=== PATIENT | female | born 1950 ===

== ENCOUNTER 2020-04-28 11:25 | Outpatient (REF) | payer MEDICARE, SELFPAY ==
--- NOTE | 2020-04-28 11:33 | XR_ITS ---
EXAMINATION: XR KNEE, RIGHT XR KNEE, LEFT CLINICAL INFORMATION: Bilateral knee pain COMPARISON: Bilateral knee radiographs 11/20/2017. TECHNIQUE: Each knee is imaged in 4 views for a total of 8 views. Series includes AP projections with weightbearing. FINDINGS: Right knee: There is no fracture or dislocation or destructive process. No definite suprapatellar effusion. There is spurring at the quadriceps insertion patella. Hoffa's fat pad appears normal. There is no knee joint compartment narrowing or erosive change or chondrocalcinosis. No patella lateralization or tilting appreciated. Left knee: There is a intramedullary kit left femur with 3 distal interlocking screws. Oblique fracture line femoral shaft distal faintly visible. There is no definite suprapatellar effusion. Hoffa's fat pad appears normal. There is no knee joint compartment narrowing or erosive change or chondrocalcinosis. Axial view patella shows no definite lateralization or tilting. XR/XR knee RT 4V IMPRESSION: 1. Right: No definite joint narrowing. Spurring quadriceps insertion patella. 2. Left knee: Status post reduction internal fixation femoral shaft fracture. Visualized hardware intact. No definite joint narrowing.
--- NOTE | 2020-04-28 11:33 | XR_ITS ---
EXAMINATION: XR KNEE, RIGHT XR KNEE, LEFT CLINICAL INFORMATION: Bilateral knee pain COMPARISON: Bilateral knee radiographs 11/20/2017. TECHNIQUE: Each knee is imaged in 4 views for a total of 8 views. Series includes AP projections with weightbearing. FINDINGS: Right knee: There is no fracture or dislocation or destructive process. No definite suprapatellar effusion. There is spurring at the quadriceps insertion patella. Hoffa's fat pad appears normal. There is no knee joint compartment narrowing or erosive change or chondrocalcinosis. No patella lateralization or tilting appreciated. Left knee: There is a intramedullary kit left femur with 3 distal interlocking screws. Oblique fracture line femoral shaft distal faintly visible. There is no definite suprapatellar effusion. Hoffa's fat pad appears normal. There is no knee joint compartment narrowing or erosive change or chondrocalcinosis. Axial view patella shows no definite lateralization or tilting. XR/XR knee LT 4V IMPRESSION: 1. Right: No definite joint narrowing. Spurring quadriceps insertion patella. 2. Left knee: Status post reduction internal fixation femoral shaft fracture. Visualized hardware intact. No definite joint narrowing.
== END 2020-04-28 11:26 | disposition home or self-care (01) ==
LOC: HO.XRAY 11:25
PROVIDERS: PCP Internal Medicine; Visit Provider Internal Medicine
DX: M25.561 Pain in right knee (principal); M25.562 Pain in left knee
CPT/HCPCS: 73564

== ENCOUNTER 2020-05-03 12:06 | Outpatient (REF) | payer MEDICARE, SELFPAY ==
[2020-05-03 13:54] LABS: Alanine Aminotransferase 17 U/L (0-31); Albumin Level 4.3 g/dL (3.5-5.0); Alkaline Phosphatase 86 U/L (39-117); Anion Gap 12 (12-20); Aspartate Amino Transferase 19 U/L (5-31); Bilirubin Total 0.4 mg/dL (0.0-1.0); Blood Urea Nitrogen 19 mg/dL (9-16); Calcium 9.4 mg/dL (8.4-10.2); Carbon Dioxide 29 mmol/L (22-29); Chloride 104 mmol/L (96-108); Cholesterol 179 mg/dL; Estimated Glomerular Filt Rate > 60; Glucose Fasting 93 mg/dL (60-99); HDL Cholesterol 36 mg/dL; LDL Cholesterol Calculated 104 mg/dl; Potassium 4.6 mmol/l (3.3-5.1); Sodium 140 mmol/L (135-145); Total Protein 7.3 g/dL (6.5-8.0); Triglycerides 196 mg/dL
== END 2020-05-03 12:07 | disposition home or self-care (01) ==
LOC: HO.LAB 12:06
PROVIDERS: Visit Provider Internal Medicine
DX: I10 Essential (primary) hypertension (principal)
CPT/HCPCS: 80053; 80061

== ENCOUNTER 2020-06-14 11:46 | Outpatient (REF) | payer MEDICARE, SELFPAY ==
--- NOTE | 2020-06-14 11:53 | XR_ITS ---
EXAMINATION: XR SHOULDER, LEFT CLINICAL INFORMATION: Pain left shoulder. COMPARISON: None TECHNIQUE: AP external rotation, Grashey, scapular Y, and axillary views of the left shoulder. FINDINGS: The glenohumeral joint space is maintained normal. There is minimal loss of left AC joint space with periarticular spurring. No acute fracture, dislocation or subluxation seen. The soft tissues are normal. XR/XR shoulder LT min 2V IMPRESSION: Mild degenerative changes left AC joint with periarticular inferior spurring. No visible acute fracture, dislocation or subluxation seen.
== END 2020-06-14 11:47 | disposition home or self-care (01) ==
LOC: HO.XRAY 11:46
PROVIDERS: PCP Internal Medicine; Visit Provider Internal Medicine
DX: M25.512 Pain in left shoulder (principal)
CPT/HCPCS: 73030

== ENCOUNTER 2020-07-17 10:00 | Outpatient (RCR) | payer MEDICARE, SELFPAY | END 2020-07-17 13:45 | disposition other institution (70) | LOC: HO.PT 10:00 | PROVIDERS: PCP Internal Medicine; Visit Provider Physical Therapist | DX: Z47.89 Encounter for other orthopedic aftercare (principal) | CPT/HCPCS: 97110; 97116; 97140; 97162; 97164; 97530 ==

== ENCOUNTER 2020-08-21 11:26 | Outpatient (REF) | payer MEDICARE, SELFPAY | END 2020-08-21 11:27 | disposition home or self-care (01) | LOC: HO.LAB 11:26 | PROVIDERS: Visit Provider Internal Medicine | DX: Z20.822 Contact with and (suspected) exposure to COVID-19 (principal) | CPT/HCPCS: 36415; C9803; U0003; U0005 ==

== ENCOUNTER → 2020-08-30 09:28 | Outpatient (BNVA) | payer MEDICARE, SELFPAY | PROVIDERS: Visit Provider Orthopaedic Surgery | DX: S46.002A Unspecified injury of muscle(s) and tendon(s) of the rotator cuff of left shoulder, initial encounter (principal) | CPT/HCPCS: 20610; 99202; J1040 ==

== ENCOUNTER 2020-10-06 11:00 | Outpatient (RCR) | payer MEDICARE, SELFPAY ==
[2020-09-08 10:08] VITALS: BP 118/60; PULSE 63
--- NOTE | 2020-09-08 10:58 | MHC.PT.EP ---
[facility] [place] Office [place] Office [place] Office [address] Alicia Vela [address] [phone] F: [phone] F: [phone] F: [phone] F: [phone] Physical Therapy Plan of Care Date of Evaluation: 09/08/20 Date of Surgery: NA Diagnosis: Unspecified injury of muscles ad tendons of rotator cuff of L shoulder, initial encounter Assessment: 70 year old female referred for Unspecified injury of muscles ad tendons of rotator cuff of L shoulder, initial encounter . Pt reports of having sudden onset of pain following a fall on outstretched arm about 6 months back. She has past history shoulder rotator cuff surgery. Examination reveals 7/10 pain with shoulder movements, decreased shoulder ROM, decreased shoulder and scap strengthening, and altered posture. She would benefit from therapy to address to above mentioned impairments to increase her tolerance to self care activities like dressing upper body and IADLS like cleaning, cooking and grocery shopping and returning to PLOF. Frequency and Duration: The patient will be seen 2/week for 6 weeks Short Term Goals: 1. Pt will have 50% decrease in pain which will enable her to sleep through the night in 2 weeks 2. Pt will demonstrate improvements in shoulder ROM which will help her perform self care activities with a pain no more than 2/10 in 3 weeks. Intermediate Goals: 1. Pt will demonstrate an increase in muscle strength by 1 grade which will enable her to perform IADLS like cleaning, grocery shopping and cooking in 5 weeks. 2. Pt will be independent with all HEP for symptom management and maintenance following d/c in 6 weeks. Treatment Plan: Modalities to reduce pain, spasms and effusion. Manual therapy to restore motion and function. Therapeutic exercise to improve strength and flexibility. Neuromuscular re-education for posture and balance. Therapeutic activities to return to functional activities of daily living. Electronically signed by: Ivone Walter, PT, DPT Please sign and return to therapist. Thank you for your referral.
--- NOTE | 2020-10-06 11:58 | MHC.PT.DC ---
[facility] [place] Office [place] Office [place] Office [address] Alicia Vela [address] [facility] [phone] F: [phone] F: [phone] F: [phone] F: [phone] Physical Therapy Discharge Report Diagnosis: Unspecified injury of muscles ad tendons of rotator cuff of L shoulder, initial encounter Date of Surgery: NA Date of Evaluation: 09/08/20 Date of Discharge: 10/06/20 Treatments to Date: 8 Cancellations to Date: 0 No Shows to Date: 0 Discharge Status: Recommend MD Follow-up Discharge Summary: 10/06/2020- Mary Jane has completed 8 PT visits. She continues state that her pain has been unchanged and has difficulty raising her arm past 90. She states she hasn't felt improvement from PT. She has been doing her HEP. Plan to d/c Mary Jane due to lack of improvement with therapy. She was advised to follow up with physician for further management of symptoms. Electronically signed by: Ivone Walter, PT, DPT Please sign and return to therapist. Thank you for your referral.
== END 2020-10-06 12:00 | disposition other institution (70) ==
LOC: HO.PT 11:00
PROVIDERS: PCP Internal Medicine; Visit Provider Orthopaedic Surgery
DX: S46.002A Unspecified injury of muscle(s) and tendon(s) of the rotator cuff of left shoulder, initial encounter (principal)
CPT/HCPCS: 97110; 97112; 97140; 97161; 97530

== ENCOUNTER 2021-01-18 11:11 | Outpatient (REF) | payer MEDICARE, SELFPAY ==
[2021-01-18 11:52] LABS: COVID-19 Test Negative (Negative); IDNOW Serial# 9DD0AD1C
== END 2021-01-18 11:12 | disposition home or self-care (01) ==
LOC: HO.LAB 11:11
PROVIDERS: PCP Internal Medicine; Visit Provider Internal Medicine
DX: Z20.822 Contact with and (suspected) exposure to COVID-19 (principal)
CPT/HCPCS: 36415; 87635; C9803

== ENCOUNTER 2021-02-19 09:14 | Outpatient (REF) | payer MEDICARE, SELFPAY ==
[2021-02-19 11:11] LABS: Alanine Aminotransferase 23 U/L (0-31); Albumin Level 4.2 g/dL (3.5-5.0); Alkaline Phosphatase 82 U/L (39-117); Anion Gap 11 (12-20); Aspartate Amino Transferase 21 U/L (5-31); Bilirubin Total 0.5 mg/dL (0.0-1.0); Blood Urea Nitrogen 17 mg/dL (9-16); Calcium 9.5 mg/dL (8.4-10.2); Carbon Dioxide 28 mmol/L (22-29); Chloride 108 mmol/L (96-108); Cholesterol 182 mg/dL; Estimated Glomerular Filt Rate > 60; Glucose Fasting 101 mg/dL (60-99); HDL Cholesterol 40 mg/dL; LDL Cholesterol Calculated 122 mg/dl; Potassium 4.4 mmol/L (3.3-5.1); Sodium 143 mmol/L (135-145); Total Protein 6.8 g/dL (6.5-8.0); Triglycerides 102 mg/dL
[2021-02-19 11:33] LABS: Thyroid Stimulating Hormone 1.18 uIU/mL (0.32-4.0)
== END 2021-02-19 09:15 | disposition home or self-care (01) ==
LOC: HO.LAB 09:14
PROVIDERS: Absent Provider Internal Medicine; PCP Internal Medicine; Visit Provider Nurse Practitioner Family
DX: Z13.1 Encounter for screening for diabetes mellitus (principal); E78.5 Hyperlipidemia, unspecified; E66.3 Overweight
CPT/HCPCS: 36415; 80053; 80061; 84443

== ENCOUNTER 2021-08-29 10:09 | Outpatient (REF) | payer OTHER, SELFPAY | END 2021-08-29 10:10 | disposition home or self-care (01) | LOC: HO.LAB 10:09 | PROVIDERS: PCP Internal Medicine; Visit Provider Internal Medicine | DX: R30.0 Dysuria (principal) | CPT/HCPCS: 87086; 87088; 87186 ==

== ENCOUNTER 2021-08-29 10:44 | Emergency (ER) | payer OTHER, SELFPAY ==
[2021-08-29 10:54] VITALS: BP 147/61; PULSE 69; RESP 16; TEMP 36.8; O2SAT 99; BMI 29.5
[2021-08-29 15:50] LABS: MANUAL DIFF FLAG NO
[2021-08-29 15:52] LABS: Basophils Percent Auto 0.5 % (0-2); Eosinophils Absolute Auto 0.2 X10*3/uL (0.0-0.4); Eosinophils Percent Auto 2.1 % (0-4); Hematocrit 39.8 % (37.0-47.0); Hemoglobin 12.7 g/dl (12.0-16.0); Imm Gran Abs Auto 0.02 X10*3/uL (0.00-0.03); Imm Gran Pct Auto 0.2 % (0.0-0.4); Lymphocytes Absolute Auto 3.2 X10*3/uL (1.2-4.9); Lymphocytes Percent Auto 39.6 % (20-40); Mean Corpuscular HGB Conc 31.9 g/dl (31.0-35.0); Mean Corpuscular Hemoglobin 28.6 pg (27.0-33.0); Mean Corpuscular Volume 89.6 fL (80.0-98.0); Mean Platelet Volume 9.8 fL (9.4-12.3); Monocytes Absolute Auto 0.5 X10*3/uL (0.1-1.2); Monocytes Percent Auto 5.9 % (2-11); Neutrophils Absolute Auto 4.2 x10*3/uL (2.0-8.3); Neutrophils Percent Auto 51.7 % (45-73); Platelet Count 293 X10*3/uL (160-400); Red Blood Count 4.44 X10*6/uL (4.20-5.50)
[2021-08-29 16:05] LABS: Appearance Urine CLEAR; Color Urine YELLOW; Glucose Urine UA NEG (NEG); Leukocyte Esterase Urine 1+ (NEG); Nitrite Urine POS (NEG); PH 5.5 (5.0-8.0); UACC Culture Trigger YES; Urine Blood TRACE (NEG); Urine Ketones NEG (NEG); Urine Protein NEG (NEG-TRACE)
[2021-08-29 16:14] LABS: Bacteria Urine 3+ /LPF; RBC Urine 0-2 /HPF (0); Squamous Epithelial Cell Urine TRACE /LPF
--- NOTE | 2021-08-29 16:46 | ED.GENADULT ---
HPI - General Adult General Chief complaint: Abdominal Pain Stated complaint: stomach pain/headaches/side pain Time Seen by Provider: 08/29/21 12:21 Source: patient Mode of arrival: ambulatory Limitations: no limitations History of Present Illness HPI narrative: Patient comes to the emergency room complaining of foul-smelling urine and right-sided flank pain for 3 weeks. Patient states that she was seen in [place] couple of weeks ago, she was told that she has a UTI, she was prescribed medication but she was unable to bulk picker her prescription. Patient denies fear chills Related Data Home Medications Medication Instructions Recorded Confirmed albuterol sulfate 90 mcg/actuation 2 puff INHALATION Q6H PRN 06/12/20 07/04/21 aerosol inhaler fluticasone propionate 110 1,000,000 mcg PO BID 06/12/20 07/04/21 mcg/actuation HFA aerosol inhaler montelukast 10 mg tablet 10 mg PO BEDTIME 06/12/20 07/04/21 naproxen 500 mg tablet 500 mg PO BID 06/12/20 07/04/21 Previous Rx's Medication Instructions Recorded cromolyn 4 % eye drops 1 drp OPHTHALMIC (EYE) QID 14 Days 10/11/20 #10 ml ketotifen fumarate 0.025 % (0.035 1 drp OPHTHALMIC (EYE) BID PRN 30 03/28/21 %) eye drops (Alaway) Days #5 ml lisinopril 5 mg tablet 5 mg PO DAILY 90 Days #90 tab 03/30/21 omeprazole 20 mg capsule,delayed 20 mg PO DAILY 90 Days #90 cap 03/30/21 release fluoxetine 20 mg capsule 20 mg PO QAM 90 Days #90 cap 07/17/21 tramadol 50 mg tablet 50 mg PO DAILY PRN 30 Days #30 tab 08/17/21 levofloxacin 500 mg tablet 500 mg PO DAILY #9 tab 08/29/21 phenazopyridine 100 mg tablet 100 mg PO TID PRN #6 tab 08/29/21 Allergies Allergy/AdvReac Type Severity Reaction Status Date / Time doxepin Allergy Intermediate loss of Verified 07/04/21 09:51 memory Latex, Natural Rubber Allergy Intermediate ITCHING Verified 07/04/21 09:51 [LATEX, NATURAL RUBBER] metronidazole [Rosadan] Allergy Intermediate mood change Verified 07/04/21 09:51 trazodone [TRAZODONE] Allergy Intermediate chest pain Verified 07/04/21 09:51 SEAFOOD Allergy Intermediate vomiting Uncoded 07/04/21 09:51 Review of Systems Review of Systems: Constitutional : No Weight loss, No Fever, No Chills, No Night Sweats, No Fatigue, No Malaise ENT/Mouth : No Hearing loss, No Ear Pain, No Nasal Congestion, No Sinus Pain, No Hoarseness, No sore throat, No Rhinorrhea, No Swallowing Difficulty Eyes: No Eye Pain, No Swelling, No Redness, No Foreign Body, No Discharge, No Vision Changes Cardiovascular : No Chest Pain, No SOB, No Dyspnea on Exertion, No Orthopnea, No Edema, No Palpitations Respiratory : No Cough, No Sputum, No Wheezing, No Smoke Exposure, No Dyspnea Gastrointestinal : No Nausea, No Vomiting, No Diarrhea, No Constipation, No abdominal Pain, No Hematochezia, No Melena Genitourinary : no irregular bleeding, complaining of foul-smelling urine, complaining of dysuria, frequency and right-sided flank pain, no hematuria Musculoskeletal : No joint pain, No Myalgias, No Joint Swelling Skin : No Skin Lesions, No rash Neuro : No Weakness, No Numbness, No Paresthesias, No Loss of Consciousness, No Dizziness, No Headache Psych : No Anxiety/Panic, No Depression, No SI/HI/AH/VH, No Social Issues, Heme/Lymph: No Bruising, No Bleeding,No Lymphadenopathy Endocrine : No Polyuria, No Polydipsia, No Temperature Intolerance PMFSH Past Medical History Medical History Blurry vision Depression Dysuria Essential hypertension Fibromyalgia GERD (gastroesophageal reflux disease) Injury of left rotator cuff Knee pain Left hand pain Left shoulder pain Mild asthma Mild recurrent major depression Overweight Surgical History History of cataract surgery History of cholecystectomy History of colonoscopy History of foot surgery History of hysterectomy History of removal of skin mole History of repair of rotator cuff Family History Family History Father Cardiac failure Mother Pulmonary embolism Family/Other FH: mental illness Sister Chronic mental illness Brother Glaucoma Social History Social History Housing: Apartment Alcohol intake: current Alcohol intake frequency: a few times a month Patient Tobacco Use Status: Never used Tobacco e-Cigarette/Vaping Use: Never Used Second Hand Smoke Exposure: No Advance Directives: No Advance Directives Information Provided: No service: No Current occupational status: retired and disabled Current occupation: right handed/ disabled Physical Exam ED Vital Signs: Vital Signs - 24 hr 08/29/21 10:54 08/29/21 16:49 Temperature 98.3 F 99 F Pulse Rate 69 56 Respiratory Rate 16 16 Blood Pressure 147/61 H 156/66 H Pulse Oximetry 99 98 BMI result Body Mass Index 29.5 Const Other: Appearance: Alert. Oriented X3. No acute distress. Well-appearing Eyes: Pupils equal, round and reactive to light. ENT: Pharynx normal. Neck: Normal inspection. Neck supple. No lymph nodes noted. No crepitus CVS: Normal heart rate and rhythm. Pulses normal. Normal S1 and S2 Respiratory: No respiratory distress. Breath sounds normal. No Wheezing. No rales Abdomen: Soft and nontender. No rigidity. No distention. Back: Mild right flank pain Skin: Skin warm and dry. Normal skin color. Normal skin turgor. Extremities: No lower extremity edema. No Lacerations. No Rash Neuro: Oriented X 3. No motor deficit. No sensory deficit. Moving all extremities. No slurred speech. CN 2 through 12 grossly intact Psych: calm, cooperative, normal affect Course Course Course Narrative: I discussed the labs with the patient, at this time sepsis is not suspected. Patient was given p.o. levofloxacin and phenazopyridine. Patient has no fever, creatinine function within normal limits, vitals within normal limits Medical Decision Making Lab Data Result diagrams: 08/29/21 15:38 08/29/21 15:38 Labs: Lab Results 08/29/21 08/29/21 08/29/21 Range/Units 15:38 15:38 15:53 WBC 8.0 (4.8-10.8) X10*3/uL RBC 4.44 (4.20-5.50) X10*6/uL Hgb 12.7 (12.0-16.0) g/dl Hct 39.8 (37.0-47.0) % MCV 89.6 (80.0-98.0) fL MCH 28.6 (27.0-33.0) pg MCHC 31.9 (31.0-35.0) g/dl RDW 13.0 (11.0-16.0) % Plt Count 293 (160-400) X10*3/uL MPV 9.8 (9.4-12.3) fL Immature Gran % (Auto) 0.2 (0.0-0.4) % Neut % (Auto) 51.7 (45-73) % Lymph % (Auto) 39.6 (20-40) % [place] % (Auto) 5.9 (2-11) % Eos % (Auto) 2.1 (0-4) % Baso % (Auto) 0.5 (0-2) % Lymph # (Auto) 3.2 (1.2-4.9) X10*3/uL [place] # (Auto) 0.5 (0.1-1.2) X10*3/uL Eos # (Auto) 0.2 (0.0-0.4) X10*3/uL Baso # (Auto) 0.0 (0.0-0.2) X10*3/uL Abs Immat Gran (auto) 0.02 (0.00-0.03) X10*3/uL Absolute Neuts (auto) 4.2 (2.0-8.3) x10*3/uL Absolute Nucleated RBC 0.000 (0.0-0.012) X10*3/uL Nucleated RBC % (auto) 0.0 (0.0-0.2) /100WBC Sodium 140 (135-145) mmol/L Potassium 4.4 (3.3-5.1) mmol/L Chloride 105 (96-108) mmol/L Carbon Dioxide 28 (22-29) mmol/L Anion Gap 11 L (12-20) BUN 14 (9-16) mg/dL Creatinine 0.76 (0.5-1.4) mg/dL Estim Creat Clear Calc 62.8 Estimated GFR > 60 Random Glucose 92 (60-115) mg/dL Calcium 9.7 (8.4-10.2) mg/dL Total Bilirubin 0.5 (0.0-1.0) mg/dL AST 21 (5-31) U/L ALT 21 (0-31) U/L Alkaline Phosphatase 73 (39-117) U/L Total Protein 7.1 (6.5-8.0) g/dL Albumin 4.3 (3.5-5.0) g/dL Urine Color YELLOW Urine Appearance CLEAR Urine pH 5.5 (5.0-8.0) Ur Specific Logan 1.020 (1.005-1.025) Urine Protein NEG (NEG-TRACE) MG/DL Urine Glucose (UA) NEG (NEG) MG/DL Urine Ketones NEG (NEG) MG/DL Urine Blood TRACE (NEG) Urine Nitrite POS H (NEG) Ur Leukocyte Esterase 1+ H (NEG) Urine RBC 0-2 (0) /HPF Urine WBC 5-9 H (0-4) /HPF Ur Squamous Epith Cells TRACE /LPF Urine Bacteria 3+ /LPF Discharge Plan Discharge Clinical Impression: Pyelonephritis Patient Disposition: Home, Self-Care Instructions: Kidney Infection (ED) Additional Instructions: Please follow-up with your primary care physician tomorrow. If you have any worsening or new symptoms, please return to the emergency room or call 911 Prescriptions: New levofloxacin 500 mg tablet 500 mg PO DAILY Qty: 9 0RF phenazopyridine 100 mg tablet 100 mg PO TID PRN (Reason: pain) Qty: 6 0RF No Action ketotifen fumarate [Alaway] 0.025 % (0.035 %) drops 1 drp ophthalmic (eye) BID PRN (Reason: allergy symptoms) 30 Days Qty: 5 2RF Rx Instructions: administer at least 8 hours apart lisinopril 5 mg tablet 5 mg PO DAILY 90 Days Qty: 90 3RF omeprazole 20 mg capsule,delayed release(DR/EC) 20 mg PO DAILY 90 Days Qty: 90 1RF fluoxetine 20 mg capsule 20 mg PO QAM 90 Days Qty: 90 3RF tramadol 50 mg tablet 50 mg PO DAILY PRN (Reason: pain) 30 Days Qty: 30 0RF cromolyn 4 % drops 1 drp ophthalmic (eye) QID 14 Days Qty: 10 1RF naproxen 500 mg tablet 500 mg PO BID 0RF Flovent HFA 110 mcg/actuation HFA aerosol inhaler 1,000,000 mcg PO BID 0RF albuterol sulfate 90 mcg/actuation HFA aerosol inhaler 2 puff inhalation Q6H PRN0RF montelukast 10 mg tablet 10 mg PO BEDTIME 0RF
[2021-08-29 16:49] VITALS: BP 156/66; PULSE 56; RESP 16; TEMP 37.2; O2SAT 98
[2021-08-29 18:04] LABS: Alanine Aminotransferase 21 U/L (0-31); Albumin Level 4.3 g/dL (3.5-5.0); Alkaline Phosphatase 73 U/L (39-117); Anion Gap 11 (12-20); Aspartate Amino Transferase 21 U/L (5-31); Bilirubin Total 0.5 mg/dL (0.0-1.0); Blood Urea Nitrogen 14 mg/dL (9-16); Calcium 9.7 mg/dL (8.4-10.2); Carbon Dioxide 28 mmol/L (22-29); Chloride 105 mmol/L (96-108); Creatinine Clr Calc Pharmacy 62.8; Estimated Glomerular Filt Rate > 60; Glucose Random 92 mg/dL (60-115); Potassium 4.4 mmol/L (3.3-5.1); Sodium 140 mmol/L (135-145); Total Protein 7.1 g/dL (6.5-8.0)
[2021-08-29] MEDS: levoFLOXacin 500 MG TABLET PO (18:57)
[2021-08-29] MEDS: Phenazopyridine HCL 100 MG TABLET PO (18:57)
== END 2021-08-29 19:01 | disposition home or self-care (01) ==
PROVIDERS: Emergency Provider Emergency Medicine; PCP Internal Medicine
DX: N12 Tubulo-interstitial nephritis, not specified as acute or chronic (principal); R10.9 Unspecified abdominal pain; R51.9 Headache, unspecified; Z79.899 Other long term (current) drug therapy
CPT/HCPCS: 36415; 80053; 81001; 81003; 85025; 99283; 99284

== ENCOUNTER 2021-09-04 08:16 | Outpatient (REF) | payer OTHER, SELFPAY ==
[2021-09-04 08:42] LABS: MANUAL DIFF FLAG NO
[2021-09-04 08:59] LABS: Basophils Percent Auto 0.4 % (0-2); Eosinophils Absolute Auto 0.1 X10*3/uL (0.0-0.4); Eosinophils Percent Auto 1.9 % (0-4); Hematocrit 37.2 % (37.0-47.0); Hemoglobin 11.9 g/dl (12.0-16.0); Imm Gran Abs Auto 0.02 X10*3/uL (0.00-0.03); Imm Gran Pct Auto 0.3 % (0.0-0.4); Lymphocytes Absolute Auto 2.5 X10*3/uL (1.2-4.9); Lymphocytes Percent Auto 35.9 % (20-40); Mean Corpuscular Hemoglobin 28.6 pg (27.0-33.0); Mean Corpuscular Volume 89.4 fL (80.0-98.0); Monocytes Absolute Auto 0.5 X10*3/uL (0.1-1.2); Monocytes Percent Auto 7.6 % (2-11); Neutrophils Absolute Auto 3.7 x10*3/uL (2.0-8.3); Neutrophils Percent Auto 53.9 % (45-73); Platelet Count 292 X10*3/uL (160-400); Red Blood Count 4.16 X10*6/uL (4.20-5.50); Red Cell Distribution Width 12.8 % (11.0-16.0); White Blood Count 6.8 X10*3/uL (4.8-10.8)
[2021-09-04 09:28] LABS: Alanine Aminotransferase 17 U/L (0-31); Alkaline Phosphatase 70 U/L (39-117); Anion Gap 13 (12-20); Aspartate Amino Transferase 21 U/L (5-31); Bilirubin Total 0.5 mg/dL (0.0-1.0); Blood Urea Nitrogen 18 mg/dL (9-16); Calcium 9.7 mg/dL (8.4-10.2); Carbon Dioxide 27 mmol/L (22-29); Chloride 105 mmol/L (96-108); Cholesterol 168 mg/dL; Estimated Glomerular Filt Rate > 60; Glucose Random 100 mg/dL (60-115); HDL Cholesterol 35 mg/dL; LDL Cholesterol Calculated 115 mg/dl; Potassium 4.3 mmol/L (3.3-5.1); Sodium 141 mmol/L (135-145); Total Protein 6.6 g/dL (6.5-8.0); Triglycerides 91 mg/dL
== END 2021-09-04 08:17 | disposition home or self-care (01) ==
LOC: HO.LAB 08:16
PROVIDERS: Absent Provider Internal Medicine; PCP Internal Medicine; Visit Provider Nurse Practitioner Acute Care
DX: R10.9 Unspecified abdominal pain (principal); E78.5 Hyperlipidemia, unspecified; I10 Essential (primary) hypertension
CPT/HCPCS: 36415; 80053; 80061; 85025

== ENCOUNTER 2021-09-05 08:22 | Outpatient (REF) | payer OTHER, SELFPAY ==
--- NOTE | ~2021-09-05 | XR_ITS ---
EXAMINATION: XR hand LT 2V CLINICAL INFORMATION: Pain COMPARISON: None TECHNIQUE: 3 views of the hand XR/XR hand LT 2V FINDINGS/IMPRESSION: No fracture or dislocation. Moderate degenerative changes of the first interphalangeal joint with degenerative spurring and loss of joint space and mild degenerative changes of the third distal interphalangeal and second distal interphalangeal joint with degenerative spurring. No cortical erosion. Soft tissues are unremarkable.
--- NOTE | ~2021-09-05 | US_ITS ---
EXAMINATION: US RETROPERITONEAL LIMITED (RENAL ONLY) CLINICAL INFORMATION: Unspecified abdominal pain. Right flank pain. COMPARISON: Ultrasound abdomen 07/29/2018. TECHNIQUE: Real-time imaging of the kidneys. FINDINGS: RIGHT KIDNEY: 10 x 5 x 5.8 cm (SAG x AP x TRV). The kidney is normal in size, contour, and echogenicity. Renal cortical thickness is normal. No calculi or focal parenchymal lesions. No hydronephrosis. LEFT KIDNEY: 10.9 x 6.2 x 4.0 cm (SAG x AP x TRV). The kidney is normal in size, contour, and echogenicity. Renal cortical thickness is normal. No calculi or focal parenchymal lesions. No hydronephrosis. US/US renal BI IMPRESSION: -No hydronephrosis or caliectasis. -No visible renal calculi.
--- NOTE | ~2021-09-05 | XR_ITS ---
EXAMINATION: XR shoulder LT min 2V CLINICAL INFORMATION: Reason for Exam pain in left shoulder COMPARISON: Shoulder radiographs 06/14/2020 TECHNIQUE: Four views of the shoulder. XR/XR shoulder LT min 2V FINDINGS/IMPRESSION: No acute fracture or dislocation. Mild degenerative changes of the glenohumeral and acromioclavicular joints with degenerative spurring similar to prior. Soft tissues are unremarkable. Visualized portion of lung appears clear.
== END 2021-09-05 08:23 | disposition home or self-care (01) ==
LOC: HO.US 08:22
PROVIDERS: Visit Provider Nurse Practitioner Acute Care
DX: R10.9 Unspecified abdominal pain (principal); G89.29 Other chronic pain; M25.512 Pain in left shoulder; M79.642 Pain in left hand
CPT/HCPCS: 73030; 73120; 76775

== ENCOUNTER → 2021-11-05 13:20 | Outpatient (BNVA) | payer OTHER, SELFPAY | PROVIDERS: PCP Internal Medicine; Referring Provider Internal Medicine; Visit Provider Physician Assistant | DX: K58.9 Irritable bowel syndrome, unspecified (principal) | CPT/HCPCS: 99212 ==

== ENCOUNTER 2021-11-20 08:58 | Outpatient (REF) | payer OTHER, SELFPAY ==
[2021-11-21 16:04] LABS: H Pylori Breath Test Negative (Negative)
== END 2021-11-20 08:59 | disposition home or self-care (01) ==
LOC: HO.LAB 08:58
PROVIDERS: Visit Provider Physician Assistant
DX: Z11.2 Encounter for screening for other bacterial diseases (principal)
CPT/HCPCS: 36415; 83013; 99211

== ENCOUNTER 2021-12-14 09:02 | Outpatient (REF) | payer OTHER, SELFPAY ==
--- NOTE | ~2021-12-14 | MR_ITS ---
EXAMINATION: MR ANGIOGRAPHY BRAIN WITHOUT CONTRAST CLINICAL INFORMATION: 71-year-old with self-reported throbbing sensation on right and top of head. History of nonruptured cerebral aneurysm. COMPARISON: No previous studies or reports are available for comparison. TECHNIQUE: 3-D [id number] MR angiography of the intracranial circulation was done with multiplanar reformatted reconstructions. FINDINGS: ANTERIOR CIRCULATION: The visualized portion of the cervical left ICA is smoothly contoured and normal in caliber. The visualized portion of the high cervical right ICA is markedly tortuous but otherwise normal in caliber, with a tortuous loop partially cut off from the [id number]. The intracranial ICAs are normal in caliber and smoothly contoured. The A1 and A2 segments and anterior communicating artery appear within normal limits. The M1 segments are bilaterally symmetric and are smoothly contoured with normal caliber with a normal appearance to the right MCA bifurcation. On the left, there is suspicion for a 3.5 mm saccular aneurysm arising from the MCA bifurcation which appears to have a wide neck. Otherwise, the M2 branches are patent and not focally stenotic. POSTERIOR CIRCULATION: The intradural vertebral arteries are patent, with the left being dominant. The posterior inferior cerebellar arteries are visualized bilaterally and appear within normal limits. The basilar artery is tortuous but is otherwise patent, smoothly contoured and normal in caliber. Superior cerebellar and posterior cerebral arteries are patent and normal in caliber. The posterior communicating arteries appear within normal limits. There are small infundibula at the origins of both PCOMs. No high-flow vascular malformations are identified. MR/MR angio head wo con IMPRESSION: 1. 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 2. No other intracranial aneurysms are identified. There are no high-flow vascular malformations. 3. Marked tortuosity of the high cervical right ICA.
== END 2021-12-14 09:03 | disposition home or self-care (01) ==
LOC: HO.MRI 09:02
PROVIDERS: Visit Provider Student in an Organized Health Care Education/Training Program
DX: I67.9 Cerebrovascular disease, unspecified (principal)
CPT/HCPCS: 70544

== ENCOUNTER → 2021-12-31 12:33 | Outpatient (BNVA) | payer OTHER, SELFPAY | PROVIDERS: PCP Internal Medicine; Visit Provider Physician Assistant | DX: K21.9 Gastro-esophageal reflux disease without esophagitis (principal); R11.0 Nausea | CPT/HCPCS: 99212 ==

== ENCOUNTER 2022-06-05 10:27 | Outpatient (REF) | payer OTHER, SELFPAY ==
[2022-06-05 12:06] LABS: Appearance Urine Clear; Color Urine Yellow; Glucose Urine UA Negative (Negative); Leukocyte Esterase Urine Negative (Negative); Nitrite Urine Negative (Negative); Specific Gravity - Urine 1.025 (1.005-1.025); Urine Blood Negative (Negative); Urine Ketones Negative (Negative); Urine Protein Negative (Neg-Trace)
[2022-06-05 13:12] LABS: Alanine Aminotransferase 14 U/L (0-31); Albumin Level 4.1 g/dL (3.5-5.0); Alkaline Phosphatase 81 U/L (39-117); Anion Gap 15 (12-20); Aspartate Amino Transferase 20 U/L (5-31); Bilirubin Total 0.4 mg/dL (0.0-1.0); Blood Urea Nitrogen 22 mg/dL (9-16); Calcium 9.6 mg/dL (8.4-10.2); Carbon Dioxide 26 mmol/L (22-29); Chloride 107 mmol/L (96-108); Estimated Glomerular Filt Rate > 60; Glucose Fasting 98 mg/dL (60-99); Potassium 4.6 mmol/L (3.3-5.1); Sodium 143 mmol/L (135-145); Total Protein 7.1 g/dL (6.5-8.0)
[2022-06-05 13:16] LABS: Vitamin D 25-OH Total 24.5 ng/mL (>30)
[2022-06-11 15:28] LABS: Thyroid Stimulating Immunoglob <89 % baseline (<140)
== END 2022-06-05 10:28 | disposition home or self-care (01) ==
LOC: HO.LAB 10:27
PROVIDERS: PCP Internal Medicine; Visit Provider Nurse Practitioner Family
DX: R31.9 Hematuria, unspecified (principal); R53.82 Chronic fatigue, unspecified; E55.9 Vitamin D deficiency, unspecified; I10 Essential (primary) hypertension
CPT/HCPCS: 36415; 80053; 81003; 82306; 84445

== ENCOUNTER → 2022-07-18 08:08 | Outpatient (REF) | payer OTHER, SELFPAY ==
--- NOTE | ~2022-07-18 | NM_ITS ---
EXAMINATION: MN RADIONUCLIDE FOOD GASTRIC EMPTYING 4-HOUR STUDY CLINICAL INFORMATION: Gastroesophageal reflux without esophagitis. COMPARISON: None TECHNIQUE: A standard meal consisting of 4 oz of Egg Beaters brand tagged with 970 microcuries Tc-99m Sulfur Colloid, 8 oz water and 2 slices of toast with jelly was administered orally to the patient. Images were obtained using a dual head gamma camera in the anterior and posterior projections over of the stomach immediately post ingestion and at hourly intervals up to 4 hours post ingestion. The anterior and posterior counts at each time interval were averaged using the geometric mean and expressed as percentage of the immediate post ingestion counts. FINDINGS: There is good visualization of activity in the stomach immediately post ingestion. As the study progresses, there is good clearance of activity from the stomach and visualization of progressively increasing small bowel activity. By the end of the study, there is almost no retention noted in the stomach. Retention in the stomach at each time interval was: 1 hour 62% (normal 37%-90%) 2 hours 29% (normal 30%-60%) 3 hours 24% 4 hours 2% (normal 0%-10%) MN/MN gastric emptying study IMPRESSION: Normal 4-hour solid food gastric emptying study.
== END ==
LOC: HO.NUCMED 08:08
PROVIDERS: PCP Internal Medicine; Visit Provider Physician Assistant
DX: K21.9 Gastro-esophageal reflux disease without esophagitis (principal); R11.0 Nausea
CPT/HCPCS: 78264; A9541

== ENCOUNTER → 2022-08-05 11:43 | Outpatient (BNVA) | payer OTHER, SELFPAY | PROVIDERS: PCP Internal Medicine; Referring Provider Internal Medicine; Visit Provider Physician Assistant | DX: R11.0 Nausea (principal); K21.9 Gastro-esophageal reflux disease without esophagitis; R31.9 Hematuria, unspecified; Z79.899 Other long term (current) drug therapy | CPT/HCPCS: 99212 ==

== ENCOUNTER 2022-09-23 09:41 | Outpatient (REF) | payer OTHER, SELFPAY ==
[2022-09-23 16:20] LABS: Urine Cytology See Pathology rpt
== END 2022-09-23 09:42 | disposition home or self-care (01) ==
LOC: HO.LAB 09:41
PROVIDERS: PCP Internal Medicine; Visit Provider Nurse Practitioner Family
DX: R31.9 Hematuria, unspecified (principal); R39.89 Other symptoms and signs involving the genitourinary system; R35.0 Frequency of micturition
CPT/HCPCS: 88112; 99202

== ENCOUNTER 2022-10-04 11:05 | Outpatient (REF) | payer OTHER, SELFPAY ==
--- NOTE | ~2022-10-04 | US_ITS ---
EXAMINATION: US RETROPERITONEAL COMPLETE (RENAL) CLINICAL INFORMATION: Hematuria, unspecified. COMPARISON: Renal ultrasound 09/05/2021. Ultrasound abdomen 07/29/2018. TECHNIQUE: Real-time imaging of the kidneys and bladder. FINDINGS: RIGHT KIDNEY: 9.4 x 5.2 x 5 cm (SAG x AP x TRV). The kidney is normal in size, contour, and echogenicity. Renal cortical thickness is normal. No calculi or focal parenchymal lesions. No hydronephrosis. LEFT KIDNEY: 10.1 x 5.8 x 4.5 cm (SAG x AP x TRV). The kidney is normal in size, contour, and echogenicity. Renal cortical thickness is normal. No calculi or focal parenchymal lesions. No hydronephrosis. BLADDER: The bladder is well-distended. Mild diffuse bladder wall thickening noted. Bilateral ureteral jets are demonstrated. Prevoid bladder volume is 441 mL. Postvoid bladder volume is 53 mL. US/US retroperitoneal comp IMPRESSION: 1. No renal calculi or hydronephrosis of either kidney. 2. Prominent post void bladder residual of 53 mL.
== END 2022-10-04 11:06 | disposition home or self-care (01) ==
LOC: HO.US 11:05
PROVIDERS: PCP Internal Medicine; Visit Provider Nurse Practitioner Family
DX: R31.9 Hematuria, unspecified (principal); R39.89 Other symptoms and signs involving the genitourinary system; R35.0 Frequency of micturition
CPT/HCPCS: 76770

== ENCOUNTER → 2022-10-07 11:27 | Outpatient (BNVA) | payer OTHER, SELFPAY | PROVIDERS: PCP Internal Medicine; Visit Provider Physician Assistant | DX: R11.0 Nausea (principal) | CPT/HCPCS: 99212 ==

== ENCOUNTER → 2022-11-04 14:05 | Outpatient (BNVA) | payer OTHER, SELFPAY | PROVIDERS: PCP Internal Medicine; Visit Provider Urology | DX: R31.9 Hematuria, unspecified (principal); R39.89 Other symptoms and signs involving the genitourinary system; R35.0 Frequency of micturition; N32.89 Other specified disorders of bladder | CPT/HCPCS: 99212 ==

== ENCOUNTER → 2022-11-11 11:44 | Outpatient (BNVA) | payer OTHER, SELFPAY | PROVIDERS: Visit Provider Physician Assistant | DX: K21.9 Gastro-esophageal reflux disease without esophagitis (principal) | CPT/HCPCS: 99212 ==

== ENCOUNTER 2022-11-29 14:22 | Outpatient (AMB) | payer OTHER, SELFPAY ==
--- NOTE | 2022-11-29 13:06 | A.OFFVIS_ITS ---
Intake Intake Visit Reasons: Cysto Intake Note: Patient presents today for a CYSTO Procedure * Meds: Estradiol * Allergies to Antibiotic: None * Blood Thinner: Aspirin * Urinalysis test clear for Cysto Disposible Uro-G Cystoscope Cannula * Lot: [id number] * Exp: 11/08/2024 Environmental Issues Instructor Required: Yes Environmental Issues Instructor Language: Senior Net Software Engineer Name: ASHLY Dotson/ANDREY Ward Accompanied by: Self / Same As Patient Allergies doxepin Allergy (Intermediate, Verified 01/20/23 11:48) loss of memory Latex, Natural Rubber [LATEX, NATURAL RUBBER] Allergy (Intermediate, Verified 01/20/23 11:48) ITCHING metronidazole [Rosadan] Allergy (Intermediate, Verified 01/20/23 11:48) mood change morphine Allergy (Intermediate, Verified 01/20/23 11:48) Chest Pain trazodone [TRAZODONE] Allergy (Intermediate, Verified 01/20/23 11:48) chest pain SEAFOOD Allergy (Intermediate, Uncoded 01/20/23 11:48) vomiting HPI HPI Comments History of Present Illness Details Kenna is a 72-year-old female who presents to the office for cystoscopy procedure. 11/29/22-- The patient is Afghan speaking female. certified seismic interpreter was present during the visit. The patient was last seen in the office on 11/04/22 for urinary frequency and urge incontinence. She was initially seen as new patient evaluation on 09/23/22 by JAVIER Alva. Work up included renal US. Renal US results reviewed--10/04/22-- WNL, kidneys are normal, Diffused bladder wall thickening was noted. Urine cytology results reviewed--09/23/22-- negative for malignancy. The patient is using estrogen cream vaginally with minimal benefits. States having urinary leakage and is using pads. Evaluation today UA: Blood: 10 Mane/uL, leukocytes: 2+. Cystoscopy findings-- erythematous changes consistent with cystitis follicularis I discussed to hold on anti-cholinergic medication pending antibiotic therapy for cystitis. Plan: Ceftum 500 mg BID for ten days. Pending the urine culture will start the patient on daily antibiotic suppressive therapy. Follow-up after 2 months. [facility] Medical History Blurry vision Depression Dysuria Essential hypertension Fibromyalgia GERD (gastroesophageal reflux disease) Hematuria IBS (irritable bowel syndrome) Injury of left rotator cuff Knee pain Left hand pain Left shoulder pain Mild asthma Mild recurrent major depression Overweight Surgical History History of brain surgery History of cataract surgery History of cholecystectomy History of colonoscopy History of foot surgery History of hysterectomy History of removal of skin mole History of repair of rotator cuff History of surgery on lower extremity Family History Father Cardiac failure Mother Pulmonary embolism Family/Other FH: mental illness Sister Chronic mental illness Brother Glaucoma Social History Housing: Apartment Alcohol intake: current Alcohol intake frequency: a few times a month Patient Tobacco Use Status: Never used Tobacco e-Cigarette/Vaping Use: Never Used Second Hand Smoke Exposure: No service: No Current occupational status: retired and disabled Current occupation: right handed/ disabled Cognitive needs: Yes (walker) Hearing needs: No Vision needs: Yes (glasses) Review of Systems Const All systems reviewed & are unremarkable except as noted in HPI and below Reports no additional complaints Eyes Reports no additional complaints ENT Reports no additional complaints Card Denies dyspnea Resp Denies cough and Denies dyspnea GI Reports no additional complaints Reports no additional complaints Musc Reports no additional complaints Skin/Breast Denies rash and Denies unusual bruising Neuro Reports no additional complaints Psych Reports no additional complaints Endo Reports no additional complaints Puneet/Lymph Reports no additional complaints Aller/Immun Reports no additional complaints Physical Exam Const General: cooperative, healthy appearing and no acute distress Orientation/consciousness: patient oriented x3 HEENT Head: Yes normal to inspection, Yes normocephalic and Yes atraumatic Eyes Conjunctivae: conjunctivae normal Neck Neck: Yes normal visual inspection and Yes trachea midline Chest Chest palpation & inspection: normal inspection of the chest Resp Effort & Inspection: normal respiratory effort Cardio Rate: regular rate GI Inspection: Yes normal to inspection Skin General skin exam: no rashes or lesions noted Neuro General: patient oriented x3 Extrem General: No edema Psych Appearance: grossly normal Office Procedures Cystoscopy Consent Discussed risk and benefit or proposed procedure with the patient. Information consent for procedure given to the patient. Discussed technical aspects, risks, benefits and alternatives in full. Addressed all of the patient's questions and concerns regarding the procedure. The patient demonstrated knowledge and understanding. They wish to proceed with this procedure. Preparation The patient was prepped in the usual manner. A rn field case manager was present and in the room. Genitalia was prepped with betadine solution in a sterile manner. Lidocaine Jelly 2% was placed into the urethra and 16Fr flexible Olympus cystoscope was inserted into the meatus after adequate lubrication. Procedure Time out per protocol performed. Bladder Inspection Bladder Inspection: The bladder was inspected in its entirety with utilization retroflexion displaying: Tumor(s): none visualized Trabeculation: N/A Mucosal Erthema: mild to moderate Orifices: normal shape and position Urethra: normal Cystoscopy findings-- erythematous changes consistent with cystitis follicularis [id number] Procedure code (CPT) selection complete Office Meds lidocaine HCl Performing Provider: Vinayak Vinson MD Administered by: Halima Dorantes RN on 11/29/22 14:44 Dose Route Admin Location Lot Number Expiration Date [place] [employer] 10 mL intra-urethral naproxen Performing Provider: Vinayak Vinson MD Administered by: Halima Dorantes RN on 11/29/22 14:44 Dose Route Admin Location Lot Number Expiration Date [facility] [employer] 500 mg PO ciprofloxacin HCl Performing Provider: Vinayak Vinson MD Administered by: Halima Dorantes RN on 11/29/22 14:44 Dose Route Admin Location Lot Number Expiration Date [employer] 500 mg PO Assessment & Plan Assessment & Plan (1) Bladder wall thickening: Code(s): N32.89 - Other specified disorders of bladder (2) Cystitis: Code(s): N30.90 - Cystitis, unspecified without hematuria (3) Urinary incontinence: Code(s): R32 - Unspecified urinary incontinence Plan Ceftum 500 mg BID for ten days. Pending the urine culture will start the patient on daily antibiotic suppressive therapy. Follow-up after 2 months. Orders: Orders Urine Culture 11/29/22 N39.0 - Urinary tract infection, site not specified AMB Cystoscopy 11/29/22 N32.89 - Other specified disorders of bladder Medications: New cefuroxime axetil 500 mg PO BID 20 tabs 0RF 10 days Patient Instructions: The patient had an opportunity to ask questions regarding treatment plan. All questions were answered. Imaging, Laboratory studies and physical exam results were discussed and reviewed in detail. No major barriers to understanding were identified. The patient expressed understanding and agreement with the above treatment plan. The patient is aware they should contact our office by phone for worsening of their current condition or the appearance of new symptoms. Compliance is encouraged with any medications and followup testing that is ordered. It is a privilege to be allowed the opportunity to participate in the urologic care of your patient. If you have any questions or concerns regarding treatment for the above conditions please do not hesitate to contact me. The office telephone contact is [phone]. This note is constructed in part using voice recognition software. While every effort has been made to ensure accuracy coal briquette machine operator errors may have been included. Yours sincerely, Vinayak Vinson MD Coding Level of Care Code Est Pt Level 3 (34672) Diagnoses Bladder wall thickening N32.89 Cystitis N30.90 Urinary incontinence R32 CPT Codes Cystoscopy - CPT: 80551-[id number] ([id number])
== END 2022-11-29 15:15 | disposition home or self-care (01) ==
PROVIDERS: PCP Internal Medicine; Visit Provider Urology
DX: N32.89 Other specified disorders of bladder (principal); N30.90 Cystitis, unspecified without hematuria; R32 Unspecified urinary incontinence
CPT/HCPCS: 52000; 99213

== ENCOUNTER 2022-11-29 14:22 | Outpatient (REF) | payer OTHER, SELFPAY | END 2022-11-29 14:23 | disposition home or self-care (01) | LOC: HO.LAB 14:22 | PROVIDERS: PCP Internal Medicine; Visit Provider Urology | DX: N30.90 Cystitis, unspecified without hematuria (principal); N32.89 Other specified disorders of bladder; R32 Unspecified urinary incontinence | CPT/HCPCS: 52000; 87086; 99212 ==

== ENCOUNTER 2023-01-20 11:36 | Outpatient (AMB) | payer OTHER, SELFPAY ==
--- NOTE | 2023-01-20 11:44 | MHC.OFFVIS ---
Intake Vital Signs 01/20/23 11:46 Height 5 ft 1 in Weight 112 lb 6.972 oz BMI 21.2 BP 114/59 L Blood Pressure Location Lt brachial Position Sitting Pulse 67 Intake Visit Reasons: follow up per elizabeth Intake Note: Kenna presents in the office as a follow up per Elizabeth. CC: She states that she is having discomfort in her stomach - she feels like when she eats she has food gets stuck in the epigastric region of her abdomen. She states that sometimes she has constipation and sometimes she has diarrhea. [employer] Required: Yes [employer] Name: Iram [id number] Allergies doxepin Allergy (Intermediate, Verified 01/20/23 11:48) loss of memory Latex, Natural Rubber [LATEX, NATURAL RUBBER] Allergy (Intermediate, Verified 01/20/23 11:48) ITCHING metronidazole [Rosadan] Allergy (Intermediate, Verified 01/20/23 11:48) mood change morphine Allergy (Intermediate, Verified 01/20/23 11:48) Chest Pain trazodone [TRAZODONE] Allergy (Intermediate, Verified 01/20/23 11:48) chest pain SEAFOOD Allergy (Intermediate, Uncoded 01/20/23 11:48) vomiting HPI follow up per elizabeth HPI Details 72 yr old f here for f/u She feels food getting stuck in the epigastric area can be any food, ok with liquids she denies dysphagia, [place] sget nausea at time, satiety, weight going up she takes PPI for omeprazole and it works well she has variable bowel habits, between constipation and dirrhea she is havign treatment for UTI LABS: TEST: US: -- retroperitoneum--nml GES: 07/18-- nml EXAM: GENERAL: The patient is well developed and nontoxic. VITAL SIGNS:see workflow HEENT: Nonicteric sclerae, PERRLA, EOMI. Oropharynx clear. Moist mucous membranes. Conjunctivae appear well perfused. No thyroid mass. CHEST: Chest wall is nontender. HEART: Regular rate and rhythm without murmurs. LUNGS: Clear to auscultation bilaterally. ABDOMEN: Soft, positive bowel sounds, tender eoigastrium, no organomegaly.no flank tenderness SKIN: No rash, no excessive bruising, petechiae, or purpura. NEUROLOGIC: Cranial nerves II-XII intact without motor/sensory deficit. A/P: 1/ Satiety and epigastric hold up of food, ? extrinsic or intrinsic compression of GI tract PLAN: 1/ CT with contrast (she thinks she has allergy and always gets pre medicated, so sent) 2/ labs incl UA< TSH, Ig, CRP, RAST PFSH Medical History Blurry vision Depression Dysuria Essential hypertension Fibromyalgia GERD (gastroesophageal reflux disease) Hematuria IBS (irritable bowel syndrome) Injury of left rotator cuff Knee pain Left hand pain Left shoulder pain Mild asthma Mild recurrent major depression Overweight Surgical History History of brain surgery History of cataract surgery History of cholecystectomy History of colonoscopy History of foot surgery History of hysterectomy History of removal of skin mole History of repair of rotator cuff History of surgery on lower extremity Family History Father Cardiac failure Mother Pulmonary embolism Family/Other FH: mental illness Sister Chronic mental illness Brother Glaucoma Social History Housing: Apartment Alcohol intake: current Alcohol intake frequency: a few times a month Patient Tobacco Use Status: Never used Tobacco e-Cigarette/Vaping Use: Never Used Second Hand Smoke Exposure: No service: No Current occupational status: retired and disabled Current occupation: right handed/ disabled Cognitive needs: Yes (walker) Hearing needs: No Vision needs: Yes (glasses) Physical Exam Vital Signs: Last Vital Signs Pulse 67 01/20/23 11:46 BP 114/59 L 01/20/23 11:46 BMI result Body Mass Index 21.2 Assessment & Plan Assessment & Plan (1) Urinary frequency: Code(s): R35.0 - Frequency of micturition (2) Hematuria: Code(s): R31.9 - Hematuria, unspecified (3) Early satiety: Code(s): R68.81 - Early satiety (4) Epigastric fullness: Code(s): R19.06 - Epigastric swelling, mass or lump Orders: Orders C Reactive Protein Today R19.06 - Epigastric swelling, mass or lump, R31.9 - Hematuria, unspecified, R35.0 - Frequency of micturition, R68.81 - Early satiety UA CC w/rflx Micro + Cult Today R19.06 - Epigastric swelling, mass or lump, R30.0 - Dysuria, R31.9 - Hematuria, unspecified, R35.0 - Frequency of micturition, R68.81 - Early satiety TSH reflex Free T4 Today R19.06 - Epigastric swelling, mass or lump, R31.9 - Hematuria, unspecified, R35.0 - Frequency of micturition, R68.81 - Early satiety Complete Blood Count Auto Diff Today R19.06 - Epigastric swelling, mass or lump, R31.9 - Hematuria, unspecified, R35.0 - Frequency of micturition, R68.81 - Early satiety Comprehensive Met. Panel Today K75.81 - Nonalcoholic steatohepatitis (MCCRARY), R19.06 - Epigastric swelling, mass or lump, R31.9 - Hematuria, unspecified, R35.0 - Frequency of micturition, R68.81 - Early satiety Rast Allergen Today R19.06 - Epigastric swelling, mass or lump, R31.9 - Hematuria, unspecified, R35.0 - Frequency of micturition, R68.81 - Early satiety Immunoglobulin E Today R19.06 - Epigastric swelling, mass or lump, R31.9 - Hematuria, unspecified, R35.0 - Frequency of micturition, R68.81 - Early satiety Immunoglobulins,IgG IgA IgM Today R19.06 - Epigastric swelling, mass or lump, R31.9 - Hematuria, unspecified, R35.0 - Frequency of micturition, R68.81 - Early satiety Erythrocyte Sedimentation Rate Today R19.06 - Epigastric swelling, mass or lump, R31.9 - Hematuria, unspecified, R35.0 - Frequency of micturition, R68.81 - Early satiety Ferritin Today R19.06 - Epigastric swelling, mass or lump, R31.9 - Hematuria, unspecified, R35.0 - Frequency of micturition, R68.81 - Early satiety Vitamin B12 and Folate Today R19.06 - Epigastric swelling, mass or lump, R31.9 - Hematuria, unspecified, R35.0 - Frequency of micturition, R68.81 - Early satiety Immunoglobulin G Today K52.839 - Microscopic colitis, unspecified, R19.06 - Epigastric swelling, mass or lump, R31.9 - Hematuria, unspecified, R35.0 - Frequency of micturition, R68.81 - Early satiety Transglutaminase Ab IgG Today G89.29 - Other chronic pain, R10.33 - Periumbilical pain, R19.06 - Epigastric swelling, mass or lump, R31.9 - Hematuria, unspecified, R35.0 - Frequency of micturition, R68.81 - Early satiety Hepatitis A,B,C Profile Today R19.06 - Epigastric swelling, mass or lump, R31.9 - Hematuria, unspecified, R35.0 - Frequency of micturition, R68.81 - Early satiety Zinc Today R19.06 - Epigastric swelling, mass or lump, R31.9 - Hematuria, unspecified, R35.0 - Frequency of micturition, R68.81 - Early satiety CT abdomen pelvis w IV con Today R19.06 - Epigastric swelling, mass or lump, R31.9 - Hematuria, unspecified, R35.0 - Frequency of micturition, R68.81 - Early satiety Medications: New prednisone Prednisone 50 mg PO at 13 hours, 7 hours, and 1 hour before contrast media injection for CAT scan 50 mg PO DIRECTED 1 day 3 tabs 0RF diphenhydramine HCl (Allergy (diphenhydramine)) Diphenhydramine 50 mg PO, 1 hour before contrast media injection for CAT. 50 mg (2 x 25 mg) PO DIRECTED 1 tab 0RF Coding Level of Care Code Est Pt Level 4 (04903) Diagnoses Urinary frequency R35.0 Hematuria R31.9 Early satiety R68.81 Epigastric fullness R19.06
[2023-01-20 11:46] VITALS: BP 114/59; PULSE 67; BMI 21.2
== END 2023-01-20 13:11 | disposition home or self-care (01) ==
PROVIDERS: PCP Internal Medicine; Visit Provider Internal Medicine Gastroenterology
DX: R35.0 Frequency of micturition (principal); R31.9 Hematuria, unspecified; R68.81 Early satiety; R19.06 Epigastric swelling, mass or lump
CPT/HCPCS: 99214

== ENCOUNTER 2023-01-20 11:36 | Outpatient (REF) | payer OTHER, SELFPAY ==
[2023-01-20 12:48] LABS: MANUAL DIFF FLAG NO
[2023-01-20 13:29] LABS: Basophils Percent Auto 0.5 % (0-2); Eosinophils Absolute Auto 0.2 X10*3/uL (0.0-0.4); Eosinophils Percent Auto 2.5 % (0-4); Hemoglobin 11.6 g/dl (12.0-16.0); Imm Gran Abs Auto 0.02 X10*3/uL (0.00-0.03); Imm Gran Pct Auto 0.3 % (0.0-0.4); Lymphocytes Absolute Auto 2.5 X10*3/uL (1.2-4.9); Lymphocytes Percent Auto 34.5 % (20-40); Mean Corpuscular HGB Conc 32.2 g/dl (31.0-35.0); Mean Corpuscular Hemoglobin 28.7 pg (27.0-33.0); Mean Corpuscular Volume 89.1 fL (80.0-98.0); Mean Platelet Volume 10.1 fL (9.4-12.3); Monocytes Absolute Auto 0.5 X10*3/uL (0.1-1.2); Monocytes Percent Auto 6.5 % (2-11); Neutrophils Absolute Auto 4.1 x10*3/uL (2.0-8.3); Neutrophils Percent Auto 55.7 % (45-73); Platelet Count 318 X10*3/uL (160-400); Red Blood Count 4.04 X10*6/uL (4.20-5.50); Red Cell Distribution Width 13.3 % (11.0-16.0); White Blood Count 7.3 X10*3/uL (4.8-10.8)
[2023-01-20 14:01] LABS: Alanine Aminotransferase 19 U/L (0-31); Alkaline Phosphatase 91 U/L (39-117); Anion Gap 11 (12-20); Aspartate Amino Transferase 19 U/L (5-31); Bilirubin Total 0.1 mg/dL (0.0-1.0); Blood Urea Nitrogen 26 mg/dL (9-16); C Reactive Protein 0.33 mg/dL (< or = 0.50); Calcium 9.8 mg/dL (8.4-10.2); Carbon Dioxide 27 mmol/L (22-29); Chloride 107 mmol/L (96-108); Estimated Glomerular Filt Rate > 60; Glucose Random 91 mg/dL (60-115); Potassium 4.5 mmol/L (3.3-5.1); Sodium 140 mmol/L (135-145); Total Protein 7.1 g/dL (6.5-8.0)
[2023-01-20 14:05] LABS: Appearance Urine Clear; Color Urine Yellow; Glucose Urine UA Negative (Negative); Leukocyte Esterase Urine Small (1+) (Negative); Nitrite Urine Negative (Negative); PH 5.5 (5.0-9.0); UMIC TRIGGER UACC YES; Urine Blood Negative (Negative); Urine Ketones Negative (Negative); Urine Protein Negative (Neg-Trace)
[2023-01-20 14:07] LABS: Bacteria Urine None Seen (None Seen); Hyaline Casts Urine 0-2 /LPF (0-2); Squamous Epithelial Cell Urine 0-2 /HPF (0-2); UACC Culture Trigger YES
[2023-01-20 14:09] LABS: Erythrocyte Sedimentation Rate 13 MM/HR (0-20); Ferritin 106 ng/mL (10-250)
[2023-01-20 14:50] LABS: Folate 10.4 ng/mL (> or = 4.0); Vitamin B12 749 pg/mL (200-900)
[2023-01-21 04:39] LABS: HBc Num1 0.14 S/CO (0.00-0.79); Hepatitis A Antibody IgM 0.35 Index (0-0.79); Hepatitis B Core Antibody Nonreactive (Nonreactive); Hepatitis B Surface Antigen Negative (Negative); ~HepC Num1 0.14 S/CO (0.00-0.79); ~Hepatitis A Antibody IgM Nonreactive (Nonreactive); ~Hepatitis B Surface Antibody REACTIVE (Nonreactive); ~Hepatitis C Antibody Nonreactive (Nonreactive)
[2023-01-22 13:44] LABS: IgA 206 mg/dL (70-320); IgG 1184 mg/dL (600-1540); IgM 112 mg/dL (50-300)
[2023-01-22 21:18] LABS: Transglutaminase Ab IgG <1.0 U/mL
[2023-01-23 00:53] LABS: Zinc 60 mcg/dL (60-130)
[2023-01-30 05:45] LABS: Immunoglobulin E 605 kU/L (<OR=114)
== END 2023-01-20 11:37 | disposition home or self-care (01) ==
LOC: HO.LAB 11:36
PROVIDERS: PCP Internal Medicine; Visit Provider Internal Medicine Gastroenterology
DX: R19.06 Epigastric swelling, mass or lump (principal); R31.9 Hematuria, unspecified; R35.0 Frequency of micturition; R68.81 Early satiety; K75.81 Nonalcoholic steatohepatitis (NASH); K52.839 Microscopic colitis, unspecified; G89.29 Other chronic pain; R10.33 Periumbilical pain; Z91.09 Other allergy status, other than to drugs and biological substances
CPT/HCPCS: 36415; 80053; 81001; 81003; 82607; 82728; 82746; 82784; 82785; 84443; 84630; 85025; 85652; 86003; 86140; 86364; 86704; 86706; 86709; 86803; 87086; 87340; 99212

== ENCOUNTER 2023-01-28 13:58 | Emergency (ER) | payer OTHER, SELFPAY ==
[2023-01-28 14:19] VITALS: BP 126/63; PULSE 68; RESP 18; TEMP 36.3; O2SAT 96; BMI 30.2
--- NOTE | 2023-01-28 14:19 | ED.GENADULT ---
HPI - General Adult General Chief complaint: Extremity Injury, Upper Stated complaint: L shoulder pain/neck pain 2 days Time Seen by Provider: 01/28/23 16:10 Related Data Home Medications Medication Instructions Recorded Confirmed montelukast 10 mg tablet 10 mg PO BEDTIME 06/12/20 04/25/23 aspirin 81 mg tablet,delayed 81 mg PO DAILY 08/05/22 04/25/23 release melatonin 10 mg disintegrating 20 mg PO BEDTIME PRN 01/20/23 04/25/23 tablet Previous Rx's Medication Instructions Recorded cromolyn 4 % eye drops 1 drp ophthalmic (eye) QID 14 days 10/11/20 #10 mL albuterol sulfate 90 mcg/actuation 2 puff inhalation Q6H PRN 08/29/22 aerosol inhaler bronchospasm 30 days #6.7 grams fluticasone propionate 110 1,000,000 mcg PO BID #12 grams 08/29/22 mcg/actuation HFA aerosol inhaler ondansetron 4 mg disintegrating 4 mg PO DAILY #20 tabs 10/07/22 tablet ketotifen fumarate 0.025 % (0.035 1 drp ophthalmic (eye) BID PRN 12/12/22 %) eye drops (Alaway) allergy symptoms 30 days #5 mL diphenhydramine HCl 25 mg tablet 50 mg (2 x 25 mg) PO DIRECTED 01/20/23 (Allergy (diphenhydramine)) #1 tab prednisone 50 mg tablet 50 mg PO DIRECTED 1 day #3 tabs 01/20/23 estradiol 10 mcg vaginal tablet 10 mcg vaginal 2XW #24 tabs 01/31/23 (Vagifem) omeprazole 20 mg capsule,delayed 20 mg PO DAILY 90 days #90 caps 02/15/23 release lisinopril 5 mg tablet 5 mg PO DAILY 90 days #90 tabs 03/02/23 naproxen 500 mg tablet 500 mg PO BID 30 days #60 tabs 05/02/23 tramadol 50 mg tablet 50 mg PO DAILY PRN pain 30 days 05/16/23 #30 tabs fluoxetine 20 mg capsule 20 mg PO QAM 90 days #90 caps 06/13/23 Allergies Allergy/AdvReac Type Severity Reaction Status Date / Time doxepin Allergy Intermediate loss of Verified 04/25/23 11:22 memory Latex, Natural Rubber Allergy Intermediate ITCHING Verified 04/25/23 11:22 [LATEX, NATURAL RUBBER] metronidazole [Rosadan] Allergy Intermediate mood change Verified 04/25/23 11:22 morphine Allergy Intermediate Chest Pain Verified 04/25/23 11:22 trazodone [TRAZODONE] Allergy Intermediate chest pain Verified 04/25/23 11:22 SEAFOOD Allergy Intermediate vomiting Uncoded 03/07/23 12:55 PMFSH Past Medical History Medical History Hematuria IBS (irritable bowel syndrome) Mild recurrent major depression Dysuria Blurry vision Overweight Injury of left rotator cuff Left hand pain Left shoulder pain Fibromyalgia Knee pain Depression Essential hypertension GERD (gastroesophageal reflux disease) Mild asthma Surgical History History of brain surgery History of surgery on lower extremity History of colonoscopy History of foot surgery History of cataract surgery History of repair of rotator cuff History of removal of skin mole History of cholecystectomy History of hysterectomy Family History Family History Father Cardiac failure Mother Pulmonary embolism Family/Other FH: mental illness Sister Chronic mental illness Brother Glaucoma Social History Social History Housing: Apartment Alcohol intake: current Alcohol intake frequency: a few times a month Patient Tobacco Use Status: Never used Tobacco e-Cigarette/Vaping Use: Never Used Second Hand Smoke Exposure: No service: No Current occupational status: retired and disabled Current occupation: right handed/ disabled Cognitive needs: Yes (walker) Hearing needs: No Vision needs: Yes (glasses) Physical Exam ED Vital Signs: BMI result Body Mass Index 30.2 Course Course Course Narrative: This is an RME: Additional HPI, ROS, PE not included below will be deferred to primary provider. 72 year old female presenting with left upper extremity pain status post fall in 2019. Patient reports she physical therapy and cannot get an appointment until February. Patient reports that she has had 6 XRays in the past few weeks and would like something more than that. Patient reports severe pain with activities of daily living. Plan: [facility] Discharge Plan Discharge Clinical Impression: Eloped from emergency department Patient Disposition: Elopement Prescriptions: No Action albuterol sulfate 90 mcg/actuation HFA aerosol inhaler 2 puff inhalation Q6H PRN (Reason: bronchospasm) 30 Days Qty: 6.7 1RF fluticasone propionate 110 mcg/actuation HFA aerosol inhaler 1,000,000 mcg PO BID Qty: 12 0RF ketotifen fumarate [Alaway] 0.025 % (0.035 %) drops 1 drp ophthalmic (eye) BID PRN (Reason: allergy symptoms) 30 Days Qty: 5 2RF Rx Instructions: administer at least 8 hours apart omeprazole 20 mg capsule,delayed release(DR/EC) 20 mg PO DAILY 90 Days Qty: 90 1RF lisinopril 5 mg tablet 5 mg PO DAILY 90 Days Qty: 90 3RF naproxen 500 mg tablet 500 mg PO BID 30 Days Qty: 60 1RF tramadol 50 mg tablet 50 mg PO DAILY PRN (Reason: pain) 30 Days Qty: 30 0RF fluoxetine 20 mg capsule 20 mg PO QAM 90 Days Qty: 90 3RF cromolyn 4 % drops 1 drp ophthalmic (eye) QID 14 Days Qty: 10 1RF montelukast 10 mg tablet 10 mg PO BEDTIME melatonin 10 mg tablet,disintegrating 20 mg PO BEDTIME PRN aspirin 81 mg tablet,delayed release (DR/EC) 81 mg PO DAILY ondansetron 4 mg tablet,disintegrating 4 mg PO DAILY Qty: 20 0RF prednisone 50 mg tablet 50 mg PO DIRECTED 1 Days Qty: 3 0RF Rx Instructions: Prednisone 50 mg PO at 13 hours, 7 hours, and 1 hour before contrast media injection for CAT scan diphenhydramine HCl [Allergy (diphenhydramine)] 25 mg tablet 50 mg PO DIRECTED Qty: 1 0RF Rx Instructions: Diphenhydramine 50 mg PO, 1 hour before contrast media injection for CAT. estradiol [Vagifem] 10 mcg tablet 10 mcg vaginal 2XW Qty: 24 3RF Rx Instructions: use 2x a week. Friday and at bedtime Discharge Date/Time: 01/28/23 18:50
== END 2023-01-28 18:50 | disposition left against medical advice (07) ==
PROVIDERS: Emergency Provider Emergency Medicine; PCP Internal Medicine
DX: M25.512 Pain in left shoulder (principal); M54.2 Cervicalgia; Z79.899 Other long term (current) drug therapy
CPT/HCPCS: 99281

== ENCOUNTER 2023-01-31 15:34 | Outpatient (AMB) | payer OTHER, SELFPAY ==
--- NOTE | 2023-01-31 15:34 | A.OFFVIS_ITS ---
Intake Intake Visit Reasons: 2m follow up Intake Note: Patient presents today for a follow-up on recurrent UTI: Meds: Estradiol Allergies to Antibiotic: None Blood Thinner: Aspirin Coin Box Inspector Required: Yes Coin Box Inspector Language: Paraguayan Accompanied by: Self / Same As Patient Allergies doxepin Allergy (Intermediate, Verified 01/31/23 15:35) loss of memory Latex, Natural Rubber [LATEX, NATURAL RUBBER] Allergy (Intermediate, Verified 01/31/23 15:35) ITCHING metronidazole [Rosadan] Allergy (Intermediate, Verified 01/31/23 15:35) mood change morphine Allergy (Intermediate, Verified 01/31/23 15:35) Chest Pain trazodone [TRAZODONE] Allergy (Intermediate, Verified 01/31/23 15:35) chest pain SEAFOOD Allergy (Intermediate, Uncoded 01/31/23 15:35) vomiting HPI HPI Comments History of Present Illness Details Angelika is a 72-year-old female who presents today via Tele-health for a follow-up. 01/31/2023? She is followed today via Tele-health for UTI symptoms. The patient is a [place]ayan speaking female. Certified deaf and hard of hearing teacher was present during the Tele-health visit. She was last seen by me on 11/29/2022 for bladder wall thickening. Ceftum 500 mg BID for ten days was ordered, she was advised to follow-up after 2 months. I reviewed the urine culture results from 11/29/2022- which came back no growth; and 01/20/2023 which came back < 10,000 cfu/ml. She states that she is doing well without any urinary tract infections. She has stopped using Estrace cream as it is leaving stains on her undergarments. Review of charts: Last visit: 11/29/2022? The patient is [place]ayan speaking female. certified commercial director was present during the visit.? The patient was last seen in the office on 11/04/22 for? urinary frequency and urge incontinence. She was initially seen as new patient evaluation on 09/23/22 by [facility] PAINTER Alejandra Alva.? Work up included renal US. Renal US results reviewed--10/04/22-- WNL, kidneys are normal, Diffused bladder wall thickening was noted. Urine cytology results reviewed--09/23/22-- negative for malignancy. The patient is using estrogen cream vaginally with minimal benefits.? States having urinary leakage and is using pads.?? Evaluation today UA: Blood: 10 Mane/uL, leukocytes: 2+.? Cystoscopy findings-- erythematous changes consistent with cystitis follicularis I discussed to hold on anti-cholinergic medication pending antibiotic therapy for cystitis.? Plan:?Ceftum 500 mg BID for ten days. Pending the urine culture will start the patient on daily antibiotic suppressive therapy. Follow-up after 2 months. 01/31/2023: Plan: I will change the Estrace cream to Vagifem 10 mcg. Use it twice a week, Friday and .. Follow-up in 6 months. [facility] Medical History Blurry vision Depression Dysuria Essential hypertension Fibromyalgia GERD (gastroesophageal reflux disease) Hematuria IBS (irritable bowel syndrome) Injury of left rotator cuff Knee pain Left hand pain Left shoulder pain Mild asthma Mild recurrent major depression Overweight Surgical History History of brain surgery History of cataract surgery History of cholecystectomy History of colonoscopy History of foot surgery History of hysterectomy History of removal of skin mole History of repair of rotator cuff History of surgery on lower extremity Family History Father Cardiac failure Mother Pulmonary embolism Family/Other FH: mental illness Sister Chronic mental illness Brother Glaucoma Social History Housing: Apartment Alcohol intake: current Alcohol intake frequency: a few times a month Patient Tobacco Use Status: Never used Tobacco e-Cigarette/Vaping Use: Never Used Second Hand Smoke Exposure: No service: No Current occupational status: retired and disabled Current occupation: right handed/ disabled Cognitive needs: Yes (walker) Hearing needs: No Vision needs: Yes (glasses) Review of Systems Const All systems reviewed & are unremarkable except as noted in HPI and below Reports no additional complaints Eyes Reports no additional complaints ENT Reports no additional complaints Card Denies dyspnea Resp Denies cough and Denies dyspnea GI Reports no additional complaints Reports no additional complaints Musc Reports no additional complaints Skin/Breast Denies rash and Denies unusual bruising Neuro Reports no additional complaints Psych Reports no additional complaints Endo Reports no additional complaints Puneet/Lymph Reports no additional complaints Aller/Immun Reports no additional complaints Results Reviewed Results Reviewed: Procedure?Result?Verified?Site ? Urine Culture? Final?01/21/23-1258 ? Report Result?< 10,000 cfu/ml Assessment & Plan Assessment & Plan (1) Bladder wall thickening: Code(s): N32.89 - Other specified disorders of bladder (2) Cystitis: Code(s): N30.90 - Cystitis, unspecified without hematuria Plan I will change the Estrace cream to Vagifem 10 mcg. Use it twice a week, Friday and . I will call her for office follow-up in 6 months. Medications: New estradiol (Vagifem) use 2x a week. Friday and at bedtime 10 mcg vaginal 2XW 24 tabs 3RF Discontinued estradiol 0.01%(0.1mg/gram) Discontinued Reason: Doctor's Order pea-sized to urethra 3 times a week 30 days 42.5 grams 2RF N36.2 - Urethral caruncle, N39.0 - Urinary tract infection, site not specified, N95.2 - Postmenopausal atrophic vaginitis Patient Instructions: The patient had an opportunity to ask questions regarding treatment plan. All questions were answered. Imaging, Laboratory studies and physical exam results were discussed and reviewed in detail. No major barriers to understanding were identified. The patient expressed understanding and agreement with the above treatment plan.? ? ? The patient is aware they should contact our office by phone for worsening of their current condition or the appearance of new symptoms. Compliance is encouraged with any medications and followup testing that is ordered.? ? ? It is a privilege to be allowed the opportunity to participate in the urologic care of your patient. If you have any questions or concerns regarding treatment for the above conditions please do not hesitate to contact me. The office telephone contact is [phone].? ? ? This note is constructed in part using voice recognition software. While every effort has been made to ensure accuracy monorail charger operator errors may have been included.? ? ? Yours sincerely,? ? ? Vinayak Vinson MD? ? Telehealth Telehealth Location of provider rendering services: practice address Location of patient: address on file Patient Identification confirmed using: Name, : Yes Telehealth method: voice only Patient verbally consented to treatment: Yes Patient verbally consented to billing insurance company: Yes Patient informed of any privacy concerns related to visit: Yes Minutes spent on Phone/Video with Pt.: 15 Coding Level of Care Code Tele Est Pt Level 3 (64021) Diagnoses Bladder wall thickening N32.89 Cystitis N30.90
== END 2023-01-31 15:59 | disposition home or self-care (01) ==
LOC: HO.HUSH 15:34
PROVIDERS: PCP Internal Medicine; Visit Provider Urology
DX: N32.89 Other specified disorders of bladder (principal); N30.90 Cystitis, unspecified without hematuria
CPT/HCPCS: 99442

== ENCOUNTER → 2023-01-31 15:34 | Outpatient (BNVA) | payer OTHER, SELFPAY | PROVIDERS: PCP Internal Medicine; Visit Provider Urology ==

== ENCOUNTER 2023-02-24 09:25 | Outpatient (AMB) | payer OTHER, SELFPAY ==
--- NOTE | 2023-02-24 09:34 | MHC.PC.OV ---
Vital Signs 02/24/23 09:35 Height 5 ft 1 in Weight 158 lb 2 oz BMI 29.9 BP 130/82 Blood Pressure Location Lt brachial Position Sitting Pulse 60 Pulse Source Pulse Oximeter Pulse Oximetry (%) 96 Oxygen Delivery Method Room Air Intake Visit Reasons: rt shoulder pain radiated to elbow Ink Technician Required: No Accompanied by: Self / Same As Patient Allergies doxepin Allergy (Intermediate, Verified 02/24/23 10:41) loss of memory Latex, Natural Rubber [LATEX, NATURAL RUBBER] Allergy (Intermediate, Verified 02/24/23 10:41) ITCHING metronidazole [Rosadan] Allergy (Intermediate, Verified 02/24/23 10:41) mood change morphine Allergy (Intermediate, Verified 02/24/23 10:41) Chest Pain trazodone [TRAZODONE] Allergy (Intermediate, Verified 02/24/23 10:41) chest pain SEAFOOD Allergy (Intermediate, Uncoded 02/24/23 10:41) vomiting Medication List - Last Reconciled 02/24/23 by Ronald Mustafa MD albuterol sulfate 90 mcg/actuation 2 puffs inhalation Q6H PRN 30 days aspirin 81 mg PO DAILY clopidogrel 75 mg PO DAILY cromolyn 4% 1 drp ophthalmic (eye) QID 14 days diphenhydramine HCl (Allergy (diphenhydramine)) 50 mg (2 x 25 mg) PO DIRECTED estradiol (Vagifem) 10 mcg vaginal 2XW fluoxetine 20 mg PO QAM 90 days fluticasone propionate 110 mcg/actuation 1,000,000 mcg PO BID ketotifen fumarate 0.025%(0.035%) (Alaway) 1 drp ophthalmic (eye) BID PRN 30 days lisinopril 5 mg PO DAILY 90 days melatonin 20 mg PO BEDTIME PRN montelukast 10 mg PO BEDTIME naproxen 500 mg PO BID 30 days omeprazole 20 mg PO DAILY 90 days ondansetron 4 mg PO DAILY prednisone 50 mg PO DIRECTED 1 day tramadol 50 mg PO DAILY PRN 30 days Tobacco use date assessed: 02/24/23 Fall risk assessment: No Falls in past year Last assessed Fall Risk: 02/24/23 Dental Screening Dental Screen Date: 02/24/23 Did you have a dental visit in the last 12 months?: Yes Did you have a dental problem in the last 6 months where you did not have access to dental care?: No Was dental information given to patient?: Patient has dentist HPI rt shoulder pain radiated to elbow HPI Details Patient comes in today complaining of increased pain over her left shoulder lately Notes that her right shoulder feels fine and is currently not bothering her Relates (+) Hx rotator cuff surgery on both shoulders back in [place] - right shoulder surgery was done in 2010 and left shoulder surgery in 2011 States that her current left shoulder problem started back in 2019 when she fell and tried to break her fall with her left hand States that she has been experiencing increased pain in her left shoulder often since Recalls that she was sent to physical therapy back then, which helped with her shoulder pain States that her left shoulder has been acting up again lately with increasing pain; relates that she started physical therapy again recently but the pain seems to be getting worse and that her current meds are not helping much Takes OTC Tylenol PRN, Naproxen 500 mg BID and was also recently started on Tramadol 50 mg Q HS by her PCP but states that they do not seem to be helping enough currently She had some X-rays of the left shoulder done last year in 08/2021 that showed (+) mild arthritis She has also been referred to orthopedics for further management of her shoulder pain but her appointment is scheduled out to the end of the month on 03/24/23 No other acute complaints or symptoms are noted at present [facility] Medical History Hematuria IBS (irritable bowel syndrome) Mild recurrent major depression Dysuria Blurry vision Overweight Injury of left rotator cuff Left hand pain Left shoulder pain Fibromyalgia Knee pain Depression Essential hypertension GERD (gastroesophageal reflux disease) Mild asthma Surgical History (Updated 02/24/23 @ 11:57 by Ronald Mustafa MD) History of brain surgery History of surgery on lower extremity History of colonoscopy History of foot surgery History of cataract surgery History of repair of rotator cuff History of removal of skin mole History of cholecystectomy History of hysterectomy Family History Father Cardiac failure Mother Pulmonary embolism Family/Other FH: mental illness Sister Chronic mental illness Brother Glaucoma Social History Housing: Apartment Alcohol intake: current Alcohol intake frequency: a few times a month Patient Tobacco Use Status: Never used Tobacco e-Cigarette/Vaping Use: Never Used Second Hand Smoke Exposure: No service: No Current occupational status: retired and disabled Current occupation: right handed/ disabled Cognitive needs: Yes (walker) Hearing needs: No Vision needs: Yes (glasses) Questionnaire PHQ-9 Over the last 2 weeks, how often have you been bothered by any of the following problems? 1. Little interest or pleasure in doing things: several days 2. Feeling down, depressed, or hopeless: several days 3. Trouble falling or staying asleep, or sleeping too much: more than half the days 4. Feeling tired or having little energy: nearly every day 5. Poor appetite or overeating: not at all 6. Feeling bad about yourself - or that you are a failure or have let yourself or your family down: several days 7. Trouble concentrating on things, such as reading the newspaper or watching television: nearly every day 8. Moving or speaking so slowly that other people could have noticed. Or the opposite - being so fidgety or restless that you have been moving around a lot more than usual: several days 9. Thoughts that you would be better off or of hurting yourself in some way: not at all Total score: 12 Depression Screening Interpretation: Positive Depression Screening Follow-up: Existing condition and In treatment 30524 - PHQ-9 Billing: Yes Source: Developed by Drs. Radhames Hodges, Tonia Walsh, Jhoan Torrez and colleagues, with an educational ketan from [employer]. Thrive Questionnaire Date Thrive assessed: 02/24/23 I am a: Patient What is your living situation today?: I have a steady place to live Within the past 12 months, did the food you bought not last and you didn't have the money to get more?: Never true Within the past 12 months, did you worry whether your food would run out before you got money to buy more?: Never true Do you have trouble paying for medicines?: No Do you have trouble getting transportation to medical appointments?: No Do you have trouble paying your heating and electricity bill?: No Do you have trouble taking care of your child, family member or friend?: No Do you have trouble with day-to-day activities such as bathing, preparing meals, shopping, managing finances, etc.?: No Are you currently unemployed and looking for a job?: No Are you interested in more education?: No Please select the resources that you would like help with: None Currently or been in a relationship where the following occur: no concerns reported AUDIT C Alcohol Use Questionnaire (AUDIT-C) 1. How often do you have a drink containing alcohol?: Never Total Score: 0 Score Reviewed/Action Taken: Yes GÓMEZ-7 AMB Questionnaire GÓMEZ-7 Date GÓMEZ - 7 assessed: 02/24/23 Feeling nervous, anxious, or on edge: 0 = Not at all Not being able to stop or control worryin = Not at all Worrying too much about different things: 0 = Not at all Trouble relaxin = Not at all Being so restless that it is hard to sit still: 0 = Not at all Becoming easily annoyed or irritable: 0 = Not at all Feeling afraid as if something awful might happen: 0 = Not at all Total GÓMEZ-7 score (0-4 normal; 5-9 mild; 10-14 moderate; 15-21 severe): 0 Source: Developed by Drs. Radhames Hodges, Tonia Walsh, Jhoan Torrez and colleagues, with an educational ketan from [employer]. GÓMEZ-7 Assessment Billing GÓMEZ-7 Assessment Tool: GÓMEZ-7 Assessment 55871 Review of Systems Const Denies fatigue, Denies fever(s) and Denies headache(s) ENT Denies dysphagia, Denies dizziness, Denies headache(s), Denies neck pain, Denies odynophagia and Denies sore throat Card Denies chest pain, Denies palpitations and Denies dyspnea Resp Denies cough and Denies dyspnea GI Denies abdominal pain, Denies constipation, Denies dysphagia, Denies heartburn, Denies diarrhea, Denies nausea, Denies odynophagia and Denies vomiting Denies difficulty voiding, Denies nocturia and Denies dysuria Musc Reports arthralgias (increasing pain over the left shoulder - see HPI) and Denies neck pain Skin/Breast Denies rash Neuro Denies dizziness and Denies headache(s) Endo Denies fatigue and Denies palpitations Physical exam (Primary Care) Vital Signs: Last Vital Signs Pulse 60 02/24/23 09:35 BP 130/82 02/24/23 09:35 Pulse Ox 96 02/24/23 09:35 Oxygen Delivery Method Room Air 02/24/23 09:35 BMI result Body Mass Index 29.9 Tobacco/Smoking Status: Tobacco use Status Tobacco use date assessed 02/24/23 02/24/23 09:36 Patient Tobacco Use Status Never used Tobacco 02/24/23 09:36 e-Cigarette/Vaping Use Never Used 02/24/23 09:36 PHQ-9: PHQ-9 Score PHQ-9: Total score 12 02/24/23 09:41 Depression Screening Interpretation: Positive Depression Screening Follow-up: Existing condition and In treatment Thrive Assessment: Date of Thrive Assessment Date Thrive assessed 02/24/23 02/24/23 09:36 Currently or been in a relationship where the following occur: no concerns reported Const General: no acute distress and alert Neck Neck: Yes no lymphadenopathy and Yes supple Resp Auscultation: clear to auscultation bilaterally, no rales and no wheezes Cardio Rate: regular rate Rhythm: regular rhythm Heart sounds: no murmurs GI Palpation (GI): Soft to palpation and nontender Auscultation: normal bowel sounds Extrem General: Yes no clubbing, cyanosis or edema Left upper extremity: shoulder/upper arm Details: tenderness Location: of the A-C joint and abnormal ROM (limited due to pain) Assessment and Plan Assessment & Plan (1) Chronic left shoulder pain: Code(s): M25.512 - Pain in left shoulder; G89.29 - Other chronic pain Plan: She is currently going to physical therapy again for her shoulder but states that it is not helping and that her shoulder feels worse now with physical therapy X-rays of the shoulder done last year in 08/2021 revealed (+) mild AC arthritis; patient did have a Hx of left rotator cuff repair back in 2011 in [place] Will send her for MRI of the left shoulder for further evaluation - suspect that she may have some RC arthritis or tear/injury Have advised her to keep her orthopedic appt scheduled on 03/24/23 Will allow her for not to try increasing her Tramadol 50 mg up to TID PRN and to combine that with Tylenol or Acetaminophen 500 mg for better efficacy over the next week or so and she can go back to her previous dose once her shoulder symptoms subside Plan To return as scheduled in April 2023 for her AWV and have also encouraged her to schedule a follow up appt with her PCP for her shoulder issues in a couple of months Orders: Orders MR shoulder LT wo con Today G89.29 - Other chronic pain, M25.512 - Pain in left shoulder Coding Level of Care Code Est Pt Level 3 (18793) Diagnoses Chronic left shoulder pain M25.512; G89.29 Additional Codes GÓMEZ-7 Assessment Billing - GÓMEZ-7 Assessment Tool: GÓMEZ-7 Assessment 29691 ([id number])
[2023-02-24 09:35] VITALS: BP 130/82; PULSE 60; O2SAT 96; BMI 29.9
== END 2023-02-24 10:56 | disposition home or self-care (01) ==
PROVIDERS: PCP Internal Medicine; Visit Provider Internal Medicine
DX: M25.512 Pain in left shoulder (principal); G89.29 Other chronic pain
CPT/HCPCS: 99213

== ENCOUNTER 2023-03-04 07:41 | Outpatient (REF) | payer OTHER, SELFPAY ==
--- NOTE | ~2023-03-04 | CT_ITS ---
EXAMINATION: CT ABDOMEN AND PELVIS WITH CONTRAST CLINICAL INFORMATION: Frequency of micturition. Epigastric fullness, satiety, nausea, rule out mass, obstruction etc. COMPARISON: Renal ultrasound 10/04/2022. Abdominal ultrasound 07/29/2018. TECHNIQUE: Multidetector volumetric images were obtained from the superior aspect of the liver through the pubic symphysis following administration 85 mL of Omnipaque 350 intravenous contrast. Sagittal and coronal reformatted images were obtained on the technologist's workstation. Oral contrast: Yes This CT examination was performed using dose optimization techniques as appropriate, variously including the following: *Automated exposure control *Adjustment of mA and/or kV according to patient size (this includes techniques or standardized protocols for targeted exams where dose is matched to indication/reason for exam; i.e. extremities or head) *Use of iterative reconstruction technique DLP: 383 mGy-cm FINDINGS: LUNG BASES: Calcified granuloma left lung base. No follow-up imaging is recommended as per Fleischner Society guidelines. LIVER, GALLBLADDER, AND BILIARY TREE: Fatty liver without overt cirrhotic morphology. No discrete liver mass. No biliary ductal dilatation. Cholecystectomy. PANCREAS: No discrete pancreatic mass. No pancreatic ductal dilatation. SPLEEN: Normal. ADRENAL GLANDS: No adrenal mass. KIDNEYS AND URETERS: The kidneys are normal in size, shape, and attenuation. No hydronephrosis, hydroureter, or calculi seen. No perinephric stranding. BLADDER: Unremarkable. GASTROINTESTINAL TRACT: The small bowel is normal in caliber. Mild colonic diverticulosis. ABDOMINAL WALL: Small and large bowel are normal in caliber. Mild sigmoid diverticulosis. Appendicoliths versus dense material in the appendix which is otherwise normal. No no appendiceal dilatation or surrounding inflammatory changes. LYMPH NODES: No lymphadenopathy. VASCULAR: Normal caliber abdominal aorta with mild aortoiliac atherosclerosis. PELVIC VISCERA: Suspect hysterectomy. No pelvic mass. OSSEOUS STRUCTURES: ORIF left femoral neck. Degenerative changes in the spine. CT/CT abdomen pelvis w IV con IMPRESSION: No findings to correlate with the clinical indication. Fatty liver. Mild colonic diverticulosis. Fleischner guidelines were followed.
== END 2023-03-04 07:42 | disposition home or self-care (01) ==
LOC: HO.CT 07:41
PROVIDERS: Visit Provider Internal Medicine Gastroenterology
DX: R35.0 Frequency of micturition (principal); R31.9 Hematuria, unspecified; R19.06 Epigastric swelling, mass or lump; R68.81 Early satiety
CPT/HCPCS: 74177; 82565; Q9967

== ENCOUNTER 2023-03-07 12:22 | Outpatient (AMB) | payer OTHER, SELFPAY ==
--- NOTE | 2023-03-07 12:44 | A.OFFVIS_ITS ---
Intake Vital Signs 03/07/23 12:46 Height 5 ft 1 in Weight 158 lb BMI 29.9 Intake Visit Reasons: Ov- Left shoulder pain Intake Note: Kenna a 72 year old right hand dominant female presents today for a follow up of left shoulder, last injection 08/30/20. Patient reports that she does not remember her last visit with Dr. Diallo. States pain has been present for the past 2 months. She recently attended PT which made her pain worse. Limited ROM. Finds little to no relief with Tylenol. Allergies doxepin Allergy (Intermediate, Verified 03/07/23 12:55) loss of memory Latex, Natural Rubber [LATEX, NATURAL RUBBER] Allergy (Intermediate, Verified 03/07/23 12:55) ITCHING metronidazole [Rosadan] Allergy (Intermediate, Verified 03/07/23 12:55) mood change morphine Allergy (Intermediate, Verified 03/07/23 12:55) Chest Pain trazodone [TRAZODONE] Allergy (Intermediate, Verified 03/07/23 12:55) chest pain SEAFOOD Allergy (Intermediate, Uncoded 03/07/23 12:55) vomiting HPI Ov- Left shoulder pain HPI Details 72-year-old female who returns to the [facility] today with an pastry mixer for a follow-up of left shoulder pain for about 2 months. She states she has pain and limited ROM in her in her shoulder and had undergone physical therapy in the past which aggravated her pain. She finds minimal relief with Tylenol. She had her last injection on 08/30/20 which she cannot recall. She is interested in having an injection today. [facility] Medical History (Updated 03/07/23 @ 15:09 by Naayna Baldwin PA-C) Hematuria IBS (irritable bowel syndrome) Mild recurrent major depression Dysuria Blurry vision Overweight Injury of left rotator cuff Left hand pain Left shoulder pain Fibromyalgia Knee pain Depression Essential hypertension GERD (gastroesophageal reflux disease) Mild asthma Surgical History History of brain surgery History of surgery on lower extremity History of colonoscopy History of foot surgery History of cataract surgery History of repair of rotator cuff History of removal of skin mole History of cholecystectomy History of hysterectomy Family History Father Cardiac failure Mother Pulmonary embolism Family/Other FH: mental illness Sister Chronic mental illness Brother Glaucoma Social History Housing: Apartment Alcohol intake: current Alcohol intake frequency: a few times a month Patient Tobacco Use Status: Never used Tobacco e-Cigarette/Vaping Use: Never Used Second Hand Smoke Exposure: No service: No Current occupational status: retired and disabled Current occupation: right handed/ disabled Cognitive needs: Yes (walker) Hearing needs: No Vision needs: Yes (glasses) Review of Systems Const All systems reviewed & are unremarkable except as noted in HPI and below Physical Exam Vital Signs: BMI result Body Mass Index 29.9 Extrem Other: Left shoulder normal to inspection. Tenderness over the bicipital groove and along the deltoid region of the shoulder. Forward flexion to 175, external rotation to 90, internal rotation to S1. 5/5 RTC strength. Positive Mejia and [place]'s. NVI. Office Procedures Joint Injection/Drain Joint Injection/Drain Primary Site: left shoulder Prep: site was prepped using aseptic technique, ethochloride spray was applied and injection warnings given Injected: 80 mg of, DepoMedrol, with 8 mL of, 1% plain lidocaine and in the subcromial space Approach Used: posterolateral Procedure: The patient tolerated the procedure well and there was some relief with the local anesthesia Coding 53009 - Glenohumeral/Tronchanteric Bursa/Intraarticular Procedure code (CPT) selection complete Results Reviewed Results Reviewed: 03/07/23 13:38 Lidocaine HCl 2 % MPF [Xylocaine 2 % MPF] 5 ml .ROUTE .STK-MED ONE methylPREDNISolone acetate [DEPO-MedroL] 80 mg .ROUTE .STK-MED ONE Assessment & Plan Assessment & Plan (1) Injury of left rotator cuff: Code(s): S46.002A - Unspecified injury of muscle(s) and tendon(s) of the rotator cuff of left shoulder, initial encounter Qualifiers: Encounter type: initial encounter Qualified Code(s): S46.002A - Unspecified injury of muscle(s) and tendon(s) of the rotator cuff of left shoulder, initial encounter Plan We discussed options today which include steroid injection. They did consent to move forward with the left shoulder injection, which was tolerated well. I recommended rest, ice and elevation and OTC anti-inflammatories PRN for discomfort. If symptoms persist or worsens over the next 6-8 weeks, patient will contact the office, otherwise follow-up as needed. Patient Instructions: Scribed for Nayana Baldwin PA-C, by Adria Wade biomedical field service engineer, on 03/07/2023 at 12:45 PM EST. Nayana Olvera PA-C, have personally reviewed and agree with the information entered by the scribe. Coding Level of Care Code Est Pt Level 3 (30124) Diagnoses Injury of left rotator cuff, initial encounter S46.002A Encounter type: initial encounter CPT Codes Coding - Joint 7: 83323 - Glenohumeral/Tronchanteric Bursa/Intraarticular ([id number])
[2023-03-07 12:46] VITALS: BMI 29.9
== END 2023-03-07 15:11 | disposition home or self-care (01) ==
PROVIDERS: PCP Internal Medicine; Visit Provider Physician Assistant
DX: S46.002A Unspecified injury of muscle(s) and tendon(s) of the rotator cuff of left shoulder, initial encounter (principal)
CPT/HCPCS: 20610; 99213

== ENCOUNTER → 2023-03-07 12:22 | Outpatient (BNVA) | payer OTHER, SELFPAY | PROVIDERS: PCP Internal Medicine; Visit Provider Physician Assistant | DX: S46.002D Unspecified injury of muscle(s) and tendon(s) of the rotator cuff of left shoulder, subsequent encounter (principal) | CPT/HCPCS: 20610; 99212; J1040 ==

== ENCOUNTER 2023-03-14 14:00 | Outpatient (RCR) | payer OTHER, SELFPAY ==
--- NOTE | 2023-09-01 10:44 | MHC.PT.DC ---
[facility] [place] Office [place] Office [place] Office [address] Alicia Vela [address] [phone] F: [phone] F: [phone] F: [phone] F: [phone] Physical Therapy Discharge Report Diagnosis: Pain in left shoulder Other chronic pain Date of Surgery: Date of Evaluation: 02/03/23 Date of Discharge: 09/01/23 Treatments to Date: 8 Cancellations to Date: No Shows to Date: Discharge Status: Discharge Summary: Pt was seen for PT from -03/14/23. Her last scheduled and attended PT treatment was 03/14/23. From last PT treatment note on 03/14/23 by RACHEL: Reviewed home program with pt and encouraged change in sleeping habits. Pt seems to have increase in radiating sxs when sleeping with her arm under her head, encouraged use of a pillow instead to avoid compressing shoulder and causing increased muscle tension to UT which could be contributing. Pt has an MRI of the shoulder scheduled, agreeable to d/c at this time as has not been able to progress d/t persistent sxs Electronically signed by: Jessica Macdonald, PT, DPT Please sign and return to therapist. Thank you for your referral.
== END 2023-09-01 10:43 | disposition home or self-care (01) ==
LOC: HO.PT 14:00
PROVIDERS: Absent Provider Registered Nurse Emergency; PCP Internal Medicine; Visit Provider Internal Medicine
DX: M25.512 Pain in left shoulder (principal); G89.29 Other chronic pain
CPT/HCPCS: 97110; 97140; 97162

== ENCOUNTER 2023-04-25 10:54 | Outpatient (AMB) | payer OTHER, SELFPAY ==
[2023-04-25 10:55] VITALS: BP 120/66; PULSE 69; O2SAT 95; BMI 29.3
--- NOTE | 2023-04-25 10:55 | MHC.PC.OV ---
Vital Signs 04/25/23 10:55 Height 5 ft 1 in Weight 155 lb 4 oz BMI 29.3 Blood Pressure Location Lt brachial Position Sitting Pulse Source Pulse Oximeter Oxygen Delivery Method Room Air Intake Visit Reasons: AWV, last 04/23/22 Eating Disorder Specialist Required: No Accompanied by: Self / Same As Patient Allergies doxepin Allergy (Intermediate, Verified 04/25/23 10:56) loss of memory Latex, Natural Rubber [LATEX, NATURAL RUBBER] Allergy (Intermediate, Verified 04/25/23 10:56) ITCHING metronidazole [Rosadan] Allergy (Intermediate, Verified 04/25/23 10:56) mood change morphine Allergy (Intermediate, Verified 04/25/23 10:56) Chest Pain trazodone [TRAZODONE] Allergy (Intermediate, Verified 04/25/23 10:56) chest pain SEAFOOD Allergy (Intermediate, Uncoded 03/07/23 12:55) vomiting Tobacco use date assessed: 02/24/23 Last assessed Fall Risk: 04/25/23 Dental Screening Dental Screen Date: 04/25/23 [facility] Medical History Hematuria IBS (irritable bowel syndrome) Mild recurrent major depression Dysuria Blurry vision Overweight Injury of left rotator cuff Left hand pain Left shoulder pain Fibromyalgia Knee pain Depression Essential hypertension GERD (gastroesophageal reflux disease) Mild asthma Surgical History History of brain surgery History of surgery on lower extremity History of colonoscopy History of foot surgery History of cataract surgery History of repair of rotator cuff History of removal of skin mole History of cholecystectomy History of hysterectomy Family History Father Cardiac failure Mother Pulmonary embolism Family/Other FH: mental illness Sister Chronic mental illness Brother Glaucoma Social History Housing: Apartment Alcohol intake: current Alcohol intake frequency: a few times a month Patient Tobacco Use Status: Never used Tobacco e-Cigarette/Vaping Use: Never Used Second Hand Smoke Exposure: No service: No Current occupational status: retired and disabled Current occupation: right handed/ disabled Cognitive needs: Yes (walker) Hearing needs: No Vision needs: Yes (glasses) Questionnaire Thrive Questionnaire Date Thrive assessed: 02/24/23 GÓMEZ-7 AMB Questionnaire GÓMEZ-7 Date GÓMEZ - 7 assessed: 02/24/23 Source: Developed by Drs. Radhames Hodges, Tonia Walsh, Jhoan Torrez and colleagues, with an educational ketan from [employer]. Physical exam (Primary Care) Tobacco/Smoking Status: Tobacco use Status Tobacco use date assessed 02/24/23 02/24/23 09:36 Patient Tobacco Use Status Never used Tobacco 02/24/23 09:36 e-Cigarette/Vaping Use Never Used 02/24/23 09:36 Thrive Assessment: Date of Thrive Assessment Date Thrive assessed 02/24/23 02/24/23 09:36 Coding
--- NOTE | 2023-04-25 10:58 | A.OFFVIS_ITS ---
Intake Vital Signs 04/25/23 10:55 Height 5 ft 1 in Weight 155 lb 4 oz BMI 29.3 BP 120/66 Blood Pressure Location Lt brachial Position Sitting Pulse 69 Pulse Source Pulse Oximeter Pulse Oximetry (%) 95 Oxygen Delivery Method Room Air Intake Visit Reasons: AWV, last 04/23/22 Workforce Staffing Advisor Required: Yes Workforce Staffing Advisor Language: Head Of Digital Advertising & Integration Name: [id number] Information Interpreted: non-clinical & clinical Accompanied by: Self / Same As Patient Allergies doxepin Allergy (Intermediate, Verified 04/25/23 11:22) loss of memory Latex, Natural Rubber [LATEX, NATURAL RUBBER] Allergy (Intermediate, Verified 04/25/23 11:22) ITCHING metronidazole [Rosadan] Allergy (Intermediate, Verified 04/25/23 11:22) mood change morphine Allergy (Intermediate, Verified 04/25/23 11:22) Chest Pain trazodone [TRAZODONE] Allergy (Intermediate, Verified 04/25/23 11:22) chest pain SEAFOOD Allergy (Intermediate, Uncoded 03/07/23 12:55) vomiting Medication List - Last Reconciled 04/25/23 by MICHI Bradshaw albuterol sulfate 90 mcg/actuation 2 puffs inhalation Q6H PRN 30 days aspirin 81 mg PO DAILY cromolyn 4% 1 drp ophthalmic (eye) QID 14 days diphenhydramine HCl (Allergy (diphenhydramine)) 50 mg (2 x 25 mg) PO DIRECTED estradiol (Vagifem) 10 mcg vaginal 2XW fluoxetine 20 mg PO QAM 90 days fluticasone propionate 110 mcg/actuation 1,000,000 mcg PO BID ketotifen fumarate 0.025%(0.035%) (Alaway) 1 drp ophthalmic (eye) BID PRN 30 days lisinopril 5 mg PO DAILY 90 days melatonin 20 mg PO BEDTIME PRN montelukast 10 mg PO BEDTIME naproxen 500 mg PO BID 30 days omeprazole 20 mg PO DAILY 90 days ondansetron 4 mg PO DAILY prednisone 50 mg PO DIRECTED 1 day tramadol 50 mg PO DAILY PRN 30 days HPI HPI Comments History of Present Illness Details 72-year-old female history of GERD, hype rtension, fibromyalgia, depression, IBS and cerebral aneurysm. Patient Dr. [place] christianson seen Patient presents today for subsequent annual wellness visit. Patient reports right hip pain for many years states she continues to have persistent pain that radiates down her right leg denies any numbness or tingling. Patient reports takes Tylenol with minimal relief. Discussed with patient possible sciatic nerve pain recommended physical therapy however patient declines at this time requesting to have left hip x-ray for further evaluation. Order entered. Follows with counselor Colonoscopy completed [address] Aly and recommended 5 year follow-up. Scheduled later this month. Patient is currently up-to-date on Tdap, flu shot. Bone density completed in 2020, mammogram refused, patient states its violation of a women. [place] of care was reviewed with patient patient was provided with a written screening schedule. [facility] Medical History Hematuria IBS (irritable bowel syndrome) Mild recurrent major depression Dysuria Blurry vision Overweight Injury of left rotator cuff Left hand pain Left shoulder pain Fibromyalgia Knee pain Depression Essential hypertension GERD (gastroesophageal reflux disease) Mild asthma Surgical History History of brain surgery History of surgery on lower extremity History of colonoscopy History of foot surgery History of cataract surgery History of repair of rotator cuff History of removal of skin mole History of cholecystectomy History of hysterectomy Family History Father Cardiac failure Mother Pulmonary embolism Family/Other FH: mental illness Sister Chronic mental illness Brother Glaucoma Social History Housing: Apartment Alcohol intake: current Alcohol intake frequency: a few times a month Patient Tobacco Use Status: Never used Tobacco e-Cigarette/Vaping Use: Never Used Second Hand Smoke Exposure: No service: No Current occupational status: retired and disabled Current occupation: right handed/ disabled Cognitive needs: Yes (walker) Hearing needs: No Vision needs: Yes (glasses) Questionnaire Medicare Wellness Checkup [age] What gender do you identify with?: female During the past 4 weeks, how much have you been bothered by emotional problems such as feeling anxious, depressed, irritable, sad or downhearted, and blue?: quite a bit During the past 4 weeks, has your physical & emotional health limited your social activities with family, friends, neighbors, or groups?: slightly During the past 4 weeks, how much bodily pain have you generally had?: severe pain During the past 4 weeks, was someone available to help you if you needed & wanted help?: yes, some During the past 4 weeks, what was the hardest physical activity you could do for at least 2 minutes?: heavy Can you get to places out of walking distance without help? (For eg., can you travel alone on buses, taxis or drive your car?): No Can you go shopping for groceries or clothes without someone's help?: No Can you prepare your own meals?: No Can you do your housework without help?: No Because of any health problems, do you need the help of another person with your personal care needs such as eating, bathing, dressing or getting around the house?: Yes Can you handle your own money without help?: No During the past 4 weeks, how would you rate your health in general?: fair During the past 4 weeks how have things been going for you?: pretty bad Are you having difficulties driving your car?: sometimes Do you always fasten your seat belt when you are in a car?: yes, usually During past 4 weeks, have you been bothered by the following: never: Sexual problems?, sometimes: Falling or dizzy when standing up, often: Trouble eating well? and Tiredness or fatigue? and always: Teeth or denture problems? and Problems using the telephone? Have you fallen 2 or more times in the past year?: Yes Are you afraid of falling?: Yes Are you a smoker?: no During the past 4 weeks, how many drinks of wine, beer, or other alcoholic beverages did you have?: no alcohol at all Do you exercise for about 20 minutes 3 or more times a week?: no, I usually do not exercise this much Have you been given information to help with the following?: yes: Hazards in your house that might hurt you? and yes: Keeping track of your medications? How often do you have trouble taking medicines the way you have been told to take them?: sometimes I take medicine as prescribed How confident are you that you can control & manage most of your health pro blems?: not very confident What is your race?: or origin or descent Mini Mental State Exam (MMSE) Orientation What is the (year) (season) (date) (day) (month)?: year, season, date, day and month Score Score: 5 Activity of Daily Living Bathing - sponge bath, tub bath or shower: receives no assistance (gets in/out by self, if usual bathing means Dressing - getting clothes from closets & drawers, including inner/outer garments & fasteners.: gets clothes & gets completely dressed without help Toileting - going to the 'toilet room' for urine/bowel elimination & cleaning self/arranging clothes: goes to toilet room, cleans self, arranges clothes without help Transfer: moves in & out of bed and chair without help (may use support object) Continence: controls urination/bowel movements completely by self Feeding: feeds self without help Total Score: 0 Information obtained from: patient Using telephone: independent Traveling: independent Shopping: needs assistance ([employer] and daughter assist. ) Preparing meals: needs assistance Housework: needs assistance Taking medicine: independent Managing money: needs assistance (daughter helps her) PHQ-9 Over the last 2 weeks, how often have you been bothered by any of the following problems? 1. Little interest or pleasure in doing things: several days 2. Feeling down, depressed, or hopeless: several days 3. Trouble falling or staying asleep, or sleeping too much: several days 4. Feeling tired or having little energy: more than half the days 5. Poor appetite or overeating: more than half the days 6. Feeling bad about yourself - or that you are a failure or have let yourself or your family down: several days 7. Trouble concentrating on things, such as reading the newspaper or watching television: more than half the days 8. Moving or speaking so slowly that other people could have noticed. Or the opposite - being so fidgety or restless that you have been moving around a lot more than usual: more than half the days 9. Thoughts that you would be better off or of hurting yourself in some way: not at all Total score: 12 Depression Screening Interpretation: Positive Depression Screening Follow-up: In treatment Depression Screening Done: Yes 34403 - PHQ-9 Billing: Yes Source: Developed by Drs. Radhames Hodges, Tonia Walsh, Jhoan Torrez and colleagues, with an educational ketan from [employer]. Physical Exam Vital Signs: Last Vital Signs Pulse 69 04/25/23 10:55 BP 120/66 04/25/23 10:55 Pulse Ox 95 04/25/23 10:55 Oxygen Delivery Method Room Air 04/25/23 10:55 BMI result Body Mass Index 29.3 Const General: cooperative and no acute distress Orientation/consciousness: patient oriented x3 HEENT Ears: other (whisper test: pass) Neuro General: patient oriented x3 Gait exam (Neuro): Normal gait present Coordination: tandem gait normal and Romberg test negative Assessment & Plan Assessment & Plan (1) Right hip pain: Code(s): M25.551 - Pain in right hip Plan: right hip xray ordered. recommend PT patient declined. (2) Medicare annual wellness visit, subsequent: Code(s): Z00.00 - Encounter for general adult medical examination without abnormal findings (3) Chronic left shoulder pain: Code(s): M25.512 - Pain in left shoulder; G89.29 - Other chronic pain Plan: Continue to follow with orthopedic. Patient has upcoming MRI scheduled a couple weeks. (4) Essential hypertension: Code(s): I10 - Essential (primary) hypertension Plan: Continue on current medications. Plan Follow-up in 6 months or sooner if needed. Orders: Orders XR hip RT min 2V Today M25.551 - Pain in right hip Quality Reporting (2019) Depression/Bipolar (159/160/161/177) PHQ-9: Total score: 12 Coding Level of Care Code Medicare Subsequent (G0439) Diagnoses Right hip pain M25.551 Medicare annual wellness visit, subsequent Z00.00 Chronic left shoulder pain M25.512; G89.29 Essential hypertension I10
== END 2023-04-25 11:42 | disposition home or self-care (01) ==
PROVIDERS: Visit Provider Nurse Practitioner Family
DX: M25.551 Pain in right hip (principal); Z00.00 Encounter for general adult medical examination without abnormal findings; M25.512 Pain in left shoulder; G89.29 Other chronic pain; I10 Essential (primary) hypertension
CPT/HCPCS: G0439

== ENCOUNTER 2023-04-28 09:29 | Outpatient (REF) | payer OTHER, SELFPAY ==
--- NOTE | ~2023-04-28 | XR_ITS ---
EXAMINATION: XR HIP, RIGHT CLINICAL INFORMATION: Pain in right hip COMPARISON: None available. TECHNIQUE: Two views of the right hip and. AP pelvis FINDINGS: No fracture. Alignment is anatomic. Hip joint space is maintained. Soft tissues are unremarkable. There is status post placement of hardware for compression fracture of the left hip. There is avulsion of lesser trochanter on the left. XR/XR hip RT min 2V IMPRESSION: Unremarkable right hip
== END 2023-04-28 09:30 | disposition home or self-care (01) ==
LOC: HO.XRAY 09:29
PROVIDERS: PCP Internal Medicine; Visit Provider Nurse Practitioner Family
DX: M25.551 Pain in right hip (principal)
CPT/HCPCS: 73502

== ENCOUNTER 2023-05-06 10:18 | Outpatient (REF) | payer OTHER, SELFPAY ==
--- NOTE | ~2023-05-06 | MR_ITS ---
EXAMINATION: MR SHOULDER WITHOUT CONTRAST, LEFT CLINICAL INFORMATION: Left shoulder pain. Decreasing range of motion. Surgery in 2010. COMPARISON: Most recent left shoulder radiographs dated 09/05/2021. TECHNIQUE: Multisequence MR imaging of the left shoulder was obtained without contrast on a high-field strength scanner. FINDINGS: ROTATOR CUFF: Orthopedic anchors within the humeral head consistent with rotator cuff tendon repair. Mild supraspinatus and infraspinatus tendinosis. There is intrasubstance tearing of the distal supraspinatus tendon extending posteriorly through the bursal surface of the infraspinatus tendon. Overall, this appears to measure up to 2.1 x 1.3 cm (AP x ML). Mild subscapularis tendinosis with articular surface fraying/partial tearing. No muscle atrophy or fatty infiltration. BICEPS: Intact. Fluid within the proximal long head biceps tendon sheath which may be related to the joint effusion or represent synovitis. Multiple loose bodies within the tendon sheath measuring up to 0.6 cm. CORACOACROMIAL ARCH: The undersurface of the acromion is attenuated, consistent with prior acromioplasty. Distal clavicular resection. Fluid within the subacromial subdeltoid bursa, consistent with mild bursitis. LABRUM/CAPSULE: Shallow linear fluid signal within the undersurface of the peripheral posterosuperior labrum with adjacent intrasubstance degenerative signal. The labrum is otherwise intact. Intact inferior joint capsule. GLENOHUMERAL JOINT/MARROW: Full-thickness articular cartilage loss at the medial aspect of the humeral head with subchondral cystic change and bony remodeling/flattening. Diffuse articular cartilage thinning and signal heterogeneity. Moderate marginal osteophytes. Moderate joint effusion with synovitis. Loose bodies versus synovitis within the subacromial subdeltoid bursa measuring up to 2.9 cm in ML dimension. MR/MR shoulder LT wo con IMPRESSION: 1. Postsurgical change consistent with rotator cuff tendon repair. Mild supraspinatus and infraspinatus tendinosis with intrasubstance tearing of the distal supraspinatus tendon extending posteriorly through the bursal surface of the infraspinatus tendon. Mild subscapularis tendinosis with articular surface fraying/partial tearing. 2. Fluid within the proximal long head biceps tendon sheath which may be related to the joint effusion or represent synovitis. Multiple loose bodies within the tendon sheath measuring up to 0.6 cm. 3. Postsurgical change consistent with acromioplasty and distal clavicular resection. Mild subacromial subdeltoid bursitis. 4. Cykxrqra-kw-fadetk glenohumeral osteoarthritis. Moderate joint effusion with synovitis. Loose bodies versus synovitis within the subacromial subdeltoid bursa measuring up to 2.9 cm in ML dimension. 5. Degenerative intrasubstance signal within the posterosuperior labrum with a shallow undersurface tear.
== END 2023-05-06 10:19 | disposition home or self-care (01) ==
LOC: HO.MRI 10:18
PROVIDERS: PCP Internal Medicine; Visit Provider Internal Medicine
DX: M25.512 Pain in left shoulder (principal); G89.29 Other chronic pain
CPT/HCPCS: 73221

== ENCOUNTER 2023-07-09 08:44 | Outpatient (AMB) | payer OTHER, SELFPAY ==
[2023-07-09 08:48] VITALS: BMI 21.2
--- NOTE | 2023-07-09 08:48 | A.OFFVIS_ITS ---
Intake Vital Signs 07/09/23 08:48 Height 5 ft 1 in Weight 112 lb BMI 21.2 Intake Visit Reasons: OV-MRI review Lt shoulder-follow up Intake Note: Kenna a 72 year old right hand dominant female presents today for a MRI review of left shoulder. Patient reports last injection on 03/07/23 provided little relief for about a 1.5 months. Her pain is getting worse making it difficult to sleep at night. Hospice Rn Name: Chris [id number] Allergies doxepin Allergy (Intermediate, Verified 07/09/23 08:51) loss of memory Latex, Natural Rubber [LATEX, NATURAL RUBBER] Allergy (Intermediate, Verified 07/09/23 08:51) ITCHING metronidazole [Rosadan] Allergy (Intermediate, Verified 07/09/23 08:51) mood change morphine Allergy (Intermediate, Verified 07/09/23 08:51) Chest Pain trazodone [TRAZODONE] Allergy (Intermediate, Verified 07/09/23 08:51) chest pain SEAFOOD Allergy (Intermediate, Uncoded 07/09/23 08:51) vomiting HPI OV-MRI review Lt shoulder-follow up HPI Details 73-year-old right hand dominant female brant martino returns to the office today with an manager mortgage for an MRI review of left shoulder. She had her last injection on 03/07/23 which provided her mild relief for about a month and a half. She currently states she has worsened pain in her shoulder which makes her difficult to sleep in any position at night. REPLACED BY [facility] Medical History Hematuria IBS (irritable bowel syndrome) Mild recurrent major depression Dysuria Blurry vision Overweight Injury of left rotator cuff Left hand pain Left shoulder pain Fibromyalgia Knee pain Depression Essential hypertension GERD (gastroesophageal reflux disease) Mild asthma Surgical History History of brain surgery History of surgery on lower extremity History of colonoscopy History of foot surgery History of cataract surgery History of repair of rotator cuff History of removal of skin mole History of cholecystectomy History of hysterectomy Family History Father Cardiac failure Mother Pulmonary embolism Family/Other FH: mental illness Sister Chronic mental illness Brother Glaucoma Social History Housing: Apartment Alcohol intake: current Alcohol intake frequency: a few times a month Patient Tobacco Use Status: Never used Tobacco e-Cigarette/Vaping Use: Never Used Second Hand Smoke Exposure: No service: No Current occupational status: retired and disabled Current occupation: right handed/ disabled Cognitive needs: Yes (walker) Hearing needs: No Vision needs: Yes (glasses) Review of Systems Const All systems reviewed & are unremarkable except as noted in HPI and below Physical Exam Vital Signs: BMI result Body Mass Index 21.2 Extrem Other: Left shoulder normal to inspection. Tenderness over the bicipital groove and along the deltoid region of the shoulder. Forward flexion to 95, external rotation to 90, internal rotation to S1. Pain with RTC strength testing. Positive [place] and [place]'s. NVI. Results Reviewed Results Reviewed: MRI left shoulder 05/06/23 IMPRESSION: 1. Postsurgical change consistent with rotator cuff tendon repair. Mild supraspinatus and infraspinatus tendinosis with intrasubstance tearing of the distal supraspinatus tendon extending posteriorly through the bursal surface of the infraspinatus tendon. Mild subscapularis tendinosis with articular surface fraying/partial tearing. 2. Fluid within the proximal long head biceps tendon sheath which may be related to the joint effusion or represent synovitis. Multiple loose bodies within the tendon sheath measuring up to 0.6 cm. 3. Postsurgical change consistent with acromioplasty and distal clavicular resection. Mild subacromial subdeltoid bursitis. 4. Djfznsas-ug-fqctpm glenohumeral osteoarthritis. Moderate joint effusion with synovitis. Loose bodies versus synovitis within the subacromial subdeltoid bursa measuring up to 2.9 cm in ML dimension. 5. Degenerative intrasubstance signal within the posterosuperior labrum with a shallow undersurface tear. Assessment & Plan Assessment & Plan (1) Injury of left rotator cuff: Code(s): S46.002A - Unspecified injury of muscle(s) and tendon(s) of the rotator cuff of left shoulder, initial encounter Qualifiers: Encounter type: initial encounter Qualified Code(s): S46.002A - Unspecified injury of muscle(s) and tendon(s) of the rotator cuff of left shoulder, initial encounter Plan We discussed findings of MRI and options available in the office today. She has been modifying her activities and had injections which lasted for a month and a half, and had limitations with daily activities. I did encourage her to meet with Dr. Clark. to further discuss treatment options such as surgical intervention to help with her symptoms. She is content with this plan and will see us back as needed. Patient Instructions: Scribed for Nayana Baldwin PA-C, by Adria Wade medical transcriber, on 07/09/2023 at 9:00 AM Nayana TYSON PA-C, have personally reviewed and agree with the information entered by the scribe. Coding Level of Care Code Est Pt Level 3 (27014) Diagnoses Injury of left rotator cuff, initial encounter S46.002A Encounter type: initial encounter
== END 2023-07-09 09:09 | disposition home or self-care (01) ==
PROVIDERS: PCP Internal Medicine; Visit Provider Physician Assistant
DX: S46.002A Unspecified injury of muscle(s) and tendon(s) of the rotator cuff of left shoulder, initial encounter (principal)
CPT/HCPCS: 99213

== ENCOUNTER → 2023-07-09 08:44 | Outpatient (BNVA) | payer OTHER, SELFPAY | PROVIDERS: PCP Internal Medicine; Visit Provider Physician Assistant | DX: S46.002D Unspecified injury of muscle(s) and tendon(s) of the rotator cuff of left shoulder, subsequent encounter (principal) | CPT/HCPCS: 99212 ==

== ENCOUNTER 2023-07-30 10:13 | Outpatient (REF) | payer OTHER, SELFPAY ==
[2023-07-30 10:28] LABS: MANUAL DIFF FLAG NO
[2023-07-30 10:51] LABS: Basophils Percent Auto 0.7 % (0-2); Eosinophils Absolute Auto 0.2 X10*3/uL (0.0-0.4); Eosinophils Percent Auto 2.8 % (0-4); Hematocrit 37.5 % (37.0-47.0); Hemoglobin 11.9 g/dl (12.0-16.0); Imm Gran Abs Auto 0.02 X10*3/uL (0.00-0.03); Imm Gran Pct Auto 0.4 % (0.0-0.4); Lymphocytes Absolute Auto 1.7 X10*3/uL (1.2-4.9); Lymphocytes Percent Auto 29.8 % (20-40); Mean Corpuscular HGB Conc 31.7 g/dl (31.0-35.0); Mean Corpuscular Hemoglobin 28.3 pg (27.0-33.0); Mean Corpuscular Volume 89.3 fL (80.0-98.0); Monocytes Absolute Auto 0.4 X10*3/uL (0.1-1.2); Monocytes Percent Auto 6.9 % (2-11); Neutrophils Absolute Auto 3.4 x10*3/uL (2.0-8.3); Neutrophils Percent Auto 59.4 % (45-73); Platelet Count 315 X10*3/uL (160-400); White Blood Count 5.7 X10*3/uL (4.8-10.8)
[2023-07-30 11:30] LABS: Alanine Aminotransferase 16 U/L (0-31); Albumin Level 4.1 g/dL (3.5-5.0); Alkaline Phosphatase 78 U/L (39-117); Anion Gap 8 (12-20); Aspartate Amino Transferase 18 U/L (5-31); Bilirubin Total 0.4 mg/dL (0.0-1.0); Blood Urea Nitrogen 15 mg/dL (9-16); Carbon Dioxide 30 mmol/L (22-29); Chloride 108 mmol/L (96-108); Estimated Glomerular Filt Rate > 60; Glucose Fasting 98 mg/dL (60-99); Sodium 142 mmol/L (135-145)
[2023-07-30 11:58] LABS: Thyroid Stimulating Hormone 1.13 uIU/mL (0.32-4.0)
== END 2023-07-30 10:14 | disposition home or self-care (01) ==
LOC: HO.LAB 10:13
PROVIDERS: PCP Internal Medicine; Visit Provider Internal Medicine
DX: R53.82 Chronic fatigue, unspecified (principal)
CPT/HCPCS: 36415; 80053; 84443; 85025

== ENCOUNTER 2023-08-01 09:26 | Outpatient (AMB) | payer OTHER, SELFPAY ==
--- NOTE | 2023-08-01 09:27 | A.OFFVIS_ITS ---
Intake Intake Visit Reasons: OV-Left RTC Tear - Discuss Surgery Intake Note: Kenna a 72 year old right hand dominant female presents today for discussion of surgical treatment of the her Left RTC Tear. History of Left RTC Repair in 2012 & FOOSH Injury in January of 2020. She was referred by Dr. Sewell who injected the shoulder on 03/07/23 with little relief. Allergies doxepin Allergy (Intermediate, Verified 08/01/23 09:28) loss of memory Latex, Natural Rubber [LATEX, NATURAL RUBBER] Allergy (Intermediate, Verified 08/01/23 09:28) ITCHING metronidazole [Rosadan] Allergy (Intermediate, Verified 08/01/23 09:28) mood change morphine Allergy (Intermediate, Verified 08/01/23 09:28) Chest Pain trazodone [TRAZODONE] Allergy (Intermediate, Verified 08/01/23 09:28) chest pain SEAFOOD Allergy (Intermediate, Uncoded 08/01/23 09:28) vomiting HPI OV-Left RTC Tear - Discuss Surgery HPI Details This is a 73 yo F with left shoulder pain for years. She had a RTC repair many years ago (~15). Over the past several years she has been having worsening pain and has difficulty with daily activities that include reaching, lifting overhead. She has had injections which were briefly and partially helpful. MRI was obtained recently. She is RHD. She would like to be able to lift overhead and engage in daily activities without pain. [facility] Medical History Hematuria IBS (irritable bowel syndrome) Mild recurrent major depression Dysuria Blurry vision Overweight Injury of left rotator cuff Left hand pain Left shoulder pain Fibromyalgia Knee pain Depression Essential hypertension GERD (gastroesophageal reflux disease) Mild asthma Surgical History History of brain surgery History of surgery on lower extremity History of colonoscopy History of foot surgery History of cataract surgery History of repair of rotator cuff History of removal of skin mole History of cholecystectomy History of hysterectomy Family History Father Cardiac failure Mother Pulmonary embolism Family/Other FH: mental illness Sister Chronic mental illness Brother Glaucoma Social History Housing: Apartment Alcohol intake: current Alcohol intake frequency: a few times a month Patient Tobacco Use Status: Never used Tobacco e-Cigarette/Vaping Use: Never Used Second Hand Smoke Exposure: No service: No Current occupational status: retired and disabled Current occupation: right handed/ disabled Cognitive needs: Yes (walker) Hearing needs: No Vision needs: Yes (glasses) Physical Exam Const General: cooperative, healthy appearing, no acute distress and well groomed Orientation/consciousness: oriented to person and oriented to place HEENT Head: Yes normal to inspection, Yes normocephalic and Yes atraumatic Eyes General: appearance normal, both eyes and all related structures Alignment and Position: alignment normal Conjunctivae: conjunctivae normal EOM: EOMs intact bilaterally Neck Neck: Yes normal visual inspection and Yes trachea midline Resp Other: No rerpiratory distress Effort & Inspection: normal respiratory effort and able to speak in complete sentences Cardio Other: Palpable radial pulse with no appreciable rythmic abnormalities GI Other: No abdominal distension Back/Spine/Pelvis Cervical Spine: normal cervical lordosis and cervical ROM normal Skin General skin exam: no rashes or lesions noted Neuro General: oriented to person, oriented to place and gait normal Extrem Other: Left hsoulder with 35 ER Neg EC 110 FF90 abd Results Reviewed Results Reviewed: 1. Postsurgical change consistent with rotator cuff tendon repair. Mild supraspinatus and infraspinatus tendinosis with intrasubstance tearing of the distal supraspinatus tendon extending posteriorly through the bursal surface of the infraspinatus tendon. Mild subscapularis tendinosis with articular surface fraying/partial tearing. 2. Fluid within the proximal long head biceps tendon sheath which may be related to the joint effusion or represent synovitis. Multiple loose bodies within the tendon sheath measuring up to 0.6 cm. 3. Postsurgical change consistent with acromioplasty and distal clavicular resection. Mild subacromial subdeltoid bursitis. 4. Fmjhbbsw-fi-hoxhlb glenohumeral osteoarthritis. Moderate joint effusion with synovitis. Loose bodies versus synovitis within the subacromial subdeltoid bursa measuring up to 2.9 cm in ML dimension. 5. Degenerative intrasubstance signal within the posterosuperior labrum with a shallow undersurface tear. Assessment & Plan Assessment & Plan (1) Arthritis of left glenohumeral joint: Code(s): M19.012 - Primary osteoarthritis, left shoulder Plan: This is a 73-year-old woman with left shoulder osteoarthritis. She had a rotator cuff repair over a decade ago and has ongoing pain with daily activities. I discussed treatment options. She is unhappy with injections and feels physical therapy is not beneficial. She has loss of the sphericity of her humeral head on MRI and evidence of severe glenohumeral osteoarthritis. I talked about options with her. I do not think rotator cuff repairs indicated and I recommend left shoulder arthroplasty. I discussed with her in detail the procedure, the recovery time and the risks associated with surgery including dislocation, nerve injury, infection, need for further surgery, stiffness and medical complications. She expressed understanding and we will proceed forward with medical clearance and pre operative planning. Orders: Orders CT shoulder LT wo IV con Today M19.012 - Primary osteoarthritis, left shoulder Coding Level of Care Code Est Pt Level 4 (04586) Diagnoses Arthritis of left glenohumeral joint M19.012
== END 2023-08-01 10:19 | disposition home or self-care (01) ==
PROVIDERS: PCP Internal Medicine; Visit Provider Orthopaedic Surgery
DX: M19.012 Primary osteoarthritis, left shoulder (principal)
CPT/HCPCS: 99214

== ENCOUNTER → 2023-08-01 09:26 | Outpatient (BNVA) | payer OTHER, SELFPAY | PROVIDERS: PCP Internal Medicine; Visit Provider Orthopaedic Surgery | DX: M19.012 Primary osteoarthritis, left shoulder (principal) | CPT/HCPCS: 99212 ==

== ENCOUNTER 2023-08-04 11:02 | Outpatient (AMB) | payer OTHER, SELFPAY ==
--- NOTE | 2023-08-04 11:37 | MHC.OFFVIS ---
Intake Intake Visit Reasons: 6m follow up Intake Note: Patient presents today for a follow-up Meds- None Allergies to Antibiotic- No Known Allergies Blood Thinner- Aspirin Post Void Residual: 0ml Patient stated she is using the vaginal cream, she also stated she is having a bloody vaginal discharge with a mild pain when she urinates, she stated she took screen shots of the vaginal discharge and would like to discuss with provider. International Account Manager Required: No Accompanied by: Self / Same As Patient Allergies doxepin Allergy (Intermediate, Verified 08/04/23 11:39) loss of memory Latex, Natural Rubber [LATEX, NATURAL RUBBER] Allergy (Intermediate, Verified 08/04/23 11:39) ITCHING metronidazole [Rosadan] Allergy (Intermediate, Verified 08/04/23 11:39) mood change morphine Allergy (Intermediate, Verified 08/04/23 11:39) Chest Pain trazodone [TRAZODONE] Allergy (Intermediate, Verified 08/04/23 11:39) chest pain SEAFOOD Allergy (Intermediate, Uncoded 08/04/23 11:39) vomiting HPI HPI Comments History of Present Illness Details Angelika is a 73-year-old female who presents today for a follow-up. Certified small kick press operator was present during the visit.?She states she is seeing blood when she urinates. She has had recurrent UTI's, she is prescribed vaginal estrogen therapy. She denies dysuria. I have discussed repeat office cystoscopy. Urine for cytology. Review of chart: 01/31/2023? She is followed today via Tele-health for UTI symptoms. The patient is a [place] speaking female. Certified commutator tester was present during the Tele-health visit. She was last seen by me on 11/29/2022 for bladder wall thickening. Ceftum 500 mg BID for ten days was ordered, she was advised to follow-up after 2 months. I reviewed the urine culture results from 11/29/2022- which came back no growth; and 01/20/2023 which came back < 10,000 cfu/ml. She states that she is doing well without any urinary tract infections. She has stopped using Estrace cream as it is leaving stains on her undergarments. I will change the Estrace cream to Vagifem 10 mcg. Use it twice a week, Friday and . Follow-up in 6 months. 11/29/2022? The patient is [place] speaking female. certified small kick press operator was present during the visit.? The patient was last seen in the office on 11/04/22 for? urinary frequency and urge incontinence. She was initially seen as new patient evaluation on 09/23/22 by JAVIER Alva.? Work up included renal US. Renal US results reviewed--10/04/22-- WNL, kidneys are normal, Diffused bladder wall thickening was noted. Urine cytology results reviewed--09/23/22-- negative for malignancy. The patient is using estrogen cream vaginally with minimal benefits.? States having urinary leakage and is using pads.?? Evaluation today UA: Blood: 10 Mane/uL, leukocytes: 2+.? Cystoscopy findings-- erythematous changes consistent with cystitis follicularis I discussed to hold on anti-cholinergic medication pending antibiotic therapy for cystitis.? Plan:?Ceftum 500 mg BID for ten days. Pending the urine culture will start the patient on daily antibiotic suppressive therapy. Follow-up after 2 months. 08/04/23--Plan--urine for cytology, repeat office cystoscopy REPLACED BY [facility] Medical History Hematuria IBS (irritable bowel syndrome) Mild recurrent major depression Dysuria Blurry vision Overweight Injury of left rotator cuff Left hand pain Left shoulder pain Fibromyalgia Knee pain Depression Essential hypertension GERD (gastroesophageal reflux disease) Mild asthma Surgical History History of brain surgery History of surgery on lower extremity History of colonoscopy History of foot surgery History of cataract surgery History of repair of rotator cuff History of removal of skin mole History of cholecystectomy History of hysterectomy Family History Father Cardiac failure Mother Pulmonary embolism Family/Other FH: mental illness Sister Chronic mental illness Brother Glaucoma Social History Housing: Apartment Alcohol intake: current Alcohol intake frequency: a few times a month Patient Tobacco Use Status: Never used Tobacco e-Cigarette/Vaping Use: Never Used Second Hand Smoke Exposure: No service: No Current occupational status: retired and disabled Current occupation: right handed/ disabled Cognitive needs: Yes (walker) Hearing needs: No Vision needs: Yes (glasses) Review of Systems Const All systems reviewed & are unremarkable except as noted in HPI and below Reports no additional complaints Eyes Reports no additional complaints ENT Reports no additional complaints Card Reports no additional complaints Resp Reports no additional complaints GI Reports no additional complaints Reports as per HPI Musc Reports no additional complaints Skin/Breast Reports system reviewed and no additional complaints, except as documented Neuro Reports no additional complaints Psych Reports no additional complaints Endo Reports no additional complaints Puneet/Lymph Reports no additional complaints Aller/Immun Reports no additional complaints Office Procedures Post Void Residual Post Residual Void Post Void Residual (PVR): 0 89902-Hudy Void Residual by ultrasound Results AMB Urinalysis, Automated UA Leukoctes 15 Gayatri/uL Last Edit by Sobia Jackman [facility] on 08/04/23 11:41 UA Nitrite Negative Last Edit by Sobia Jackmanjuly Jackman [facility] on 08/04/23 11:41 UA Urobilinogen 0.2 mg/dL Last Edit by Sobia Jackman [facility] on 08/04/23 11:41 UA Protein 0 mg/dL Last Edit by Sobia Jackmanjuly Ortegaa, [facility] on 08/04/23 11:41 UA pH 6.0 Last Edit by Sobia Jackmanjuly Jackman [facility] on 08/04/23 11:41 UA Blood 0 Mane/uL Last Edit by Sobia Jackmanjuly Jackman, [facility] on 08/04/23 11:41 UA Specific [place] 1.010 Last Edit by Sobia Jackmanjuly Jackman [facility] on 08/04/23 11:41 UA Ketone Negative Last Edit by Sobia Jackmanjuly Jackman [facility] on 08/04/23 11:41 UA Bilirubin 0 mg/dL Last Edit [facility] Jackman [facility] on 08/04/23 11:41 UA Glucose 0 mg/dL Last Edit by [facility]uly Jackman [facility] on 08/04/23 11:41 Results Reviewed Results Reviewed: Laboratory Last Values Urine pH (Auto) 6.0 08/04/23 11:40 Specific [place] (Auto) 1.010 08/04/23 11:40 Urine Protein (Auto) 0 mg/dL 08/04/23 11:40 Glucose (UA)(Auto) 0 mg/dL 08/04/23 11:40 Urine Ketones (Auto) Negative 08/04/23 11:40 Urine Blood (Auto) 0 Mane/uL 08/04/23 11:40 Urine Nitrite (Auto) Negative 08/04/23 11:40 Urine Bilirubin (Auto) 0 mg/dL 08/04/23 11:40 Urine Urobilinogen (Auto) 0.2 mg/dL 08/04/23 11:40 Leukocyte Esterase (Auto) 15 Gayatri/uL 08/04/23 11:40 Date of Service: 10/04/22 EXAMINATION: US RETROPERITONEAL COMPLETE (RENAL) CLINICAL INFORMATION: Hematuria, unspecified. COMPARISON: Renal ultrasound 09/05/2021. Ultrasound abdomen 07/29/2018. TECHNIQUE: Real-time imaging of the kidneys and bladder. FINDINGS: RIGHT KIDNEY: 9.4 x 5.2 x 5 cm (SAG x AP x TRV). The kidney is normal in size, contour, and echogenicity. Renal cortical thickness is normal. No calculi or focal parenchymal lesions. No hydronephrosis. LEFT KIDNEY: 10.1 x 5.8 x 4.5 cm (SAG x AP x TRV). The kidney is normal in size, contour, and echogenicity. Renal cortical thickness is normal. No calculi or focal parenchymal lesions. No hydronephrosis. BLADDER: The bladder is well-distended. Mild diffuse bladder wall thickening noted. Bilateral ureteral jets are demonstrated. Prevoid bladder volume is 441 mL. Postvoid bladder volume is 53 mL. IMPRESSION: 1.? No renal calculi or hydronephrosis of either kidney. 2.? Prominent post void bladder residual of 53 mL. Collected: 09/23/22 Received: 09/24/22 Diagnosis Urine:? Negative for high-grade urothelial carcinoma.? See comment. COMMENT: Cellular specimen consisting of urothelial cells with reactive and degenerative changes, squamous cells, red blood cells and acute inflammatory cells. Clinical History Hematuria Material Received Urine Gross Description 15 cc slightly cloudy yellow fluid Assessment & Plan Assessment & Plan (1) Bladder wall thickening: Code(s): N32.89 - Other specified disorders of bladder (2) Cystitis: Code(s): N30.90 - Cystitis, unspecified without hematuria Plan urine cytology, repeat office cystoscopy Orders: Orders AMB Urinalysis Automated 08/04/23 R33.9 - Retention of urine, unspecified AMB Post Void Residual by ultrasound 08/04/23 R33.9 - Retention of urine, unspecified Urine Culture 08/04/23 N39.0 - Urinary tract infection, site not specified Urine Cytology 08/04/23 R32 - Unspecified urinary incontinence, N30.90 - Cystitis, unspecified without hematuria, R31.9 - Hematuria, unspecified Patient Instructions: The patient had an opportunity to ask questions regarding treatment plan. All questions were answered. Imaging, Laboratory studies and physical exam results were discussed and reviewed in detail. No major barriers to understanding were identified. The patient expressed understanding and agreement with the above treatment plan. The patient is aware they should contact our office by phone for worsening of their current condition or the appearance of new symptoms. Compliance is encouraged with any medications and followup testing that is ordered. It is a privilege to be allowed the opportunity to participate in the urologic care of your patient. If you have any questions or concerns regarding treatment for the above conditions please do not hesitate to contact me. The office telephone contact is [phone]. This note is constructed in part using voice recognition software. While every effort has been made to ensure accuracy avionics systems technician errors may have been included. Yours sincerely, Vinayak Vinson MD Coding Level of Care Code Est Pt Level 3 (30219) Diagnoses Bladder wall thickening N32.89 Cystitis N30.90 CPT Codes Post Residual Void - PVR CPT Code: 39044-Lglj Void Residual by ultrasound ([id number])
== END 2023-08-04 12:38 | disposition home or self-care (01) ==
PROVIDERS: PCP Internal Medicine; Visit Provider Urology
DX: N32.89 Other specified disorders of bladder (principal); N30.90 Cystitis, unspecified without hematuria
CPT/HCPCS: 99213

== ENCOUNTER 2023-08-04 11:02 | Outpatient (REF) | payer OTHER, SELFPAY ==
[2023-08-05 07:42] LABS: Urine Cytology See Pathology rpt
== END 2023-08-04 11:03 | disposition home or self-care (01) ==
LOC: HO.LAB 11:02
PROVIDERS: PCP Internal Medicine; Visit Provider Urology
DX: R33.9 Retention of urine, unspecified (principal); R32 Unspecified urinary incontinence; N30.91 Cystitis, unspecified with hematuria
CPT/HCPCS: 51798; 81003; 87086; 88112; 99212

== ENCOUNTER 2023-09-05 14:41 | Outpatient (REF) | payer OTHER, SELFPAY ==
--- NOTE | ~2023-09-05 | CT_ITS ---
EXAMINATION: CT SHOULDER WITHOUT CONTRAST, LEFT CLINICAL INFORMATION: Osteoarthritis. Preoperative evaluation. COMPARISON: Left shoulder MRI dated 05/06/2023. TECHNIQUE: Contiguous axial CT images of the left shoulder were obtained without contrast. Sagittal and coronal reformats were provided and reviewed. This CT examination was performed using dose optimization techniques as appropriate, variously including the following: *Automated exposure control *Adjustment of mA and/or kV according to patient size (this includes techniques or standardized protocols for targeted exams where dose is matched to indication/reason for exam; i.e. extremities or head) *Use of iterative reconstruction technique. DOSE: 207 mGycm. FINDINGS: Visualized left lung: Unremarkable. Bone/joint: Post surgical change consistent with prior rotator cuff tendon repair. Minimal chronic posterior subluxation of the humeral head. Ttfwhtgd-bm-ejiazh glenohumeral joint space narrowing with subchondral cystic change and prominent marginal osteophytes. Mild acromioclavicular osteoarthritis. No acute fracture or dislocation. No concerning lytic or blastic osseous lesion. Glenoid version: No significant glenoid bony remodeling or retroversion. Estimated depth of the glenoid vault: Approximately 1.8 cm. Glenoid morphology: Walch Type a 2 Joint fluid/bursa/soft tissues: Evaluation of the rotator cuff tendons limited on CT examination at there was better visualization on the prior MRI. Ossified loose body along the superior aspect of the humeral head measuring up to 0.6 cm. Additional ossified loose bodies within the subcoracoid recess measuring up to 1.[address]/CT shoulder LT wo IV con IMPRESSION: 1. Post surgical change consistent with prior rotator cuff tendon repair. Minimal chronic posterior subluxation of the humeral head. No significant glenoid bony remodeling or retroversion. 2. Wchjbual-qy-refylp glenohumeral osteoarthritis. Ossified loose bodies measuring up to 1.3 cm within the subcoracoid recess. 3. Mild acromioclavicular osteoarthritis.
== END 2023-09-05 14:42 | disposition home or self-care (01) ==
LOC: HO.CT 14:41
PROVIDERS: PCP Internal Medicine; Visit Provider Orthopaedic Surgery
DX: M19.012 Primary osteoarthritis, left shoulder (principal)
CPT/HCPCS: 73200

== ENCOUNTER 2023-09-16 12:04 | Outpatient (AMB) | payer OTHER, SELFPAY ==
[2023-09-16 12:28] VITALS: BP 118/66; PULSE 62; O2SAT 96; BMI 29.3
--- NOTE | 2023-09-16 12:28 | A.OFFPC_ITS ---
Vital Signs 09/16/23 12:28 Height 5 ft 1 in Weight 155 lb 0.2 oz BMI 29.3 BP 118/66 Blood Pressure Location Lt brachial Position Sitting Pulse 62 Pulse Source Pulse Oximeter Pulse Oximetry (%) 96 Oxygen Delivery Method Room Air Intake Visit Reasons: Pre-op Dr Clark left TSA 10/15/23 Intake Note: Patient is here for a Pre-op for Left TSA scheduled with Dr. Clark on 10/15/23 Visual Inspector Required: No Accompanied by: Self / Same As Patient Allergies doxepin Allergy (Intermediate, Verified 09/16/23 12:43) loss of memory Latex, Natural Rubber [LATEX, NATURAL RUBBER] Allergy (Intermediate, Verified 09/16/23 12:43) ITCHING metronidazole [Rosadan] Allergy (Intermediate, Verified 09/16/23 12:43) mood change morphine Allergy (Intermediate, Verified 09/16/23 12:43) Chest Pain trazodone [TRAZODONE] Allergy (Intermediate, Verified 09/16/23 12:43) chest pain SEAFOOD Allergy (Intermediate, Uncoded 09/16/23 12:43) vomiting Medication List - Last Reconciled 09/16/23 by Melissa Porter MD albuterol sulfate 90 mcg/actuation 2 puffs inhalation Q6H PRN 30 days aspirin 81 mg PO DAILY cromolyn 4% 1 drp ophthalmic (eye) QID 14 days diphenhydramine HCl (Allergy (diphenhydramine)) 50 mg (2 x 25 mg) PO DIRECTED estradiol (Vagifem) 10 mcg vaginal 2XW fluoxetine 20 mg PO QAM 90 days fluticasone propionate 110 mcg/actuation 1,000,000 mcg PO BID ketotifen fumarate 0.025%(0.035%) (Alaway) 1 drp ophthalmic (eye) BID PRN 30 days lisinopril 5 mg PO DAILY 90 days melatonin 20 mg PO BEDTIME PRN montelukast 10 mg PO BEDTIME naproxen 500 mg PO BID 30 days omeprazole 20 mg PO DAILY 90 days tramadol 50 mg PO DAILY PRN 30 days Tobacco use date assessed: 09/16/23 Fall risk assessment: No Falls in past year Last assessed Fall Risk: 09/16/23 Dental Screening Dental Screen Date: 09/16/23 HPI HPI Comments History of Present Illness Details This is a 73-year-old female with GERD, hypertension, mild recurrent major depression and left glenohumeral arthritis that comes today for preop evaluation for left TSA scheduled for 10/15/2023. Blood pressure stable. Depression well control with fluoxetine. GERD also stable with PPIs. She has had bilateral rotator cuff repair in the past. Still has left shoulder pain. Has 4-5 Mets of ADLs. Last labs were discussed and shown no contraindication for surgery. EKG pending for medical clearance. She has a low risk patient going to a medium risk surgery. [facility] Medical History Hematuria IBS (irritable bowel syndrome) Mild recurrent major depression Dysuria Blurry vision Overweight Injury of left rotator cuff Left hand pain Left shoulder pain Fibromyalgia Knee pain Depression Essential hypertension GERD (gastroesophageal reflux disease) Mild asthma Surgical History History of brain surgery History of surgery on lower extremity History of colonoscopy History of foot surgery History of cataract surgery History of repair of rotator cuff History of removal of skin mole History of cholecystectomy History of hysterectomy Family History Father Cardiac failure Mother Pulmonary embolism Family/Other FH: mental illness Sister Chronic mental illness Brother Glaucoma Social History (Updated 09/16/23 @ 12:51 by Melissa Porter MD) Housing: Apartment Alcohol intake: never Patient Tobacco Use Status: Never used Tobacco e-Cigarette/Vaping Use: Never Used Second Hand Smoke Exposure: No service: No Current occupational status: retired and disabled Current occupation: right handed/ disabled Cognitive needs: Yes (walker) Hearing needs: No Vision needs: Yes (glasses) Questionnaire PHQ-9 Over the last 2 weeks, how often have you been bothered by any of the following problems? 1. Little interest or pleasure in doing things: several days 2. Feeling down, depressed, or hopeless: several days 3. Trouble falling or staying asleep, or sleeping too much: several days 4. Feeling tired or having little energy: more than half the days 5. Poor appetite or overeating: more than half the days 6. Feeling bad about yourself - or that you are a failure or have let yourself or your family down: several days 7. Trouble concentrating on things, such as reading the newspaper or watching television: more than half the days 8. Moving or speaking so slowly that other people could have noticed. Or the opposite - being so fidgety or restless that you have been moving around a lot more than usual: more than half the days 9. Thoughts that you would be better off or of hurting yourself in some way: not at all Total score: 12 Depression Screening Interpretation: Negative Depression Screening Done: Yes 81906 - PHQ-9 Billing: Yes Source: Developed by Drs. Radhames Hodges, Tonia Walsh, Jhoan Torrez and colleagues, with an educational ketan from [email or web address]. Thrive Questionnaire Date Thrive assessed: 09/16/23 I am a: Patient What is your living situation today?: I have a steady place to live Within the past 12 months, did the food you bought not last and you didn't have the money to get more?: Never true Within the past 12 months, did you worry whether your food would run out before you got money to buy more?: Never true Do you have trouble paying for medicines?: No Do you have trouble getting transportation to medical appointments?: No Do you have trouble paying your heating and electricity bill?: No Do you have trouble taking care of your child, family member or friend?: No Do you have trouble with day-to-day activities such as bathing, preparing meals, shopping, managing finances, etc.?: No Are you currently unemployed and looking for a job?: No Are you interested in more education?: No Please select the resources that you would like help with: None Currently or been in a relationship where the following occur: no concerns reported THRIVE Score: 0 AUDIT C Alcohol Use Questionnaire (AUDIT-C) 1. How often do you have a drink containing alcohol?: Never Total Score: 0 Score Reviewed/Action Taken: No GÓMEZ-7 AMB Questionnaire GÓMEZ-7 Date GÓMEZ - 7 assessed: 09/16/23 Feeling nervous, anxious, or on edge: 0 = Not at all Not being able to stop or control worryin = Not at all Worrying too much about different things: 0 = Not at all Trouble relaxin = Not at all Being so restless that it is hard to sit still: 0 = Not at all Becoming easily annoyed or irritable: 0 = Not at all Feeling afraid as if something awful might happen: 0 = Not at all Total GÓMEZ-7 score (0-4 normal; 5-9 mild; 10-14 moderate; 15-21 severe): 0 Source: Developed by Drs. Radhames Hodges, Tonia Walsh, Jhoan Torrez and colleagues, with an educational ketan from [email or web address]. GÓMEZ-7 Assessment Billing GÓMEZ-7 Assessment Tool: GÓMEZ-7 Assessment 35121 Review of Systems Const All systems reviewed & are unremarkable except as noted in HPI and below Eyes Reports no additional complaints, Denies change in vision and Denies other visual disturbances Resp Denies cough Musc Reports arthralgias Physical exam (Primary Care) Vital Signs: Last Vital Signs Pulse 62 09/16/23 12:28 BP 118/66 09/16/23 12:28 Pulse Ox 96 09/16/23 12:28 Oxygen Delivery Method Room Air 09/16/23 12:28 BMI result Body Mass Index 29.3 Tobacco/Smoking Status: Tobacco use Status Tobacco use date assessed 09/16/23 09/16/23 12:31 Patient Tobacco Use Status Never used Tobacco 09/16/23 12:51 e-Cigarette/Vaping Use Never Used 09/16/23 12:51 PHQ-9: PHQ-9 Score PHQ-9: Total score 12 09/16/23 13:03 Depression Screening Interpretation: Negative Thrive Assessment: Date of Thrive Assessment Date Thrive assessed 09/16/23 09/16/23 12:35 Currently or been in a relationship where the following occur: no concerns reported Resp Effort & Inspection: normal respiratory effort Auscultation: clear to auscultation bilaterally Cardio Jugular venous distension: no JVD Rate: regular rate Rhythm: regular rhythm Heart sounds: S1 normal heart sound present and S2 normal heart sound present Assessment and Plan Assessment & Plan (1) Pre-op evaluation: Code(s): Z01.818 - Encounter for other preprocedural examination Plan: EKG pending for medical clearance. (2) Arthritis of left glenohumeral joint: Code(s): M19.012 - Primary osteoarthritis, left shoulder Plan: Follow-up with ortho. Continue naproxen as needed. (3) Mild recurrent major depression: Code(s): F33.0 - Major depressive disorder, recurrent, mild Plan: Continue fluoxetine. (4) Essential hypertension: Code(s): I10 - Essential (primary) hypertension Plan: Continue lisinopril. Blood pressure goal is equal or less than 130/80. (5) GERD (gastroesophageal reflux disease): Code(s): K21.9 - Gastro-esophageal reflux disease without esophagitis Qualifiers: Esophagitis presence: esophagitis presence not specified Qualified Code(s): K21.9 - Gastro-esophageal reflux disease without esophagitis Plan: Continue PPIs. Orders: Orders ECG 12 lead EKG Today Z01.818 - Encounter for other preprocedural examination Urine Culture Today R30.0 - Dysuria Coding Level of Care Code Est Pt Level 4 (34560) Diagnoses Pre-op evaluation Z01.818 Arthritis of left glenohumeral joint M19.012 Mild recurrent major depression F33.0 Essential hypertension I10 Gastroesophageal reflux disease, unspecified whether esophagitis present K21.9 Esophagitis presence: esophagitis presence not specified Additional Codes GÓMEZ-7 Assessment Billing - GÓMEZ-7 Assessment Tool: GÓMEZ-7 Assessment 25584 ([id number]) Time Spent (min) 26
== END 2023-09-16 12:54 | disposition home or self-care (01) ==
PROVIDERS: PCP Internal Medicine; Visit Provider Internal Medicine
DX: I10 Essential (primary) hypertension (principal); F33.0 Major depressive disorder, recurrent, mild; Z01.818 Encounter for other preprocedural examination; M19.012 Primary osteoarthritis, left shoulder; K21.9 Gastro-esophageal reflux disease without esophagitis
CPT/HCPCS: 99214

== ENCOUNTER 2023-09-16 13:02 | Outpatient (REF) | payer OTHER, SELFPAY ==
--- NOTE | 2023-09-16 13:11 | ECG_ITS ---
Test Reason : preop Blood Pressure : / mmHG Vent. Rate : 060 BPM Atrial Rate : 060 BPM P-R Int : 152 ms QRS Dur : 070 ms QT Int : 412 ms P-R-T Axes : 045 015 015 degrees QTc Int : 412 ms Normal sinus rhythm Normal ECG When compared with ECG of 27-NOV-2004 13:44, No significant change was found Referred By: Melissa Porter Electronically Signed By:DANELLE GUDINO MD
== END 2023-09-16 13:03 | disposition home or self-care (01) ==
LOC: HO.XRAY 13:02
PROVIDERS: PCP Internal Medicine; Visit Provider Internal Medicine
DX: Z01.818 Encounter for other preprocedural examination (principal); R30.0 Dysuria
CPT/HCPCS: 87086; 93005

== ENCOUNTER → 2023-09-16 13:11 | Outpatient (BNV) | payer OTHER, SELFPAY | PROVIDERS: PCP Internal Medicine; Visit Provider Internal Medicine Cardiovascular Disease | DX: Z01.810 Encounter for preprocedural cardiovascular examination (principal); M19.012 Primary osteoarthritis, left shoulder; I10 Essential (primary) hypertension | CPT/HCPCS: 93010 ==

== ENCOUNTER 2023-09-17 12:46 | Outpatient (AMB) | payer OTHER, SELFPAY ==
--- NOTE | 2023-09-17 13:12 | A.OFFVIS_ITS ---
Intake Visit Reasons: cysto Intake Note: Patient presents today for a CYSTO Procedure * Meds: Estradiol * Allergies to Antibiotic: None * Blood Thinner: Aspirin * Urinalysis test clear for Cysto- YES Decay Control Operator Required: Yes Decay Control Operator Language: Director Of Cardiac Cath Lab Name: Mekhi Jo, ASHLY/ANDREY Spani Information Interpreted: non-clinical & clinical Accompanied by: Self / Same As Patient Allergies doxepin Allergy (Intermediate, Verified 10/14/23 08:10) loss of memory Latex, Natural Rubber [LATEX, NATURAL RUBBER] Allergy (Intermediate, Verified 10/14/23 08:10) ITCHING metronidazole [Rosadan] Allergy (Intermediate, Verified 10/14/23 08:10) mood change morphine Allergy (Intermediate, Verified 10/14/23 08:10) Chest Pain trazodone [TRAZODONE] Allergy (Intermediate, Verified 10/14/23 08:10) chest pain SEAFOOD Allergy (Intermediate, Uncoded 10/14/23 08:10) vomiting HPI Comments Details: 09/15/23--Kenna is a 73 year old female who has had recurrent UTI's, she had cystoscopy in November, which noted erythematous changes c/w cystitis. She has been on antibiotics and is here for repeat cystoscopy. The patient was seen by the nurse, but needed to leave and left without completing cystoscopy. Will reschedule cysto. Review of chart: 08/04/23--Angelika is a 73-year-old female who presents today for a follow-up. Certified developer analyst was present during the visit.?She states she is seeing blood when she urinates. She has had recurrent UTI's, she is prescribed vaginal estrogen therapy. She denies dysuria. I have discussed repeat office cystoscopy. Urine for cytology. 01/31/2023? She is followed today via Tele-health for UTI symptoms. The patient is a Iranian speaking female. Certified bi specialist was present during the Tele-health visit. She was last seen by me on 11/29/2022 for bladder wall thickening. Ceftum 500 mg BID for ten days was ordered, she was advised to follow-up after 2 months. I reviewed the urine culture results from 11/29/2022- which came back no growth; and 01/20/2023 which came back < 10,000 cfu/ml. She states that she is doing well without any urinary tract infections. She has stopped using Estrace cream as it is leaving stains on her undergarments. I will change the Estrace cream to Vagifem 10 mcg. Use it twice a week, Friday and . Follow-up in 6 months. 11/29/2022? The patient is Iranian speaking female. certified developer analyst was present during the visit.?The patient was last seen in the office on 11/04/22 for? urinary frequency and urge incontinence. She was initially seen as new patient evaluation on 09/23/22 by CIRCUS AGENT Alejandra Alva.?Work up included renal US. Renal US results reviewed--10/04/22-- WNL, kidneys are normal, Diffused bladder wall thickening was noted. Urine cytology results reviewed--09/23/22-- negative for malignancy. The patient is using estrogen cream vaginally with minimal benefits.?States having urinary leakage and is using pads.?? Evaluation today UA: Blood: 10 Mane/uL, leukocytes: 2+.? Cystoscopy findings-- erythematous changes consistent with cystitis follicularis I discussed to hold on anti-cholinergic medication pending antibiotic therapy for cystitis.?Plan:?Ceftum 500 mg BID for ten days. Pending the urine culture will start the patient on daily antibiotic suppressive therapy. Follow-up after 2 months. [facility] Medical History Herniated intervertebral disc of lumbar spine Back pain Anemia Thyroid cyst Kidney infection Fatty liver Sleep apnea Lung cyst Asthma Cerebral arterial aneurysm Palpitations HTN (hypertension) Hematuria IBS (irritable bowel syndrome) Mild recurrent major depression Dysuria Blurry vision Overweight Injury of left rotator cuff Left hand pain Left shoulder pain Fibromyalgia Knee pain Depression Essential hypertension GERD (gastroesophageal reflux disease) Mild asthma Surgical History History of ear surgery History of brain surgery History of surgery on lower extremity History of colonoscopy History of foot surgery History of cataract surgery History of repair of rotator cuff History of removal of skin mole History of cholecystectomy History of hysterectomy Family History Father Cardiac failure Mother Pulmonary embolism Family/Other FH: mental illness Sister Chronic mental illness Brother Glaucoma Social History Household Members: Family Housing: House Are you a primary assurance services manager health care to a significant other at home: No Do you presently have visiting nurse or other home services: No Alcohol intake: never Patient Tobacco Use Status: Never used Tobacco e-Cigarette/Vaping Use: Never Used Second Hand Smoke Exposure: No service: No Current occupational status: retired and disabled Current occupation: right handed/ disabled Cognitive needs: Yes (walker) Hearing needs: No Vision needs: Yes (glasses) Office Procedures Cystoscopy Consent Discussed risk and benefit or proposed procedure with the patient. Information consent for procedure given to the patient. Discussed technical aspects, risks, benefits and alternatives in full. Addressed all of the patient's questions and concerns regarding the procedure. The patient demonstrated knowledge and understanding. They wish to proceed with this procedure. Preparation The patient was prepped in the usual manner. A sports teacher was present and in the room. Genitalia was prepped with betadine solution in a sterile manner. Lidocaine Jelly 2% was placed into the urethra. Procedure code (CPT) selection complete Office Meds lidocaine HCl 2 % mucosal jelly in applicator Performing Provider: Vinayak Vinson MD Performing Location: [facility] Administered by: Halima Gomez RN on 09/17/23 13:20 Dose Route Admin Location Dispensed Lot Number Expiration Date [facility] [employer] Nurse 10 mL intra-urethral 20 mL naproxen 500 mg tablet Performing Provider: Vinayak Vinson MD Performing Location: [facility] Administered by: Halima Gomez RN on 09/17/23 13:20 Dose Route Admin Location Dispensed Lot Number Expiration Date [facility] [employer] Nurse 500 mg PO 1 tab ciprofloxacin HCl 500 mg tablet Performing Provider: Vinayak Vinson MD Performing Location: [facility] Administered by: Halima Gomez RN on 09/17/23 13:20 Dose Route Admin Location Dispensed Lot Number Expiration Date [facility] [employer] 500 mg PO 1 tab Results AMB Urinalysis, Automated UA Leukoctes 0 Gayatri/uL Last Edit by Mekhi Jo Gloria on 09/17/23 13:36 UA Nitrite Negative Last Edit by Mekhi Jo Gloria on 09/17/23 13:36 UA Urobilinogen 0.2 mg/dL Last Edit by Mekhi Jo [facility] on 09/17/23 13:3 6 UA Protein 0 mg/dL Last Edit by Mekhi Jo [facility] on 09/17/23 13:36 UA pH 7.5 Last Edit by Mekhi Jo [facility] on 09/17/23 13:36 UA Blood 0 Mane/uL Last Edit by Mekhi Jo Gloria on 09/17/23 13:36 UA Specific [place] 1.010 Last Edit by Mekhi Jo Gloria on 09/17/23 13: 36 UA Ketone Negative Last Edit by Mekhi Jo [facility] on 09/17/23 13:36 UA Bilirubin 0 mg/dL Last Edit by Mekhi Jo [facility] on 09/17/23 13:36 UA Glucose 0 mg/dL Last Edit by Mekhi Jo [facility] on 09/17/23 13:36 Results Reviewed Results Reviewed: Laboratory Last Values Urine pH (Auto) 7.5 09/17/23 13:35 Specific [place] (Auto) 1.010 09/17/23 13:35 Urine Protein (Auto) 0 mg/dL 09/17/23 13:35 Glucose (UA)(Auto) 0 mg/dL 09/17/23 13:35 Urine Ketones (Auto) Negative 09/17/23 13:35 Urine Blood (Auto) 0 Mane/uL 09/17/23 13:35 Urine Nitrite (Auto) Negative 09/17/23 13:35 Urine Bilirubin (Auto) 0 mg/dL 09/17/23 13:35 Urine Urobilinogen (Auto) 0.2 mg/dL 09/17/23 13:35 Leukocyte Esterase (Auto) 0 Gayatri/uL 09/17/23 13:35 Date of Service: 10/04/22 EXAMINATION: US RETROPERITONEAL COMPLETE (RENAL) CLINICAL INFORMATION: Hematuria, unspecified. COMPARISON: Renal ultrasound 09/05/2021. Ultrasound abdomen 07/29/2018. TECHNIQUE: Real-time imaging of the kidneys and bladder. FINDINGS: RIGHT KIDNEY: 9.4 x 5.2 x 5 cm (SAG x AP x TRV). The kidney is normal in size, contour, and echogenicity. Renal cortical thickness is normal. No calculi or focal parenchymal lesions. No hydronephrosis. LEFT KIDNEY: 10.1 x 5.8 x 4.5 cm (SAG x AP x TRV). The kidney is normal in size, contour, and echogenicity. Renal cortical thickness is normal. No calculi or focal parenchymal lesions. No hydronephrosis. BLADDER: The bladder is well-distended. Mild diffuse bladder wall thickening noted. Bilateral ureteral jets are demonstrated. Prevoid bladder volume is 441 mL. Postvoid bladder volume is 53 mL. IMPRESSION: 1.? No renal calculi or hydronephrosis of either kidney. 2.? Prominent post void bladder residual of 53 mL. Collected: 08/04/23 Location: .LAB Received: 08/05/23 Diagnosis Urine: Negative for high-grade urothelial carcinoma. See comment. COMMENT: Cellular specimen consisting of occasional single urothelial cells, squamous cells, occasional red blood cells and rare acute inflammatory cells. Clinical History Urinary incontinence, cystitis, hematuria Material Received Urine Gross Description 7 cc clear yellow fluid _ Collected: 09/23/22 Received: 09/24/22 Diagnosis Urine:? Negative for high-grade urothelial carcinoma.? See comment. COMMENT: Cellular specimen consisting of urothelial cells with reactive and degenerative changes, squamous cells, red blood cells and acute inflammatory cells. Clinical History Hematuria Material Received Urine Gross Description 15 cc slightly cloudy yellow fluid Assessment & Plan Assessment & Plan (1) Bladder wall thickening: Code(s): N32.89 - Other specified disorders of bladder Category: Medical (2) Cystitis: Code(s): N30.90 - Cystitis, unspecified without hematuria Category: Medical Plan repeat office cystoscopy Orders: Orders AMB Cystoscopy 09/17/23 R32 - Unspecified urinary incontinence, N30.90 - Cystitis, unspecified without hematuria, N32.89 - Other specified disorders of bladder, R35.0 - Frequency of micturition AMB Urinalysis Automated 09/17/23 Z13.9 - Encounter for screening, unspecified Medications: New solifenacin (Vesicare) 10 mg PO DAILY 30 tabs 2RF Patient Instructions: This note is constructed in part using voice recognition software. While every effort has been made to ensure accuracy rug touch up painter errors may have been included. Coding Level of Care Code Left Without Being Seen Diagnoses Bladder wall thickening N32.89 Cystitis N30.90
== END 2023-09-17 14:22 | disposition left against medical advice (07) ==
PROVIDERS: PCP Internal Medicine; Visit Provider Urology
DX: R32 Unspecified urinary incontinence (principal); N30.90 Cystitis, unspecified without hematuria; N32.89 Other specified disorders of bladder; R35.0 Frequency of micturition; Z13.9 Encounter for screening, unspecified
CPT/HCPCS: 52000

== ENCOUNTER → 2023-09-17 12:46 | Outpatient (BNVA) | payer OTHER, SELFPAY | PROVIDERS: PCP Internal Medicine; Visit Provider Urology | DX: N32.89 Other specified disorders of bladder (principal); N30.90 Cystitis, unspecified without hematuria | CPT/HCPCS: 52000; 81003 ==

== ENCOUNTER → 2023-09-18 09:42 | Outpatient (BNVA) | payer OTHER, SELFPAY | PROVIDERS: PCP Internal Medicine; Visit Provider Orthopaedic Surgery ==

== ENCOUNTER 2023-10-09 08:34 | Outpatient (REF) | payer OTHER, SELFPAY ==
--- NOTE | ~2023-10-09 | XR_ITS ---
EXAMINATION: XR SHOULDER, LEFT CLINICAL INFORMATION: Total shoulder arthroplasty COMPARISON: CT 09/05/2023 TECHNIQUE: AP portable radiograph of the left shoulder. FINDINGS: There is a left total shoulder arthroplasty which appears to be in standard position and alignment on this single AP view. Possible loose bodies in the superior aspect of the joint. Skin mahogany and soft tissue gas overlie the operative site. XR/XR shoulder LT min 2V IMPRESSION: Postsurgical changes related to total shoulder arthroplasty. Possible loose bodies in the superior aspect of the joint. Correlate with follow-up radiographs.
== END 2023-10-09 08:35 | disposition home or self-care (01) ==
LOC: HO.HOSX 08:34
PROVIDERS: Visit Provider Physician Assistant
DX: M19.012 Primary osteoarthritis, left shoulder (principal)
CPT/HCPCS: 73030; 99212

== ENCOUNTER 2023-10-09 10:00 | Outpatient (AMB) | payer OTHER, SELFPAY ==
--- NOTE | 2023-10-09 10:24 | MHC.OFFVIS ---
Vital Signs 10/09/23 10:27 Height 5 ft 1 in Weight 155 lb BMI 29.3 Handedness Right Intake Visit Reasons: Pre-Op L TSA: 10/15/23 NE Intake Note: Kenna is a 73 year old right hand dominant female who presents today for a pre op for her left TSA 10/15/23 NE. Allergies doxepin Allergy (Intermediate, Verified 10/09/23 10:27) loss of memory Latex, Natural Rubber [LATEX, NATURAL RUBBER] Allergy (Intermediate, Verified 10/09/23 10:27) ITCHING metronidazole [Rosadan] Allergy (Intermediate, Verified 10/09/23 10:27) mood change morphine Allergy (Intermediate, Verified 10/09/23 10:27) Chest Pain trazodone [TRAZODONE] Allergy (Intermediate, Verified 10/09/23 10:27) chest pain SEAFOOD Allergy (Intermediate, Uncoded 09/16/23 12:43) vomiting HPI HPI Pre-Op L TSA: 10/15/23 NE: Details: 73-year-old right hand dominant female, who is Hungarian speaking, presents in the office today for her preoperative history and physical exam prior to a left total shoulder arthroplasty to be performed on 10/15/[address] Pacheco Clark. Patient reports feeling a little funny after her Endoscopy. Patient has an allergy history, as follows: -Doxepin; loss of memory -Latex; itching -Metronidazole; mood change -Morphine; chest pain -Trazadone; chest pain -Seafood; vomiting Patient is currently taking, as follows: -Albuterol sulfate 90 mcg/actuation 2 puffs inhalation Q6H PRN -Aspirin 81 mg PO twice weekly (She stopped this medication for the procedure) -Cromolyn 4% 1 drop ophthalmic BID -Estradiol 10 mcg vaginal twice weekly -Fluoxetine 20 mg PO QAM -Fluticasone propionate 110 mcg/actuation 110 mcg PO BID -Ketotifen fumarate 0.025% 1 drop ophthalmic BID PRN -Lisinopril 5 mg PO daily -Melatonin 20 mg PO Bedtime PRN -Naproxen 500 mg PO BID (She stopped this medication for the procedure) -Omeprazole 20 mg PO daily -Tramadol 50 mg PO daily PRN Patient has a medical history, as follows: -Epigastric fullness -Urinary incontinence -Cystitis -Posterior cerebral aneurysm -Hematuria -IBS -Mild recurrent major depression -Dysuria -Blurry vision -Fibromyalgia -Hypertension -Mild asthma -Herniated intervertebral disc of lumbar spine -Thyroid cyst -Sleep apnea not on CPAP -Palpations; PCP never referred her to a Accounting Lecturer -GERD Patient has a surgical history, as follows: - History of ear surgery; left -History of brain surgery; femoral [facility] 07-31-2022 -History of surgery on lower extremity -History of colonoscopy -History of foot surgery; right -History of cataract surgery -History of repair of rotator cuff; had rotator cuff surgery on both shoulders back in [place] - right shoulder surgery was done in 2010 and left shoulder surgery in 2011 -History of removal of skin mole from face -History of cholecystectomy -History of hysterectomy Patient has a social history, as follows: -Visiting nurse or other home services: Yes (Homemaker) -Cognitive needs: Walker [facility] Medical History (Updated 10/07/23 @ 12:14 by Alissa To RN) Herniated intervertebral disc of lumbar spine Back pain Anemia Thyroid cyst Kidney infection Fatty liver Sleep apnea Lung cyst Asthma Cerebral arterial aneurysm Palpitations HTN (hypertension) Hematuria IBS (irritable bowel syndrome) Mild recurrent major depression Dysuria Blurry vision Overweight Injury of left rotator cuff Left hand pain Left shoulder pain Fibromyalgia Knee pain Depression Essential hypertension GERD (gastroesophageal reflux disease) Mild asthma Surgical History (Updated 10/07/23 @ 12:31 by Alissa To, DERIAN) History of ear surgery History of brain surgery History of surgery on lower extremity History of colonoscopy History of foot surgery History of cataract surgery History of repair of rotator cuff History of removal of skin mole History of cholecystectomy History of hysterectomy Family History Father Cardiac failure Mother Pulmonary embolism Family/Other FH: mental illness Sister Chronic mental illness Brother Glaucoma Social History Housing: Apartment Are you a primary care transition mgr to a significant other at home: No Do you presently have visiting nurse or other home services: Yes (homemaker) Alcohol intake: never Patient Tobacco Use Status: Never used Tobacco e-Cigarette/Vaping Use: Never Used Second Hand Smoke Exposure: No service: No Current occupational status: retired and disabled Current occupation: right handed/ disabled Cognitive needs: Yes (walker) Hearing needs: No Vision needs: Yes (glasses) Review of Systems Const All systems reviewed & are unremarkable except as noted in HPI and below Physical Exam Vital Signs: BMI result Body Mass Index 29.3 Const General: cooperative, healthy appearing, no acute distress and well groomed Orientation/consciousness: oriented to person and oriented to place HEENT Head: Yes normal to inspection, Yes normocephalic and Yes atraumatic Eyes General: appearance normal, both eyes and all related structures Alignment and Position: alignment normal Conjunctivae: conjunctivae normal EOM: EOMs intact bilaterally Neck Neck: Yes normal visual inspection and Yes trachea midline Resp Other: No rerpiratory distress Effort & Inspection: normal respiratory effort and able to speak in complete sentences Cardio Other: Palpable radial pulse with no appreciable rythmic abnormalities Rate: regular rate Peripheral pulses: Peripheral pulses 2+ throughout GI Other: No abdominal distension Inspection: Yes normal to inspection Palpation (GI): Soft to palpation Back/Spine/Pelvis Cervical Spine: normal cervical lordosis and cervical ROM normal Skin General skin exam: no rashes or lesions noted Neuro General: oriented to person, oriented to place and gait normal Extrem Other: Left shoulder: Skin is clean, dry, and intact. 35 ER Neg EC 110 FF 90 abd Psych Mental Status: mental status grossly normal Assessment & Plan Assessment & Plan (1) Arthritis of left glenohumeral joint: Code(s): M19.012 - Primary osteoarthritis, left shoulder Category: Medical Plan Ms. Beto Gan is a 73-year-old right hand dominant female, who is Hungarian speaking, presents in the office today for her preoperative history and physical exam prior to a left total shoulder arthroplasty to be performed on 10/15/[address] Pacheco Clark. Patient reports feeling a little funny after her Endoscopy. Patient has an allergy history, as follows: -Doxepin; loss of memory -Latex; itching -Metronidazole; mood change -Morphine; chest pain -Trazadone; chest pain -Seafood; vomiting Patient is currently taking, as follows: -Albuterol sulfate 90 mcg/actuation 2 puffs inhalation Q6H PRN -Aspirin 81 mg PO twice weekly (She stopped this medication for the procedure) -Cromolyn 4% 1 drop ophthalmic BID -Estradiol 10 mcg vaginal twice weekly -Fluoxetine 20 mg PO QAM -Fluticasone propionate 110 mcg/actuation 110 mcg PO BID -Ketotifen fumarate 0.025% 1 drop ophthalmic BID PRN -Lisinopril 5 mg PO daily -Melatonin 20 mg PO Bedtime PRN -Naproxen 500 mg PO BID (She stopped this medication for the procedure) -Omeprazole 20 mg PO daily -Tramadol 50 mg PO daily PRN Patient has a medical history, as follows: -Epigastric fullness -Urinary incontinence -Cystitis -Posterior cerebral aneurysm -Hematuria -IBS -Mild recurrent major depression -Dysuria -Blurry vision -Fibromyalgia -Hypertension -Mild asthma -Herniated intervertebral disc of lumbar spine -Thyroid cyst -Sleep apnea not on CPAP -Palpations; PCP never referred her to a Accounting Lecturer -GERD Patient has a surgical history, as follows: - History of ear surgery; left -History of brain surgery; femoral [facility] 07-31-2022 -History of surgery on lower extremity -History of colonoscopy -History of foot surgery; right -History of cataract surgery -History of repair of rotator cuff; had rotator cuff surgery on both shoulders back in [place] - right shoulder surgery was done in 2010 and left shoulder surgery in 2011 -History of removal of skin mole from face -History of cholecystectomy -History of hysterectomy Patient has a social history, as follows: -Visiting nurse or other home services: Yes (Homemaker) -Cognitive needs: Walker I discussed in detail the procedure and what to expect pre and post operatively. We discussed the risks, benefits and alternatives to the surgery and the rehabilitation course. The risks include infection, bleeding, nerve injury, ongoing pain, swelling, and stiffness, perioperative risk of injury to bones and soft tissues, and blood clots. I have answered all questions and with their understanding they have consented to move forward with a left total shoulder arthroplasty to be performed on 10/15/[address] Pacheco Clark. Follow-up will be at the post operative appointment on 10/30/2023 at 3:00 pm, or sooner if needed. X-rays were obtained in the office today for surgical planning. Orders: Orders XR shoulder LT min 2V Today M25.519 - Pain in unspecified shoulder Patient Instructions: Scribed by Caitlin Donohue biomedical engineering supervisor, for Adriana Patino PA-C on 10/09/2023 at 10:04 am, EST. Coding Level of Care Code Global (20531) Diagnoses Arthritis of left glenohumeral joint M19.012
[2023-10-09 10:27] VITALS: BMI 29.3
== END 2023-10-09 10:53 | disposition home or self-care (01) ==
PROVIDERS: PCP Internal Medicine; Visit Provider Physician Assistant
DX: M19.012 Primary osteoarthritis, left shoulder (principal)
CPT/HCPCS: 99024

== ENCOUNTER 2023-10-14 07:40 | Inpatient (IN) | payer OTHER, SELFPAY ==
[2023-10-07 12:32] VITALS: BP 142/65; PULSE 64; RESP 18; O2SAT 92; BMI 29.3
--- NOTE | 2023-10-07 12:52 | HO.ANESPROP2 ---
Documented by User: Karon Jama NP 10/13/23 09:28 HPI - Anesthesia Eval Consult details Narrative: 73yo F for Left Shoulder Total Arthroplasty PCP cleared Cleared by [facility] (s/p aneurysm repair) No recent illness No CP/ SOB Asthma: Albuterol daily Cerebral aneurysm: Repaired 07/2022 GERD: ppi daily controls Palpitations: chronic, relieved with position change, relaxation PMFSH Active Problems Active Problems: All Active Problems Pre-op evaluation (Acute) Arthritis of left glenohumeral joint (Acute) Right hip pain (Acute) Chronic left shoulder pain (Acute) Left arm pain (Acute) Early satiety (Acute) Epigastric fullness (Acute) Urinary incontinence (Acute) Cystitis (Acute) Bladder wall thickening (Acute) Urinary frequency (Acute) Sensation of pressure in bladder area (Acute) Cerebral aneurysm (Acute) Chronic sore throat (Acute) Chronic fatigue (Acute) Diarrhea (Acute) UTI (urinary tract infection) (Acute) Hospital discharge follow-up (Acute) Nausea (Acute) Posterior cerebral aneurysm (Acute) Dizziness (Acute) Right flank pain (Acute) Adult general medical exam (Acute) Screening for diabetes mellitus (Acute) Hematuria (Acute) IBS (irritable bowel syndrome) (Acute) Mild recurrent major depression (Acute) Dysuria (Acute) Blurry vision (Acute) Overweight (Acute) Left hand pain (Acute) Left shoulder pain (Acute) Fibromyalgia (Acute) Knee pain (Acute) Depression (Acute) Essential hypertension (Acute) GERD (gastroesophageal reflux disease) (Acute) Mild asthma (Acute) Past Medical History Medical History Herniated intervertebral disc of lumbar spine Back pain Anemia Thyroid cyst Kidney infection Fatty liver Sleep apnea Lung cyst Asthma Cerebral arterial aneurysm Palpitations HTN (hypertension) Hematuria IBS (irritable bowel syndrome) Mild recurrent major depression Dysuria Blurry vision Overweight Injury of left rotator cuff Left hand pain Left shoulder pain Fibromyalgia Knee pain Depression Essential hypertension GERD (gastroesophageal reflux disease) Mild asthma Family History Family History Father Cardiac failure Mother Pulmonary embolism Family/Other FH: mental illness Sister Chronic mental illness Brother Glaucoma Family history of problems with anesthesia: No Surgical History Surgical History History of ear surgery History of brain surgery History of surgery on lower extremity History of colonoscopy History of foot surgery History of cataract surgery History of repair of rotator cuff History of removal of skin mole History of cholecystectomy History of hysterectomy History of Problems with Anesthesia: No Social History Social History Housing: Apartment Are you a primary career discovery teacher to a significant other at home: No Do you presently have visiting nurse or other home services: Yes (homemaker) Alcohol intake: never Patient Tobacco Use Status: Never used Tobacco e-Cigarette/Vaping Use: Never Used Second Hand Smoke Exposure: No Use of substances other than those prescribed or required for medical reasons: No Have you been hit, kicked, punched, or otherwise hurt by someone within the past year? If so, by whom?: No Are you DNR?: No Advance Directives: No Advance Directives Information Provided: No Advance Directives on File: No Recently lost weight without trying: No Nutrition Risks: No Nutritional Risk Patient : No : No Poor oral hygiene: Yes (missing molars) service: No Current occupational status: retired and disabled Current occupation: right handed/ disabled Cognitive needs: Yes (walker) Hearing needs: No Vision needs: Yes (glasses) Meds Allergies Allergy/AdvReac Type Severity Reaction Status Date / Time doxepin Allergy Intermediate loss of Verified 10/09/23 10:27 memory Latex, Natural Rubber Allergy Intermediate ITCHING Verified 10/09/23 10:27 [LATEX, NATURAL RUBBER] metronidazole [Rosadan] Allergy Intermediate mood change Verified 10/09/23 10:27 morphine Allergy Intermediate Chest Pain Verified 10/09/23 10:27 trazodone [TRAZODONE] Allergy Intermediate chest pain Verified 10/09/23 10:27 SEAFOOD Allergy Intermediate vomiting Uncoded 09/16/23 12:43 Home Medications ?Medication ?Instructions ?Recorded ?Confirmed ?Last Taken ?Type aspirin 81 mg tablet,delayed 81 mg PO 2XW 08/05/22 10/07/23 Unknown History release melatonin 10 mg disintegrating 20 mg PO BEDTIME PRN Insomnia 01/20/23 10/07/23 Unknown History tablet cromolyn 4 % eye drops 1 drp ophthalmic (eye) BID 10/07/23 10/07/23 Unknown History Exam Height,Weight and Vital Signs: Height 5 ft 1 in Weight 70.307 kg Last Vital Signs Pulse 64 10/07/23 12:32 Resp 18 10/07/23 12:32 BP 142/65 H 10/07/23 12:32 Pulse Ox 92 10/07/23 12:32 O2 Del Method Room Air 10/07/23 12:32 Pertinent Lab Results Pertinent Lab Results: Laboratory Tests 07/30/23 10:24 WBC 5.7 Hgb 11.9 L Hct 37.5 Plt Count 315 Sodium 142 Potassium 4.0 Chloride 108 Carbon Dioxide 30 H BUN 15 Creatinine 0.80 Lab Results 10/07/23 10/07/23 Range/Units 12:40 13:20 Nasal Screen MRSA (PCR) NEGATIVE (Negative) Nasal S. aureus Screen NEGATIVE (Negative) Nasal MRSA/S.aureus Interp SEE NOTE Blood Type O Positive Antibody Screen NEGATIVE Narrative Narrative: EKG 08/2023 Vent. Rate : 060 BPM Atrial Rate : 060 BPM P-R Int : 152 ms QRS Dur : 070 ms QT Int : 412 ms P-R-T Axes : 045 015 015 degrees QTc Int : 412 ms Normal sinus rhythm Normal ECG When compared with ECG of 27-NOV-2004 13:44, No significant change was found Airway Mallampati Class: I TM Dist: >3cm Neck ROM: Full (OA) Loose/Missing/Broken Teeth: Yes (Molars missing, ) Heart: RRR Lungs: CTAB Assessment and Plan Assessment Anesthesia Assessment: Anesthesia Plan Discussed and PAT Visit Final Anesthetic Review Family History of Problems with Anesthesia: No History of Problems with Anesthesia: No Documented by User: Dahlia Ramos MD 10/14/23 07:56 [facility] Past Medical History Medical History Herniated intervertebral disc of lumbar spine Back pain Anemia Thyroid cyst Kidney infection Fatty liver Sleep apnea Lung cyst Asthma Cerebral arterial aneurysm Palpitations HTN (hypertension) Hematuria IBS (irritable bowel syndrome) Mild recurrent major depression Dysuria Blurry vision Overweight Injury of left rotator cuff Left hand pain Left shoulder pain Fibromyalgia Knee pain Depression Essential hypertension GERD (gastroesophageal reflux disease) Mild asthma Family History Family History Father Cardiac failure Mother Pulmonary embolism Family/Other FH: mental illness Sister Chronic mental illness Brother Glaucoma Surgical History Surgical History History of ear surgery History of brain surgery History of surgery on lower extremity History of colonoscopy History of foot surgery History of cataract surgery History of repair of rotator cuff History of removal of skin mole History of cholecystectomy History of hysterectomy Social History Social History Housing: Apartment Are you a primary career discovery teacher to a significant other at home: No Do you presently have visiting nurse or other home services: Yes (homemaker) Alcohol intake: never Patient Tobacco Use Status: Never used Tobacco e-Cigarette/Vaping Use: Never Used Second Hand Smoke Exposure: No Use of substances other than those prescribed or required for medical reasons: No Have you been hit, kicked, punched, or otherwise hurt by someone within the past year? If so, by whom?: No Are you DNR?: No Advance Directives: No Advance Directives Information Provided: No Advance Directives on File: No Recently lost weight without trying: No Nutrition Risks: No Nutritional Risk Patient : No : No Poor oral hygiene: Yes (missing molars) service: No Current occupational status: retired and disabled Current occupation: right handed/ disabled Cognitive needs: Yes (walker) Hearing needs: No Vision needs: Yes (glasses) Meds Allergies Allergy/AdvReac Type Severity Reaction Status Date / Time doxepin Allergy Intermediate loss of Verified 10/09/23 10:27 memory Latex, Natural Rubber Allergy Intermediate ITCHING Verified 10/09/23 10:27 [LATEX, NATURAL RUBBER] metronidazole [Rosadan] Allergy Intermediate mood change Verified 10/09/23 10:27 morphine Allergy Intermediate Chest Pain Verified 10/09/23 10:27 trazodone [TRAZODONE] Allergy Intermediate chest pain Verified 10/09/23 10:27 SEAFOOD Allergy Intermediate vomiting Uncoded 09/16/23 12:43 Home Medications ?Medication ?Instructions ?Recorded ?Confirmed ?Last Taken ?Type aspirin 81 mg tablet,delayed 81 mg PO 2XW 08/05/22 10/07/23 Unknown History release melatonin 10 mg disintegrating 20 mg PO BEDTIME PRN Insomnia 01/20/23 10/07/23 Unknown History tablet cromolyn 4 % eye drops 1 drp ophthalmic (eye) BID 10/07/23 10/07/23 Unknown History Assessment and Plan Assessment Anesthesia Assessment: Chart Reviewed Final Anesthetic Review NPO: Yes ASA Class: III Final Preanesthetic Review: No Changes in Pt Med Stat, Meds/Allgs Chart Reviewed, Consent Obtained/Reviewed and Anes Risks/Benef Reviewed Patient Risk: Intermediate Procedure Risk: Intermediate Anesthetic Plan Anesthetic Plan: GA and Regional Block Disposition: Standard PACU
[2023-10-07 14:35] LABS: MRSA Nasal PCR NEGATIVE (Negative); SA Nasal PCR NEGATIVE (Negative)
[2023-10-14] VITALS (12 sets, daily range): BP systolic 102–129; BP diastolic 51–64; PULSE 56–85; RESP 12–18; TEMP 36.1–37.3; O2SAT 93–99; BMI 29.7
--- NOTE | ~2023-10-14 | XR_ITS ---
EXAMINATION: XR SHOULDER, LEFT CLINICAL INFORMATION: Total shoulder arthroplasty COMPARISON: CT 09/05/2023 TECHNIQUE: AP portable radiograph of the left shoulder. FINDINGS: There is a left total shoulder arthroplasty which appears to be in standard position and alignment on this single AP view. Possible loose bodies in the superior aspect of the joint. Skin mahogany and soft tissue gas overlie the operative site. XR/XR shoulder LT min 2V IMPRESSION: Postsurgical changes related to total shoulder arthroplasty. Possible loose bodies in the superior aspect of the joint. Correlate with follow-up radiographs.
--- OUTSIDE RECORDS SUMMARY | 2023-10-14 07:49 | XMS_ITS | Continuity of Care Document ---
Author Organization [facility] ter Address [address] [place] [address]- Care Team Providers Care Ballet Teacher Name Role Phone Denver Porter MD, Melissa Sommers Primary Care Physician [phone] Encounter [facility] [place] Date(s): 09/18/22 - 09/18/[address] [address]- Encounter Diagnosis Ecchymosis on examination(Final) - 09/18/22 Discharge Disposition: A-D/C Home Attending Physician: Madhav Bedoya MD Admitting Physician: Madhav Bedoya MD Referring Physician: Not on Staff, Referring MD Allergies, Adverse Reactions, Alerts Substance Reaction Severity Status doxepin Personality change Active mirtazapine Memory loss Active Fish Active Latex Active Seafood Active Other Environmental Allergy Active clonazePAM Change in personality Active traZODone Chest pain Active Medications aspirin 81 mg oral capsule 1 capsule = 81 mg, By Mouth, Daily, # 90 capsule, 0 Refills, Maintenance, 07/12/22 10:40:00 EST, [id number], Partial fill upon patient request if the prescription is for a schedule II opioid drug., 155, cm, 07/12/22 10:20:00 EST, Height, 73.1,... Start Date: 07/12/22 Status: Ordered Flonase 50 mcg/inh nasal spray 1 sprays, Nares, Both, 2 times a day, # 16 Gm, 0 Refills, Maintenance, 10/05/19 14:34:00 EDT, [place] Start Date: 10/05/19 Status: Ordered Flovent 110 mcg Inhaler HFA Refills 0, Maintenance, 10/05/19 14:33:00 EDT Start Date: 10/05/19 Status: Ordered Fluoxetine = 20 mg, By Mouth, Daily, 0 Refills, Maintenance, 10/05/19 14:33:00 EDT Start Date: 10/05/19 Status: Ordered Folic Acid Daily, 0 Refills, Maintenance, 10/05/19 14:35:00 EDT Start Date: 10/05/19 Status: Ordered lisinopril 5 mg oral tablet 5 mg, 1, tablet, By Mouth, Daily, # 90 tablet, Refills 0, Maintenance, 10/05/19 14:32:00 EDT Start Date: 10/05/19 Status: Ordered Melatonin = 5 mg, By Mouth, Daily at bedtime, 0 Refills, Maintenance, 10/05/19 14:35:00 EDT Start Date: 10/05/19 Status: Ordered montelukast 10 mg oral tablet 10 mg, 1, tablet, By Mouth, Daily, Refills 0, Maintenance, 10/05/19 14:34:00 EDT Start Date: 10/05/19 Status: Ordered naproxen 500 mg oral tablet 1 tablet = 500 mg, By Mouth, 2 times a day, # 180 tablet, 0 Refills, Maintenance, 10/05/19 14:33:00EDT, Tablet Start Date: 10/05/19 Status: Ordered Omeprazole = 20 mg, By Mouth, Daily, 0 Refills, Maintenance, 10/05/19 14:34:00 EDT Start Date: 10/05/19 Status: Ordered Plavix 75 mg oral tablet 75 mg, 1, tablet, By Mouth, Daily, # 90 tablet, Refills 0, Tot. Refills 0, Maintenance, 07/12/22 10:42:00 EST, Route to Pharmacy Electronically, [facility]/pharmacy #[id number], Partial fill upon patient request if the prescription is for a schedule II opioid drug... Start Date: 07/12/22 Status: Ordered ProAir HFA 90 mcg/inh inhalation aerosol with adapter 1, puffs, Inhalation, Every 4 hours, PRN, # 8.5 Gm, Refills 0, Maintenance, 10/05/19 14:33:00 EDT, Aeros[place] Start Date: 10/05/19 Status: Ordered traMADol 50 mg oral tablet 1 tablet = 50 mg, By Mouth, Every 4 hours, PRN as needed for pain, 0 Refills, Maintenance, 10/04/2013:33:00 EDT, Tablet Start Date: 10/05/19 Status: Ordered Vitamin C By Mouth, Daily, 0 Refills, Maintenance, 10/05/19 14:35:00 EDT Start Date: 10/05/19 Status: Ordered Problem List Condition Confirmation Course Effective Dates Status H ealth Status Informant Asthma Confirmed Active Depression Confirmed Active GERD - Gastro-esophageal reflux disease Confirmed Active HTN - Hypertension Confirmed Active Intracerebral aneurysm Confirmed Active Mixed urinary incontinence Confirmed Active Obese class I Confirmed Active Osteopetrosis Confirmed Active Osteoporosis Confirmed Active Ulcerative colitis Confirmed Active Vital Signs Most recent to oldest [Reference Range]: 1 2 Oxygen Saturation [94-100 %] 100 % (09/18/22 4:34 PM) 100 % (09/18/22 1:12 PM) Pulse Rate [55-90 bpm] 55 bpm (09/18/22 4:34 PM) 63 bpm (09/18/22 1:12 PM) Blood Pressure [90-138/55-84 mm Hg] 126/ 40mm Hg (09/18/22 4:34 PM) 130/74mm Hg (09/18/22 1:12 PM) Respiratory Rate [16-30 br/min] 18 br/mi n (09/18/22 4:34 PM) 20 br/min (09/18/22 1:12 PM) Temperature [96.8-100.4 DegF] 98.3 DegF (09/18/22 1:12 PM) Mode of Delivery (Oxygen) Room air (09/18/22 4:34 PM) Room air (09/18/22 1:12 PM) Blood pressure sites Arm, right (09/18/22 1:12 PM) Temperature Route Oral (09/18/22 1:12 PM) Social History Social History Type Response Smoking Status Never (less than 100 in lifetime) entered on: 10/05/19 Sex Note * Wong Petit DO: PERFORM Event Display: Patient Education Leaflets Authored Date: [id number] Clopidogrel Oral Tablet ?? [id number] Clopidogrel Oral Tablet Brands: Plavix Usos Becky medicamento se usa para las siguientes afecciones: ??? prevenir accidentes cerebrovasculares ??? prevenir ataques card??acos ??? prevenir co??gulos de gabriela ?? Instrucciones Becky medicamento se puede sandra con o sin alimentos. Becky medicamento funciona mejor si se usa a aproximadamente la misma hora todos los d??as. Mantenga el medicamento a temperatura ambiente, alejado ganesh y el calor. Es importante que contin??e tomando todas las dosis de becky medicamento a la hora indicada aunque se sienta guanaco. Si olvida sandra robbi dosis a tiempo, t??migdalia hassan pronto lo recuerde. Si es marcelo la hora de la dosis siguiente, no tome la dosis olvidada. Vuelva al horario normal. No tome dos dosis al mismo tiempo. Las interacciones con otros medicamentos pueden cambiar la forma en que act??an los medicamentos o aumentar el riesgo de presentar efectos secundarios. Informe a pablito profesionales sanitarios acerca de todos los medicamentos que usa. Montura incluye medicamentos con y sin receta m??dica, vitaminas y medicamentos a base de hierbas. Hable con jones m??dico o farmac??utico antes de empezar o dejar de usar cualquier medicamento. ?? Precauciones Informe a jones m??dico y a jones farmac??utico si alguna vez connelly tenido robbi reacci??n al??rgica a un medicamento. No use el medicamento m??s veces de lo indicado. Hable con jones m??dico antes de sandra cualquier medicamento que contenga aspirina. Llame al m??dico si observa alg??n cambio en la cantidad de orina o si ??sta es oscura. Informe a jones m??dico o farmac??utico si est?? o planea quedar embarazada, o si est?? amamantando. Llame al m??dico inmediatamente si observa sangrado o moretones fuera de lo com??n. No comparta becky medicamento con otras personas a quienes no se les recet??. Algunos pacientes presentan efectos secundarios graves con becky medicamento. P??winston a jones farmac??utico que le muestre la informaci??n de la Administraci??n de Alimentos y Medicamentos (FDA) y que laanalice con usted. ?? Efectos Secundarios La siguiente es robbi lista de algunos efectos secundarios comunes de becky medicamento. Hable con el m??dico para saber qu?? debe hacer en ryder de tener estos u otros efectos secundarios. ??? picor Llame al m??dico u obtenga atenci??n m??dica de inmediato si nota cualquiera de estos efectos secundarios m??s graves: ??? p??rdida de equilibrio ??? sangrado o moretones ??? dolor en el pecho ??? tos con gabriela, o v??americo con aspecto de poso de caf? fiebre ??? hinchaz??n en el neno o la garganta ??? dolor de merrill intenso o persistente ??? latidos del coraz??n acelerados o irregulares ??? palidez o coloraci??n jey de la piel, los labios o las u??as ??? heces con gabriela o de color oscuro/alquitranadas ??? s??ntomas de accidente cerebrovascular (por ejemplo, debilidad en un lado del cuerpo, hablar arrastrando las palabras, confusi??n) ??? cansancio o debilidad, extra??o o sin causa aparente ??? sangreen la orina ??? ojos o piel amarillentos Algunas personas podr??an tener reacciones al??rgicas a becky medicamento. Entre los s??ntomas pueden incluirse: dificultad para respirar, erupci??n en la piel, comez??n, hinchaz??n o mareos intensos.Si nota algunos de estos s??ntomas, busque asistencia m??dica r??pidamente. ?? Extra Hable con jones m??dico, enfermero o farmac??utico si tiene alguna pregunta acerca de becky medicamento. ?? [email or web address] NOTA IMPORTANTE: En becky documento hay robbi explicaci??n breve sobre c??mo usar el medicamento, perono incluye todo lo que hay que saber acerca del medicamento. Jones m??dico o jones farmac??utico podr??a suministrarle otros documentos acerca de jones medicamento. Comun??quese con ellos si tiene alguna pregunta. Siga siempre pablito consejos. Robbi descripci??n m??s completa de becky medicamento est?? disponibleen ingl??s. Escanee becky c??digo en jones tel??fono inteligente o en jones tableta, o use la direcci??n web que aparece a continuaci??n. Tambi??n puede pedirle a jones farmac??utico robbi copia impresa. Si tiene alguna pregunta, h??gasela a jones farmac??utico. La exhibici??n y el uso de esta informaci??n sobre f??rmacos est?? sujeta a los T??rminos de Uso. Copyright(c) 2022 [employer], [employer]. ?? 9458-4664 [employer]. All rights reserved. This information is not intended as a substitute for professional medical care. Always follow your healthcare professional's instructions. ?? Patient Care team information Care Team Personnel Name: Caitlin Allen RN Position: [facility] RN Member Role: Primary Care Nurse Name: Chinmay Lyles RN Position: [facility] RN Member Role: Primary Care Nurse Name: Denver Porter MD , Melissa Sommers Position: Reference Physician Member Role: PCP Address: Address: [address] [place] [address]- Name: Jamey Carlin Position: [facility] ED TA [facility] Member Role: Supply Chain Coordinator Name: Madhav Bedoya MD Position: [facility] ED Medicine MD Member Role: Admitting Physician Address: Address: [address] [place] [address]- Name: Wong Petit DO Position: [facility] Resident Member Role: Resident Address: Address: [address] [place] [address]- Name: Suzy Berg RN Position: [facility] ED RN W/OE and Tasks Member Role: Patient Care Provider Care Team Related Persons Name: HALIMA BELL Name: WESTON BELL Address: [address] [address]
--- OUTSIDE RECORDS SUMMARY | 2023-10-14 07:49 | XMS_ITS | Continuity of Care Document ---
Author Organization [facility] ter Address [address] [place] [address]- Care Team Providers Care Pneumatic Tube Operator Name Role Phone Denver Porter MD, Melissa Sommers Primary Care Physician En[place] [facility] [place] R [id number] Date(s): 06/26/22 - 06/26/[address] [address]- Discharge Disposition: A-D/C Home Attending Physician: Je Castillo MD Admitting Physician: Jonathan FLORES, Je Referring Physician: Je Castillo MD Allergies, Adverse Reactions, Alerts Substance Reaction Severity Status doxepin Personality change Active Latex Active Shrimp Active traZODone Chest pain Active clonazePAM Change in personality Active mirtazapine Memory loss Active Other Environmental Allergy Active Medications aspirin 81 mg oral delayed release tablet 81 mg, 1, tablet, By Mouth, Daily, PRN, Refills 0, Maintenance, as needed, 10/05/19 14:35:00 EDT Start Date: 10/05/19 Status: Ordered Flonase 50 mcg/inh nasal spray 1 sprays, Nares, Both, 2 times a day, # 16 Gm, 0 Refills, Maintenance, 10/05/19 14:34:00 EDT, [place] Start Date: 10/05/19 Status: Ordered Flovent 110 [...] 14:34:00 EDT Start Date: 10/05/19 Status: Ordered ProAir HFA 90 mcg/inh inhalation [...] Most recent to oldest [Reference Range]: 1 Height 155 cm (06/26/22 7:39 AM) Weight 73.1 kg (06/26/22 7:39 AM) Oxygen Saturation [94-100 %] 99 % (06/26/22 7:29 AM) Pulse Rate [55-90 bpm] 62 bpm (06/26/22 7:29 AM) Blood Pressure [90-138/55-84 mm Hg] 110/ 53mm Hg (06/26/22 7:29 AM) Respiratory Rate [16-30 br/min] 18 br/mi n (06/26/22 7:29 AM) Temperature [96.8-100.4 DegF] 98.2 DegF (06/26/22 7:29 AM) Mode of Delivery (Oxygen) Room air (06/26/22 7:29 AM) Blood pressure sites Arm, right (06/26/22 7:29 AM) Temperature Route Oral (06/26/22 7:29 AM) Dry Weight 73.1 kg (06/26/22 7:39 AM) Social History Social History Type Response Smoking Status Never (less than 100 in lifetime) entered on: 10/05/19 Sex Hospital Progress note * Chinmay Lyles RN: PERFORM, SIGN, VERIFY Event Display: Progress Note Hospital Authored Date: Patient: AJAY HENDRICKS Age: 72 years Sex: Female : 1950 Associated Diagnoses: None Author: Chinmay Lyles RN Findings Narrative/Incidental Pt A/Ox4, returned to unit, R groin DSD CDI, frequent vitals stable, pt denies CP/SOB/dizziness, nos/s of bleeding, pt maintained bedrest x2 hours and then ambulated with steady gait to bathroom, able to teach back d.c insturctions with warehouse delivery driver present.. * Chinmay Lyles RN: PERFORM, SIGN, VERIFY Event Display: Progress Note Hospital Authored Date: Patient: AJAY HENDRICKS Age: 72 years Sex: Female : 1950 Associated Diagnoses: None Author: Chinmay Lyles RN Findings Narrative/Incidental Pt A/Ox4, NPO since midnight, warehouse delivery driver present for daystay assesssment and home med review, L arm 20g Iv placed, hydrocortisone given per orders, vitals stable.. Note * Selma Somers: PERFORM Event Display: Discharge/Transfer Note Hospital Authored Date: [id number] Nursing Discharge Note Entered On: 06/26/2022 13:12 EST Performed On: 06/26/2022 13:11 EST by eSlma Somers Nursing Discharge Note 2 Discharge Time : 06/26/2022 13:11 EST Discharge Level of Care at Discharge : Home/[facility] Care Asphalt Paving Machine Operator Utilized : Yes Patient Left Unit Via : Wheelchair Patient Accompanied Off Unit with : Responsible adult DC Instructions Provided & Signed by Pt : Yes Patient Understands D/C Instructions : Yes Patient Instructions Discharge Signed : Yes Did Pt have Specialty Bed or Wound Vac : No Selma Somers - 06/26/2022 13:11 EST Patient Care team information Care Team Personnel Name: Chinmay Lyles RN Position: S RN Member Role: Primary Care Nurse Name: Denver Porter MD , Melissa Sommers Position: Reference Physician Member Role: PCP Address: Address: [address] [place] [address]- Care Team Related Persons Name: HALIMA BELL Name: WESTON BELL
--- OUTSIDE RECORDS SUMMARY | 2023-10-14 07:49 | XMS_ITS | Continuity of Care Document ---
Author Organization [facility] Address [address] [place] [address]- Care Team Providers Care Bioinformaticist Name Role Phone Denver Porter MD, Melissa Sommers Primary Care Physician Encounter [facility] [place] Date(s): 04/12/23 - 05/12/23 [facility] [address] [place] [address]- [place] Allergies, Adverse Reactions, Alerts Substance Reaction Severity Status Contrast Dye hives,swelling Unknown Active doxepin Personality change Active mirtazapine Memory loss Active Fish Active Latex Active Seafood Active Other Environmental Allergy Active clonazePAM Change in personality Active traZODone Chest pain Active Medications aspirin 81 mg oral capsule 1 capsule = 81 mg, By Mouth, Daily, # 90 capsule, 0 Refills, Maintenance, 07/12/22 10:40:00 EST, [id number], Partial fill upon patient request if the prescription is for a schedule II opioid drug., 155, cm, 07/12/22 10:20:00 EST, Height, 73.1,... Start Date: 07/12/22 Status: Ordered Benadryl 25 mg oral capsule 1 capsule = 25 mg, By Mouth, Once, TAKE BEFORE IMAGING, # 3 capsule, 0 Refills, Soft Stop, 01/09/2310:58:00 EDT, [id number], Partial fill upon patient request if the prescription is for a schedule II opioid drug., 155, cm, 07/31/22 11:27:00 E... Start Date: 01/09/23 Status: Ordered Flonase 50 mcg/inh nasal spray 1 sprays, Nares, Both, 2 times a day, # 16 Gm, 0 Refills, Maintenance, 10/05/19 14:34:00 EDT, [place] Start Date: 10/05/19 Status: Ordered Flovent 110 mcg Inhaler HFA Refills 0, Maintenance, 10/05/19 14:33:00 EDT Start Date: 10/05/19 Status: Ordered Fluoxetine = 20 mg, By Mouth, Daily, 0 Refills, Maintenance, 10/05/19 14:33:00 EDT Start Date: 10/05/19 Status: Ordered Folic Acid Daily, 0 Refills, Maintenance, 10/05/19 14:35:00 EDT Start Date: 10/05/19 Status: Ordered Golytely - oral powder for reconstitution See Instructions, Per instructions from GI., # 4,000 mL, 0 Refills, Maintenance, 03/04/23 13:07:00 EDT, [id number], Partial fill upon patient request if the prescription is for a schedule II opioid drug., Per instructions from GI., 155, cm, 10... Start Date: 03/04/23 Status: Ordered lansoprazole 30 mg oral enteric coated capsule 1 capsule = 30 mg, By Mouth, Daily, # 90 capsule, 0 Refills, Maintenance, 03/04/23 13:07:00 EDT, [place], [facility]/pharmacy #[id number], Partial fill upon patient request if the prescription is for a schedule II opioid drug., 155, cm, 03/04/23 12:37:00 EDT, H... Start Date: 03/04/23 Status: Ordered lisinopril 5 mg oral tablet [...] Confirmed Active Mixed urinary incontinence Confirmed Active Osteopetrosis Confirmed Active Osteoporosis Confirmed Active Ulcerative colitis Confirmed Active Social History Social History Type Response Smoking Status Never (less than 100 in lifetime) entered on: 10/05/19 Sex Patient Care team information Care Team Personnel Name: Chinmay Lyles RN Position: S RN Member Role: Primary Care Nurse Name: Denver Porter MD , Melissa Sommers Position: Reference Physician Member Role: PCP Address: Address: [address] [place] [address]- Care Team Related Persons Name: JORDY MCKEON Address: home [address] [address] Name: HALIMA BELL Name: WESTON BELL Address: home [address] [address]
--- OUTSIDE RECORDS SUMMARY | 2023-10-14 07:49 | XMS_ITS | Continuity of Care Document ---
Author Organization [facility] ter Address [address] [place] [address]- Care Team Providers Care Mortgage Processor Name Role Phone Denver Porter MD, Melissa Sommers Primary Care Physician Encounter [facility] [place] R [id number] Date(s): 05/01/22 - 06/20/[address] [address]- Attending Physician: Ruben Guzman MD Admitting Physician: Ruben Guzman MD Referring Physician: Ruben Guzman MD Allergies, Adverse Reactions, Alerts Substance Reaction Severity Status doxepin Personality change Active mirtazapine Memory loss Active Latex Active Shrimp Active Other Environmental Allergy Active clonazePAM Change in personality Active traZODone Chest pain Active Medications aspirin 81 mg oral delayed release tablet 81 mg, 1, tablet, By Mouth, Daily, PRN, Refills 0, Maintenance, as needed, 10/05/19 14:35:00 EDT Start Date: 10/05/19 Status: Ordered Flonase 50 mcg/inh nasal spray 1 sprays, Nares, Both, 2 times a day, # 16 Gm, 0 Refills, Maintenance, 10/05/19 14:34:00 EDT, [place] Start Date: 10/05/19 Status: Ordered Flovent 110 [...] Care team information Care Team Personnel Name: Melissa Ruiz MD Position: Reference Physician Member Role: PCP Address: Address: [address] [place] [address]- Care Team Related Persons Name: HALIMA BELL Name: WESTON BELL
--- OUTSIDE RECORDS SUMMARY | 2023-10-14 07:49 | XMS_ITS | Continuity of Care Document ---
Author Organization [facility] Address [address] [place] [address]- Care Team Providers Care Wet Cleaner Machine Name Role Phone Denver Porter MD, Melissa Sommers Primary Care Physician [phone] Encounter [facility] [place] Date(s): 05/05/23 - 06/04/23 [facility] [address] [place] [address]- [place] Allergies, Adverse Reactions, Alerts Substance Reaction Severity Status Contrast Dye hives,swelling Unknown Active doxepin Personality change Active mirtazapine Memory loss Active Latex Active Seafood Active Other Environmental Allergy Active clonazePAM Change in personality Active traZODone Chest pain Active Fish Active Medications aspirin 81 mg oral capsule [...] Gm, 0 Refills, Maintenance, 10/05/19 14:34:00 EDT, [place] Start Date: 10/05/19 Status: Ordered Flovent 110 [...] 0 Refills, Maintenance, 03/04/23 13:07:00 EDT, [place], [facility]/pharmacy #[id number], Partial fill upon patient request if [...] Physician Member Role: PCP Address: Address: [address] [place] [address]- Care Team Related Persons Name: JORDY MCKEON Address: home [address] [address] Name: HALIMA BELL Name: WESTON BELL Address: home [address] [address]
--- OUTSIDE RECORDS SUMMARY | 2023-10-14 07:49 | XMS_ITS | Continuity of Care Document ---
Author Organization [facility] Address [address] [place] [address]- Care Team Providers Care Storm Chaser Name Role Phone Denver Porter MD, Melissa Sommers Primary Care Physician [phone] Encounter [facility] [place] [place] Date(s): 08/15/23 - 09/14/23 [facility] [address] [place] [address]- [place] Allergies, Adverse Reactions, Alerts Substance Reaction Severity Status Contrast Dye hives,swelling Unknown Active doxepin Personality change Active Seafood Active traZODone Chest pain Active clonazePAM Change in personality Active mirtazapine Memory loss Active Other Environmental Allergy Active Fish Active Latex Active Medications aspirin 81 mg oral capsule [...] Gm, 0 Refills, Maintenance, 10/05/19 14:34:00 EDT, [place] Start Date: 10/05/19 Status: Ordered Flovent 110 mcg Inhaler HFA Refills 0, Maintenance, 10/05/19 14:33:00 EDT Start Date: 10/05/19 Status: Ordered Fluoxetine = 20 mg, By Mouth, Daily, 0 Refills, Maintenance, 10/05/19 14:33:00 EDT Start Date: 10/05/19 Status: Ordered Folic Acid Daily, 0 Refills, Maintenance, 10/05/19 14:35:00 EDT Start Date: 10/05/19 Status: Ordered lansoprazole 30 mg oral enteric coated capsule 1 capsule = 30 mg, By Mouth, Daily, # 90 capsule, 0 Refills, Maintenance, 03/04/23 13:07:00 EDT, [place], [facility]/pharmacy #[id number], Partial fill upon patient request if [...] Physician Member Role: PCP Address: Address: [address] [place] [address]- Care Team Related Persons Name: JORDY MCKEON Address: home [address] [address] Name: HALIMA BELL Name: WESTON BELL Address: home [address] [facility] [address] [place] [address]
--- NOTE | 2023-10-14 07:50 | MHC.SHP ---
Pre-Procedural Eval Section A - 24 Hr Update-Section A only Date of Service: 10/14/23 The patient is an INPATIENT: No Changes since office visit: No Cold of Flu in the past 2 weeks, No New Medical Problems, No Changes in Medication and No Patient answered all questions The patient has been examined within 24 hours of the surgical procedure. The History & Physical has been completed within 30 days and I have reviewed it.: Yes Section B - Complete if H&P > 30 days Chief Complaint: LTSA Allergies: Allergies Allergy/AdvReac Type Severity Reaction Status Date / Time doxepin Allergy Intermediate loss of Verified 10/09/23 10:27 memory Latex, Natural Rubber Allergy Intermediate ITCHING Verified 10/09/23 10:27 [LATEX, NATURAL RUBBER] metronidazole [Rosadan] Allergy Intermediate mood change Verified 10/09/23 10:27 morphine Allergy Intermediate Chest Pain Verified 10/09/23 10:27 trazodone [TRAZODONE] Allergy Intermediate chest pain Verified 10/09/23 10:27 SEAFOOD Allergy Intermediate vomiting Uncoded 09/16/23 12:43 Plan I have reviewed the history and physical and performed a pertinent physical examination on my patient. No changes have occurred unless specified. Time Spent With Patient Time: Total time managing care of this patient today ____ minutes.
--- OUTSIDE RECORDS SUMMARY | 2023-10-14 07:50 | XMS_ITS | Continuity of Care Document ---
Author Organization [facility] Address [address] [place] [address]- Care Team Providers Care Pattern Fitter Name Role Phone Denver Porter MD, Mirna Primary Care Physician En[place] [facility] [place] Date(s): 08/12/23 - 09/11/23 [facility] [address] [place] [address]- [place] Allergies, Adverse Reactions, Alerts Substance Reaction Severity Status Contrast Dye hives,swelling Unknown Active doxepin Personality change Active mirtazapine Memory loss Active Other Environmental Allergy Active traZODone Chest pain Active clonazePAM Change in personality Active Fish Active Latex Active Seafood Active Medications aspirin 81 mg oral capsule [...] Gm, 0 Refills, Maintenance, 10/05/19 14:34:00 EDT, [place] Start Date: 10/05/19 Status: Ordered Flovent 110 [...] 0 Refills, Maintenance, 03/04/23 13:07:00 EDT, [place], [facility]/pharmacy #[id number], Partial fill upon patient request if [...] Physician Member Role: PCP Address: Address: [address] [place] [address]- Care Team Related Persons Name: JORDY MCKEON Address: home [address] [address] Name: HALIMA BELL Name: WESTON BELL Address: home [address] [facility] [address] [place] [id number]
--- OUTSIDE RECORDS SUMMARY | 2023-10-14 07:50 | XMS_ITS | Continuity of Care Document ---
Author Organization [facility] ter Address [address] [place] [id number] Care Team Providers Care Pharmacy Sales Representative Name Role Phone Denver Porter MD, Mirna Primary Care Physician [place] [facility] [place] 08/01/[address] [id number] Discharge Disposition: A-D/C Home Attending Physician: Kenny Burkett MD Admitting Physician: Je Castillo MD Referring Physician: Je Castillo MD Allergies, Adverse Reactions, Alerts Substance Reaction Severity Status doxepin Personality change Active mirtazapine Memory loss Active Fish Active Latex Active Other Environmental Allergy Active clonazePAM Change in personality Active Seafood Active traZODone Chest pain Active Medications aspirin 81 mg oral capsule 1 capsule = 81 mg, By Mouth, Daily, # 90 capsule, 0 Refills, Maintenance, 07/12/22 10:40:00 EST, [id number], Partial fill upon patient request if the prescription is for a schedule II opioid drug., 155, cm, 07/12/22 10:20:00 EST, Height, 73.1,... Start Date: 07/12/22 Status: Ordered Flonase 50 mcg/inh nasal spray 1 sprays, Nares, Both, 2 times a day, # 16 Gm, 0 Refills, Maintenance, 10/05/19 14:34:00 EDT, [place] Start Date: 10/05/19 Status: Ordered Flovent 110 [...] 07/12/22 10:42:00 EST, Route to Pharmacy Electronically, [facility][id number], Partial fill upon patient request if the [...] recent to oldest [Reference Range]: 1 2 3 Height 155 cm (07/31/22 11:27 AM) 155 cm (07/31/22 7:21 AM) 155 cm (07/31/22 7:17 AM) Weight 73.5 kg (07/31/22 11:56 AM) 73.5 kg (07/31/22 11:27 AM) 74.0 kg (07/31/22 7:21 AM) Oxygen Saturation [94-100 %] 95 % (08/01/22 10:00 AM) 96 % (08/01/22 9:00 AM) 99 % (08/01/22 8:05 AM) Pulse Rate [55-90 bpm] 72 bpm (07/31/22 1:00 PM) 81 bpm (07/31/22 11:27 AM) Body Mass Index [18.5-24.99 kg/m2] 30.59 kg/m2 *>HHI* (07/31/22 11:27 AM) 30.8 kg/m2 *>HHI* (07/31/22 7:21 AM) Blood Pressure [90-138/55-84 mm Hg] 108/72mm Hg (08/01/22 10:00 AM) 127/70mm Hg (08/01/22 9:00 AM) 118/61mm Hg (08/01/22 8:05 AM) Respiratory Rate [16-30 br/min] 14 br/min *L* (08/01/22 10:00 AM) 20 br/min (08/01/22 9:00 AM) 16 br/min (08/01/22 8:05 AM) Temperature [96.8-100.4 DegF] 98.4 DegF (08/01/22 8:00 AM) 98.7 DegF (08/01/22 4:00 AM) 98.6 DegF (08/01/22 12:00 AM) Liters per Minute 2 L/min (08/01/22 8:05 AM) 2 L/min (08/01/22 8:00 AM) 2 L/min (08/01/22 7:00 AM) Mode of Delivery (Oxygen) Room air (08/01/22 10:00 AM) Room air (08/01/22 9:00 AM) Nasal cannula (08/01/22 8:05 AM) Blood pressure sites Arm, right (08/01/22 6:00 AM) Arm, right (08/01/22 5:00 AM) Arm, right (08/01/22 4:00 AM) Temperature Route Oral (08/01/22 8:00 AM) Axillary (08/01/22 4:00 AM) Oral (08/01/22 12:00 AM) Dry Weight 73.5 kg (07/31/22 11:27 AM) 74.0 kg (07/31/22 7:17 AM) Weight Obtained Via Bed scale (07/31/22 11:56 AM) Bed scale (07/31/22 11:27 AM) Standing scale (07/31/22 7:21 AM) Dry Weight Obtained Via Bed scale (07/31/22 11:27 AM) Standing scale (07/31/22 7:17 AM) Social History Social History Type Response Smoking Status Never (less than 100 in lifetime) entered on: 10/05/19 Sex Note * Event Display: Hemodynamic Procedure Report Authored Date: [id number] * Dereck Marvin RN: PERFORM Event Display: Discharge/Transfer Note Hospital Authored Date: [id number] Nursing Discharge Note Entered On: 08/01/2022 11:11 EST Performed On: 08/01/2022 11:09 EST by Dereck Marvin RN Nursing Discharge Note 2 Discharge Time : 08/01/2022 11:06 EST Discharge Level of Care at Discharge : Home/Correction/Foster Care Patient Left Unit Via : Wheelchair Patient Accompanied Off Unit with : Other: daughter DC Instructions Provided & Signed by Pt : Yes Patient Understands D/C Instructions : Yes Patient Instructions Discharge Signed : Yes Did Pt have Specialty Bed or Wound Vac : No Dereck Marvin RN - 08/01/2022 11:09 EST * Sara HERRERA, Tarah Coy: MODIFY, PERFORM, MODIFY Event Display: Discharge/Transfer Note Hospital Authored Date: [id number] Patient: ??AJAY HENDRICKS ? Age:??72 Years?Sex:??Female?:??1950?? Patient Information Discharge Location: [facility] Primary Care Physician: Denver Porter MD , Melissa Sommers Admit Date/Time: 07/31/22 05:42 Discharge Disposition Discharge Disposition: ?? Discharge Diagnosis Intracerebral aneurysm (I67.1) ?? _ Discharge Medications Albuterol (ProAir HFA 90 mcg/inh inhalation aerosol with adapter)?1?puff(s)?Inhalation?Every 4 hours?as needed?for wheezing Ascorbic Acid (Vitamin C)?By Mouth?Daily Aspirin (aspirin 81 mg oral capsule)?1?capsule?81?Milligram?By Mouth?Daily Clopidogrel (Plavix 75 mg oral tablet)?75?Milligram?1?tablet?By Mouth?Daily Fluoxetine?20?Milligram?By Mouth?Daily Fluticasone Nasal (Flonase 50 mcg/inh nasal spray)?1?spray(s)?Nares, Both?2 times a day Folic Acid?Daily Lisinopril (lisinopril 5 mg oral tablet)?5?Milligram?1?tablet?By Mouth?Daily Melatonin?5?Milligram?By Mouth?Daily at bedtime Montelukast (montelukast 10 mg oral tablet)?10?Milligram?1?tablet?By Mouth?Daily Naproxen (naproxen 500 mg oral tablet)?1?tab(s)?500?Milligram?By Mouth?2 times a day Omeprazole?20?Milligram?By Mouth?Daily Tramadol (traMADol 50 mg oral tablet)?1?tab(s)?50?Milligram?By Mouth?Every 4 hours?as needed?as needed for pain ? Medications Started N/A Medications Discontinued N/a Doses Changed N/A Allergies Allergies ?(Active and Proposed Allergies Only) Fish? (Severity: Unknown severity, Onset: Unknown) Seafood? (Severity: Unknown severity, Onset: Unknown) Latex? (Severity: Unknown severity, Onset: Unknown) Other Environmental Allergy? (Severity: Unknown severity, Onset: Unknown) clonazePAM? (Severity: Unknown severity, Onset: Unknown) ?Reactions: Change in personality mirtazapine? (Severity: Unknown severity, Onset: Unknown) ?Reactions: Memory loss doxepin? (Severity: Unknown severity, Onset: Unknown) ?Reactions: Personality change traZODone? (Severity: Unknown severity, Onset: Unknown) ?Reactions: Chest pain ? Hospital Course 72 y/o Austrian speaking F with PMH HTN, obesity, depression, asthma, L MCA bifurcation aneurysm (found during screening done for sig fam hx of brain aneurysm) who presented today for elective securement of L MCA aneurysm with Dr. Castillo. The procedure required a web device but then an atlas stent to keep the web device in place in order to totally secure the aneurysm. Thus, she will be on asa and plavix x 6 months. She arrived in the [facility] on RA without complaints. She did develop excessive bleeding to her R groin access site. Eventually dsg was removed and Femstop was placed with good effect. Her P2Y12 assay was 11, discussed with Dr. Castillo and ok to discharge on current regimen of asa/plavix and he will follow up with her outpatient. Pt has some right groin pain with a small palpable hematoma but H&H remains stable. Pt and daughter were educated on symptoms to monitor and returnfor. Objective Assessment and Plan ?? L MCA bifurcation aneurysm s/p web placement and atlas stent - continue ASA/Plavix daily for minimum of 3 months, potentially up to??6 months - Dr. Castillo office will contact patient for follow up - monitor R groin site for worsening??hematoma - ok to discharge home ?? . Physical Exam General Appearance: NAD HEENT: AT/NC Cardiac: RRR Respiratory: LSC, I:E, unlabored GI: abd soft, NT, ND : no bladder distention Skin: visible skin cdi Hematologic: no excessive bleeding or bruising, small R groin hematoma palpable but not visible Neurologic: awake, alert and oriented. Speech is clear, no aphasia. Follows commands CN: EOMI. PERRL. No facial asymmetry. Tongue protrudes midline. VFF Motor: appropriate bulk and tone, 5/5 BUE/BLE Sensation: intact to LT throughout Coordination: no abnormal movement Gait: narrow based, steady Consultants NEV Pending Results BUN ordered on 08/01/2022 CBC ordered on 08/01/2022 COVID-19 (2019 Novel Coronavirus) PCR ordered on 07/31/2022 Calcium Level ordered on 08/01/2022 Creatinine ordered on 08/01/2022 Electrolytes ordered on 08/01/2022 Ionized Calcium ordered on 08/01/2022 Magnesium Level ordered on 08/01/2022 Phosphorus Level ordered on 08/01/2022 Post Discharge Care Continue ASA/Plavix daily until instructed otherwise by Dr. Castillo office Monitor right groin site for worsening pain, bleeding Home Health Face to Face ^HomeHealthFTF Results Discharge Labs BLOOD COUNT & DIFF WBC 9.2 k/mm3 ()?? 08/01/2022 04:24 RBC 3.82 m/mm3 (Low)?? 08/01/2022 04:24 Hgb 10.9 Gm/dL (Low)?? 08/01/2022 04:24 Hct 34.2 % (Low)?? 08/01/2022 04:24 MCV 89.5 femtoliters ()?? 08/01/2022 04:24 MCH 28.5 pg ()?? 08/01/2022 04:24 MCHC 31.9 g/dL (Low)?? 08/01/2022 04:24 Platelet Count 271 k/mm3 ()?? 08/01/2022 04:24 RDW-SD 43.5 femtoliters ()?? 08/01/2022 04:24 MPV 9.8 femtoliters ()?? 08/01/2022 04:24 Nucleated RBC (Automated) 0.0 #/100 WBC'S ()?? 08/01/2022 04:24 Abs. NRBC 0.0 k/mm3 ()?? 08/01/2022 04:24 ?? CHEM GENERAL Sodium 138 mmol/L ()?? 08/01/2022 04:24 Potassium 3.9 mmol/L ()?? 08/01/2022 04:24 Chloride 102 mmol/L ()?? 08/01/2022 04:24 Bicarbonate Level 26 mmol/L ()?? 08/01/2022 04:24 Anion Gap 10 ()?? 08/01/2022 04:24 Glucose, POC 94 mg/dL ()?? 08/01/2022 06:08 BUN 14 mg/dL ()?? 08/01/2022 04:24 Creatinine-Blood 0.9 mg/dL ()?? 08/01/2022 04:24 Estimated GFR Creatinine 71 ML/MIN/1.73 M2 ()?? 08/01/2022 04:24 Calcium 8.9 mg/dL ()?? 08/01/2022 04:24 Calcium, Ionized pH Corrected 1.19 mmol/L ()?? 08/01/2022 04:24 Phosphorus 4.3 mg/dL ()?? 08/01/2022 04:24 Magnesium 2.0 mg/dL ()?? 08/01/2022 04:24 ? COAG Verify Now P2Y12 114 PRU (Low)?? 08/01/2022 07:58 ? 31??minutes spent on discharge * Dereck Marvin RN: PERFORM Event Display: Patient Education/Instruction Authored Date: [id number] Inpatient Adult Discharge Instructions [address] [address] Name: AJAY HENDRICKS : 1950 Visit: 07/31/2022 05:42:00 Current Date: 08/01/2022 10:31 Account: [id number] Inpatient Adult Discharge Instructions We would like to thank you for allowing us to assist you with your healthcare needs. The following includes patient education materials and information regarding your injury/illness. Our entire staffstrives to provide an excellent experience for our patients and their families. PLEASE ENSURE YOU FOLLOW-UP PER THE INSTRUCTIONS BELOW! ?? YOUR OPINION IS IMPORTANT TO US! Please complete the survey you may receive by mail or email. Your feedback will be used to make improvements to the healthcare experiences of our patients and their families. Surveys are administered by [employer] ?? If further treatment with your primary care physician or another doctor is recommended, it is important for you to keep the appointment. Call your primary care physician or return to the Emergency Department immediately if your condition worsens, fails to improve, or new symptoms develop. If you need to find a doctor, you can call [facility] for a referral at [phone] or toll free at [phone] or log in to [email or web address].. ?? You can view and manage your care through the patient portal or by using a health care luis antonio of your choosing. [employer] is a website that allows you to securely view your medical information including your hospital discharge summary, office visit summaries, medications and follow-up visits. You can also request appointments, renew medications, and request access to your medical information using a health care luis antonio of your choosing, or just ask a question. You can enroll at [email or web address] or register during your next office visit. You have been discharged from [facility], Patient Care Unit: MICU. If you have any questions regarding these instructions after you leave, please call us and we will be happy to assist you. [facility] Your Care Team Attending Physician Kwadwo FLORES, Kenny Consulting Providers Pablito FLORES, Reny Talbert Discharging Providers Sara HERRERA, Tarah Coy Reason for Admission I67.1 CERE ANEU NEURO INTERVEN DEAN 6AM ARR HV2 Your Diagnosis Intracerebral aneurysm Tests Performed Below is a partial list of the tests performed during your hospitalization. You may have had other tests and procedures not included in this list. Please discuss all test results with your provider. COVID-19 (2019 Novel Coronavirus) PCR?-- Results Pending -- GLUCOSE POC VERIFY NOW P2Y12 ? You will be contacted within 72 hours with your results. Primary Care Provider Denver Porter MD , Melissa Sommers Advance Directive Health Care Proxy on File No Discharge Vitals Temperature: 98.4 DegF Height: 155 cm Pulse Rate: 72 bpm Weight: 73.5 kg Respiratory Rate:??14 br/min??Low Body Mass Index:??30.59 kg/m2??Critical Systolic Blood Pressure: 108 mm Hg Body surface area: 1.78 Diastolic Blood Pressure: 72 mm Hg ?? Oxygen Saturation: 95 % ?? Studies Pending All tests and labs ordered during this hospital stay have been completed unless listed below. Please discuss all pending results with your provider listed above in these instructions. ?? BUN CBC COVID-19 (2019 Novel Coronavirus) PCR Calcium Level Creatinine Electrolytes Ionized Calcium Magnesium Level Phosphorus Level What to do next Instructions From Your Doctor Discharge Orders Discharge Medications AJAY HENDRICKS :1950 Visit Date:07/31/2022 Medications: Please continue your medications until treatment is completed or stopped by your provider. Medications not listed below should be discontinued. Discuss any questions related to medications with your provider. What How Much When Instructions Next Dose Unchanged Albuterol (ProAir HFA 90 mcg/ inh inhalation aerosol with adapter) 1 puff(s) Inhalation Every 4 hours as needed for for wheezing as needed every 4 hours Unchanged Ascorbic Acid (Vitamin C) Oral Daily 08/02 9am Unchanged Aspirin (aspirin 81 mg oral capsule) 1 capsule Oral Daily 08/02 9am Unchanged Clopidogrel (Plavix 75 mg oral tablet) 1 tab(s) Oral Daily 08/02 9am Unchanged Fluoxetine 20 Milligram Oral Daily 08/02 9am Unchanged Fluticasone (Flovent 110 mcg Inhaler HFA) Unchanged Fluticasone Nasal (Flonase 50 mcg/ inh nasal spray) 1 spray(s) Nares, Both Twice a day 08/01 as needed 08/02 9am Unchanged Folic Acid Daily 08/02 9am Unchanged Lisinopril (lisinopril 5 mg oral tablet) 1 tab(s) Oral Daily 08/02 9am Unchanged Melatonin 5 Milligram Oral Daily at Bedtime 08/01 9pm Unchanged Montelukast (montelukast 10 mg oral tablet) 1 tab(s) Oral Daily 08/02 9am Unchanged Naproxen (naproxen 500 mg oral tablet) 1 tab(s) Oral Twice a day 08/01 as needed then 08/02 asneeded Unchanged Omeprazole 20 Milligram Oral Daily 08/02 9am Unchanged Tramadol (traMADol 50 mg oral tablet) 1 tab(s) Oral Every 4 hours as needed for as needed for pain 08/01 as needed every 4 hours Test Results Below is a partial list of the most recent Laboratory test results done prior to this discharge. You may have had other tests and procedures not included in this list. Please discuss all test resultswith your provider. GLUCOSE POC (08/01/2022) ???Glucose, POC - 94 mg/dL VERIFY NOW P2Y12 (08/01/2022) ???Verify Now P2Y12 - 114 PRU Allergies (NKA means No Known Allergies) Fish Latex Other Environmental Allergy Seafood clonazePAM??(Change in personality) doxepin??(Personality change) mirtazapine??(Memory loss) traZODone??(Chest pain) Problems Active Problems??(10) Asthma?? Depression?? GERD - Gastro-esophageal reflux disease?? HTN - Hypertension?? Intracerebral aneurysm?? Mixed urinary incontinence?? Obese class I?? Osteopetrosis?? Osteoporosis?? Ulcerative colitis?? Education Materials Below is the list of Educational Leaflet Providered with your Discharge Instructions. Discharge Instructions for Cerebral Angiography?? Cardiac Catheterization, Bleeding or Hematoma After?? Clopidogrel Oral Tablet?? Valuables and Belongings I fully understand and agree that [facility] accepts no responsibility for all my personal property including clothing, toilet articles, radios, jewelry, dentures, hearing aids, rings, money, or any other property that is in my possession or is brought to me after admission. I understand certain valuables may be placed in a hospital safe for a short period of time. I understand that the hospital is not liable for loss or damage due to accident, fire, or other natural occurrence while said property is in the safe. I accept full responsibility for any personal property that I keep with me, and will not hold the hospital responsible in case of loss or disappearance. I acknowledge that i have been encouraged to send valuables and belongings home. ?? Review of Valuable and Belonging List: With patient Date for Pt to Sign Valuables/Belongings: 07/31/22 11:55:00 ?? Other Discharge Information ?? Wound Assessment?? Wound Assessment?? Surgical Incision Type I: Incision ? Pulmonary Rehab Status?? Pulmonary Rehab Discharge Status?? Respiratory Rate:??14 br/min??Low ? Common Emergency Awareness Tips IS IT A STROKE? Act FAST and Check for these signs: FACE Does the face look uneven? ARM Does one arm drift down? SPEECH Does their speech sound strange? TIME Call at any sign of stroke ?? Heart Attack Signs Chest discomfort: Most heart attacks involve discomfort in the center of the chest and lasts more than a few minutes, or goes away and comes back. It can feel like uncomfortable pressure, squeezing, fullness or pain. Discomfort in upper body: Symptoms can include pain or discomfort in one or both arms, back, neck, jaw or stomach. Shortness of breath: With or without discomfort. Other signs: Breaking out in a cold sweat, nausea, or lightheaded. Remember, MINUTES DO MATTER. If you experience any of these heart attack warning signs, call to get immediate medical attention! ?? Smoking can increase your chances of developing chronic health problems and can cause harmful effects to other family members in your house. If you smoke, you are strongly encouraged to quit. Please call [employer] at [phone] or 5-374-323[employer](INOR) (6703) or log in to www.[facility].org for referrals to smoking cessation programs. ?? The National Suicide Prevention Hotline is available 16/12 if you or someone you know needs to find a reason to keep living. By calling 8-288-602-[facility] (2433) you'll be connected to a skilled, trained counselor at a crisis center in your area. INPATIENT DISCHARGE INSTRUCTIONS SIGNATURE PAGE AJAY HENDRICKS Location:[facility] Registration Date and Time:07/31/2022 05:42 EST Primary Care Physician: Denver Porter MD , Melissa Sommers, I AJAY HENDRICKS, have received the above patient education materials/instructions and have verbalized understanding. If ambulance or transport services are being used I further acknowledge beinggiven a choice of service. ?? If you need to contact me, please call me at this number: . Patient/Clinical Evaluator Name: Patient/Clinical Evaluator Signature: Relationship to Patient: Witness Name/Signature: Date: * Tarah Ruiz NP: PERFORM Event Display: Patient Education Leaflets Authored Date: [id number] Discharge Instructions for Cerebral Angiography ?? [id number] Instrucciones de moira luego de la angiograf??a cerebral?? Se le realiz?? un procedimiento llamado angiograf??a cerebral. Becky es un estudio de temitope??X de los vasos sangu??neos que llevan gabriela al cerebro. Myles el procedimiento, el proveedor de atenci??n m??dica coloc?? un tubo arevalo y flexible (cat??ter) en un vaso sangu??dariel en la deborah, el brazo o el neno a kimberly??s de un montana??o florentin (incisi??n). El proveedor inyect?? un medio de contraste en jones torrente sangu??dariel para ayudar a sandra im??genes claras de temitope??X. A continuaci??n se menciona lo que se debe hacer despu??s en jones hogar.?? Complicaciones posibles a las que se debe prestar atenci??n La complicaci??n m??s com??n de esta prueba es robbi acumulaci??n de gabriela (hematoma) donde se insert?? el cat??ter. Ilion es generalmente en la deborah. Puede presentarse natasha un bulto debajo de la piel.?? El personal m??dico en general nota esto antes de que deje el establecimiento donde se le hizo la prueba por im??genes.??Un hematoma se trata ejerciendo presi??n en el sitio myles unas horas para evitar que se agrande.??Se le pedir?? que se coloque compresas fr??as en la deborah myles 24??horas para aliviar el dolor. Klaudia un par de semanas que el hematoma desaparezca.??Si el bulto aumenta detama??o o sigue all?? despu??s de 4??semanas, higinio que lo examine el proveedor de atenci??n m??dica. Robbi complicaci??n menos com??n es el ryder de los ataques isqu??micos transitorios (AIT) o un ataquecerebral.??Un AIT o un ataque cerebral son provocados por un flujo sangu??dariel reducido al cerebro. Puede sentir debilidad en un brazo o en robbi pierna, tener dificultad para hablar o comprender palabras, perder parte de la vista o no recordar guanaco las cosas.??Un AIT puede durar apenas unas horas. Unataque cerebral puede durar d??as o semanas, o ser permanente.??Cuanto mayor sea usted, mayor ser??el riesgo de un AIT o de un ataque cerebral despu??s de robbi angiograf??a cerebral. Puede observar estos s??ntomas en el momento del examen o despu??s de haberse aiyana del establecimiento donde le realizaron la prueba por im??genes, a veces d??as m??s tarde.? Qu?? hacer en el hogar? Qu??dese en la cama myles 12??horas o myles el tiempo que le indiquen. ??? Vuelva a jones dieta normal y tome los medicamentos habituales. ??? Higinio solamente actividadeslivianas y tranquilas myles 2 o 3??d??as. ??? Pratibha entre 6 y 8??vasos de agua por d??a. Ilion evitar?? que pierda l??quidos. Tambi??n ayudar?? a eliminar del cuerpo el medio de contraste para temitope??X. ??? No conduzca hasta el d??a despu??s del procedimiento. ??? No realice actividades extenuantesdurante 2??semanas. No levante nada que pese m??s de 10??libras??(4.5??k) myles 3 o 4??d??as. ???Puede ba??arse el d??a despu??s del procedimiento. Bravo no nade ni se siente en robbi mundo o robbi ba??era de hidromasajes hasta que el lugar de la incisi??n se haya curado. ??? T??mese la temperatura y revise el lugar de la incisi??n en busca de signos de infecci??n todos los d??as myles 1??semana. Revise si hay enrojecimiento, inflamaci??n o calor en el lugar. ??? Pregunte a jones proveedor de atenci??n m??dica cu??ndo puede volver a jones trabajo.? Cu??ndo llamar al 911 Un ataque cerebral constituye robbi emergencia m??dica. Llame al 911 de inmediato si tiene alguno de los siguientes s??ntomas de un ataque cerebral o de un AIT. ??? Debilidad, cosquilleo o p??rdida de la sensibilidad en un lado de la lisa o del cuerpo ??? Visi??n doble repentina o dificultad para cee con donavon o con ambos ojos ??? Dificultad repentina para hablar o hablar arrastrando las palabras ??? Dolor de merrill intenso y repentino F.A.S.T.??es robbi sigla en ingl??s que ayuda a recordar con facilidad los signos de un ataque cerebral. Si observa estos signos, sabe que tiene que llamar r??pido (???fast?? , en ingl??s) al 911 . F.A.S.T.??se refiere a esto: ??? F??es por ???face drooping?? ,?? que significa ca??da de la lisa.??Se o se entumece un lado de la lisa. Cuando la persona sonr??e, la sonrisa no es uniforme. ??? A??es por?arm weakness?? , que significa debilidad en un brazo.??Un brazo est?? d??chuckie o entumecido. Cuando la persona levanta ambos brazos al mismo tiempo, donavon puede caerse. ??? S??es por?speech difficulty?? , que significa dificultad para hablar.??Puede notar que se arrastran las palabras o que existe robbi dificultad para hablar. La persona no puede repetir correctamente robbi oraci??n simple cuando se lo piden. ??? T??es por?time to call 911?? , que significa que es el momento de llamar al 911.??Si alguien tiene cualquiera de esos signos, incluso aunque desaparezcan, llame al 911 de inmediato. [place] nota de la hora en la que aparecieron por primera vez. ?? Cu??ndo llamar a jones proveedor de atenci??n m??dica Llame a jones proveedor de atenci??n m??dica de inmediato ante cualquiera de los siguientes casos: ???Dificultad para respirar. ??? Mareos. ??? Dolor o entumecimiento lizbeth o creciente en la pierna, brazo o neno. ??? Fiebre de 100.4?F (38?C) o m??s moira, o seg??n lo ordene el proveedor deatenci??n m??dica. ??? Signos de infecci??n en el lugar de la incisi??n natasha enrojecimiento, hinchaz??n o calor. ??? Falta de aliento. ??? Las piernas se sienten fr??as o se josh azules. ??? Sangrado,moretones o robbi gran hinchaz??n en donde se insert?? el cat??ter. ??? No hay orina o no hay suficiente orina. ?? Last Reviewed Date: 2022 ?? 0694-4263 [employer]. All rights reserved. This information is not intended as a substitute for professional medical care. Always follow your healthcare professional's instructions. ?? * Sara HERRERA, Tarah Coy: PERFORM Event Display: Patient Education Leaflets Authored Date: [id number] Cardiac Catheterization, Bleeding or Hematoma After ?? [id number] Sangrado o hematoma despu??s de cateterismo card??aco Recientemente le hicieron un cateterismo card??aco. Le introdujeron un cat??ter en el cuerpo a kimberly??s de un sitio de punci??n ubicado en la deborah o el brazo. Ahora usted est?? sangrando por john sitio. La gabriela puede salir del sitio en forma de goteo o a borbotones. O puede acumularse debajo de lapiel y formar un bulto (hematoma). Ilion suele requerir evaluaci??n inmediata en robbi adolfo de emergencias. Eda aplique presi??n directa sobre el sitio y llame al?? 911 o p??winston a alguien que lo lleve a la adolfo de emergencias. All?? aplicar??n presi??n en el sitio para detener el sangrado. Puede que lo env??en a casa si la hemorragia se controla y usted se siente guanaco. Para que no vuelva a sangrar, tome ciertas precauciones en casa. Si el sangrado vuelve a comenzar, siga los consejos que aparecen a continuaci??n. Cuidados en el hogar Myles las pr??ximas 48 horas: ??? No higinio ninguna actividad en??rgica. ??? No suba escaleras en lo posible ??? No levante nada que pese m??s de 2??kg (5??libras). ??? Si le hicieron la punci??n en el brazo o la mu??eca, no se acueste del lado de john brazo. ??? Si le hicieron la punci??n en la deborah, no puje al evacuar los intestinos. ??? No se restriegue el sitio al ba??arse. Est?? guanaco que lo moje cuando jones proveedor de atenci??n m??dica le diga que puede hacerlo, bravo no se lo frote ni masajee. No se ba??e en mundo myles??3??d??as despu??s del procedimiento. ??? No maneje en las pr??ximas 48??horas Si vuelve a sangrar, llame al 911. Siga los siguientes pasos para detener el sangrado hasta que llegue la ayuda: ??? Acu??stese boca arriba. ??? Col??quese un pa??o o compresa de gasa limpia en el sitio de la punci??n. Luego aplique presi??n firme directamente sobre la godfrey. O p??winston a alguien queaplique presi??n firme con robbi compresa de gasa o toalla. ??? Mantenga el brazo estirado y elevado por encima de la altura del coraz??n si la punci??n fue en el brazo o en la mu??eca. Si la punci??n fue en la deborah, higinio que otra persona aplique presi??n en el sitio de la punci??n. ??? No presione con demasiada fuerza. Si lo hace, la pierna y el pie (o el brazo y la mano) no recibir??n flujo sangu??dariel y la piel que est?? debajo de las u??as puede volverse vinnie. La piel deber??a verse rosada,natasha debajo de las u??as del otro pie. Cuando presiona (u otra persona presiona) la u??a, se volver?? vinnie, bravo cuando deje de presionarla de volver?? rosada robbi vez m??s. Ilion se denomina llenado capilar . Si est?? con alguien, esta persona puede comprobarlo. ??? Si comienza a sentir los dedos de los pies, los pies, o la pierna entumecidos, con cosquilleo o fr??os, afloje la presi??n, debidoa que probablemente est?? presionando con fuerza excesiva. ??? En cuanto llegue el servicio de emergencias, ellos se ocupar??n de jones atenci??n. ?? Visita de seguimiento Asista a las citas de seguimiento con jones proveedor de atenci??n m??dica o seg??n le hayan indicado.Pida a jones proveedor de atenci??n m??dica un n??rosemary de contacto al cual llamar. ?? Cu??ndo llamar al?? 911 Llame al?? 911 si ocurre algo de lo siguiente: ??? Dolor o sensaci??n de opresi??n en el pecho ??? Sangrado del sitio de la punci??n ??? Sentir debilidad o que va a desmayarse ??? Dificultad para respirar ??? Un bulto (hematoma) que se agranda de manera lizbeth o r??pida ??? Fr??o, entumecimiento, cosquilleo o cambios en el color de la piel del brazo o la pierna en que se realiz?? la punci??n ?? Cu??ndo buscar atenci??n m??dica Llame a jones proveedor de atenci??n m??dica de inmediato ante cualquiera de las siguientes situaciones: ??? Mayor dolor, enrojecimiento, hinchaz??n o supuraci??n del sitio de la punci??n ??? N??useas ov??mitos ??? Fiebre de 100.4?F (38?C) o superior, o seg??n le indique jones proveedor ?? Last Reviewed Date: 2021 ?? [id number] [employer]. Todos los derechos reservados. Esta informaci??n no pretende sustituir la atenci??n m??dica profesional. S??lo jones m??dico puede diagnosticar y tratar un problema de franklyn. ?? * Sara HERRERA, Tarah Coy: PERFORM Event Display: Patient Education Leaflets Authored Date: [id number] Clopidogrel Oral Tablet ?? [id number] Clopidogrel Oral Tablet Brands: Plavix Usos Becky medicamento se usa para las siguientes afecciones: ??? prevenir accidentes cerebrovasculares ??? prevenir ataques card??acos ??? prevenir co??gulos de gabriela ?? Instrucciones Becky medicamento se puede sandra con o sin alimentos. Es muy importante que se tome becky medicamento cerca de la misma hora todos los d??as. Obtendr?? mejores resultados si lo hace as??. Mantenga el medicamento a temperatura ambiente, alejado [...] acerca de todos los medicamentos que usa. Ilion incluye medicamentos con y sin receta m??dica, [...] alguna pregunta acerca de becky medicamento. ?? [email or web address] NOTA IMPORTANTE: En becky documento hay robbi [...] a los T??rminos de [employer]. Copyright(c) 2022 [employer] ?? [id number] [employer] All rights reserved. This information is not intended as a substitute for professional medical care. Always follow your healthcare professional's instructions. ?? History and physical note * Lynne HERRERA, Ivana Hall: PERFORM, MODIFY, MODIFY Event Display: History and Physical Hospital Authored Date: Patient: ??AJAY HENDRICKS ? Age:??72 Years?Sex:??Female?:??1950?? Chief Complaint/Reason for Consult s/p securement of L MCA bifurcation aneurysm History of Present Illness 72 y/o Austrian speaking F with PMH HTN, obesity, depression, asthma, L MCA bifurcation aneurysm (found during screening done for sig fam hx of brain aneurysm) who presented today for elective securement of L MCA aneurysm with Dr. Castillo. The procedure required a web device but then an atlas stent to keep the web device in place in order to totally secure the aneurysm. Thus, she will be on asa and plavix x 6 months. She arrived in the [facility] on RA without complaints. She had not taken asa or plavix this morning so was given doses in the [facility] post procedure. She did develop excessive bleeding toher R groin access site. Eventually dsg was removed and Femstop was placed with good effect. ?? Her daughters were at bedside who helped translate and all questions were answered. They were also updated by Dr. Castillo at the bedside. Review of Systems Patient denies the following General: ??chills, weight loss, fatigue HEENT: hearing loss, eye pain Cardiac: chest pain, palpitations, syncope, presyncope, edema Pulmonary: , wheezing Gastrointestinal: abdominal pain, diarrhea, nausea, vomiting, bowel incontinence Genitourinary: urinary incontinence, urinary retention, hesitancy Musculoskeletal: myalgias, arthralgias Dermatological: rash Hematological: bruising Psychiatric: anxiety, depression Neurological: paresthesias, headache, diplopia, visual field loss, aphasia, facial droop, seizure like acitivity, gait imbalance, incoordination, vertigo or ligheadedness, tremor, memory loss ? Physical Exam Vitals & Measurements T:??98.8?F ?? HR:??78(Monitored)?? MO:??72?? RR:??14?? BP:??135/70?? SpO2:??98%?? HT:??155??cm?? WT:??73.5??kg?? BMI:??30.59?? Gen: NAD HEENT: NC/AT Cardiac: RRR, no m/r/g Lungs: CTA bilat. normal I:E Abd: soft, NT/ND, +BS Extremeties: warm and perfused. no R groin hematoma, she did have bleeding which stopped with Femstop device. Neuro Exam Mental status: alert, oriented to person, place, month, year, situation. speech clear and fluent. follows commands. appropriate Cranial Nerves: EOMI (no nystagmus), PERRL, VFF, smile symmetric, pallate rises and falls symetrically, tongue midline Strength: strength 5/5 throughout on individual muscle testing. normal bulk and tone. no abnormal movements. Coordination: no pronator drift. FTN intact. Sensation: sensation to LT intact ?? Assessment/Plan 72 y/o Austrian speaking F with PMH HTN, obesity, depression, asthma, L MCA bifurcation aneurysm (found during screening done for sig fam hx of brain aneurysm) who presented today for elective securement of L MCA aneurysm with Dr. Castillo which required web and atlas stent placement. She did developexcessive bleeding to her R groin access site and Femstop was placed with good effect. ?? Neuro L MCA bifurcation aneurysm s/p web and atlas placement Hx depression -??q1hr??neuro checks, VS - SBP goal normotension - cont asa 81 x plavix 75 for 6 months (given dose post securement bc didnt take this am) - Dr. Castillo arranging fu - hold lisinopril since she received contrast - groin/pulse checks, flat for 2h then HOB at 30??deg and ok for OOB with assist - Repeat HCT for any change in neuro status - SCD, low risk - cont home fluoxetine 20 - P2Y12 sent, ordered for AM as well per Dr. Castillo ?? Cardio Hx HTN - SBP goal normotension - hold lisinopril since she received contrast ?? Pulm Hx asthma -prn inhaler ?? Renal- no active issues s/p contrast -taking in good PO -take sheehan out when bedrest over ?? GI/FEN GERD -??cardiac diet - Maintain bowel regimen for goal BM??qod - hold omeprazole since we dont??carry it, can resume at home (likely d/c tomrrow) ?? Heme?? R groin bleeding - Fem stop, remove as appropriate and monitor -SCD, low risk ?? Endocrine?? - Goal glucose 120-180 ?? ID- no issues -??urinalysis,??cxr, blood/sputum cx if t>101 -??apap??prn ?? ICU Ppx?scd FEN - cardiac diet Lines - PIV, sheehan Code -??FULL Emergency contact:??WESTON BELL (daughter)?? ; JORDY MCKEON (daughter) Cell ?? dispo??-??icu, likely dc tomorrow updated daughters at bedside ?? d/w and seen with Dr. Burkett ??40 minutes spent on admission Problem List/Past Medical History Ongoing Asthma Depression GERD - Gastro-esophageal reflux disease HTN - Hypertension Intracerebral aneurysm Mixed urinary incontinence Obese class I Osteopetrosis Osteoporosis Ulcerative colitis Historical No qualifying data Procedure/Surgical History Total Hysterectomy Right and left Shoulder ??surgery Cataract both eyes surgery Cholecystectomy Right Foot Surgery Home Medications Albuterol: 1 puffs, Inhalation, Every 4 hours, PRN (for wheezing) Ascorbic Acid: By Mouth, Daily Aspirin: 81 mg = 1 capsule, By Mouth, Daily Clopidogrel: 75 mg = 1 tablet, By Mouth, Daily Fluoxetine: 20 mg, By Mouth, Daily Fluticasone Fluticasone Nasal: 1 sprays, Nares, Both, 2 times a day Folic Acid: Daily Lisinopril: 5 mg = 1 tablet, By Mouth, Daily Melatonin: 5 mg, By Mouth, Daily at bedtime Montelukast: 10 mg = 1 tablet, By Mouth, Daily Naproxen: 500 mg = 1 tablet, By Mouth, 2 times a day Omeprazole: 20 mg, By Mouth, Daily Tramadol: 50 mg = 1 tablet, By Mouth, Every 4 hours, PRN (as needed for pain) Allergies Fish Latex Other Environmental Allergy Seafood clonazePAM??(Change in personality) doxepin??(Personality change) mirtazapine??(Memory loss) traZODone??(Chest pain) Social History Alcohol Use: Never., 10/05/2019 Employment/School Status: Retired., 10/05/2019 Exercise Self assessment: Fair condition., 10/05/2019 Home/Environment Living situation: Home/Independent. Lives with: Alone., 10/05/2019 Nutrition/Health Diet: Regular., 10/05/2019 Sexual Sexually involved in last 6 months: No., 10/05/2019 Substance Abuse Use: Never., 10/05/2019 Tobacco Use: Never (less than 100 in lifetime)., 10/05/2019 Family History Mother: Hypertension Father: Heart disease Sister: Diabetes mellitus type II; Hyperlipidemia; Hypertension Sister: Diabetes mellitus type II; Hyperlipidemia; Hypertension Sister: Hypertension EKG study * Event Display: ECG 12-Lead Authored Date: Please click on pdf link to open report * Event Display: ECG 12-Lead Authored Date: Ventricular Rate: 55 BPM Atrial Rate: 55 BPM P-R Interval: 158 ms QRS Duration: 76 ms Q-T Interval: 432 ms QTC Calculation(Bazett): 413 ms P [place]: 48 degrees R [place]: 12 degrees T [place]: 12 degrees Sinus bradycardia Otherwise normal ECG No previous ECGs available Confirmed by FREDERICK KIRK ([id number]) on 07/31/2022 1:01:28 PM [place]: FREDERICK KIRK [facility] Progress note * Neno Blanton RN: PERFORM, SIGN, VERIFY Event Display: [facility] Authored Date: Patient: AJAY HENDRICKS Age: 72 years Sex: Female : 1950 Associated Diagnoses: None Author: Neno Blanton RN Findings Problem Related to Alteration in Neurological : Alteration in Neurological Function/new 08/01/2022 8:00 EST Alteration in Neuro status Related to Neurology Procedure, Other: L mca aneurysm Goals & Outcomes, Neurological Lab studies/diagnostic tests within pt specific limits, Pt is safe with transfers & activities, Pt will be discharged without infection, Pt will be hemodynamically stable, Pt will be Neurologically stable Interventions, Neurological Assess/monitor for abnormal posturing, Assess/monitor for gaze pattern/extraocular movements, Assess/monitor neurologic status, Assess/monitor VS per unit standards & prn, Call/Report variances in assessments to provider, Collaborate with provider re: medication regime, Identify psychosocial issues related to diagnosis/illness, If no bowel movement in 3 days activate bowel regime, Maintain HOB at least 30 deg, Maintain patient safety if unsteady gait, Monitor forheadaches, nausea, vomiting, Monitor speech fluency, aphasia, word finding difficulty, Physical assessment per unit standards, Provide emotional support to Pt/caregiver, Teach & encourage deep case ath & cough exercises, Teach and encourage use of Incentive spirometer Goals/Interventions, Neurological Yes Neurological, Problem Start 07/31/2022 18:17 Reviewed plan with, Neurological Patient Patient Progression, Neurological Pt progressing according to plan . Evaluation P: Alteration in neuro O: Per care plan. Pt A,A,OX4, RITTER equally with good strength to command. ANTWON. Speech clear and normal, smile symetrical, tongue midline. Taking po diet without difficulty.SeeIVIEW for V.S. and remainder of assess.E: Neuro's as described, no deficit noted, cont with NCP.. * Caitlin Allen RN: PERFORM, SIGN, VERIFY Event Display: Progress Note Hospital Authored Date: [id number] Patient: AJAY HENDRICKS Age: 72 years Sex: Female : 1950 Associated Diagnoses: None Author: Caitlin Allen RN Findings Problem Related to Alteration in Neurological : Alteration in Neurological Function/new 08/01/2022 3:00 EST Alteration in Neuro status Related to Neurology Procedure, Other: L mca aneurysm Goals & Outcomes, Neurological Lab studies/diagnostic tests within pt specific limits, Pt is safe with transfers & activities, Pt will be discharged without infection, Pt will be hemodynamically stable, Pt will be Neurologically stable Interventions, Neurological Assess/monitor neurologic status, Assess/monitor VS per unit standards & prn, Call/Report variances in assessments to provider, Collaborate w/ provider to implement appropriate guidelines, Document & Monitor O2 Sats; Administer O2 as ordered, Other: Goals/Interventions, Neurological Yes Neurological, Problem Start 07/31/2022 18:17 Reviewed plan with, Neurological Patient Patient Progression, Neurological Pt progressing according to plan . Evaluation P: Alteration in Neurologic function I: Refer to NCP and iflow for more information E: Pt neurologically intact, SBPs WNL, will continue to monitor . * Ruma Schmitt RN: PERFORM, SIGN, VERIFY Event Display: Progress Note Hospital Authored Date: [id number] Patient: AJAY HENDRICKS Age: 72 years Sex: Female : 1950 Associated Diagnoses: None Author: Ruma Schmitt RN Findings Problem Related to Alteration in Neurological : Alteration in Neurological Function/new 07/31/2022 18:00 EST Alteration in Neuro status Related to Neurology Procedure, Other: L mca aneurysm Goals & Outcomes, Neurological Lab studies/diagnostic tests within pt specific limits, Pt is safe with transfers & activities, Pt will be discharged without infection, Pt will be hemodynamically stable, Pt will be Neurologically stable Interventions, Neurological Assess/monitor for abnormal posturing, Assess/monitor for gaze pattern/extraocular movements, Assess/monitor for increased Intracranial Pressure, Assess/monitor neurologicstatus, Assess/monitor VS per unit standards & prn, Call/Report variances in assessments to provider, Collaborate w/ provider to implement appropriate guidelines, Collaborate with provider re: medication regime, Document & Monitor O2 Sats; Administer O2 as ordered, Emergency airway equipment at bedside Goals/Interventions, Neurological Yes Neurological, Problem Start 07/31/2022 18:17 Reviewed plan with, Neurological Patient, Children Patient Progression, Neurological Plan Initiation . Evaluation P: Alt in neuro I: See ncp E: Pt A&O, no c/o pain. Moves all extremities. PERRLA. Q.1 hour neuro. + Pules. Right fem stop bleeding, femstop applied. Hemostasis obtained. Dressing dry/intact. Sheehan in place.. Patient Care team information Care Team Personnel Name: Caitlin Allen RN Position: S RN Member Role: Primary Care Nurse Name: Chinmay Lyles RN Position: S RN Member Role: Primary Care Nurse Name: Denver Porter MD , Melissa Sommers Position: Reference Physician Member Role: PCP Address: Address: [address] [place] [id number]- Care Team Related Persons Name: HALIMA BELL Name: WESTON BELL
--- NOTE | 2023-10-14 11:05 | PM.OP ---
Brief Operative Note Date of Service: 10/14/23 Pre-op diagnosis: left shoulder OA Post-op diagnosis: same Procedure: Left TSA Implants: Tournier Surgeon: Pacheco Clark MD Anesthesia: GETA and regional Was an Design Engineering Technician used for this Procedure?: Yes Design Engineering Technician: Nayana Baldwin Estimated blood loss (mL): 200 IV fluids (mL): 1,000 Pathology: other Condition: stable Disposition: PACU
--- NOTE | 2023-10-14 12:29 | W.MHC.F2F ---
Service Date Service Date: 10/14/23 Encounter Date of encounter: 10/15/23 Reasons for Services Signs and symptoms assessed: s/p LTSA Pt. is considered homebound due to recent surgery. Unable to drive, poor balance, poor gait mechanics. Reason for occupational therapy: home safety and mobility, therapeutic exercises, restore joint function, assess need for DME and ADL training Homebound: Leaving the home is medically contraindicated at this time without the asist of a device and/or another person due th the listed conditions above and below. Reason homebound: pain with ambulation, pain with transfers and unable to drive Certification: Based on the above findings, I certify that this patient is confined to the home and needs intermittent detention care, physical therapy and/or speech therapy, or continues to need occupational therapy. The patient is under my care, and I have initiated the establishment of the plan of care. The patient will be followed by a physician who will periodically review the plan of care. Time Spent With Patient Time: Total time managing care of this patient today ____ minutes.
--- NOTE | 2023-10-14 12:30 | P.DS_ITS ---
DS: Providers Provider Date of Service: 10/15/23 Date of admission: 10/14/23 07:40 Primary care physician: Melissa Porter MD DS: Summary Hospital Course Hospital Course: The patient underwent a successful left total shoulder arthroplasty, they were transferred to PACU and then to the floor to recover. During their stay, their vitals were stable, afebrile at 97.8.They also received Occupational Therapy services twice a day. Prior to discharge, their dressing was clean dry and intact, and the plan was to be discharged home with VNA services. Time Attestation Discharge Coordination Time (in mins): 30 Quality: Safe Use of Opioids Does Pt have an Active Cancer Diagnosis on the Problem List?: No Quality: Stroke Does the patient have a stroke diagnosis?: No Physical Exam Vital Signs: Vital Signs: Last Vital Signs Temp 98 F 10/14/23 12:15 Pulse 62 10/14/23 12:15 Resp 16 10/14/23 12:15 BP 121/61 10/14/23 12:15 Pulse Ox 98 10/14/23 12:15 O2 Del Method Nasal Cannula 10/14/23 12:15 O2 Flow Rate 2 10/14/23 12:15 BMI result Body Mass Index 29.7 Const: General: cooperative, healthy appearing and no acute distress Resp: Effort & Inspection: normal respiratory effort and able to speak in complete sentences Cardio: Rate: regular rate Peripheral pulses: Peripheral pulses 2+ throughout GI: Palpation (GI): Soft to palpation Skin: Lesions: no lesions Rashes: no rashes Extrem: Other: left shoulder Aquacel is c/d/i. DS: Data Data Completed and Pending Pending studies at discharge: Pending at discharge 10/14/23 10:49 Surgical [PTH] Routine Discharge Plan Discharge Anticipated Discharge Date/Time: 10/15/23 13:00 Patient Disposition: Home Health Service Discharge Diagnosis: s/p LTSA Referrals: Adriana Patino PA-C [Physician Certified Corporate Travel Executive] - 10/30/23 3:00 pm Discharge Medications: New celecoxib 200 mg Capsule 200 mg PO BID 30 Days Qty: 60 0RF acetaminophen 325 mg Tablet 650 mg PO Q6H PRN (Reason: Pain, Mild (Pain Scale 1-3)) 30 Days Qty: 240 0RF docusate sodium 100 mg Capsule 100 mg PO BID 30 Days Qty: 60 0RF oxycodone 5 mg Tablet 5 mg PO Q4H PRN (Reason: Pain, Moderate(Pain Scale 4-6)) 7 Days Qty: 42 0RF Rx Instructions: Partial Fill upon patient request. Continued ketotifen fumarate [Alaway] 0.025 % (0.035 %) drops 1 drp ophthalmic (eye) BID PRN (Reason: allergy symptoms) 30 Days Qty: 5 2RF Rx Instructions: administer at least 8 hours apart lisinopril 5 mg tablet 5 mg PO DAILY 90 Days Qty: 90 3RF fluoxetine 20 mg capsule 20 mg PO QAM 90 Days Qty: 90 3RF omeprazole 20 mg capsule,delayed release(DR/EC) 20 mg PO DAILY 90 Days Qty: 90 1RF albuterol sulfate 90 mcg/actuation HFA aerosol inhaler 2 puff inhalation Q6H PRN (Reason: bronchospasm) 30 Days Qty: 6.7 1RF fluticasone propionate 110 mcg/actuation HFA aerosol inhaler 110 mcg PO BID Qty: 12 0RF cromolyn 4 % drops 1 drp ophthalmic (eye) DAILY PRN (Reason: itchy eye) tramadol 50 mg tablet 50 mg PO BEDTIME solifenacin 10 mg tablet 10 mg PO DAILY melatonin 10 mg tablet,disintegrating 20 mg PO BEDTIME PRN (Reason: Insomnia) estradiol [Vagifem] 10 mcg tablet 10 mcg vaginal 2XW Qty: 24 3RF Rx Instructions: use 2x a week. Friday and at bedtime Discontinued naproxen 500 mg tablet 500 mg PO BID 30 Days Qty: 60 1RF Discharge Orders: Discharge Order (Routine); Ordered 10/15/23 Ordered By: Adriana Patino Diet: Advance to usual diet Activity on Discharge: Use Splints or Immobilizers Stand Alone Forms: Patient Portal Discharge page Print Language: Upper Sorbian Care Plan Goals: restore fxn to left shoulder Health Concerns: none Plan of Treatment: Wear sling at all times, including sleeping-OK to remove for pendulum exercises throughout the day No external rotation- protect subscap repair No lifting-OK to move arm at elbow and wrist Do not bathe or shower- keep dressing c/d/i Call [facility] orthopedics with any questions or concerns. Assessment: stable for d/c
--- NOTE | 2023-10-14 12:51 | HO.PM.IMCN ---
History of Present Illness Data of Consult Service Date: 10/14/23 Requesting physician: Nayana Baldwin Primary Care Provider: Melissa Porter MD HPI Reason for consult: medical management 73-year-old female with history of hypertension, GLENN not on CPAP, history of cerebral aneurysm s/p endovascular stent assisted web embolization device placement 07/2022 ([facility]), asthma, gerd admitted to orthopedic surgery for management of OA L shoulder sp TSA with consult placed to hospitalist service for medical management. History taken with assistance from french interpretation. She has no complaints. No etoh, drugs, cigarettes. Review of Systems Review of Systems: General: No fevers, malaise, unintentional weight loss HEENT: No blurred vision, diplopia. No sore throat, nasal congestion, rhinorrhea, sinus pain, ear pain Cardiovascular: No chest pain, palpitations, or leg edema Respiratory: No shortness of breath, wheezing, cough GI: No abdominal pain, nausea, vomiting, diarrhea, constipation, melena, hematochezia : No dysuria, hematuria, increased urinary frequency, decreased urinary output MSK: No myalgia, back pain Neuro: No headaches, weakness, paresthesias Skin: No rashes or lesions PMFSH Medical History Herniated intervertebral disc of lumbar spine Back pain Anemia Thyroid cyst Kidney infection Fatty liver Sleep apnea Lung cyst Asthma Cerebral arterial aneurysm Palpitations HTN (hypertension) Hematuria IBS (irritable bowel syndrome) Mild recurrent major depression Dysuria Blurry vision Overweight Injury of left rotator cuff Left hand pain Left shoulder pain Fibromyalgia Knee pain Depression Essential hypertension GERD (gastroesophageal reflux disease) Mild asthma Family History Father Cardiac failure Mother Pulmonary embolism Family/Other FH: mental illness Sister Chronic mental illness Brother Glaucoma Surgical History History of ear surgery History of brain surgery History of surgery on lower extremity History of colonoscopy History of foot surgery History of cataract surgery History of repair of rotator cuff History of removal of skin mole History of cholecystectomy History of hysterectomy Social History Housing: Apartment Are you a primary manager respiratory care to a significant other at home: No Do you presently have visiting nurse or other home services: Yes (homemaker) Alcohol intake: never Patient Tobacco Use Status: Never used Tobacco e-Cigarette/Vaping Use: Never Used Second Hand Smoke Exposure: No Use of substances other than those prescribed or required for medical reasons: No Have you been hit, kicked, punched, or otherwise hurt by someone within the past year? If so, by whom?: No Are you DNR?: No Advance Directives: No Advance Directives Information Provided: No Advance Directives on File: No Recently lost weight without trying: No Nutrition Risks: No Nutritional Risk Patient : No : No Poor oral hygiene: Yes (missing molars) service: No Current occupational status: retired and disabled Current occupation: right handed/ disabled Cognitive needs: Yes (walker) Hearing needs: No Vision needs: Yes (glasses) Meds Allergies Allergy/AdvReac Type Severity Reaction Status Date / Time doxepin Allergy Intermediate loss of Verified 10/14/23 08:10 memory Latex, Natural Rubber Allergy Intermediate ITCHING Verified 10/14/23 08:10 [LATEX, NATURAL RUBBER] metronidazole [Rosadan] Allergy Intermediate mood change Verified 10/14/23 08:10 morphine Allergy Intermediate Chest Pain Verified 10/14/23 08:10 trazodone [TRAZODONE] Allergy Intermediate chest pain Verified 10/14/23 08:10 SEAFOOD Allergy Intermediate vomiting Uncoded 10/14/23 08:10 Active Medications: Current Medications Acetaminophen (Acetaminophen 325 Mg Tablet) 650 mg PO Q6H PRN PRN Reason: Pain, Mild (Pain Scale 1-3) Albuterol Sulfate (Albuterol Sulfate 90 Mcg 8 Gm Inhaler) 2 puff INHALE Q6H PRN PRN Reason: bronchospasm Celecoxib (Celecoxib 200 Mg Capsule) 200 mg PO BID ELISEO Docusate Sodium (Docusate Sodium 100 Mg Capsule) 100 mg PO BID ELISEO Fluoxetine HCl (Fluoxetine Hcl 20 Mg Capsule) 20 mg PO QAM ELISEO Hydromorphone HCl (Hydromorphone Hcl 0.5 Mg/0.5 Ml Syringe) 0.25 mg IVPUSH Q4H PRN; Protocol PRN Reason: Pain, Severe (Pain Scale 7-10) Lactated Ringer's (Lr) 1,000 mls @ 100 mls/hr IVCONT .Q10H ELISEO Stop: 10/15/23 11:06 Cefazolin Sodium/Dextrose (Ancef) 2 gm in 50 mls @ 100 mls/hr IV POSTOP ONE Stop: 10/14/23 15:29 Ketotifen Fumarate (Ketotifen Fumarate 0.025% Oph 5 Ml Drpbtl) 1 drop EYE-BOTH BID PRN PRN Reason: allergy symptoms Non-Formulary Medication (Cromolyn) 1 drop EYE-BOTH BID [facility] Non-Formulary Medication (Fluticasone Propionate) 110 mcg PO BID [facility] Non-Formulary Medication (Melatonin) 20 mg PO BEDTIME PRN PRN Reason: Insomnia Omeprazole (Omeprazole 20 Mg Capsule.Dr) 20 mg PO DAILY [facility] Ondansetron HCl (Ondansetron Hcl 4 Mg/2 Ml Vial) 4 mg IVPUSH Q8H PRN PRN Reason: Nausea and Vomiting Oxycodone HCl (Oxycodone Hcl Immed Release 5 Mg Tablet) 5 mg PO Q4H PRN PRN Reason: Pain, Moderate(Pain Scale 4-6) Oxycodone HCl (Oxycodone Hcl Er 10 Mg Tab.Er.12h) 10 mg PO BID [facility] Sodium Chloride (0.9 % Sodium Chloride Flush 3 Ml Syringe) 3 ml IVFLUSH QSHIFT [facility] Home Medications ?Medication ?Instructions ?Recorded ?Confirmed ?Last Taken ?Type melatonin 10 mg disintegrating 20 mg PO BEDTIME PRN Insomnia 01/20/23 10/07/23 Unknown History tablet cromolyn 4 % eye drops 1 drp ophthalmic (eye) BID 10/07/23 10/07/23 Unknown History tramadol 50 mg tablet 50 mg PO BEDTIME PRN pain 10/14/23 10/14/23 Unknown History Physical Exam Vital Signs and Narrative: Vital Signs: Last Vital Signs Temp 97.0 F 10/14/23 12:31 Pulse 59 10/14/23 12:31 Resp 18 10/14/23 12:31 BP 125/64 10/14/23 12:31 Pulse Ox 99 10/14/23 12:31 O2 Del Method Room Air 10/14/23 12:31 O2 Flow Rate 2 10/14/23 12:15 BMI result Body Mass Index 29.7 Constitutional - Awake and Alert, No apparent distress Eyes - PERRLA, EOMI Cardiovascular - S1S2, RRR, No edema Respiratory - Normal lung expansion, Normal respiratory effort, No respiratory distress, CTA bilaterally Gastrointestinal - NT / ND; +BS; No rebound or guarding Extremities - no calf tenderness bilaterally, no swelling Skin - Warm/Dry Neurological - Alert & oriented x3 Psychological - Appropriate affect Assessment and Plan (1) Arthritis of left glenohumeral joint: Status: Acute Plan 73-year-old female with history of hypertension, GLENN not on CPAP, history of cerebral aneurysm s/p endovascular stent assisted web embolization device placement 07/2022 ([facility]), asthma, gerd admitted to orthopedic surgery for management of OA L shoulder sp TSA with consult placed to hospitalist service for medical management. #OA L shoulder s/p TSA POD0 -plan per ortho surgery #HTN -continue lisinopril #GLENN -no cpap #H/o cerebral aneurysm s/p stent and web asisted embolization device -stable, outpt follow up #MIld intermittent asthma -no exacebation, albuterol prn Thank you for allowing me to participate in this consult. Signing off at this time. Please do not hesitate to call for further questions.
[2023-10-14] MEDS: Lactated Ringers 1,000 ML 100 ML IVCONT ×2 (13:08→22:32)
--- NOTE | 2023-10-14 14:12 | PHA.MEDREC ---
Pharmacy Consult ? Medication Reconciliation Pharmacy has completed the medication reconciliation.
[2023-10-14] MEDS: ceFAZolin Sodium/Dextrose,Iso 2 GM/50 ML PIGGYBACK IV (15:32)
[2023-10-14] MEDS: Acetaminophen 325 MG TABLET 650 MG PO ×2 (15:37→21:29)
[2023-10-14] MEDS: Fluticasone Propionate 100 MCG BLST.W.DEV 1 PUFF INHALE (19:47)
[2023-10-14] MEDS: oxyCODONE HCl ER 10 MG TAB.ER.12H PO (21:29)
[2023-10-14] MEDS: Melatonin 3 MG TABLET 21 MG PO (21:34)
[2023-10-15 03:18] VITALS: BP 95/41; PULSE 76; RESP 18; TEMP 36.6; O2SAT 95
[2023-10-15 06:48] LABS: MANUAL DIFF FLAG NO
[2023-10-15 06:49] LABS: Basophils Percent Auto 0.1 % (0-2); Hematocrit 30.5 % (37.0-47.0); Hemoglobin 10.1 g/dl (12.0-16.0); Imm Gran Abs Auto 0.11 X10*3/uL (0.00-0.03); Imm Gran Pct Auto 0.7 % (0.0-0.4); Lymphocytes Absolute Auto 2.5 X10*3/uL (1.2-4.9); Lymphocytes Percent Auto 15.5 % (20-40); Mean Corpuscular HGB Conc 33.1 g/dl (31.0-35.0); Mean Corpuscular Hemoglobin 29.4 pg (27.0-33.0); Mean Corpuscular Volume 88.9 fL (80.0-98.0); Mean Platelet Volume 9.8 fL (9.4-12.3); Monocytes Absolute Auto 0.9 X10*3/uL (0.1-1.2); Monocytes Percent Auto 5.6 % (2-11); Neutrophils Absolute Auto 12.6 x10*3/uL (2.0-8.3); Neutrophils Percent Auto 78.1 % (45-73); Platelet Count 270 X10*3/uL (160-400); Red Blood Count 3.43 X10*6/uL (4.20-5.50); Red Cell Distribution Width 13.5 % (11.0-16.0); White Blood Count 16.1 X10*3/uL (4.8-10.8)
[2023-10-15 07:05] LABS: Anion Gap 15 (12-20); Blood Urea Nitrogen 18 mg/dL (9-16); Calcium 8.7 mg/dL (8.4-10.2); Carbon Dioxide 24 mmol/L (22-29); Chloride 107 mmol/L (96-108); Creatinine Clr Calc Pharmacy 66.5; Estimated Glomerular Filt Rate > 60; Glucose Fasting 106 mg/dL (60-99); Potassium 4.2 mmol/L (3.3-5.1); Sodium 142 mmol/L (135-145)
--- NOTE | 2023-10-15 07:40 | PM.PNORT ---
Subjective Subjective Date of Service: 10/15/23 Interval history: POD1 s/p LTSA with subscap repair Patient is resting in bed comfortably No overnight events Pain is managed No additional complaints Physical Exam Vital Signs: Vital Signs: Last Vital Signs Temp 97.8 F 10/15/23 03:18 Pulse 76 10/15/23 03:18 Resp 18 10/15/23 03:18 BP 95/41 L 10/15/23 03:18 Pulse Ox 95 10/15/23 03:18 O2 Del Method Room Air 10/15/23 03:18 O2 Flow Rate 2 10/14/23 12:15 BMI result Body Mass Index 29.7 Const: General: cooperative, healthy appearing and no acute distress Resp: Effort & Inspection: normal respiratory effort and able to speak in complete sentences Cardio: Rate: regular rate Peripheral pulses: Peripheral pulses 2+ throughout GI: Palpation (GI): Soft to palpation Skin: Lesions: no lesions Rashes: no rashes Extrem: Other: LUE: In sling, block is still in effect. Aquacel is c/d/i. Procedures Date of Service Date of Service: 10/15/23 Progress Note: A&P Assessment and plan (1) Status post total replacement of left shoulder: Status: Acute Plan Continue pain mgmnt Sling on at all times avoid external rotation Begin OT for LTSA with subscap repair - protect subscap Dispo planning-Pending OT eval, pain mgmnt Time Spent With Patient Time: Total time managing care of this patient today ____ minutes. Quality Stroke Does the patient have a stroke diagnosis?: No VTE Prior VTE?: No VTE Risk Level:: Medical - moderate - high VTE Device Contraindication: N/A - Device Ordered VTE Drug Contraindication: Treatment Not Indicated
[2023-10-15 08:00] VITALS: BP 122/62; PULSE 66; RESP 20; TEMP 36.6; O2SAT 94
[2023-10-15] MEDS: oxyCODONE HCl ER 10 MG TAB.ER.12H PO (08:04)
[2023-10-15] MEDS: Omeprazole 20 MG CAPSULE.DR PO (08:05)
[2023-10-15] MEDS: FLUoxetine HCl 20 MG CAPSULE PO (08:05)
--- NOTE | 2023-10-15 08:24 | P.OP_ITS ---
Operative Note Operative Note Date of Service: 10/14/23 Narrative: Date of Service: 10/14/23 Pre-op diagnosis: left shoulder OA Post-op diagnosis: same Procedure: Left TSA Implants: Tournier Surgeon: Pacheco Clark MD Anesthesia: GETA and regional Was an Applications Scientist used for this Procedure?: Yes Applications Scientist: Nayana Baldwin Estimated blood loss (mL): 200 IV fluids (mL): 1,000 Pathology: other Condition: stable Disposition: PACU Procedure in detail: Patient was brought to the operating room and placed in the beach chair position on the surgical table. The limb was prepped and draped in standard sterile fashion and a time out was called to identify proper site, proper procedure and IV antibiotics per weight were administered. I began by making a deltopectoral incision from the coracoid to the pectoralis insertion.? Blunt dissection identified the cephalic vein which was retracted laterally.? Blunt dissection was taken down to the 3 sisters which were cauterized.? I then made a full- thickness capsulotomy including the subscapularis. A 1 cm cuff was left for repair.? This was then tagged and the arm was externally rotated and extended and the head was dislocated.? The humeral head was eburnated and there was a very large inferior osteophyte that was removed with an osteotome.? The RTC was intact. An anatomic head cut was made in patient's natural inclination (approximately 132 degree). There were two large RTC anchors into the way which were removed. the bone quality was poor and so a decision was made to place a stemmed implant.A starter awl was used to identify the canal and then I broached up to a size #1 at 30 degrees of version.? I then placed my head protector and turned my attention to the glenoid.? Posterior anterior and superior glenoid retractors were placed and the biceps was tenotomized and labral tissue was removed.? Based on the preoperative CT and templating a guide pin was placed in approximately 5 degrees of retroversion and neutral inclination.? Using a reamer I reamed down to bleeding bone circumferentially and placed the size 40M glenoid drill guide. I drilled by central peg and three additional holes. One bag of Palacos bone cement was mixed on the back table and my final glenoid was cemented in place while applying axial compression. Once the cement was dry all excess cement was removed. I then returned to the humerus where I trialed a?1b stem with a low offset 39/16 head. I was satisfied with the height and the stability. I irrigated copiously and then implanted in the final implants. I was satisfied with the stability of the implants. I then irrigated and repaired the subscapularis with fiberwire.? I closed in a layered fashion with absorbable suture and mahogany and the patient was placed in a sterile dressing and an abduction sling.? She was extubated brought to recovery room stable condition there were no known complications.
--- NOTE | 2023-10-15 08:24 | MHC.CM.PN ---
CM ATTEMPTED TO MEET W/PT VIA WOVEN LABEL DESIGNER HOWEVER PT WORKING W.OT, BRANDEE TO REVISIT
[2023-10-15] MEDS: Fluticasone Propionate 100 MCG BLST.W.DEV 1 PUFF INHALE (08:58)
[2023-10-15 08:59] VITALS: PULSE 66; RESP 20; O2SAT 94
--- NOTE | 2023-10-15 09:42 | MHC.CM.PN ---
IMM 10/15/23, PT S/P LTSA, CM MET W/PT VIA PRESS SET UP, PT REPORTS SHE HAS A CANE/WALKER AT HOME, HAS A CHIEF ACCOUNTANT 7.5HRS AND HRS HAVE BEEN INCREASED TO 12/15HRS/WK HOWEVER PT WOULD LIKE A DIFFERENT CHIEF ACCOUNTANT FOR EXTRA HRS AND HAS BEEN INSTRUCTED TO REACH OUT TO HER QUILLER TENDER FROM CC TO DISCUSS THIS SHE DOES NOT REMEMBER THE NAME OF THE COMPANY THAT PROVIDES HER CHIEF ACCOUNTANT AND IS IN A HURRY TO GET DRESSED AND DC. PT VERIFIES PCP ON FILE IS CORRECT AND REPORTS HCP IS KAILA KNUTSON, COPY REQUESTED.
--- NOTE | 2023-10-15 11:34 | HO.POSTANES ---
Post Anesthesia Evaluation Post Anesthesia Evaluation Date of Service: 10/14/23 Vital Signs: Vital Signs Temp Pulse Resp BP Pulse Ox O2 Del Method 10/15/23 08:59 66 20 10/15/23 08:00 97.8 F 66 20 122/62 94 Room Air 10/15/23 03:18 97.8 F 76 18 95/41 L 95 Room Air 10/14/23 23:41 99.2 F 77 18 102/56 L 93 Room Air Anesthesia: General Endotracheal-GETA Mental Status: Awake Pain Control: Satisfactory Nausea/Vomiting: None Hydration: Adequate Anesthesia-Related Issues: No Anes. Related Issues
--- NOTE | 2023-10-16 15:44 | MHC.CM.PN ---
LATE ENTRY NOTE FOR 10/15/23, PT MEDICALLY CLEARED FOR DC HOME W/NEW [facility] FOR HOME OT, FAMILY FOR TRANSPORT
== END 2023-10-15 10:19 | disposition home health service (06) | DRG 483 ==
LOC: HO.SSSA 07:48 → HO.IMC 11:44
PROVIDERS: Orthopaedic Surgery; Physician Assistant; Admitting Provider Physician Assistant; PCP Internal Medicine; Visit Provider Physician Assistant
PROC: 0RRK0JZ Replacement of Left Shoulder Joint with Synthetic Substitute, Open Approach (ICD-10-PCS; CPT 23472; principal; 2023-10-14 09:30)
DX: M19.012 Primary osteoarthritis, left shoulder (principal); F33.0 Major depressive disorder, recurrent, mild; M79.7 Fibromyalgia; I10 Essential (primary) hypertension; J45.20 Mild intermittent asthma, uncomplicated; G47.33 Obstructive sleep apnea (adult) (pediatric); Z91.040 Latex allergy status; G89.18 Other acute postprocedural pain; Z79.51 Long term (current) use of inhaled steroids; Z79.899 Other long term (current) drug therapy
CPT/HCPCS: 36415; 73030; 80048; 85025; 86850; 86900; 86901; 87640; 87641; 88304; 88311; 94640; 97166; C1713; C1776; J0131; J0665; J0690; J1100; J2250; J2371; J2405; J2704; J7120

== ENCOUNTER → 2023-10-14 07:40 | Outpatient (BNV) | payer OTHER, SELFPAY | PROVIDERS: Admitting Provider Physician Assistant; PCP Internal Medicine; Visit Provider Orthopaedic Surgery | DX: Z47.1 Aftercare following joint replacement surgery (principal); Z96.612 Presence of left artificial shoulder joint | CPT/HCPCS: 23472; 99024; G0180 ==

== ENCOUNTER → 2023-10-14 07:40 | Outpatient (BNV) | payer OTHER, SELFPAY | PROVIDERS: Admitting Provider Physician Assistant; PCP Internal Medicine; Visit Provider Physician Assistant | DX: I10 Essential (primary) hypertension (principal); M19.012 Primary osteoarthritis, left shoulder | CPT/HCPCS: 99222 ==

== ENCOUNTER 2023-10-27 09:19 | Outpatient (AMB) | payer OTHER, SELFPAY ==
--- NOTE | 2023-10-27 09:40 | MHC.PC.OV ---
Vital Signs 10/27/23 09:41 Height 5 ft 1 in Weight 148 lb BMI 28.0 BP 132/70 Blood Pressure Location Rt brachial Position Sitting Intake Visit Reasons: 6 month f/u Intake Note: Patient here for a 6 month follow up, letter request Channel Cementer Required: No Accompanied by: Self / Same As Patient Allergies doxepin Allergy (Intermediate, Verified 10/27/23 10:11) loss of memory Latex, Natural Rubber [LATEX, NATURAL RUBBER] Allergy (Intermediate, Verified 10/27/23 10:11) ITCHING metronidazole [Rosadan] Allergy (Intermediate, Verified 10/27/23 10:11) mood change morphine Allergy (Intermediate, Verified 10/27/23 10:11) Chest Pain trazodone [TRAZODONE] Allergy (Intermediate, Verified 10/27/23 10:11) chest pain SEAFOOD Allergy (Intermediate, Uncoded 10/27/23 10:11) vomiting Medication List - Last Reconciled 10/27/23 by Melissa Porter MD acetaminophen 650 mg (2 x 325 mg) PO Q6H PRN 30 days albuterol sulfate 90 mcg/actuation 2 puffs inhalation Q6H PRN 30 days celecoxib 200 mg PO BID 30 days cromolyn 4% 1 drp ophthalmic (eye) DAILY PRN docusate sodium 100 mg PO BID 30 days estradiol (Vagifem) 10 mcg vaginal 2XW fluoxetine 20 mg PO QAM 90 days fluticasone propionate 110 mcg/actuation 110 mcg PO BID ketotifen fumarate 0.025%(0.035%) ([place]) 1 drp ophthalmic (eye) BID PRN 30 days lisinopril 5 mg PO DAILY 90 days melatonin 20 mg PO BEDTIME PRN omeprazole 20 mg PO DAILY 90 days solifenacin 10 mg PO DAILY tramadol 50 mg PO BEDTIME Tobacco use date assessed: 09/16/23 Fall risk assessment: No Falls in past year Last assessed Fall Risk: 10/27/23 Dental Screening Dental Screen Date: 09/16/23 HPI HPI Comments History of Present Illness Details This is a 73-year-old female with hypertension, GERD, chronic idiopathic constipation and mild recurrent major depression that comes today for follow-up on her conditions. Had a recent left shoulder surgery and it is healing well. Blood pressure stable. GERD stable with PPIs. Constipation well controlled with docusate as needed. Depression stable with fluoxetine and this is follow by Psychiatry. [facility] Medical History (Updated 10/27/23 @ 12:03 by Melissa Porter MD) Arthritis of left glenohumeral joint Herniated intervertebral disc of lumbar spine Back pain Anemia Thyroid cyst Kidney infection Fatty liver Sleep apnea Lung cyst Asthma Cerebral arterial aneurysm Palpitations HTN (hypertension) Hematuria IBS (irritable bowel syndrome) Mild recurrent major depression Dysuria Blurry vision Overweight Injury of left rotator cuff Left hand pain Left shoulder pain Fibromyalgia Knee pain Depression Essential hypertension GERD (gastroesophageal reflux disease) Mild asthma Surgical History History of ear surgery History of brain surgery History of surgery on lower extremity History of colonoscopy History of foot surgery History of cataract surgery History of repair of rotator cuff History of removal of skin mole History of cholecystectomy History of hysterectomy Family History Father Cardiac failure Mother Pulmonary embolism Family/Other FH: mental illness Sister Chronic mental illness Brother Glaucoma Social History Household Members: Family Housing: House Are you a primary care provider to a significant other at home: No Do you presently have visiting nurse or other home services: No Alcohol intake: never Patient Tobacco Use Status: Never used Tobacco e-Cigarette/Vaping Use: Never Used Second Hand Smoke Exposure: No service: No Current occupational status: retired and disabled Current occupation: right handed/ disabled Cognitive needs: Yes (walker) Hearing needs: No Vision needs: Yes (glasses) Questionnaire PHQ-9 Over the last 2 weeks, how often have you been bothered by any of the following problems? 1. Little interest or pleasure in doing things: several days 2. Feeling down, depressed, or hopeless: several days 3. Trouble falling or staying asleep, or sleeping too much: several days 4. Feeling tired or having little energy: several days 5. Poor appetite or overeating: several days 6. Feeling bad about yourself - or that you are a failure or have let yourself or your family down: not at all 7. Trouble concentrating on things, such as reading the newspaper or watching television: not at all 8. Moving or speaking so slowly that other people could have noticed. Or the opposite - being so fidgety or restless that you have been moving around a lot more than usual: not at all 9. Thoughts that you would be better off or of hurting yourself in some way: not at all Total score: 5 Depression Screening Interpretation: Positive Depression Screening Follow-up: Existing condition, In treatment, Community Mental Health Worker F/U and Follow-up Visit Requested Depression Screening Done: Yes 54781 - PHQ-9 Billing: Yes Source: Developed by Drs. Radhames Hodges, Tonia Walsh, Jhoan Torrez and colleagues, with an educational ketan from [employer]. Thrive Questionnaire Date Thrive assessed: 10/15/23 GÓMEZ-7 AMB Questionnaire GÓMEZ-7 Date GÓMEZ - 7 assessed: 09/16/23 Source: Developed by Drs. Radhames Hodges, Tonia Walsh, Jhoan Torrez and colleagues, with an educational ketan from [employer]. Review of Systems Const All systems reviewed & are unremarkable except as noted in HPI and below Eyes Reports no additional complaints, Denies change in vision and Denies other visual disturbances Card Denies chest pain at rest, Denies chest pain with activity, Denies edema, Denies irregular heart rhythm, Denies claudication, Denies dyspnea, Denies dyspnea on exertion, Denies orthopnea, Denies paroxysmal nocturnal dyspnea and Denies slow heart rate Resp Denies cough, Denies dyspnea and Denies dyspnea on exertion GI Denies abdominal pain, Denies change in bowel habits, Denies excessive flatus, Denies nausea and Denies vomiting Denies urinary incontinence, Denies urinary hesitancy and Denies urinary urgency Physical exam (Primary Care) Vital Signs: Last Vital Signs BP 132/70 10/27/23 09:41 BMI result Body Mass Index 28.0 Tobacco/Smoking Status: Tobacco use Status Tobacco use date assessed 09/16/23 10/27/23 09:42 Patient Tobacco Use Status Never used Tobacco 10/27/23 09:42 e-Cigarette/Vaping Use Never Used 10/27/23 09:42 Depression Screening Interpretation: Positive Depression Screening Follow-up: Existing condition, In treatment, Community Mental Health Worker F/U and Follow-up Visit Requested Thrive Assessment: Date of Thrive Assessment Date Thrive assessed 10/15/23 10/27/23 09:42 Neck Neck: Yes supple Resp Effort & Inspection: normal respiratory effort Auscultation: clear to auscultation bilaterally Cardio Jugular venous distension: no JVD Rate: regular rate Rhythm: regular rhythm Heart sounds: S1 normal heart sound present and S2 normal heart sound present Extrem General: Yes full ROM Assessment and Plan Assessment & Plan (1) Mild recurrent major depression: Code(s): F33.0 - Major depressive disorder, recurrent, mild Plan: Continue fluoxetine. Follow-up with psychiatry. (2) Essential hypertension: Code(s): I10 - Essential (primary) hypertension Plan: Continue lisinopril. Blood pressure goal is equal or less than 130/80. (3) GERD (gastroesophageal reflux disease): Code(s): K21.9 - Gastro-esophageal reflux disease without esophagitis Qualifiers: Esophagitis presence: esophagitis presence not specified Qualified Code(s): K21.9 - Gastro-esophageal reflux disease without esophagitis Plan: Continue PPIs. (4) Chronic idiopathic constipation: Code(s): K59.04 - Chronic idiopathic constipation Plan: Continue docusate as needed for constipation. Orders: Orders Complete Blood Count Auto Diff Today D72.829 - Elevated white blood cell count, unspecified Coding Level of Care Code Est Pt Level 4 (22407) Complex EM visit Add On G2211 Diagnoses Mild recurrent major depression F33.0 Essential hypertension I10 Gastroesophageal reflux disease, unspecified whether esophagitis present K21.9 Esophagitis presence: esophagitis presence not specified Chronic idiopathic constipation K59.04 Time Spent (min) 23
[2023-10-27 09:41] VITALS: BP 132/70; BMI 28.0
== END 2023-10-27 10:23 | disposition home or self-care (01) ==
PROVIDERS: PCP Internal Medicine; Visit Provider Internal Medicine
DX: F33.0 Major depressive disorder, recurrent, mild (principal); I10 Essential (primary) hypertension; K21.9 Gastro-esophageal reflux disease without esophagitis; K59.04 Chronic idiopathic constipation
CPT/HCPCS: 99214; G2211

== ENCOUNTER 2023-10-29 13:41 | Outpatient (REF) | payer OTHER, SELFPAY | END 2023-10-29 13:42 | disposition home or self-care (01) | LOC: HO.LNP 13:41 | PROVIDERS: PCP Internal Medicine; Visit Provider Urology | DX: R10.9 Unspecified abdominal pain (principal); R31.0 Gross hematuria; N32.89 Other specified disorders of bladder; N30.90 Cystitis, unspecified without hematuria; N32.81 Overactive bladder | CPT/HCPCS: 52000; 87086; 99212 ==

== ENCOUNTER 2023-10-29 13:41 | Outpatient (AMB) | payer OTHER, SELFPAY ==
--- NOTE | 2023-10-29 14:15 | A.OFFVIS_ITS ---
Intake Visit Reasons: cysto Intake Note: Patient presents today for a CYSTO Procedure * Meds: Estradiol, solifenacin * Allergies to Antibiotic: None * Blood Thinner: Aspirin * Urinalysis test clear for Cysto: Bone Cooking Operator Required: Yes Bone Cooking Operator Language: Firer Low Pressure Name: Rukhsana Lennon Information Interpreted: non-clinical & clinical Accompanied by: Self / Same As Patient Allergies doxepin Allergy (Intermediate, Verified 10/30/23 14:30) loss of memory Latex, Natural Rubber [LATEX, NATURAL RUBBER] Allergy (Intermediate, Verified 10/30/23 14:30) ITCHING metronidazole [Rosadan] Allergy (Intermediate, Verified 10/30/23 14:30) mood change morphine Allergy (Intermediate, Verified 10/30/23 14:30) Chest Pain trazodone [TRAZODONE] Allergy (Intermediate, Verified 10/30/23 14:30) chest pain SEAFOOD Allergy (Intermediate, Uncoded 10/29/23 14:16) vomiting HPI Comments Details: 10/29/23--Here for cystoscopy. Recent Left shoulder surgery. PMH - Major depression. She states periodically she sees blood clots in the urine. She has pictures on her phone to show me. She had w/u including office cysto last year. She is very concerned wants to be reevaluated. Certified translator and interpreter present. The patient complains of flank pain and is concerned about having a kidney stone. She has has frequent UTI's. She is prescribed estrace cream and vesicare for OAB symptoms. Office Cystoscopy findings: erythematous changes consistent with cystitis follicularis. Plan CT stone protocol. Review of chart: 09/15/23--Kenna is a 73 year old female who has had recurrent UTI's, she had cystoscopy in November, which noted erythematous changes c/w cystitis. She has been on antibiotics and is here for repeat cystoscopy. The patient was seen by the nurse, but needed to leave and left without completing cystoscopy. Will reschedule cysto. 08/04/23--Angelika is a 73-year-old female who presents today for a follow-up. Certified translator and interpreter was present during the visit.?She states she is seeing blood when she urinates. She has had recurrent UTI's, she is prescribed vaginal estrogen therapy. She denies dysuria. I have discussed repeat office cystoscopy. Urine for cytology. 01/31/2023?She is followed today via Tele-health for UTI symptoms. The patient is a Ecuadorean speaking female. Certified sign language interpreter was present during the Tele- health visit. She was last seen by me on 11/29/2022 for bladder wall thickening. Ceftum 500 mg BID for ten days was ordered, she was advised to follow-up after 2 months. I reviewed the urine culture results from 11/29/2022- which came back no growth; and 01/20/2023 which came back < 10,000 cfu/ml. She states that she is doing well without any urinary tract infections. She has stopped using Estrace cream as it is leaving stains on her undergarments. I will change the Estrace cream to Vagifem 10 mcg. Use it twice a week, Friday and . Follow-up in 6 months. 11/29/2022?The patient is Ecuadorean speaking female. certified translator and interpreter was present during the visit.?The patient was last seen in the office on 11/04/22 for? urinary frequency and urge incontinence. She was initially seen as new patient evaluation on 09/23/22 by SUPERVISOR TYPE PHOTOGRAPHY Alejandra Alva.?Work up included renal US. Renal US results reviewed--10/04/22-- WNL, kidneys are normal, Diffused bladder wall thickening was noted. Urine cytology results reviewed--09/23/22-- negative for malignancy. The patient is using estrogen cream vaginally with minimal benefits.?States having urinary leakage and is using pads.??Evaluation today UA: Blood: 10 Mane/uL, leukocytes: 2+.?Cystoscopy findings-- erythematous changes consistent with cystitis follicularis. I discussed to hold on anti-cholinergic medication pending antibiotic therapy for cystitis.?Plan:?Ceftum 500 mg BID for ten days. Pending the urine culture will start the patient on daily antibiotic suppressive therapy. Follow-up after 2 months. [facility] Medical History Arthritis of left glenohumeral joint Herniated intervertebral disc of lumbar spine Back pain Anemia Thyroid cyst Kidney infection Fatty liver Sleep apnea Lung cyst Asthma Cerebral arterial aneurysm Palpitations HTN (hypertension) Hematuria IBS (irritable bowel syndrome) Mild recurrent major depression Dysuria Blurry vision Overweight Injury of left rotator cuff Left hand pain Left shoulder pain Fibromyalgia Knee pain Depression Essential hypertension GERD (gastroesophageal reflux disease) Mild asthma Surgical History History of ear surgery History of brain surgery History of surgery on lower extremity History of colonoscopy History of foot surgery History of cataract surgery History of repair of rotator cuff History of removal of skin mole History of cholecystectomy History of hysterectomy Family History Father Cardiac failure Mother Pulmonary embolism Family/Other FH: mental illness Sister Chronic mental illness Brother Glaucoma Social History Household Members: Family Housing: House Are you a primary intensive care ambulance paramedic to a significant other at home: No Do you presently have visiting nurse or other home services: No Alcohol intake: never Patient Tobacco Use Status: Never used Tobacco e-Cigarette/Vaping Use: Never Used Second Hand Smoke Exposure: No service: No Current occupational status: retired and disabled Current occupation: right handed/ disabled Cognitive needs: Yes (walker) Hearing needs: No Vision needs: Yes (glasses) Office Procedures Bladder/Catheter Procedure Details: 14 fr straight cath used to get sample for cystoscopy per patient request as she was unable to urainte. [id number] Bladder Catheter Procedure code (CPT) selection complete Cystoscopy Consent Discussed risk and benefit or proposed procedure with the patient. Information consent for procedure given to the patient. Discussed technical aspects, risks, benefits and alternatives in full. Addressed all of the patient's questions and concerns regarding the procedure. The patient demonstrated knowledge and understanding. They wish to proceed with this procedure. Preparation The patient was prepped in the usual manner. A marketing communications coordinator was present and in the room. Genitalia was prepped with betadine solution in a sterile manner. Lidocaine Jelly 2% was placed into the urethra and 16Fr flexible Olympus cysto scope was inserted into the meatus after adequate lubrication. Procedure Time out per protocol performed. Bladder Inspection Bladder Inspection: The bladder was inspected in its entirety with utilization retroflexion displaying: Tumor(s): no suspicious bladder lesions visualized Trabeculation: mild Mucosal Erthema: present Orifices: normal shape and position Urethra: normal Cystoscopy findings: erythematous changes consistent with cystitis follicularis, no suspicious bladder lesions visualized [id number] DISPOSABLE SCOPE URO-G FLEXIBLE SCOPE Procedure code (CPT) selection complete Office Meds lidocaine HCl 2 % mucosal jelly in applicator Performing Provider: Vinayak Vinson MD Performing Location: [facility] Administered by: Jose Jorge LPN on 10/29/23 15:18 Dose Route Admin Location Dispensed Lot Number Expiration Date [facility] Executive Coach 10 mL intra-urethral 20 mL naproxen 500 mg tablet Performing Provider: Vinayak Vinson MD Performing Location: [facility] Administered by: Jose Jorge LPN on 10/29/23 15:18 Dose Route Admin Location Dispensed Lot Number Expiration Date [employer] Executive [employer] 500 mg PO 1 tab ciprofloxacin HCl 500 mg tablet Performing Provider: Vinayak Vinson MD Performing Location: [facility] Administered by: Jose Jorge LPN on 10/29/23 15:18 Dose Route Admin Location Dispensed Lot Number Expiration Date [employer] Executive [employer] 500 mg PO 1 tab Assessment & Plan Assessment & Plan (1) Flank pain: Code(s): R10.9 - Unspecified abdominal pain Category: Medical (2) Gross hematuria: Code(s): R31.0 - Gross hematuria Category: Medical (3) Bladder wall thickening: Code(s): N32.89 - Other specified disorders of bladder Category: Medical (4) Cystitis: Code(s): N30.90 - Cystitis, unspecified without hematuria Category: Medical (5) OAB (overactive bladder): Code(s): N32.81 - Overactive bladder Category: Medical (6) Recurrent UTI: Code(s): N39.0 - Urinary tract infection, site not specified Category: Medical (7) Chronic cystitis: Code(s): N30.20 - Other chronic cystitis without hematuria Category: Medical Plan CT scan Abd/pelvis - wo IV contrast. Will review results with patient. Pending results FU in 6 months Orders: Orders AMB Urinalysis Automated 10/29/23 Z13.9 - Encounter for screening, unspecified AMB Bladder/Catheter Procedure 10/29/23 N30.90 - Cystitis, unspecified without hematuria, N32.89 - Other specified disorders of bladder, R32 - Unspecified urinary incontinence, R35.0 - Frequency of micturition, R39.89 - Other symptoms and signs involving the genitourinary system CT abdomen pelvis wo IV con Today R10.9 - Unspecified abdominal pain, R31.0 - Gross hematuria AMB Cystoscopy 10/29/23 N30.90 - Cystitis, unspecified without hematuria, N32.89 - Other specified disorders of bladder, R32 - Unspecified urinary incontinence, R35.0 - Frequency of micturition Urine Culture 10/29/23 N39.0 - Urinary tract infection, site not specified Patient Instructions: The patient had an opportunity to ask questions regarding treatment plan. The patient expressed understanding and agreement with the above treatment plan. The patient is aware they should contact our office by phone for worsening of their current condition or the appearance of new symptoms. Compliance is encouraged with any medications and followup testing that is ordered. It is a privilege to be allowed the opportunity to participate in the urologic care of your patient. If you have any questions or concerns regarding treatment for the above conditions please do not hesitate to contact me. The office telephone contact is [phone]. This note is constructed in part using voice recognition software. While every effort has been made to ensure accuracy automation analyst errors may have been included. Yours sincerely, Vinayak Vinson MD Scribe Plan - Not visible on output: Scribed for Dr. Vinayak Vinson by too isabel, medical billing manager, 01/31/2023. I, Dr. Vinayak Vinson, have personally reviewed and agree with the information entered by the scribe. Coding Level of Care Code Est Pt Level 4 (01785) Diagnoses Flank pain R10.9 Gross hematuria R31.0 Bladder wall thickening N32.89 Cystitis N30.90 OAB (overactive bladder) N32.81 Recurrent UTI N39.0 Chronic cystitis N30.20 CPT Codes Bladder/Catheter Procedure - CPT: 04661-Abkdje Bladder Catheter ([id number]) Cystoscopy - CPT: 21239-Dvaqgqlavt ([id number])
== END 2023-10-29 15:21 | disposition home or self-care (01) ==
PROVIDERS: PCP Internal Medicine; Visit Provider Urology
DX: R10.9 Unspecified abdominal pain (principal); R31.0 Gross hematuria; N32.81 Overactive bladder; N30.90 Cystitis, unspecified without hematuria; N39.0 Urinary tract infection, site not specified; N30.20 Other chronic cystitis without hematuria
CPT/HCPCS: 52000; 99214

== ENCOUNTER 2023-10-30 10:06 | Outpatient (REF) | payer OTHER, SELFPAY ==
--- NOTE | ~2023-10-30 | XR_ITS ---
EXAMINATION: XR SHOULDER, LEFT CLINICAL INFORMATION: Shoulder pain COMPARISON: 10/14/2023 TECHNIQUE: AP external rotation, Grashey, scapular Y, and axillary views of the left shoulder. FINDINGS: Left total shoulder arthroplasty stable in appearance. No fracture or destructive process. Alignment is preserved. XR/XR shoulder LT min 2V IMPRESSION: Stable postsurgical change.
== END 2023-10-30 10:07 | disposition home or self-care (01) ==
LOC: HO.HOSX 10:06
PROVIDERS: Visit Provider Physician Assistant
DX: Z47.1 Aftercare following joint replacement surgery (principal); Z96.612 Presence of left artificial shoulder joint
CPT/HCPCS: 73030; 99212

== ENCOUNTER 2023-10-30 14:20 | Outpatient (AMB) | payer OTHER, SELFPAY ==
[2023-10-30 14:29] VITALS: BMI 28.0
--- NOTE | 2023-10-30 14:29 | A.OFFVIS_ITS ---
Vital Signs 10/30/23 14:29 Height 5 ft 1 in Weight 148 lb BMI 28.0 Intake Visit Reasons: 2WK PO: L TSA NE 10/15/23 Intake Note: Kenna is a 73 year old female who presents today for a post op appointment s/p L TSA 10/15/23 NE. Patient reports she doesn't have pain or discomfort. She expresses that she stopped taking the oxycodone, however she takes tylenol which gives her relief. Allergies doxepin Allergy (Intermediate, Verified 10/30/23 14:30) loss of memory Latex, Natural Rubber [LATEX, NATURAL RUBBER] Allergy (Intermediate, Verified 10/30/23 14:30) ITCHING metronidazole [Rosadan] Allergy (Intermediate, Verified 10/30/23 14:30) mood change morphine Allergy (Intermediate, Verified 10/30/23 14:30) Chest Pain trazodone [TRAZODONE] Allergy (Intermediate, Verified 10/30/23 14:30) chest pain SEAFOOD Allergy (Intermediate, Uncoded 10/29/23 14:16) vomiting HPI HPI 2WK PO: L TSA NE 10/15/23: Details: 73-year-old female, who is [place] speaking, presents in the office today 16 days status post left total shoulder arthroplasty with subscap repair, which was performed on 10/14/[address] Clrak. While in the office today the patient reports she is having no pain or discomfort. She states she has discontinued the use of oxycodone. However, she is using Tylenol, and this gives her relief. [facility] Medical History Arthritis of left glenohumeral joint Herniated intervertebral disc of lumbar spine Back pain Anemia Thyroid cyst Kidney infection Fatty liver Sleep apnea Lung cyst Asthma Cerebral arterial aneurysm Palpitations HTN (hypertension) Hematuria IBS (irritable bowel syndrome) Mild recurrent major depression Dysuria Blurry vision Overweight Injury of left rotator cuff Left hand pain Left shoulder pain Fibromyalgia Knee pain Depression Essential hypertension GERD (gastroesophageal reflux disease) Mild asthma Surgical History History of ear surgery History of brain surgery History of surgery on lower extremity History of colonoscopy History of foot surgery History of cataract surgery History of repair of rotator cuff History of removal of skin mole History of cholecystectomy History of hysterectomy Family History Father Cardiac failure Mother Pulmonary embolism Family/Other FH: mental illness Sister Chronic mental illness Brother Glaucoma Social History Household Members: Family Housing: House Are you a primary rn complex care to a significant other at home: No Do you presently have visiting nurse or other home services: No Alcohol intake: never Patient Tobacco Use Status: Never used Tobacco e-Cigarette/Vaping Use: Never Used Second Hand Smoke Exposure: No service: No Current occupational status: retired and disabled Current occupation: right handed/ disabled Cognitive needs: Yes (walker) Hearing needs: No Vision needs: Yes (glasses) Review of Systems Const All systems reviewed & are unremarkable except as noted in HPI and below Physical Exam Vital Signs: BMI result Body Mass Index 28.0 Const General: cooperative, healthy appearing and no acute distress Resp Effort & Inspection: normal respiratory effort and able to speak in complete sentences Cardio Rate: regular rate Peripheral pulses: Peripheral pulses 2+ throughout GI Palpation (GI): Soft to palpation Skin Lesions: no lesions Rashes: no rashes Extrem Other: Left shoulder: Incision site is clean, dry, and intact. Christina intact. No surrounding erythema or drainage. No signs of infection. Forward flexion and abduction to 45 degrees. External rotation to neutral. NVI. Assessment & Plan Assessment & Plan (1) Status post total replacement of left shoulder: Onset Date: ~10/14/23 Comment: NE Code(s): Z96.612 - Presence of left artificial shoulder joint Category: Surgical Plan Ms. Beto Gan is a 73-year-old female, who is [place] speaking, presents in the office today 16 days status post left total shoulder arthroplasty with subscap repair, which was performed on 10/14/[address] Clark. While in the office today the patient reports she is having no pain or discomfort. She states she has discontinued the use of oxycodone. However, she is using Tylenol, and this gives her relief. [place] were removed, and steri-stripes were applied. The patient will remain in the sling until 6 weeks post-op. She will continue to work with physical therapy. Follow-up will be in [address] Clark, or sooner if needed. X-rays of the left shoulder which were obtained while in the office today and were reviewed by me, Adriana Patino PA-C, revealed intact orthopedic hardware with satisfactory alignment. Orders: Orders XR shoulder LT min 2V Today M25.519 - Pain in unspecified shoulder Patient Instructions: Scribed by Caitlin Donohue medical service representative, for Adriana Patino PA-C on 10/30/2023 at 2:23 pm, EST. Coding Level of Care Code Global (16244) Diagnoses Status post total replacement of left shoulder Z96.612
== END 2023-10-30 15:29 | disposition home or self-care (01) ==
PROVIDERS: PCP Internal Medicine; Visit Provider Physician Assistant
DX: Z96.612 Presence of left artificial shoulder joint (principal)
CPT/HCPCS: 99024

== ENCOUNTER 2023-11-20 08:00 | Outpatient (REF) | payer OTHER, SELFPAY ==
--- NOTE | ~2023-11-20 | XR_ITS ---
EXAMINATION: XR SHOULDER, LEFT CLINICAL INFORMATION: Pain COMPARISON: Shoulder radiographs 10/30/2023 TECHNIQUE: Two views of the left shoulder. FINDINGS: No acute fracture or dislocation. Status post shoulder arthroplasty. No evidence of hardware fracture or complication. Soft tissues are unremarkable. XR/XR shoulder LT min 2V IMPRESSION: Status post shoulder arthroplasty. No evidence of hardware fracture or complication.
== END 2023-11-20 08:01 | disposition home or self-care (01) ==
LOC: HO.HOSX 08:00
PROVIDERS: Visit Provider Orthopaedic Surgery
DX: M25.512 Pain in left shoulder (principal); Z47.1 Aftercare following joint replacement surgery; Z96.612 Presence of left artificial shoulder joint
CPT/HCPCS: 73030; 99212

== ENCOUNTER 2023-11-20 08:24 | Outpatient (AMB) | payer OTHER, SELFPAY ==
--- NOTE | 2023-11-20 08:26 | A.OFFVIS_ITS ---
Intake Visit Reasons: Post Op - Left TSA NE 10/15/23 Intake Note: Kenna is a 73 year old right hand dominant female who presents today for a post operative follow up 5 weeks s/p Left TSA 10/15/23. She is currently only taking Tylenol for her pain and has discontinued use of the Oxycodone. She has some mild pain with movment but she does ot feel pain all the time, felt mostly at night Allergies doxepin Allergy (Intermediate, Verified 10/30/23 14:30) loss of memory Latex, Natural Rubber [LATEX, NATURAL RUBBER] Allergy (Intermediate, Verified 10/30/23 14:30) ITCHING metronidazole [Rosadan] Allergy (Intermediate, Verified 10/30/23 14:30) mood change morphine Allergy (Intermediate, Verified 10/30/23 14:30) Chest Pain trazodone [TRAZODONE] Allergy (Intermediate, Verified 10/30/23 14:30) chest pain SEAFOOD Allergy (Intermediate, Uncoded 10/29/23 14:16) vomiting HPI HPI Post Op - Left TSA NE 10/15/23: Details: Kenna is a 73 year old right hand dominant female who presents today for a post operative follow up 5 weeks s/p Left TSA 10/15/23. She is currently only taking Tylenol for her pain and has discontinued use of the Oxycodone. She has some mild pain with movment but she does not feel pain all the time, felt mostly at night PFSH Medical History Arthritis of left glenohumeral joint Herniated intervertebral disc of lumbar spine Back pain Anemia Thyroid cyst Kidney infection Fatty liver Sleep apnea Lung cyst Asthma Cerebral arterial aneurysm Palpitations HTN (hypertension) Hematuria IBS (irritable bowel syndrome) Mild recurrent major depression Dysuria Blurry vision Overweight Injury of left rotator cuff Left hand pain Left shoulder pain Fibromyalgia Knee pain Depression Essential hypertension GERD (gastroesophageal reflux disease) Mild asthma Surgical History History of ear surgery History of brain surgery History of surgery on lower extremity History of colonoscopy History of foot surgery History of cataract surgery History of repair of rotator cuff History of removal of skin mole History of cholecystectomy History of hysterectomy Family History Father Cardiac failure Mother Pulmonary embolism Family/Other FH: mental illness Sister Chronic mental illness Brother Glaucoma Social History Household Members: Family Housing: House Are you a primary memory care program resident to a significant other at home: No Do you presently have visiting nurse or other home services: No Alcohol intake: never Patient Tobacco Use Status: Never used Tobacco e-Cigarette/Vaping Use: Never Used Second Hand Smoke Exposure: No service: No Current occupational status: retired and disabled Current occupation: right handed/ disabled Cognitive needs: Yes (walker) Hearing needs: No Vision needs: Yes (glasses) Physical Exam Extrem Other: inc c/d/i Passive ER to 30 deg active abduction to 60 FF to 60 Results Reviewed Results Reviewed: I personally reviewed relevant radiographs. Left total shoulder arthroplasty in expected post operative position with no hardware complications or evidence of loosening Assessment & Plan Assessment & Plan (1) Status post total replacement of left shoulder: Onset Date: ~10/14/23 Comment: NE Code(s): Z96.612 - Presence of left artificial shoulder joint Category: Surgical Plan: September d.c sling f/u 6 weeks cont PT Orders: Orders XR shoulder LT min 2V Today M25.519 - Pain in unspecified shoulder Coding Level of Care Code Global (36342) Diagnoses Status post total replacement of left shoulder Z96.612
== END 2023-11-20 09:12 | disposition home or self-care (01) ==
LOC: HO.HOS 08:24
PROVIDERS: PCP Internal Medicine; Visit Provider Orthopaedic Surgery
DX: Z96.612 Presence of left artificial shoulder joint (principal)
CPT/HCPCS: 99024

== ENCOUNTER 2023-12-26 06:54 | Outpatient (REF) | payer OTHER, SELFPAY ==
--- NOTE | ~2023-12-26 | CT_ITS ---
EXAMINATION: CT ABDOMEN AND PELVIS WITHOUT CONTRAST CLINICAL INFORMATION: Unspecified abdominal pain. COMPARISON: CT abdomen and pelvis 03/04/2023. TECHNIQUE: Multidetector volumetric imaging was performed from the superior aspect of the liver through the pubic symphysis. Sagittal and coronal reformatted images were obtained on the technologist's workstation. This CT examination was performed using dose optimization techniques as appropriate, variously including the following: *Automated exposure control *Adjustment of mA and/or kV according to patient size (this includes techniques or standardized protocols for targeted exams where dose is matched to indication/reason for exam; i.e. extremities or head) *Use of iterative reconstruction technique DLP: 483 mGy-cm FINDINGS: LUNG BASES: Calcified granuloma left lung base. No follow-up imaging is recommended. Incidental note is made of a small mass or lymph node in the axillary tail of the left breast measuring 0.7 cm. This is not included in the [id number] on the prior study. Chronicity is unknown. LIVER, GALLBLADDER, AND BILIARY TREE: The liver is normal in size, shape, and attenuation. No focal hepatic lesion or biliary ductal dilatation is present. Cholecystectomy. PANCREAS: No discrete pancreatic mass. No pancreatic ductal dilatation. SPLEEN: The spleen appears normal. ADRENAL GLANDS: No adrenal mass. KIDNEYS AND URETERS: The kidneys are normal in size, shape, and attenuation. No hydronephrosis, hydroureter, or calculi seen. No perinephric stranding. BLADDER: Trace amount of air is seen in the right anterior bladder. GASTROINTESTINAL TRACT: The small and large bowel are normal in caliber. Colonic diverticulosis, primarily in the left colon and sigmoid, but no evidence of acute diverticulitis. ABDOMINAL WALL: No significant hernia is appreciated. LYMPH NODES: Mildly enlarged bilateral inguinal lymph nodes, left greater than right. These could be reactive. VASCULAR: No aortic aneurysm. PELVIC VISCERA: Unremarkable. OSSEOUS STRUCTURES: No destructive osseous lesions. Degenerative changes in the spine. Left femoral IMN. CT/CT abdomen pelvis wo IV con IMPRESSION: Trace amount of air is seen in the urinary bladder. Recommend clinical correlation for recent instrumentation or self catheterization. If no such history, this could represent a urinary tract infection with gas-forming organism or possible fistula. Incidental 7 mm mass or lymph node in the left axillary tail of the breast. Recommend diagnostic mammogram and ultrasound for further evaluation. Mildly enlarged bilateral inguinal lymph nodes are nonspecific and could be reactive. Clinical correlation and follow-up are necessary. Other chronic and incidental findings as above. Electronically signed by: Cem Mahoney MD 01/23/2024 10:48 AM EDT
== END 2023-12-26 06:55 | disposition home or self-care (01) ==
LOC: HO.CT 06:54
PROVIDERS: PCP Internal Medicine; Visit Provider Urology
DX: R10.9 Unspecified abdominal pain (principal); R31.0 Gross hematuria
CPT/HCPCS: 74176

== ENCOUNTER 2024-01-01 09:27 | Outpatient (AMB) | payer OTHER, SELFPAY ==
--- NOTE | 2024-01-01 09:29 | MHC.OFFVIS ---
Intake Visit Reasons: Post Op - Left TSA NE 10/15/23 Intake Note: Kenna is a 73 year old right hand dominant female who presents today for a post operative follow up s/p Left TSA 10/15/23. Patient is doing well with some mild pain. Allergies doxepin Allergy (Intermediate, Verified 01/01/24 09:32) loss of memory Latex, Natural Rubber [LATEX, NATURAL RUBBER] Allergy (Intermediate, Verified 01/01/24 09:32) ITCHING metronidazole [Rosadan] Allergy (Intermediate, Verified 01/01/24 09:32) mood change morphine Allergy (Intermediate, Verified 01/01/24 09:32) Chest Pain trazodone [TRAZODONE] Allergy (Intermediate, Verified 01/01/24 09:32) chest pain SEAFOOD Allergy (Intermediate, Uncoded 01/01/24 09:32) vomiting HPI HPI Post Op - Left TSA NE 10/15/23: Details: Patient patient reports doing well but with limited motion. She still doing physical therapy. [facility] Medical History Arthritis of left glenohumeral joint Herniated intervertebral disc of lumbar spine Back pain Anemia Thyroid cyst Kidney infection Fatty liver Sleep apnea Lung cyst Asthma Cerebral arterial aneurysm Palpitations HTN (hypertension) Hematuria IBS (irritable bowel syndrome) Mild recurrent major depression Dysuria Blurry vision Overweight Injury of left rotator cuff Left hand pain Left shoulder pain Fibromyalgia Knee pain Depression Essential hypertension GERD (gastroesophageal reflux disease) Mild asthma Surgical History History of ear surgery History of brain surgery History of surgery on lower extremity History of colonoscopy History of foot surgery History of cataract surgery History of repair of rotator cuff History of removal of skin mole History of cholecystectomy History of hysterectomy Family History Father Cardiac failure Mother Pulmonary embolism Family/Other FH: mental illness Sister Chronic mental illness Brother Glaucoma Social History Household Members: Family Housing: House Are you a primary career based intervention coordinator to a significant other at home: No Do you presently have visiting nurse or other home services: No Alcohol intake: never Patient Tobacco Use Status: Never used Tobacco e-Cigarette/Vaping Use: Never Used Second Hand Smoke Exposure: No service: No Current occupational status: retired and disabled Current occupation: right handed/ disabled Cognitive needs: Yes (walker) Hearing needs: No Vision needs: Yes (glasses) Physical Exam Extrem Other: Abduction to 40 degrees with valve recruitment forward flexion to 70 degrees Negative belly press Incision clean dry and intact Assessment & Plan Assessment & Plan (1) Status post total replacement of left shoulder: Onset Date: ~10/14/23 Comment: NE Code(s): Z96.612 - Presence of left artificial shoulder joint Category: Surgical Plan: 3 months status post left shoulder replacement. She is weak but her passive range motion is good. I recommend resistance training with physical therapy. Follow up in 3 months. Coding Level of Care Code Global (60078) Diagnoses Status post total replacement of left shoulder Z96.612
== END 2024-01-01 10:00 | disposition home or self-care (01) ==
PROVIDERS: PCP Internal Medicine; Visit Provider Orthopaedic Surgery
DX: Z96.612 Presence of left artificial shoulder joint (principal)
CPT/HCPCS: 99024

== ENCOUNTER → 2024-01-01 09:27 | Outpatient (BNVA) | payer OTHER, SELFPAY | PROVIDERS: PCP Internal Medicine; Visit Provider Orthopaedic Surgery | DX: Z47.1 Aftercare following joint replacement surgery (principal); Z96.612 Presence of left artificial shoulder joint | CPT/HCPCS: 99212 ==

== ENCOUNTER 2024-01-06 14:00 | Outpatient (RCR) | payer OTHER, SELFPAY ==
--- NOTE | 2023-11-04 15:08 | MHC.PT.EP ---
[facility] [place] Office [place] Office [place] Office [address] Alicia Vela [address] [phone] F: [phone] F: [phone] F: [phone] F: [phone] Physical Therapy Plan of Care Date of Evaluation: 11/04/23 Date of Surgery: 10/14/23 Diagnosis: L TSA WITH SUPRASPINATUS REPAIR Assessment: Pt IS 73 YO F REFERRED TO PT FROM [facility] ([facility]) S/P L TSA ON 10/14/[address] NUNEZ. STAYED 1 NIGHT IN HOSPITAL, HAD OT AT HOME. NOW HERE FOR OUTPt PT. PRESENTS WITH DECREASED ROM AND STRENGTH ON L SIDE WITH PAIN AND LIMITED USE. Pt REPORTS AMBIDEXTROUS PRIOR TO SURGERY AND HAD VARIOUS BOUTS OF PT. Pt IS LITHUANIAN SPEAKING. SHOULD BENEFIT FROM PT TO ADDRESS THESE ISSUES. Frequency and Duration: The patient will be seen 2X/WK X 8 WKS Short Term Goals: 1. INCREASED AWARENESS SHLDER CARE AND POSTURE 2. INCREASED L SHLDER ROM FLEX TO 120, ABD TO 100, ER TO 25 3. IMPROVED SLEEP REPORTED Senior Care Goals: 1. DECREASED L SHLDER PAIN AT LEAST 50% WITH ADLS 2. L SHLDER AROM TMMA=579, BZN=393, ER=45, IR=45 3. INCREASED L SHLDER ROM AT LEAST 1 MM GRADE Treatment Plan: Modalities to reduce pain, spasms and effusion. Manual therapy to restore motion and function. Therapeutic exercise to improve strength and flexibility. Neuromuscular re-education for posture and balance. Therapeutic activities to return to functional activities of daily living. Electronically signed by: IRINA SAWYER PT Please sign and return to therapist. Thank you for your referral.
--- NOTE | 2024-03-09 16:25 | MHC.PT.DC ---
[facility] [place] Office [place] Office [place] Office [address] Alicia Vela [address] [phone] F: [phone] F: [phone] F: [phone] F: [phone] Physical Therapy Discharge Report Diagnosis: L TSA WITH SUBSCAPULARIS REPAIR Date of Surgery: 10/14/23 Date of Evaluation: 11/04/23 Date of Discharge: 01/06/24 Treatments to Date: 16 Cancellations to Date: No Shows to Date: Discharge Status: Improved Function Independent with HEP Patient Elected to Stop Discharge Summary: AT LAST APPT...Pt WITH UNDERSTANDING OF PROGRESSION WITH RESISTANCE BANDS AND WTS. HAS MET MOST PT GOALS Electronically signed by: IRINA SAWYER PT Please sign and return to therapist. Thank you for your referral.
== END 2024-03-09 16:26 | disposition home or self-care (01) ==
LOC: HO.PT 14:00
PROVIDERS: PCP Internal Medicine; Visit Provider Physician Assistant
DX: Z96.612 Presence of left artificial shoulder joint (principal)
CPT/HCPCS: 97110; 97140; 97162; 97535

== ENCOUNTER 2024-04-05 08:36 | Outpatient (REF) | payer OTHER, SELFPAY ==
--- NOTE | ~2024-04-05 | XR_ITS ---
EXAMINATION: XR SHOULDER, LEFT CLINICAL INFORMATION: M25.519 - Pain in unspecified shoulder COMPARISON: 12/20/2023. Dating back to 10/09/2023. CT exam left shoulder 09/05/2023. TECHNIQUE: AP external rotation, Grashey, scapular Y, and axillary views of the left shoulder. FINDINGS: There has been a total left shoulder arthroplasty. Humeral head component, and glenoid components appear intact, well seated, in alignment, without periprosthetic loosening or fracture. Stable appearance from the prior radiograph. There is superior subluxation of the humeral head component upon the glenoid component, with loss of the subacromial space, likely indicating full thickness rotator cuff tearing. The AC joint is normal in appearance. The acromion is normal in appearance. Remainder of the bones and soft tissues of the left shoulder appear normal. XR/XR shoulder LT min 2V IMPRESSION: 1. Left left shoulder total arthroplasty, without complication evident. No change from the prior radiograph. 2. Superior subluxation of the humeral head component, with loss of subacromial space, suggesting probable full-thickness rotator cuff tearing. Electronically signed by: Danielito Dodson MD 05/05/2024 09:33 AM [facility] [place]
== END 2024-04-05 08:37 | disposition home or self-care (01) ==
LOC: HO.HOSX 08:36
PROVIDERS: Visit Provider Orthopaedic Surgery
DX: M25.512 Pain in left shoulder (principal); Z96.612 Presence of left artificial shoulder joint
CPT/HCPCS: 73030; 99212

== ENCOUNTER 2024-04-05 09:00 | Outpatient (AMB) | payer OTHER, SELFPAY ==
--- NOTE | 2024-04-05 09:01 | MHC.OFFVIS ---
Intake Visit Reasons: OV- Left TSA NE 10/15/23 follow up Intake Note: Kenna is a 73 year old right hand dominant female who presents today for a post operative follow up s/p Left TSA 10/15/23. A her last visit she continued to struggle with weakness, physical therapy with resistance training was recommended. Allergies doxepin Allergy (Intermediate, Verified 01/01/24 09:32) loss of memory Latex, Natural Rubber [LATEX, NATURAL RUBBER] Allergy (Intermediate, Verified 01/01/24 09:32) ITCHING metronidazole [Rosadan] Allergy (Intermediate, Verified 01/01/24 09:32) mood change morphine Allergy (Intermediate, Verified 01/01/24 09:32) Chest Pain trazodone [TRAZODONE] Allergy (Intermediate, Verified 01/01/24 09:32) chest pain SEAFOOD Allergy (Intermediate, Uncoded 01/01/24 09:32) vomiting HPI HPI OV- Left TSA NE 10/15/23 follow up: Details: Kenna is a 73 year old right hand dominant female who presents today for a post operative follow up s/p Left TSA 10/15/23. A her last visit she continued to struggle with weakness, physical therapy with resistance training was recommended. She is happy with her surgery but her motion is limited. [facility] Medical History Arthritis of left glenohumeral joint Herniated intervertebral disc of lumbar spine Back pain Anemia Thyroid cyst Kidney infection Fatty liver Sleep apnea Lung cyst Asthma Cerebral arterial aneurysm Palpitations HTN (hypertension) Hematuria IBS (irritable bowel syndrome) Mild recurrent major depression Dysuria Blurry vision Overweight Injury of left rotator cuff Left hand pain Left shoulder pain Fibromyalgia Knee pain Depression Essential hypertension GERD (gastroesophageal reflux disease) Mild asthma Surgical History History of ear surgery History of brain surgery History of surgery on lower extremity History of colonoscopy History of foot surgery History of cataract surgery History of repair of rotator cuff History of removal of skin mole History of cholecystectomy History of hysterectomy Family History Father Cardiac failure Mother Pulmonary embolism Family/Other FH: mental illness Sister Chronic mental illness Brother Glaucoma Social History Household Members: Family Housing: House Are you a primary rn intensive care unit to a significant other at home: No Do you presently have visiting nurse or other home services: No Alcohol intake: never Patient Tobacco Use Status: Never used Tobacco e-Cigarette/Vaping Use: Never Used Second Hand Smoke Exposure: No service: No Current occupational status: retired and disabled Current occupation: right handed/ disabled Cognitive needs: Yes (walker) Hearing needs: No Vision needs: Yes (glasses) Physical Exam Extrem Other: On exam she has 90 degrees of forward flexion 80 degrees of abduction. She can get her hand to the back of her head but slowly. She has a negative empty can. Results Reviewed Results Reviewed: I personally reviewed relevant radiographs. Left total shoulder arthroplasty in expected post operative position with no hardware complications or evidence of loosening Assessment & Plan Assessment & Plan (1) Status post total replacement of left shoulder: Onset Date: ~10/14/23 Comment: NE Code(s): Z96.612 - Presence of left artificial shoulder joint Category: Surgical Plan: This is a 74-year-old woman who is satisfied with her surgery although she sometimes feels like her motion could be better. She has no pain and she is able to function well. Her rotator cuff strength is good but she is limited in overhead motion. I discussed this with her. She will let me know if this causes her any additional problems. Orders: Orders XR shoulder LT min 2V Today M25.519 - Pain in unspecified shoulder Coding Level of Care Code Est Pt Level 3 (00927) Diagnoses Status post total replacement of left shoulder Z96.612
== END 2024-04-05 09:27 | disposition home or self-care (01) ==
PROVIDERS: PCP Internal Medicine; Visit Provider Orthopaedic Surgery
DX: Z47.89 Encounter for other orthopedic aftercare (principal); Z96.612 Presence of left artificial shoulder joint
CPT/HCPCS: 99212

== ENCOUNTER → 2024-04-05 09:03 | Outpatient (BNV) | payer OTHER, SELFPAY | PROVIDERS: Visit Provider Radiology Diagnostic Radiology | DX: M25.512 Pain in left shoulder (principal); Z96.612 Presence of left artificial shoulder joint; S43.012A Anterior subluxation of left humerus, initial encounter | CPT/HCPCS: 73030 ==

== ENCOUNTER 2024-04-29 09:36 | Outpatient (AMB) | payer OTHER, SELFPAY ==
--- NOTE | 2024-04-29 10:37 | A.OFFVIS_ITS ---
Intake Visit Reasons: 6m/cystitis Intake Note: Patient is present for cystitis and UTI Urology Med: Estradiol, Solifenacin Antibiotic Allergy: none Blood Thinner: none CT DONE: 12/2023 Patient Symptoms: Patient denies any discomfort in the urine or pain, the only symptom she has notice is an odor in her urine, she states that she took a cranberry powder for 7 days and the smell improved, but as she stop taking it the odor comes back. Patient had CT scan done, she is concern of results as she believes that there is something that is causing her frequent UTI. Dinkey Driver Required: Yes Dinkey Driver Name: [id number]--Klkia Information Interpreted: non-clinical & clinical Accompanied by: Self / Same As Patient Allergies doxepin Allergy (Intermediate, Verified 04/29/24 10:41) loss of memory Latex, Natural Rubber [LATEX, NATURAL RUBBER] Allergy (Intermediate, Verified 04/29/24 10:41) ITCHING metronidazole [Rosadan] Allergy (Intermediate, Verified 04/29/24 10:41) mood change morphine Allergy (Intermediate, Verified 04/29/24 10:41) Chest Pain trazodone [TRAZODONE] Allergy (Intermediate, Verified 04/29/24 10:41) chest pain SEAFOOD Allergy (Intermediate, Uncoded 04/29/24 10:41) vomiting HPI Comments Details: 04/29/24--Kenna is here for follow up I reviewed CTAP - 12/26/23, Kidneys within normal limits, bladder changes c/w cystitis, pt had a cystoscopy prior to CAT scan to account for air in the bladder. She is using the vagifem, she stopped using the vesicare because she felt she was having to push to empty. She states she is doing well with voiding now and does not need any medication. UA today is leuk negative, blood negative. FU in Review of chart: 10/29/23--Here for cystoscopy. Recent Left shoulder surgery. PMH - Major depression. She states periodically she sees blood clots in the urine. She has pictures on her phone to show me. She had w/u including office cysto last year. She is very concerned wants to be reevaluated. Certified securities underwriter present. The patient complains of flank pain and is concerned about having a kidney stone. She has has frequent UTI's. She is prescribed estrace cream and vesicare for OAB symptoms. Office Cystoscopy findings: erythematous changes consistent with cystitis follicularis. Plan CT stone protocol. 09/15/23--Kenna is a 73 year old female who has had recurrent UTI's, she had cystoscopy in November, which noted erythematous changes c/w cystitis. She has been on antibiotics and is here for repeat cystoscopy. The patient was seen by the nurse, but needed to leave and left without completing cystoscopy. Will reschedule cysto. 08/04/23--Angelika is a 73-year-old female who presents today for a follow-up. Ce rtified securities underwriter was present during the visit.?She states she is seeing blood when she urinates. She has had recurrent UTI's, she is prescribed vaginal estrogen therapy. She denies dysuria. I have discussed repeat office cystoscopy. Urine for cytology. 01/31/2023?She is followed today via Tele-health for UTI symptoms. The patient is a Hebrew speaking female. Certified trench digging machine operator was present during the Tele- health visit. She was last seen by me on 11/29/2022 for bladder wall thickening. Ceftum 500 mg BID for ten days was ordered, she was advised to follow-up after 2 months. I reviewed the urine culture results from 11/29/2022- which came back no growth; and 01/20/2023 which came back < 10,000 cfu/ml. She states that she is doing well without any urinary tract infections. She has stopped using Estrace cream as it is leaving stains on her undergarments. I will change the Estrace cream to Vagifem 10 mcg. Use it twice a week, Friday and . Follow-up in 6 months. 11/29/2022?The patient is Hebrew speaking female. certified securities underwriter was present during the visit.?The patient was last seen in the office on 11/04/22 for? urinary frequency and urge incontinence. She was initially seen as new patient evaluation on 09/23/22 by JAVIER Alva.?Work up included renal US. Renal US results reviewed--10/04/22-- WNL, kidneys are normal, Diffused bladder wall thickening was noted. Urine cytology results reviewed--5/1/23-- negative for malignancy. The patient is using estrogen cream vaginally with minimal benefits.?States having urinary leakage and is using pads.??Evaluation today UA: Blood: 10 Mane/uL, leukocytes: 2+.?Cystoscopy findings-- erythematous changes consistent with cystitis follicularis. I discussed to hold on anti-cholinergic medication pending antibiotic therapy for cystitis.?Plan:?Ceftum 500 mg BID for ten days. Pending the urine culture will start the patient on daily antibiotic suppressive therapy. Follow-up after 2 months. [facility] Medical History Arthritis of left glenohumeral joint Herniated intervertebral disc of lumbar spine Back pain Anemia Thyroid cyst Kidney infection Fatty liver Sleep apnea Lung cyst Asthma Cerebral arterial aneurysm Palpitations HTN (hypertension) Hematuria IBS (irritable bowel syndrome) Mild recurrent major depression Dysuria Blurry vision Overweight Injury of left rotator cuff Left hand pain Left shoulder pain Fibromyalgia Knee pain Depression Essential hypertension GERD (gastroesophageal reflux disease) Mild asthma Surgical History History of ear surgery History of brain surgery History of surgery on lower extremity History of colonoscopy History of foot surgery History of cataract surgery History of repair of rotator cuff History of removal of skin mole History of cholecystectomy History of hysterectomy Family History Father Cardiac failure Mother Pulmonary embolism Family/Other FH: mental illness Sister Chronic mental illness Brother Glaucoma Social History Household Members: Family Housing: House Are you a primary career development specialist to a significant other at home: No Do you presently have visiting nurse or other home services: No Alcohol intake: never Patient Tobacco Use Status: Never used Tobacco e-Cigarette/Vaping Use: Never Used Second Hand Smoke Exposure: No service: No Current occupational status: retired and disabled Current occupation: right handed/ disabled Cognitive needs: Yes (walker) Hearing needs: No Vision needs: Yes (glasses) Review of Systems Const All systems reviewed & are unremarkable except as noted in HPI and below Reports no additional complaints Eyes Reports no additional complaints ENT Reports no additional complaints Card Reports no additional complaints Resp Reports no additional complaints GI Reports no additional complaints Reports as per HPI Musc Reports no additional complaints Skin/Breast Reports system reviewed and no additional complaints, except as documented Neuro Reports no additional complaints Psych Reports no additional complaints Endo Reports no additional complaints Puneet/Lymph Reports no additional complaints Aller/Immun Reports no additional complaints Results AMB Urinalysis, Automated UA Leukoctes 0 Gayatri/uL Last Edit by Matilda Dixon CMA on 04/29/24 11:10 UA Nitrite Negative Last Edit by Matilda Dixon, [facility] on 04/29/24 11:10 UA Urobilinogen 0.2 mg/dL Last Edit by Matilda Dixon, [facility] on 04/29/24 11:1 0 UA Protein 0 mg/dL Last Edit by Matilda Dixon, [facility] on 04/29/24 11:10 UA pH 6.0 Last Edit by Matilda Dixon, [facility] on 04/29/24 11:10 UA Blood 0 Mane/uL Last Edit by Matilda Dixon, [facility] on 04/29/24 11:10 UA Specific [place] 1.015 Last Edit by Matilda Dixon, [facility] on 04/29/24 11: 10 UA Ketone Negative Last Edit by Matilda Dixon, [facility] on 04/29/24 11:10 UA Bilirubin 0 mg/dL Last Edit by Matilda Dixon, [facility] on 04/29/24 11:10 UA Glucose 0 mg/dL Last Edit by Matilda Dixon, [facility] on 04/29/24 11:10 Results Reviewed Results Reviewed: Date of Service: 12/26/23 CT ABDOMEN AND PELVIS WITHOUT CONTRAST CLINICAL INFORMATION: Unspecified abdominal pain. COMPARISON: CT abdomen and pelvis 03/04/2023. TECHNIQUE: Multidetector volumetric imaging was performed from the superior aspect of the liver through the pubic symphysis. Sagittal and coronal reformatted images were obtained on the technologist's workstation. This CT examination was performed using dose optimization techniques as appropriate, variously including the following: *Automated exposure control *Adjustment of mA and/or kV according to patient size (this includes techniques or standardized protocols for targeted exams where dose is matched to indication/reason for exam; i.e. extremities or head) *Use of iterative reconstruction technique DLP: 483 mGy-cm FINDINGS: LUNG BASES: Calcified granuloma left lung base. No follow-up imaging is recommended. Incidental note is made of a small mass or lymph node in the axillary tail of the left breast measuring 0.7 cm. This is not included in the [id number] on the prior study. Chronicity is unknown. LIVER, GALLBLADDER, AND BILIARY TREE: The liver is normal in size, shape, and attenuation. No focal hepatic lesion or biliary ductal dilatation is present. Cholecystectomy. PANCREAS: No discrete pancreatic mass. No pancreatic ductal dilatation. SPLEEN: The spleen appears normal. ADRENAL GLANDS: No adrenal mass. KIDNEYS AND URETERS: The kidneys are normal in size, shape, and attenuation. No hydronephrosis, hydroureter, or calculi seen. No perinephric stranding. BLADDER: Trace amount of air is seen in the right anterior bladder. GASTROINTESTINAL TRACT: The small and large bowel are normal in caliber. Colonic diverticulosis, primarily in the left colon and sigmoid, but no evidence of acute diverticulitis. ABDOMINAL WALL: No significant hernia is appreciated. LYMPH NODES: Mildly enlarged bilateral inguinal lymph nodes, left greater than right. These could be reactive. VASCULAR: No aortic aneurysm. PELVIC VISCERA: Unremarkable. OSSEOUS STRUCTURES: No destructive osseous lesions. Degenerative changes in the spine. Left femoral IMN. Trace amount of air is seen in the urinary bladder. Recommend clinical correlation for recent instrumentation or self catheterization. If no such history, this could represent a urinary tract infection with gas-forming organism or possible fistula. Incidental 7 mm mass or lymph node in the left axillary tail of the breast. Recommend diagnostic mammogram and ultrasound for further evaluation. Date of Service: 10/04/22 EXAMINATION: US RETROPERITONEAL COMPLETE (RENAL) CLINICAL INFORMATION: Hematuria, unspecified. COMPARISON: Renal ultrasound 09/05/2021. Ultrasound abdomen 07/29/2018. TECHNIQUE: Real-time imaging of the kidneys and bladder. FINDINGS: RIGHT KIDNEY: 9.4 x 5.2 x 5 cm (SAG x AP x TRV). The kidney is normal in size, contour, and echogenicity. Renal cortical thickness is normal. No calculi or focal parenchymal lesions. No hydronephrosis. LEFT KIDNEY: 10.1 x 5.8 x 4.5 cm (SAG x AP x TRV). The kidney is normal in size, contour, and echogenicity. Renal cortical thickness is normal. No calculi or focal parenchymal lesions. No hydronephrosis. BLADDER: The bladder is well-distended. Mild diffuse bladder wall thickening noted. Bilateral ureteral jets are demonstrated. Prevoid bladder volume is 441 mL. Postvoid bladder volume is 53 mL. IMPRESSION: 1.? No renal calculi or hydronephrosis of either kidney. 2.? Prominent post void bladder residual of 53 mL. Collected: 08/04/23 Location: [facility] Received: 08/05/23 Diagnosis Urine: Negative for high-grade urothelial carcinoma. See comment. COMMENT: Cellular specimen consisting of occasional single urothelial cells, squamous cells, occasional red blood cells and rare acute inflammatory cells. Clinical History Urinary incontinence, cystitis, hematuria Material Received Urine Gross Description 7 cc clear yellow fluid Collected: 09/23/22 Received: 09/24/22 Diagnosis Urine:? Negative for high-grade urothelial carcinoma.? See comment. COMMENT: Cellular specimen consisting of urothelial cells with reactive and degenerative changes, squamous cells, red blood cells and acute inflammatory cells. Clinical History Hematuria Material Received Urine Gross Description 15 cc slightly cloudy yellow fluid Assessment & Plan Assessment & Plan (1) Flank pain: Code(s): R10.9 - Unspecified abdominal pain Category: Medical (2) Gross hematuria: Code(s): R31.0 - Gross hematuria Category: Medical (3) Bladder wall thickening: Code(s): N32.89 - Other specified disorders of bladder Category: Medical (4) Cystitis: Code(s): N30.90 - Cystitis, unspecified without hematuria Category: Medical (5) OAB (overactive bladder): Code(s): N32.81 - Overactive bladder Category: Medical (6) Recurrent UTI: Code(s): N39.0 - Urinary tract infection, site not specified Category: Medical (7) Chronic cystitis: Code(s): N30.20 - Other chronic cystitis without hematuria Category: Medical Plan CT scan Abd/pelvis - wo IV contrast. Will review results with patient. Pending results FU in 6 months Orders: Orders AMB Urinalysis Automated Today Z13.9 - Encounter for screening, unspecified Medications: New cranberry extract administer with meals 425 mg PO BID 60 caps 5RF Refilled estradiol (Vagifem) use 2x a week. Friday and at bedtime 10 mcg vaginal 2XW 24 tabs 3RF Discontinued solifenacin Discontinued Reason: Patient no longer taking 10 mg PO DAILY 90 tabs 3RF Coding Diagnoses Flank pain R10.9 Gross hematuria R31.0 Bladder wall thickening N32.89 Cystitis N30.90 OAB (overactive bladder) N32.81 Recurrent UTI N39.0 Chronic cystitis N30.20
--- OUTSIDE RECORDS SUMMARY | 2024-05-05 01:00 | XMS_ITS | Continuity of Care Document ---
Author Organization [facility] Address [address] [place] [address] Phone Care Team Providers Care Dairy Truck Driver Name Role Phone Yousuf FLORES, JUANIS, BRITTANI, Radhames Unavailable U navailable Allergies, Adverse Reactions, Alerts Substance Reaction Status Criticality doxepin Active No Information trazodone Active No Information Medications Medication Instructions Dosage Effective Dates (start - stop) Status Comments Proair Digihaler 90 mcg/actuation aerosol powder breath act, sensor - Active aspirin 325 mg tablet - Active Flovent HFA 110 mcg/actuation aerosol inhaler - Active lisinopril 2.5 mg tablet - Active melatonin 1 mg tablet - Active Naprosyn 500 mg tablet - Active tramadol 50 mg tablet take 1 tablet by o ral route every 6 hours as needed 50 MG - Active Procedures Procedure Date Office/Outpt E&M Established 15 Mins May Duplex Scan-extrem Veins; Comp Duplex Scan-extrem Veins; Uni/ Endovenous Rf, 1st Vein Duplex Scan-extrem Veins; Uni/ Endovenous Rf, 1st Vein Offic/outpt E&m Estab 5 Min Trial - Tele medicine Duplex Scan-extrem Veins; Comp Offic Cons New/estab Mod-hi 60 Advance Directives Directive Yes / No Effective Date File Name Other Directive No N/A N/A WARNING:The information contained in this section is historical and is provided for information only and does not constitute a legal document or any assurance that the information is still accurate. Please verify the information with the foster of the legal document before using it for clinical purposes. Encounters Encounter Description Practice Location Reason(s) For Visit Diagnoses Date Provider Providers Copied on Encounter Office/Outpt E&M Established 15 Mins [facility] MD [facility], [address] [place] [address] Dr Faria [address]SuTila villalobos [place], [id number], [place] tel:[phone] CVR [facility] Chronic venous hypertension (idiopathic) with other complication s of bilateral lower extremityLym phedema, not elsewhere classified 4 Yousuf FLORES RVT, RPVI Robert. [address] [address], [place], [place], [id number] , [place]. tel:[phone] Referring Provider: Melissa Goff MD, [address] [facility] [address]ulce, [address] D/B/A: [facility] [place], [address]. tel:[phone] [facility], [address] [place] [address] Dr Faria [address]Suite Tila Bravo [place], [id number], [place] tel:[phone] CVR - [facility] Encounter for follow-up examination after completed treatment for conditions other than malignant neChronic venous hypertension (idiopathic) with other complication s of bilateral lower extremity 4 Yousuf FLORES RVT, RPVI Robert. [address] [facility], [address], [id number] , [place]. tel:[phone] Referring Provider: Melissa Goff MD, [address] [facility] [address], [address] [place] [address] D/B/A: [place], [address]. tel:[phone] [facility], [address] [place] [address] Dr Faria [address]SuTila villalobos [place], [id number], [place] tel:[phone] CVR - [facility] Encounter for follow-up examination after completed treatment for conditions other than malignant ne 3 Yousuf FLORES RVT, RPVI Robert. [address] [facility], [address], [place], [id number] , [place]. tel: [phone] Referring Provider: Melissa Goff MD, [address] [facility] [address], [address] D/B/[place]: [place], [address]. [phone] [facility], [address] [place] [address] [address]Tila [place], [id number], [place] tel:[phone] CVR - [place] - [place] Chronic venous hypertension (idiopathic) with inflammation of left lower extremity Apr- 3 Yousuf FLORES, RVT, BRITTANI Ricci. [address] [place] [address], Suite [facility], [place], [place], [id number] , [place]. tel: [phone] Referring Provider: Melissa Goff MD, [address] [facility] [address]Dul[facility], [address] D/B/A: [place], [address]. tel:[phone] [facility], [address] [place] [address] [address]Tila [place], [id number], [place] tel:[phone] CVR - CT - [place] Encounter for follow-up examination after completed treatment for conditions other than malignant nePain in right leg Apr- 3 Ricky FLORES FACS RVT BRITTANI Lazcano. [address] [place] [address], Suite [facility], [place], [address], [place]. tel: [phone] Referring Provider: Melissa Goff MD, [address] [facility] [address], [address] D/B/[place]: [place], [address]. tel:[phone] [facility], [address] [place] [address] [address]Tila [place], [id number], [place] tel:[phone] CVR - [facility] Chronic venous hypertension (idiopathic) with inflammation of right lower extremity Apr- 3 Yousuf FLORES, CHANELLET, BRITTANI Ricci. [address] [facility], [address], [place], [place], [id number] , [place]. tel:[phone] Referring Provider: Melissa Goff MD, [address] [facility] [address], [address] [place] [address] D/B/A: [place], [address]. tel:[phone] Offic/outpt E&m Estab 5 Min Trial - Telemedicine [facility], [address] [place] [address] [address]Tila [place], [id number], [place] tel:[phone] CVR - [facility] Chronic venous htn w oth comp of bilateral low extrm Sep-2 3 Ricky FLORES FACS T BRITTANI Lazcano. [address] [place] [address], [address] [address], [place], [address], [place]. tel:[phone] Referring Provider: Melissa Goff MD, [address] [facility] [address], [address] [place] [address] D/B/A: [place], [address]. tel:[phone] [place] [facility], [address] [place] [address] [address]Tila [place], [id number], [place] tel:[phone] CVR - [facility] Chronic venous htn w oth comp of bilateral low extrm 3 Ricky FLORES FACS CHANELLET BRITTANI Lazcano. formerly [facility] [address], [place], [address], [place]. tel:[phone] Referring Provider: Melissa Goff MD, [address] [facility] [address], [address] [place] [address] D/B/A: [place], [address]. tel:[phone] Offic Cons New/estab Mod-hi 60 [facility], [address] [place] [address] [address]Tila [place], [id number], [place] tel:[phone] CVR - [facility] Chronic venous htn w oth comp of bilateral low extrmLocaliz ed edemaCramp and spasmEssenti al (primary) hypertension Venous insufficienc y (chronic) (peripheral) Pruritus, unspecified 3 Ricky FLORES FACS RVT BRITTANI Lazcano. [address] [facility], [address], [place], [address], [place]. tel:[phone] Referring Provider: Melissa Goff MD, Hospital DrDulce, [facility] [address] D/B/A: jose [facility] [facility], [place], [address]. tel:[phone] Family History Family Member Type Diagnosis Age At Onset No Information Payers Payer name Insurance type Covered alliance party ID Georgette glez(s) [facility] [id number] Social History Type Description Quantity Date Captured Comments Alcohol Use Details Unknown Caffeine Use Details Unknown Tobacco Use Status Current non-smoker Smoking Status Never Smoker Non-Smoking Tobacco Use Details : No Details Available : No Details Available Sex Female Vital Signs Date / Time: Height Weight BMI Pulse Rate Blood Pressure Temperature Respiratory Rate Body Surface Area Head Circumference Head Circ. Percentile Wt./Bunny. Percentile BMI percentile Pulse Ox Inhaled Ox 73.940 kg (163.00 lbs) 30.8 2 kg/m eter (2) 130/76 mm[Hg] Chief Complaint And Reason For Visit No Information Reason For Referral Reason For Referral No Information Plan Of Treatment Date Type Action Status Goal Diet education completed Goal Diet education completed Referral Ordered: Weight management: Referral to physician timeframe: 3 Months (related to Body mass index (BMI) 30.0-30.9, adult) ordered Referral Ordered: Weight management: Referral to physician timeframe: 3 Months (related to Body mass index (BMI) 30.0-30.9, adult) ordered History Of Present Illness Encounter Date Complaint History Of Prese nt Illness No Information Functional Status Date Functional Assessmen t No Information Instructions Date Instruction Additional Infor mation Compression stocking usage as conservative measure Related to Chronic venous hypertension (idiopathic) with other complications of bilateral lower extremity Patient education booklet given Related to Chronic venous hypertension (idiopathic) with other complications of bilateral lower extremity Lifestyle education Related to B maria luisa mass index (BMI) 30.0-30.9, adult Giving Encouragement to exercise Related to Body mass index (BMI) 30.0-30.9, adult Diet education Related to Body mass index (BMI) 30.0-30.9, adult Patient education booklet given Related to Chrn Vns Hyprtnsn w/Compl (Pain Edema Swelling); BILAT Diet education Related to Body mass index (BMI) 30.0-30.9, adult Pre and post instruc tions reviewed and provided Related to Chronic venous htn w oth comp of bilateral low extrm Patient education booklet given Related to Chronic venous htn w oth comp of bilateral low extrm Lifestyle education Related to B maria luisa mass index (BMI) 30.0-30.9, adult Giving Encouragement to exercise Related to Body mass index (BMI) 30.0-30.9, adult Assessments Type Assessment Date No Information Patient Care Teams Name Effective Dates (start - stop) Status Members No Information
== END 2024-04-29 11:30 | disposition home or self-care (01) ==
PROVIDERS: PCP Internal Medicine; Visit Provider Urology
DX: Z13.9 Encounter for screening, unspecified (principal)

== ENCOUNTER → 2024-04-29 09:36 | Outpatient (BNVA) | payer OTHER, SELFPAY | PROVIDERS: PCP Internal Medicine; Visit Provider Urology | DX: N30.20 Other chronic cystitis without hematuria (principal); R10.9 Unspecified abdominal pain; R31.0 Gross hematuria; N32.89 Other specified disorders of bladder; N32.81 Overactive bladder | CPT/HCPCS: 81003; 99212 ==

== ENCOUNTER 2024-05-05 08:55 | Outpatient (AMB) | payer OTHER, SELFPAY ==
--- NOTE | 2024-05-05 09:01 | A.OFFPC_ITS ---
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 Required: No Accompanied by: Self / Same As Patient Allergies doxepin Allergy (Intermediate, Verified 05/05/24 09:17) loss of memory Latex, Natural Rubber [LATEX, NATURAL RUBBER] Allergy (Intermediate, Verified 05/05/24 09:17) ITCHING metronidazole [Rosadan] Allergy (Intermediate, Verified 05/05/24 09:17) mood change morphine Allergy (Intermediate, Verified 05/05/24 09:17) Chest Pain trazodone [TRAZODONE] Allergy (Intermediate, Verified 05/05/24 09:17) chest pain SEAFOOD Allergy (Intermediate, Uncoded 05/05/24 09:17) vomiting Medication List - Last Reconciled 05/05/24 by Melissa Porter MD acetaminophen 650 mg (2 x 325 mg) PO Q6H PRN 30 days albuterol sulfate 90 mcg/actuation 2 puffs inhalation Q6H PRN 30 days celecoxib 200 mg PO BID 30 days cranberry extract 425 mg PO BID cromolyn 4% 1 drp ophthalmic (eye) DAILY PRN docusate sodium 100 mg PO BID 30 days estradiol (Vagifem) 10 mcg vaginal 2XW fluoxetine 20 mg PO QAM 90 days fluticasone propionate 110 mcg/actuation 110 mcg PO BID ketotifen fumarate 0.025%(0.035%) (Alaway) 1 drp ophthalmic (eye) BID PRN 30 days lisinopril 5 mg PO DAILY 90 days melatonin 20 mg PO BEDTIME PRN omeprazole 20 mg PO DAILY 90 days tramadol 50 mg PO BEDTIME PRN 30 days Tobacco use date assessed: 09/16/23 Fall risk assessment: No Falls in past year Last assessed Fall Risk: 05/05/24 Dental Screening Dental Screen Date: 05/05/24 Did you have a dental visit in the last 12 months?: No Did you have a dental problem in the last 6 months where you did not have access to dental care?: No Was dental information given to patient?: Patient has dentist HPI HPI Comments History of Present Illness Details The patient is a 74-year-old female presenting with concerns about thyroid nodules and fibromyalgia management. The patient has a known history of non-toxic multinodular goiter, with incidental thyroid nodules being a consistent finding over several years. The nodules have been monitored with yearly ultrasounds and previously examined by ear, nose, and throat specialists. Recent imaging did not indicate significant changes, and the findings have been stable. In addition to her thyroid concerns, she has chronic fibromyalgia, characterized by persistent musculoskeletal pain and tenderness, for which she has been intermittently using tramadol, although not nightly due to side effects. Her fibromyalgia management has not been optimal with current analgesic use. The patient also expressed experiencing chronic sinusitis symptoms and a calcified granuloma in the chest, previously identified on imaging, which causes concern but has been deemed non-alarming in the recent past. She has hypertension well controlled with lisinopril with a blood pressure within goal being less than 130/80. Denies any chest pain or shortness on breath. Was found to have a left axillary 7 mm mass versus lymph node in CT scan of abdomen and pelvis done this year. She refused a mammogram. Will order ultrasound of breast instead. No skin changes or mass palpated in left axillary area or breast. [facility] Medical History Arthritis of left glenohumeral joint Herniated intervertebral disc of lumbar spine Back pain Anemia Thyroid cyst Kidney infection Fatty liver Sleep apnea Lung cyst Asthma Cerebral arterial aneurysm Palpitations HTN (hypertension) Hematuria IBS (irritable bowel syndrome) Mild recurrent major depression Dysuria Blurry vision Overweight Injury of left rotator cuff Left hand pain Left shoulder pain Fibromyalgia Knee pain Depression Essential hypertension GERD (gastroesophageal reflux disease) Mild asthma Surgical History History of ear surgery History of brain surgery History of surgery on lower extremity History of colonoscopy History of foot surgery History of cataract surgery History of repair of rotator cuff History of removal of skin mole History of cholecystectomy History of hysterectomy Family History Father Cardiac failure Mother Pulmonary embolism Family/Other FH: mental illness Sister Chronic mental illness Brother Glaucoma Social History Household Members: Family Housing: House Are you a primary healthcare account manager to a significant other at home: No Do you presently have visiting nurse or other home services: No Alcohol intake: never Patient Tobacco Use Status: Never used Tobacco e-Cigarette/Vaping Use: Never Used Second Hand Smoke Exposure: No service: No Current occupational status: retired and disabled Current occupation: right handed/ disabled Cognitive needs: Yes (walker) Hearing needs: No Vision needs: Yes (glasses) Questionnaire Thrive Questionnaire Date Thrive assessed: 10/15/23 GÓMEZ-7 AMB Questionnaire GÓMEZ-7 Date GÓMEZ - 7 assessed: 09/16/23 Source: Developed by Drs. Radhames Hodges, Tonia Walsh, Jhoan Torrez and colleagues, with an educational ketan from [employer]. Review of Systems Const Details: - Respiratory: Reports morning phlegm, described as green. - Musculoskeletal: Reports inability to lift left arm fully due to shoulder pain. - Endocrine: Denies new thyroid-related symptoms. Physical exam (Primary Care) Vital Signs: Last Vital Signs BP 110/70 05/05/24 09:02 BMI result Body Mass Index 28.9 Tobacco/Smoking Status: Tobacco use Status Tobacco use date assessed 09/16/23 05/05/24 09:07 Patient Tobacco Use Status Never used Tobacco 05/05/24 09:07 e-Cigarette/Vaping Use Never Used 05/05/24 09:07 Thrive Assessment: Date of Thrive Assessment Date Thrive assessed 10/15/23 05/05/24 09:07 Const Other: General: No confusion Respiratory: Normal respiratory effort, clear to auscultation bilaterally Cardiovascular: No jugular venous distension, regular rate, regular rhythm, S1 normal heart sound present and S2 normal heart sound present Chest: No left breast mass or axillary mass palpated. Skin: No rashes or lesions noted Extremities: Full ROM, but limited movement in the left shoulder in elevation. Coding Level of Care Code Est Pt Level 4 (49908) Complex EM visit Add On G2211 Diagnoses Multinodular thyroid E04.2 Mass of axillary tail of left breast N63.32 Left shoulder pain M25.512 Mild recurrent major depression F33.0 Fibromyalgia M79.7 Essential hypertension I10 Time Spent (min) 23 Assessment & Plan Assessment & Plan (1) Multinodular thyroid: Code(s): E04.2 - Nontoxic multinodular goiter Category: Medical (2) Mass of axillary tail of left breast: Comment: Patient refuse mammogram Code(s): N63.32 - Unspecified lump in axillary tail of the left breast Category: Medical Plan: Ultrasound of the breast ordered because she refused to have a mammogram. (3) Left shoulder pain: Code(s): M25.512 - Pain in left shoulder Category: Medical (4) Mild recurrent major depression: Code(s): F33.0 - Major depressive disorder, recurrent, mild Category: Medical Plan: Continue SSRIs. (5) Fibromyalgia: Code(s): M79.7 - Fibromyalgia Category: Medical (6) Essential hypertension: Code(s): I10 - Essential (primary) hypertension Category: Medical Plan: Continue lisinopril. Blood pressure goal is equal or less than 130/80. Plan - For thyroid nodules: Continue monitoring with annual ultrasounds and thyroid function tests to assess stability. - For fibromyalgia: Review alternative pain management strategies, considering non-opioid analgesics and physical therapy. - No further intervention needed for calcified pulmonary granuloma at this time. Patient was informed and verbally consented to the use of an ambient scribe for clinic note documentation during this visit. I addressed the stable nature of the patient's thyroid nodules and reassured her regarding the calcified granuloma's non-alarming status. We discussed continued monitoring through annual ultrasounds to ensure nodule stability. I reviewed the need for pain management in fibromyalgia and the limited use of tramadol, advising alternative therapies that could be more effective and provide fewer side effects. The potential benefit of physical therapy was highlighted to improve the left shoulder's range of motion. I emphasized the importance of avoiding mammography if the patient felt discomfort, while noting it is still the best screening method for breast cancer diagnosis. Orders: Orders Thyroid Stimulating Hormone Today E04.2 - Nontoxic multinodular goiter Free T4 (Free Thyroxine) Today E04.2 - Nontoxic multinodular goiter Thyroglobulin Antibodies Today E04.2 - Nontoxic multinodular goiter US breast LT complete Today N63.32 - Unspecified lump in axillary tail of the left breast Thyroid Peroxidase Antibodies Today E04.2 - Nontoxic multinodular goiter Referrals Chiropractic Referral M25.512 - Pain in left shoulder Patient Instructions: - Continue with current medications and inform on any changes in symptoms. - Schedule annual ultrasound of thyroid. - Consider exploring non-opioid pain management options for fibromyalgia. - Attend physical therapy for left shoulder pain and limited mobility. - Report any new respiratory or endocrine symptoms promptly.
[2024-05-05 09:02] VITALS: BP 110/70; BMI 28.9
== END 2024-05-05 09:35 | disposition home or self-care (01) ==
PROVIDERS: PCP Internal Medicine; Visit Provider Internal Medicine
DX: E04.2 Nontoxic multinodular goiter (principal); N63.32 Unspecified lump in axillary tail of the left breast; M25.512 Pain in left shoulder; F33.0 Major depressive disorder, recurrent, mild; M79.7 Fibromyalgia; I10 Essential (primary) hypertension

== ENCOUNTER → 2024-05-05 08:55 | Outpatient (BNVA) | payer OTHER, SELFPAY | PROVIDERS: PCP Internal Medicine; Visit Provider Internal Medicine | DX: E04.2 Nontoxic multinodular goiter (principal); N63.32 Unspecified lump in axillary tail of the left breast; M25.512 Pain in left shoulder; F33.0 Major depressive disorder, recurrent, mild; M79.7 Fibromyalgia; I10 Essential (primary) hypertension | CPT/HCPCS: 99212 ==

== ENCOUNTER 2024-05-06 10:55 | Outpatient (REF) | payer OTHER, SELFPAY ==
--- OUTSIDE RECORDS SUMMARY | 2024-05-06 10:59 | XMS_ITS | Continuity of Care Document ---
Author Organization [facility] Address [address] [place] [address] Phone Care Team Providers Care Hurl Shaker Name Role Phone Yousuf FLORES, JUANIS, BRITTANI, [...] E&M Established 15 Mins Kei Bolaños Vein Rastafarian MD COFFEY, [address] [place] [address] Dr Faria 1000SuTila villalobos [place], [id number], [place] tel:[phone] CVR [facility] Chronic venous hypertension (idiopathic) with other complication s of bilateral lower extremityLym phedema, not elsewhere classified 4 Yousuf FLORES RVT, RPVI Robert. [address] [address], [place], [place], [id number] , [place]. tel:[phone] Referring Provider: Melissa Goff MD, [address] [facility] [address], [address] D/B/A: [facility] [place], [address]. tel:[phone] Kei Bolaños Vein Rastafarian [facility], [address] [place] [address] Dr Faria 1000Suite Tila Bravo MD, [id number], [place] tel:[phone] CVR - [facility] Encounter for follow-up examination after completed treatment for conditions other than malignant neChronic venous hypertension (idiopathic) with other complication s of bilateral lower extremity 4 Yousuf FLORES RVT, RPVI Robert. [address] [facility], [address], [id number] , [place]. tel:[phone] Referring Provider: Melissa Goff MD, [address] [facility] [address], [address] [place] [address] D/B/A: [place], [address]. tel:[phone] Kei Bolaños Vein Kimberly COFFEY, [address] [place] [address] Dr Faria 1000SuTila villalobos [place], [id number], [place] tel:[phone] CVR - [facility] Encounter for follow-up examination after completed treatment for conditions other than malignant ne 3 Yousuf FLORES RVT, RPVI Robert. [address] [facility], [address], [place], [id number] , [place]. tel: [phone] Referring Provider: Melissa Goff MD, [address] [facility] [address], [address] D/B/[place]: [place], [address]. [phone] [facility], [address] [place] [address] [address]Tila [place], [id number], [place] tel:[phone] CVR - [place] [facility] [place] Chronic venous hypertension (idiopathic) with inflammation of left lower extremity Apr- 3 Yousuf FLORES, RVT, BRITTANI Ricci. [address] [place] [address], Suite [facility], [place], [place], [id number] , [place]. tel: [phone] Referring Provider: Melissa Goff MD, [address] [facility] [address], [address] D/B/A: [place], [address]. tel:[phone] [facility], [address] [place] [address] [address]Tila [place], [id number], [place] tel:[phone] CVR - [place] Encounter for follow-up examination after completed treatment for conditions other than malignant nePain in right leg Apr- 3 Ricky FLORES FACS RVT BRITTANI Lazcano. [address] [place] [address], Suite [facility], [place], [address], [place]. tel: [phone] Referring Provider: Melissa Goff MD, [address] [facility] [address], [address] D/B/[place]: [place], [address]. tel:[phone] Kei Bolaños Vein Rastafarian [facility], [address] [place] [address] [address] 1000Tila [place], [id number], [place] tel:[phone] CVR - [facility] Chronic venous hypertension (idiopathic) with inflammation of right lower extremity Apr- 3 Yousuf FLORES, CHANELLET, BRITTANI Ricci. [address] [facility], [address], [place], [place], [id number] , [place]. tel:[phone] Referring Provider: Melissa Goff MD, [address], [address] [place] [address] D/B/A: [place], [address]. tel:[phone] Offic/outpt E&m Estab 5 Min Trial - [facility]icine [facility], [address] [place] [address] [address]Tila [place], [id number], [place] tel:[phone] CVR - [facility] Chronic venous htn w oth comp of bilateral low extrm Sep-2 3 Ricky FLORES FACS T BRITTANI Lazcano. [address] [place] [address], [address] [address], [place], [address], [place]. tel:[phone] Referring Provider: Melissa Goff MD, [address] [facility] [address], [address] [place] [address] D/B/A: [place], [address]. tel:[phone] [place] [facility], [address] [place] [address] [address] 1000Tila [place], [id number], [place] tel:[phone] CVR - [facility] Chronic venous htn w oth comp of bilateral low extrm 3 Ricky FLORES FACS CHANELLET BRITTANI Lazcano. [facility] [address], [place], [address], [place]. tel:[phone] Referring Provider: Melissa Goff MD, [address] [facility] [address], [address] [place] [address] D/B/A: [place], [address]. tel:[phone] Offic Cons New/estab Mod-hi 60 [facility], [address] [place] [address] [address]Tila [place], [id number], [place] tel:[phone] CVR - [facility] Chronic venous htn w oth comp of bilateral low extrmLocaliz ed edemaCramp and spasmEssenti al (primary) hypertension Venous insufficienc y (chronic) (peripheral) Pruritus, unspecified 3 Ricky FLORES FACS RVT BRITTANI Lazcano. [address] [facility], [address], [place], [address], [place]. tel:[phone] Referring Provider: Melissa Goff MD, Hospital DrDulce, [facility] [address] D/B/A: jose Stone In [facility], [place], [address]. tel:[phone] Family History Family Member Type Diagnosis Age At Onset No Information Payers Payer name Insurance type Covered alliance party ID Georgette glez(s) [facility] [id number] Social History Type Description Quantity Date Captured [...]
[2024-05-06 11:26] LABS: MANUAL DIFF FLAG NO
[2024-05-06 11:45] LABS: Basophils Percent Auto 0.7 % (0-2); Eosinophils Absolute Auto 0.1 X10*3/uL (0.0-0.4); Eosinophils Percent Auto 2.2 % (0-4); Hematocrit 37.3 % (37.0-47.0); Hemoglobin 12.2 g/dl (12.0-16.0); Imm Gran Abs Auto 0.01 X10*3/uL (0.00-0.03); Imm Gran Pct Auto 0.2 % (0.0-0.4); Lymphocytes Absolute Auto 2.1 X10*3/uL (1.2-4.9); Lymphocytes Percent Auto 38.6 % (20-40); Mean Corpuscular HGB Conc 32.7 g/dl (31.0-35.0); Mean Corpuscular Hemoglobin 28.8 pg (27.0-33.0); Monocytes Absolute Auto 0.4 X10*3/uL (0.1-1.2); Monocytes Percent Auto 7.7 % (2-11); Neutrophils Absolute Auto 2.8 x10*3/uL (2.0-8.3); Neutrophils Percent Auto 50.6 % (45-73); Platelet Count 309 X10*3/uL (160-400); Red Blood Count 4.24 X10*6/uL (4.20-5.50); Red Cell Distribution Width 13.7 % (11.0-16.0); White Blood Count 5.5 X10*3/uL (4.8-10.8)
[2024-05-06 12:36] LABS: Free T4 (Free Thyroxine) 1.01 ng/dL (0.71-1.85); Thyroid Stimulating Hormone 1.08 uIU/mL (0.32-4.0)
[2024-05-07 18:34] LABS: Thyroid Peroxidase Antibodies 2 IU/mL (<9)
[2024-05-10 12:04] LABS: Thyroglobulin Antibodies <1 IU/mL (< or = 1)
== END 2024-05-06 10:56 | disposition home or self-care (01) ==
LOC: HO.LAB 10:55
PROVIDERS: PCP Internal Medicine; Visit Provider Internal Medicine
DX: D72.829 Elevated white blood cell count, unspecified (principal); E04.2 Nontoxic multinodular goiter
CPT/HCPCS: 36415; 84439; 84443; 85025; 86376; 86800

== ENCOUNTER → 2024-06-08 08:45 | Outpatient (BNV) | payer OTHER, SELFPAY | PROVIDERS: PCP Internal Medicine; Visit Provider Internal Medicine | DX: R59.0 Localized enlarged lymph nodes (principal) | CPT/HCPCS: 76642 ==

== ENCOUNTER 2024-06-08 08:53 | Outpatient (REF) | payer OTHER, SELFPAY ==
--- NOTE | ~2024-06-08 | US_ITS ---
EXAMINATION: US DIAGNOSTIC ULTRASOUND BREAST, LEFT CLINICAL INFORMATION: Patient refuses mammogram. Patient had a CT December 2023 for which a left axillary tail/axillary oval mass/lymph node was seen for which a diagnostic mammogram and ultrasound recommended. Patient refuses mammogram. COMPARISON: Comparison is made with relevant prior imaging. TECHNIQUE: Ultrasound of the breast is performed with real-time broussard scale imaging and color Doppler. FINDINGS: Targeted color Doppler ultrasound scanning in the upper outer breast and left axilla demonstrates a normal-appearing axillary lymph nodes which correlates with the lymph node seen on CT. No other sonographic abnormalities seen. Results are discussed with the patient at time of visit. US/US breast LT limited mamm only IMPRESSION: Normal-appearing low axillary/axillary tail lymph node. Benign. Patient is due for screening mammography. ASSESSMENT: BI-RADS 2: Benign RECOMMENDATION: Routine annual mammography screening at this time. This patient's information was entered into a reminder system with a target due date for their next mammogram. Electronically signed by: Ela Mayer DO 06/08/2024 09:55 AM JEREMIE
--- OUTSIDE RECORDS SUMMARY | 2024-06-08 09:21 | XMS_ITS | Continuity of Care Document ---
Author Organization [facility] Address [address] [place] [address] Phone Care Team Providers Care Utility Driver Name Role Phone Yousuf FLORES, JUANIS, [...] E&M Established 15 Mins Kei Bolaños Vein Protestant MD COFFEY, [address] [place] [address] Dr Faria 1000SuTila villalobos MD, [id number], [place] tel:[phone] CVR [facility] Chronic venous hypertension (idiopathic) with other complication s of bilateral lower extremityLym phedema, not elsewhere classified 4 Yousuf FLORES RVT, RPVI Robert. [address] [address], [place], [place], [id number] , [place]. tel:[phone] Referring Provider: Melissa Goff MD, [address] [facility] [address]Dulce, [address] D/B/A: [facility] [place], [address]. tel:[phone] Kei Bolaños Vein Protestant [facility], [address] [place] [address] Dr Faria [address]Suite Tila Bravo [place], [id number], [place] tel:[phone] CVR - [facility] Encounter for follow-up examination after completed treatment for conditions other than malignant neChronic venous hypertension (idiopathic) with other complication s of bilateral lower extremity 4 Yousuf FLORES RVT, RPVI Robert. [address] [facility], [address], [id number] , [place]. tel:[phone] Referring Provider: Melissa Goff MD, [address] [facility] [address]Dulce, [address] [place] [address] D/B/A: [place], [address]. tel:[phone] Kei Bolaños Vein Kimberly COFFEY, [address] [place] [address] Dr Faria 1000SuTila villalobos MD, [id number], [place] tel:[phone] CVR - [facility] Encounter for follow-up examination after completed treatment for conditions other than malignant ne 3 Yousuf FLORES RVT, RPVI Robert. [address] [facility], [address], [place], [id number] , [place]. tel: [phone] Referring Provider: Melissa Goff MD, [address] [facility] [address]Dulce, [address] D/B/[place]: [place], [address]. [phone] [facility], [address] [place] [address] [address]Tila [place], [id number], [place] tel:[phone] CVR - [place] - [place] Chronic venous hypertension (idiopathic) with inflammation of left lower extremity Apr- 3 Yousuf FLORES, RVT, BRITTANI Ricci. [address] [place] [address], Suite [facility], [place], [place], [id number] , [place]. tel: [phone] Referring Provider: Melissa Goff MD, [address] [facility] [address]Dulce, [address] D/B/A: [place], [address]. tel:[phone] [facility] Protestant [facility], [address] [place] [address] [address]Tila [place], [id number], [place] tel:[phone] CVR - [place] Encounter for follow-up examination after completed treatment for conditions other than malignant nePain in right leg Apr- 3 Ricky FLORES FACS RVT BRITTANI Lazcano. [address] [place] [address], Suite [facility], [place], [address], [place]. tel: [phone] Referring Provider: Melissa Goff MD, [address] [facility] [address]Dulce, [address] D/B/[place]: [place], [address]. tel:[phone] Kei Bolaños Vein Protestant [facility], [address] [place] [address] [address] 1000Tila [place], [id number], [place] tel:[phone] CVR - [facility] Chronic venous hypertension (idiopathic) with inflammation of right lower extremity Apr- 3 Yousuf FLORES, CHANELLET, BRITTANI Ricci. [address] [facility], [address], [place], [place], [id number] , [place]. tel:[phone] Referring Provider: Melissa Goff MD, [address], [address] [place] [address] D/B/[place]: [place], [address]. tel:[phone] Offic/outpt E&m Estab 5 Min Trial - [facility], [address] [place] [address] [address] 1000Tila [place], [id number], [place] tel:[phone] CVR - [facility] Chronic venous htn w oth comp of bilateral low extrm Sep-2 3 Ricky FLORES FACS T BRITTANI Lazcano. [address] [place] [address], [address] [address], [place], [address], [place]. tel:[phone] Referring Provider: Melissa Goff MD, [address] [facility] [address]Dulce, [address] [place] [address] D/B/[place]: [place], [address]. tel:[phone] [facility], [address] [place] [address] [address] 1000Tila MD, [id number], [place] tel:[phone] CVR - [facility] Chronic venous htn w oth comp of bilateral low extrm 3 Ricky FLORES FACS CHANELLET BRITTANI Lazcano. [facility] [address], [place], [address], [place]. tel:[phone] Referring Provider: Melissa Goff MD, [address] [facility] [address]Dulce, [address] [place] [address] D/B/A: [place], [address]. tel:[phone] Offic Cons New/estab Mod-hi 60 [facility], [address] [place] [address] [address]Tila MD, [id number], [place] tel:[phone] CVR - [facility] Chronic venous htn w oth comp of bilateral low extrmLocaliz ed edemaCramp and spasmEssenti al (primary) hypertension Venous insufficienc y (chronic) (peripheral) Pruritus, unspecified 3 Ricky FLORES FACS RVT BRITTANI Lazcano. [address] [facility], [address], [place], [address], [place]. tel:[phone] Referring Provider: Melissa Goff MD, Hospital DrDulce, [facility] [address] D/B/A: jose Stone [facility], [place], [address]. tel:[phone] Family History Family Member Type Diagnosis Age At Onset No Information Payers Payer name Insurance type Covered republican ID Georgette glez(s) [facility] [id number] Social History Type Description Quantity Date Captured [...]
== END 2024-06-08 08:54 | disposition home or self-care (01) ==
LOC: HO.MAMMO 08:53
PROVIDERS: PCP Internal Medicine; Visit Provider Internal Medicine
DX: N63.32 Unspecified lump in axillary tail of the left breast (principal)
CPT/HCPCS: 76642

== ENCOUNTER 2024-09-30 11:02 | Outpatient (AMB) | payer OTHER, SELFPAY ==
--- NOTE | 2024-09-30 11:05 | A.OFFPC_ITS ---
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 Required: No Accompanied by: Self / Same As Patient Allergies doxepin Allergy (Intermediate, Verified 09/30/24 11:14) loss of memory Latex, Natural Rubber [LATEX, NATURAL RUBBER] Allergy (Intermediate, Verified 09/30/24 11:14) ITCHING metronidazole [Rosadan] Allergy (Intermediate, Verified 09/30/24 11:14) mood change morphine Allergy (Intermediate, Verified 09/30/24 11:14) Chest Pain trazodone [TRAZODONE] Allergy (Intermediate, Verified 09/30/24 11:14) chest pain SEAFOOD Allergy (Intermediate, Uncoded 09/30/24 11:14) vomiting Medication List - Last Reconciled 09/30/24 by Melissa Porter MD acetaminophen 650 mg (2 x 325 mg) PO Q6H PRN 30 days albuterol sulfate 90 mcg/actuation 2 puffs inhalation Q6H PRN 30 days celecoxib 200 mg PO BID 30 days cranberry extract 425 mg PO BID cromolyn 4% 1 drp ophthalmic (eye) DAILY PRN docusate sodium 100 mg PO BID 30 days estradiol (Vagifem) 10 mcg vaginal 2XW fluoxetine 20 mg PO QAM 90 days fluticasone propionate 110 mcg/actuation 110 mcg PO BID ketotifen fumarate 0.025%(0.035%) ([place]away) 1 drp ophthalmic (eye) BID PRN 30 days lisinopril 5 mg PO DAILY 90 days melatonin 20 mg PO BEDTIME PRN omeprazole 20 mg PO DAILY 90 days tramadol 50 mg PO BEDTIME PRN 30 days Tobacco use date assessed: 09/30/24 Fall risk assessment: No Falls in past year Last assessed Fall Risk: 09/30/24 Dental Screening Dental Screen Date: 09/30/24 Did you have a dental visit in the last 12 months?: No Did you have a dental problem in the last 6 months where you did not have access to dental care?: No Was dental information given to patient?: Patient has dentist HPI HPI Comments History of Present Illness Details The patient is a 74-year-old female presenting for an annual physical examination. She experiences essential hypertension, currently documented at 150/86 mmHg, and manages it with lisinopril 5 mg, taken at night. She has allergic rhinitis, for which cromolyn eye drops have been ineffective, possibly exacerbated by exposure to chemical irritants at her workspace. The patient reports insomnia not adequately controlled with 20 mg of melatonin and has had past discussions about temazepam, though concerns about its side effects are noted. Depression is managed with fluoxetine 20 mg, and the patient takes estradiol and tramadol for associated conditions including constipation. - Pneumococcal vaccine administered post -67 years of age. - Tetanus vaccination received within 10 years. - Normal colonoscopy performed last year . - Mammography with ultrasound conducted in May of current year. [facility] Medical History (Updated 09/30/24 @ 11:45 by Melissa Porter MD) Arthritis of left glenohumeral joint Herniated intervertebral disc of lumbar spine Back pain Anemia Thyroid cyst Kidney infection Fatty liver Sleep apnea Lung cyst Asthma Cerebral arterial aneurysm Palpitations HTN (hypertension) Hematuria IBS (irritable bowel syndrome) Mild recurrent major depression Dysuria Blurry vision Overweight Injury of left rotator cuff Left hand pain Left shoulder pain Fibromyalgia Knee pain Depression Essential hypertension GERD (gastroesophageal reflux disease) Mild asthma Surgical History History of ear surgery History of brain surgery History of surgery on lower extremity History of colonoscopy History of foot surgery History of cataract surgery History of repair of rotator cuff History of removal of skin mole History of cholecystectomy History of hysterectomy Family History Father Cardiac failure Mother Pulmonary embolism Family/Other FH: mental illness Sister Chronic mental illness Brother Glaucoma Social History Household Members: Family Housing: House Are you a primary progressive care nurse to a significant other at home: No Do you presently have visiting nurse or other home services: No Alcohol intake: never Patient Tobacco Use Status: Never used Tobacco e-Cigarette/Vaping Use: Never Used Second Hand Smoke Exposure: No service: No Current occupational status: retired and disabled Current occupation: right handed/ disabled Cognitive needs: Yes (walker) Hearing needs: No Vision needs: Yes (glasses) Questionnaire PHQ-9 Over the last 2 weeks, how often have you been bothered by any of the following problems? 1. Little interest or pleasure in doing things: not at all 2. Feeling down, depressed, or hopeless: not at all 3. Trouble falling or staying asleep, or sleeping too much: more than half the days 4. Feeling tired or having little energy: several days 5. Poor appetite or overeating: more than half the days 6. Feeling bad about yourself - or that you are a failure or have let yourself or your family down: more than half the days 7. Trouble concentrating on things, such as reading the newspaper or watching television: several days 8. Moving or speaking so slowly that other people could have noticed. Or the opposite - being so fidgety or restless that you have been moving around a lot more than usual: not at all 9. Thoughts that you would be better off or of hurting yourself in some way: not at all Total score: 8 Depression Screening Interpretation: Positive Depression Screening Follow-up: Existing condition and Follow-up Visit Requested Depression Screening Done: Yes 40186 - PHQ-9 Billing: Yes Source: Developed by Drs. Radhames Hodges, Tonia Walsh, Jhoan Torrez and colleagues, with an educational ketan from [employer]. Thrive Questionnaire Date Thrive assessed: 09/30/24 I am a: Patient What is your living situation today?: I choose not to answer this question Within the past 12 months, did the food you bought not last and you didn't have the money to get more?: Sometimes True Within the past 12 months, did you worry whether your food would run out before you got money to buy more?: Sometimes True Do you have trouble paying for medicines?: No Do you have trouble getting transportation to medical appointments?: No Do you have trouble paying your heating and electricity bill?: No Do you have trouble taking care of your child, family member or friend?: No Do you have trouble with day-to-day activities such as bathing, preparing meals, shopping, managing finances, etc.?: Yes Are you currently unemployed and looking for a job?: I choose not to answer this question Are you interested in more education?: Yes Please select the resources that you would like help with: Utilities Currently or been in a relationship where the following occur: No concerns reported THRIVE Score: 2 AUDIT C Alcohol Use Questionnaire (AUDIT-C) 1. How often do you have a drink containing alcohol?: Never Total Score: 0 GÓMEZ-7 AMB Questionnaire GÓMEZ-7 Date GÓMEZ - 7 assessed: 09/30/24 Feeling nervous, anxious, or on edge: 0 = Not at all Not being able to stop or control worryin = Not at all Worrying too much about different things: 0 = Not at all Trouble relaxin = Not at all Being so restless that it is hard to sit still: 0 = Not at all Becoming easily annoyed or irritable: 0 = Not at all Feeling afraid as if something awful might happen: 0 = Not at all Total GÓMEZ-7 score (0-4 normal; 5-9 mild; 10-14 moderate; 15-21 severe): 0 Source: Developed by Drs. Radhames Hodges, Tonia Walsh, Jhoan Torrez and colleagues, with an educational ketan from [employer]. GÓMEZ-7 Assessment Billing GÓMEZ-7 Assessment Tool: GÓMEZ-7 Assessment 31949 Review of Systems Const All systems reviewed & are unremarkable except as noted in HPI and below Card Denies chest pain at rest, Denies chest pain with activity, Denies edema, Denies irregular heart rhythm, Denies claudication, Denies dyspnea, Denies dyspnea on exertion, Denies orthopnea, Denies paroxysmal nocturnal dyspnea and Denies slow heart rate Resp Denies cough, Denies dyspnea and Denies dyspnea on exertion GI Denies abdominal pain, Denies change in bowel habits, Denies excessive flatus, Denies nausea and Denies vomiting Denies urinary incontinence, Denies urinary hesitancy and Denies urinary urgency Musc Denies abnormal gait, Denies atrophy, Denies deformity and Denies limited range of motion Neuro Denies abnormal gait, Denies behavioral changes and Denies lack of coordination Psych Denies behavioral changes Physical exam (Primary Care) Vital Signs: Last Vital Signs BP 150/86 H 09/30/24 11:06 BMI result Body Mass Index 28.2 Tobacco/Smoking Status: Tobacco use Status Tobacco use date assessed 09/30/24 09/30/24 11:13 Patient Tobacco Use Status Never used Tobacco 09/30/24 11:13 e-Cigarette/Vaping Use Never Used 09/30/24 11:13 PHQ-9: PHQ-9 Score PHQ-9: Total score 8 09/30/24 11:13 Depression Screening Interpretation: Positive Depression Screening Follow-up: Existing condition and Follow-up Visit Requested Thrive Assessment: Date of Thrive Assessment Date Thrive assessed 09/30/24 09/30/24 11:13 Currently or been in a relationship where the following occur: No concerns reported HENMT Head: Yes normal to inspection, Yes normocephalic and Yes atraumatic Ears: external ears normal Eyes General: appearance normal, both eyes and all related structures Eyelids: Yes eyelids normal Conjunctivae: conjunctivae normal Neck Neck: Yes normal visual inspection and Yes supple Resp Effort & Inspection: normal respiratory effort Auscultation: clear to auscultation bilaterally Cardio Jugular venous distension: no JVD Rate: regular rate Rhythm: regular rhythm Heart sounds: S1 normal heart sound present and S2 normal heart sound present GI Inspection: Yes normal to inspection Palpation (GI): Soft to palpation and nontender Auscultation: normal bowel sounds Skin General skin exam: no rashes or lesions noted Neuro General: no focal motor deficits Extrem General: Yes full ROM Psych Appearance: grossly normal Coding Level of Care Code Est Pt Level 3 (20528) Est Pt Prev Care >65y(86047) Diagnoses Adult general medical exam Z00.00 Mild recurrent major depression F33.0 Insomnia G47.00 Additional Codes PHQ-9 - 04229 - PHQ-9 Billing: Yes ([id number]) GÓMEZ-7 Assessment Billing - GÓMEZ-7 Assessment Tool: GÓMEZ-7 Assessment 93382 ([id number]) Time Spent (min) 33 Assessment & Plan Assessment & Plan (1) Adult general medical exam: Code(s): Z00.00 - Encounter for general adult medical examination without abnormal findings Category: Medical (2) Mild recurrent major depression: Code(s): F33.0 - Major depressive disorder, recurrent, mild Category: Medical (3) Insomnia: Code(s): G47.00 - Insomnia, unspecified Category: Medical Plan The patient's elevated blood pressure will be managed by changing lisinopril administration to the morning schedule. Due to the ineffectiveness of cromolyn and chemical exposure complications, alternative antihistamines will be considered, and an media arts professor referral may be pursued if needed. For insomnia, non-pharmacological strategies will be prioritized before considering temazepam with caution. Depression will continue under fluoxetine management. Her chronic conditions will be monitored closely, and I advised a detailed blood panel to evaluate her current health comprehensively. Eye care referrals and checking qdsx-ynk-advmkkb drops were recommended for addressing dry eye symptoms. Patient was informed and verbally consented to the use of an ambient scribe for clinic note documentation during this visit. I discussed with the patient the management of her hypertension through the adjusted timing of lisinopril intake to the morning, aiming to enhance control. The discussion also included her allergic rhinitis, and I recommended exploring alternative treatments that may suit her condition better while managing the exposure risks from nearby chemical irritants. We addressed her chronic insomnia issues by discussing the relative risks of temazepam and the decision to initially focus on non-drug measures. The patient was informed about the importance of having regular depressive symptoms monitoring and maintaining her current fluoxetine regimen. We also reviewed the need for comprehensive lab evaluations to monitor overall health conditions closely and emphasized follow- up on eye health with potential gzgo-klf-qikwmju treatments for dry eyes. Orders: Orders Lipid Panel Today E78.5 - Hyperlipidemia, unspecified Comprehensive [place]. Panel Fast Today Z00.00 - Encounter for general adult medical examination without abnormal findings Medications: New temazepam 7.5 mg PO BEDTIME 30 days PRN 30 caps 0RF sleep Patient Instructions: - Take lisinopril 5 mg in the morning instead of at night. - Consider using pstm-hsv-pwmqnih allergy medications if current treatments are ineffective. - Explore non-drug therapies to help with sleep difficulties. - Continue taking prescribed medications as directed, including fluoxetine for depression. - Schedule and attend follow-up appointments to check overall health and specifically address eye health concerns. - Follow recommendations for upcoming laboratory evaluations for cholesterol, blood sugar, and organ function testing.
[2024-09-30 11:06] VITALS: BP 150/86; BMI 28.2
--- OUTSIDE RECORDS SUMMARY | 2024-09-30 12:34 | XMS_ITS | Continuity of Care Document ---
Author Organization [facility] Address [address] [place] [address] Phone Care Team Providers Care Electric Solderer Name Role Phone Yousuf FLORES, JUANIS, BRITTANI, [...] E&M Established 15 Mins Kei B[facility] MD COFFEY, [address] [place] [address] Dr Faria 1000SuTila villalobos [place], [id number], [place] tel:[phone] CVR [facility] Chronic venous hypertension (idiopathic) with other complication s of bilateral lower extremityLym phedema, not elsewhere classified 4 Yousuf FLORES RVT, RPVI Robert. [address] [address], [place], [place], [id number] , [place]. tel:[phone] Referring Provider: Melissa Goff MD, [address] [facility] [address], [address] D/B/A: [employer] [place], [address]. tel:[phone] Kei Bolaños [facility], [address] [place] [address] Dr Faria [address]Suite Tila Bravo [place], [id number], [place] tel:[phone] CVR - [facility] Encounter for follow-up examination after completed treatment for conditions other than malignant neChronic venous hypertension (idiopathic) with other complication s of bilateral lower extremity 4 Yousuf FLORES RVT, RPVI Robert. [address], [address], [id number] , [place]. tel:[phone] Referring Provider: Melissa Goff MD, [address] [facility] [address], [address] [place] [address] D/B/A: [place], [address]. tel:[phone] Kei Bolaños Vein Kimberly COFFEY, [address] [place] [address] Dr Faria 1000SuTila villalobos [place], [id number], [place] tel:[phone] CVR - [facility] Encounter for follow-up examination after completed treatment for conditions other than malignant ne 3 Yousuf FLORES RVT, RPVI Robert. [address], [address], [place], [id number] , [place]. tel: [phone] Referring Provider: Melissa Goff MD, [address] [facility] [address], [address] D/B/[place]: [place], [address]. [phone] [facility]i [facility], [address] [place] [address] [address]Tila [place], [id number], [place] tel:[phone] CVR - [place] [facility] [place] Chronic venous hypertension (idiopathic) with inflammation of left lower extremity Apr- 3 Yousuf FLORES, RVT, BRITTANI Ricci. [address] [place] [address], Suite [facility], [place], [place], [id number] , [place]. tel: [phone] Referring Provider: Melissa Goff MD, [address] [facility] [address], [address] D/B/A: [place], [address]. tel:[phone] [facility], [address] [place] [address] [address]Tila [place], [id number], [place] tel:[phone] CVR - [place] [facility] [place] Encounter for follow-up examination after completed treatment for conditions other than malignant nePain in right leg Apr- 3 Ricky FLORES FACS RVT BRITTANI Lazcano. [address] [place] [address], Suite [facility], [place], [address], [place]. tel: [phone] Referring Provider: Melissa Goff MD, [address] [facility] [address], [address] D/B/[place]: [place], [address]. tel:[phone] Kei Bolaños Vein [facility]aeism [facility], [address] [place] [address] [address]Tila [place], [id number], [place] tel:[phone] CVR - [facility] Chronic venous hypertension (idiopathic) with inflammation of right lower extremity Apr- 3 Yousuf FLORES, CHANELLET, BRITTANI Ricci. [address], [address], [place], [place], [id number] , [place]. tel:[phone] Referring Provider: Melissa Goff MD, [address], [address] [place] [address] D/B/[place]: [place], [address]. tel:[phone] Offic/outpt E&m Estab 5 Min Trial - Telemedicine [facility], [address] [place] [address] [address]Tila [place], [id number], [place] tel:[phone] CVR - [facility] Chronic venous htn w oth comp of bilateral low extrm Sep-2 3 Ricky FLORES FACS T BRITTANI Lazcano. [address] [place] [address], [address] [address], [place], [address], [place]. tel:[phone] Referring Provider: Melissa Goff MD, [address] [facility] [address], [address] [place] [address] D/B/A: [place], [address]. tel:[phone] [place] [facility], [address] [place] [address] [address]Tila [place], [id number], [place] tel:[phone] CVR - [facility] Chronic venous htn w oth comp of bilateral low extrm 3 Ricky FLORES FACS CHANELLET BRITTANI Lazcano. [facility] [address], [place], [address], [place]. tel:[phone] Referring Provider: Melissa Goff MD, [address] [facility] [address], [address] [place] [address] D/B/A: [place], [address]. tel:[phone] Offic Cons New/estab Mod-hi 60 [facility], [address] [place] [address] [address]Tila [place], [id number], [place] tel:[phone] CVR - [facility] Chronic venous htn w oth comp of bilateral low extrmLocaliz ed edemaCramp and spasmEssenti al (primary) hypertension Venous insufficienc y (chronic) (peripheral) Pruritus, unspecified 3 Ricky FLORES FACS RVT BRITTANI Lazcano. [address], [address], [place], [address], [place]. tel:[phone] Referring Provider: Melissa Goff MD, Hospital DrDulce, [facility] [address] D/B/A: jose Stone [facility] [place], [address]. tel:[phone] Family History Family Member Type Diagnosis Age At Onset No Information Payers Payer name Insurance type Covered green party ID Georgette glez(s) [facility] [id number] Social History Type Description Quantity Date Captured [...] No Information Instructions Date Instruction Additional Infor noéion Diet education Related to Body mass index (BMI) 30.0-30.9, adult Giving Encouragement to exercise Related to Body mass index (BMI) 30.0-30.9, adult Lifestyle education Related to B maria luisa mass index (BMI) 30.0-30.9, adult Patient education booklet given Related to Chronic venous hypertension (idiopathic) with other complications of bilateral lower extremity Compression stocking usage as conservative measure Related to Chronic venous hypertension (idiopathic) with other complications of bilateral lower extremity Patient education booklet given Related to Chrn Vns Hyprtnsn w/Compl (Pain Edema Swelling); BILAT Giving Encouragement to exercise Related to Body mass index (BMI) 30.0-30.9, adult Lifestyle education Related to B maria luisa mass index (BMI) 30.0-30.9, adult Patient education booklet given Related to Chronic venous htn w oth comp of bilateral low extrm Pre and post instruc tions reviewed and provided Related to Chronic venous htn w oth comp of bilateral low extrm Diet education Related to Body mass index (BMI) 30.0-30.9, adult Assessments Type Assessment Date No Information Patient Care Teams Name Effective Dates (start - stop) Status Members No Information
--- OUTSIDE RECORDS SUMMARY | 2024-09-30 12:34 | XMS_ITS ---
Author Organization [facility] on Care Team Providers Care Transport Engineer Name Role Phone Kamilah Zuleta Unavailable Unavailable Cem Castellano Unavailable Unavailable Soumya Olivares Unavailable Unavailable Allergies and adverse reactions Code CodeSystem Substance Reaction Severity StartDate Concern Status 39771 RXNORM traZODone Unknown Unknown active Sinequan Unknown 02/18/2020 active Shell Fish Unknown 02/18/2020 active Morphine and Related Unknown 02/18/2020 active Care Team Name Role Address Phone Organization Dates Cem Castellano PCP [address] [place] [address], [address], [place] (Office): : [facility] 02/18/2020 - 03/03/2020 Kamilah Zuleta Attending Physician [address] [place] [address], [place] (Office): [facility] 02/18/2020 - 03/03/2020 Soumya Olivares Attending Physician [address] [place] [address], [address], [place] (Office): [facility] 02/18/2020 - 03/03/2020 Mental Status Section Date Assessment Total Score Description 03/03/2020 BIMS 15 cognitively int act CAM 0 No delirium ind icated PHQ-9 00 02/25/2020 BIMS 15 cognitively int act CAM 0 No delirium ind icated PHQ-9 00 Problems Problem # Description Date of onset Resolved Date Code CodeSystem Concern Status 1 ENCOUNTER FOR OTHER ORTHOPEDIC AFTERCARE 02/18/[address] active 2 ESSENTIAL (PRIMARY) HYPERTENSION 02/18/[address] active 3 FIBROMYALGIA 02/18/[address] acti ve 4 FRACTURE OF UNSPECIFIED PART OF NECK OF LEFT FEMUR, SUBSEQUENT ENCOUNTER FOR CLOSED FRACTURE WITH ROUTINE HEALING 02/18/[address] active 5 GASTRO-ESOPHAGEAL REFLUX DISEASE WITHOUT ESOPHAGITIS 02/18/[address] active 6 GENERALIZED ANXIETY DISORDER 02/18/[address] active 7 MAJOR DEPRESSIVE DISORDER, RECURRENT, UNSPECIFIED 02/18/[address] active Reason for Referral No Reasons for Referral Entered Social History Social History Observation Description Start Date End Date Code Code System Current Smoking Status Tobacco smoking consumption unknown 890730253 SNOMED CT Sex Assigned At Female 1950 21659-2 [facility] Vital Signs Code Code System Vitals Name Values and Units Timing Information 9279-1 [facility] Respiratory Rate Value=18.0 Units=/m in 03/03/2020 8462-4 [facility] Blood Pressure-Diastolic Value=66 Un its=mmHg 03/03/2020 8480-6 [facility] Blood Pressure-Systolic Wmoxr=792 Un its=mmHg 03/03/2020 8310-5 [facility] Body Temperature Value=98.3 Units=?? F 03/03/2020 8867-4 [facility] Heart rate Value=78.0 Units=/min 01/2020 06880-1 [facility] O2 % BldC Oximetry Value=96.0 Units= % 03/03/2020 95152-5 [facility] Pain Level Value=0.0 03/03/2020 97150-8 [facility] Weight Iwprv=767.0 Units=Lbs 8302-2 INC Height Value=61.0 Units=Inches 02/19/2020
--- OUTSIDE RECORDS SUMMARY | 2024-09-30 12:34 | XMS_ITS | Data Portability ---
Author Organization [facility] Address [address] [place] [phone] Care Team Providers Care Faro Dealer Name Role Phone HIM CCA OTHER Assessment Encounter Date Assessment Date Assessment LastModified by Organization Details LastModified Time 10/30/2023 10/30/2023 Ms. Kenna Gan is a 73yoF who is seen today for an episode of epistaxis yesterday. Ms. Beto Gan was unaware of the [facility] visit today and has no complaints. She reports that she had a a few drops of blood from her nose yesterday but otherwise has been feeling at her baseline. Chest pain has been worked up and is being managed by her PCP. She denies any concerns and has had no nose bleeding today. VSS. Physical Security Engineer on site reports no distress. Education provided on holding pressure but otherwise appropriate for ongoing outpatient management. [email or web address] Not available 10/30/2023 10:38:43 06/23/2024 06/23/2024 I provided real -time medical direction via phone for this encounter and was available for additional phone-based assistance as needed. I have reviewed and agree with the Assessment and Plan as documented by the Physical Security Engineer. Patient given the opportunity to ask questions. Our service contacted for an assessment of: Viral URI symptoms As per above, patient with approximately several days of viral URI symptoms. Denies fever or chills. Denies chest pain, shortness of breath, dyspnea on exertion. Positive nasal congestion and dry cough. Positive sick contacts. Per hot stamp operator on the scene, vital signs are stable and patient is afebrile. Minimal wheezing heard on exam. COVID and Flu are both negative. No increased work of breathing and no distress. Impression: Common cold and viral URI Plan: Continue with [id number] medications to control symptoms. Red flags discussed as to when to seek a higher level care. Allergies: Reviewed PCP f/u: We discussed the diagnostic uncertainty of home visits and the risk associated with this. In this case, the patient and I felt this to be an acceptable and reasonable amount of risk given the benefit of avoiding an ED visit. We discussed the need to seek care urgently/emergen tly in the setting of any new or worsening serious symptoms, particularly fever chills [email or web address] Not available 06/23/2024 22:26:45 Plan of Treatment Reminders Order Date Submit Date Provider Last Modified By Organization Details Last Modified Time Details Appointments None recorded. Lab rapid flu (A+B) [address], [address] [place] [address] 22:26:10 rapid SARS CoV 2 Ag, QL IA, respiratory specimen [address], [phone] 22:26:11 Referral None recorded. Procedures None recorded. Surgeries None recorded. Imaging None recorded. Medication Orders None recorded. Patient TargetsNo targets recorded. Patient InstructionsNo instructions recorded. Reason for Referral None Reported. Results Created Date Observation Date Name Description Value Unit Range Abnormal Flag Note LastModifiedBy Organization Detail LastModifiedTime 06/23/1906/23/2024 rapid SARS CoV 2 Ag, QL IA, respi rator y speci men rapid SARS CoV 2 Ag, QL IA, respiratory specimen negati ve Not Available [facility] ed [address] [place] [address], [phone] 06/23/2024 22:25:51 06/23/1906/23/2024 rapid flu (A+B) Flu negati ve Not Available [facility] ed [address] [place] [address], [phone] 06/23/2024 22:25:49 Result Notes None recorded. Medical Equipment None Reported. Allergies Allergen ID Allergen Name Allergen Category Reaction Reaction Severity Criticality Documentation Date Start Date Code Code System Note Provider Name and Address Organization Details Recorded Time 51264 doxepin medicatio n Not available Not available Not available 06/23/2024 3638 RxNorm Not Available [facility] - production 10:44:35 89643 morphine medicatio n Not available Not available Not available 06/23/2024 7052 RxNorm Not Available [facility] production 5 10:44:35 8387 trazodone medicatio n Not available Not available Not available 03/23/2024 08612 RxNorm Not Available [facility] 03:43:57 Medications Name Sig Start Date Stop Date Status Note LastModified by Organization Details LastModified Time celecoxib 200 mg capsule TAKE 1 CAPSULE BY MOUTH TWO TIMES A DAY FOR 30 DAYS active Not Available Not Available Not Available acetaminophe n 325 mg tablet TAKE 2 TABLETS BY MOUTH EVERY 6 HOURS NEEDED FOR MILD PAIN FOR 30 DAYS active Not Available Not Available Not Available ketotifen 0.025 % (0.035 %) eye drops PLEASE SEE ATTACHED FOR DETAILED DIRECTIONS active Not Available Not Available N ot Available clopidogrel 75 mg tablet TOME ALECIA TABLETA TODOS LOS D active Not Available Not Available No t Available peg-electrol yte solution 420 gram oral solution PLEASE SEE ATTACHED FOR DETAILED DIRECTIONS active Not Available Not Available N ot Available tramadol 50 mg tablet TOME 1 TABLETA POR V A ORAL TODOS LOS D CUANDO SEA NECESARIO PARA EL DOLOR active Not Available Not Available No t Available acetaminophe n 500 mg tablet TOME ALECIA TABLETA CADA SEIS HORAS CUANDO SEA NECESARIO active Not Available Not Available No t Available amoxicillin 500 mg tablet TOME ALECIA TABLETA BLUE VECES AL D A active Not Available Not Available No t Available cefadroxil 500 mg capsule TOME 1 C PSULA POR V A ORAL DOS VECES AL D A POR 10 D active Not Available Not Available No t Available lansoprazole 30 mg capsule,katlyn yed release TOME ALECIA C PSULA TODOS LOS D active Not Available Not Available No t Available prednisone 50 mg tablet PLEASE SEE ATTACHED FOR DETAILED DIRECTIONS active Not Available Not Available N ot Available docusate sodium 100 mg capsule TAKE 1 CAPSULE BY MOUTH 2 TIMES A DAY FOR 30 DAYS active Not Available Not Available Not Available omeprazole 20 mg capsule,katlyn yed release TOME 1 C PSULA POR V A ORAL TODOS LOS D active Not Available Not Available No t Available Banophen 25 mg capsule TOME 2 C PSULAS POR V A ORAL 1 HOUR BEFORE CONTRAST MEDIA INJECTION FOR CAT SCAN DIRECTED active Not Available Not Available No t Available lisinopril 5 mg tablet TOME ALECIA TABLETA TODOS LOS D active Not Available Not Available No t Available cefuroxime axetil 500 mg tablet TOME ALECIA TABLETA DOS VECES AL D A FOR 10 DAYS active Not Available Not Available No t Available fluoxetine 20 mg capsule TOME ALECIA C PSULA TODOS LOS D EN LA MA JOSE RAFAEL active Not Available Not Available No t Available fluticasone propionate 110 mcg/actuatio n HFA aerosol inhaler INHALE UN SOPLIDO POR V A ORAL DOS VECES AL D A active Not Available Not Available No t Available naproxen 500 mg tablet TOME 1 TABLETA POR V A ORAL DOS VECES AL D A active Not Available Not Available No t Available amoxicillin 875 mg-potassium clavulanate 125 mg tablet TOME ALECIA TABLETA POR V A ORAL CADA DOCE HORAS X10 DAYS active Not Available Not Available No t Available Ventolin HFA 90 mcg/actuatio n aerosol inhaler INHALE DANDO DOS SOPLIDOS POR V A ORAL CADA SEIS HORAS CUANDO SEA NECESARIO FOR BRONCHOSPAS MS active Not Available Not Available No t Available oxycodone 5 mg tablet active Not Available Not Available No t Available solifenacin 10 mg tablet TOME 1 TABLETA POR V A ORAL TODOS LOS D active Not Available Not Available No t Available chlorhexidin e gluconate 0.12 % mouthwash RINSE MOUTH WITH 15ML (1 CAPFUL) FOR 30 SECONDS IN MORNING AND EVENING AFTER MEALS, THEN SPIT active Not Available Not Available No t Available GaviLyte-G 236 gram-22.74 gram-6.74 gram-5.86 gram oral solution PER INSTRUCTION S FROM GI. active Not Available Not Available N ot Available Yuvafem 10 mcg vaginal tablet INSERT 10MCG VAGINALLY TWICE A WEEK ON FRIDAY AND FRIDAY AT BEDTIME active Not Available Not Available No t Available Vitals Date Recorded Body weight Body temperature Respiratory rate Heart rate Oxygen saturation Oxygen saturation in Arterial blood by Pulse oximetry Systolic blood pressure Diastolic blood pressure Provider Name and Address Organization Details Last Updated DateTime 4 33653.9 6 g 97.8 [degF] 16 /min 82 /min 96 % 96 % 164 mm[Hg] 72 mm[Hg] Not Available [facility] - production 4 10:34:16 Date Recorded Body temperature Oxygen saturation Oxygen saturation in Arterial blood by Pulse oximetry Respiratory rate Heart rate Systolic blood pressure Diastolic blood pressure Provider Name and Address Organization Details Last Updated DateTime 5 98.8 [degF] 96 % 96 % 16 /min 82 /min 122 mm[Hg] 60 mm[Hg] Not Available [facility] 5 22:24:15 Social History None recorded. Functional Status None recorded. Mental Status None recorded. Family History Nothing Reported. Medical History No medical history recorded. Gynecological HistoryNo gynecological history recorded. Obstetrics History GPAL:G 0 P 0 0 0 0 Past Encounters Encounter ID Performer Location Encounter Start Date Encounter Closed Date Diagnosis/Indication Diagnosis SNOMED-CT Code Diagnosis ICD10 Code Diagnosis Note [id number] Kenisha Shultz MD [facility] [address] [place] [phone] 10/30/2023 10:23:41 10/31/2023 20:59:38 Bleeding from nose 335988678 R04.0 [id number] Brianda Rogers MD [facility] [address] [place] [phone] 06/23/2024 22:24:13 06/23/2024 23:58:30 Common cold [id number] J00 Health Concerns Section Related Observation LastModified by Organization Detai ls LastModified Time None Recorded Concern Status LastModified by Organization Details LastModified Time None Recorded Advance Directives Directive None Recorded Payers Insurance Date Sequence Insurance Name Policy Number Policy Tovar Covered Member ID Tovar Member ID Guarantor Name 06/24/2024 1 [facility] - DOS ON OR AFTER 2022 - DUAL ELIGIBLE - ASSISTED OPTIONS AND ONE CARE (MEDICARE REPLACEMENT/AD VANTAGE - HMO) Kenna Gan [id number] Kenna Gan Notes Date Note Type Note Provider Name and Address Organization Details Recorded Time 10/30/2023 text/html HPI: *Mbr requesting visit before 10:30am or after 5-6pm, please call ahead. Has PT coming to her house ~11:30am and ortho appt at 3pm* 73 y.o. Irish-speaking F c/o nosebleed from R nare, lasting ~30 mins then stopping spontaneously at time of call. Two days ago she took chewable ASA x 3 for cp that lasted ~15 mins and then yesterday she took chewable ASA x 2 for cp that lasted 10 mins. Mbr denies exertion at time of onset of cp. She denies cp today. Mbr also denies sob, dizziness, visual changes or ataxia at this time. She reports hx of hemiplegia s/p cerebral aneurysm in past and uses a cane and walker for ambulation, also lives alone. Mbr c/o feeling generally weak 2 days ago, which has improved since. She c/o urinary urgency at hs recently. Mbr had cystoscopy earlier today and c/o headache while under anesthesia that has since resolved. She was given a dose of antibiotic by urologist for UTI. Mbr was educated on how to hold pressure if nosebleed recurs and was advised to call back if it does not stop after 10 mins of pressure. She was also encouraged not to take more than daily ASA 81 mg dose and to ask PCP if she should continue to take extra prn for cp. Mbr was also advised to call 911 if she develops cp >5 mins, severe headache or inability to ambulate. She agreed to [facility] eval tomorrow. Mbr was made aware she can call back 16/12 for changes or concerns. PMHx includes GLENN, mitral valve prolapse. ................... ................... ................... ................... ................... ................... ................... ........ [facility] Nurse Triage Notes (Caitlin Guerrero): Comments: [facility] RN did not require any additional information to process this visit. ................... ................... ................... ................... ................... ................... ................... ........ 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 Pt showed handkerchief with a few small spots of blood on it from yesterday. Pt sts no nose bleeds since. Pt has no other complaints today to report. Pt denies CP sob NVD headache or dizziness. Baseline vitals assessed, [facility] contacted and advised to monitor if nose bleeds continue. Pt education on what to do if nose bleed happens again. Pt advised to follow up with pcp. Pt education on signs indicating the ER. Physical Security Engineer Allergies: Trazodone ................... ................... ................... ................... ................... ................... ................... ........ Disposition: Fulfilled Kenisha Shultz MD [address] [place] [address],[address], [place], [phone], [employer] [facility] 10/30/2023 19:39:30 06/23/2024 text/html [facility] Nurse Triage Notes (Ruma Busby - DERIAN): Patient Reports: History of asthma, increased use of inhaler; Sputum increase ; Cough Denies: Increased work of breathing/labored ? with or without fever Unable to speak in full sentences without distress Discoloration of skin -cyanosis Needs to sleep sitting up, can? t catch breath Shortness of breath in setting of confusion Chief Complaints: Common cold symptoms, Earache, Cough PMH: COPD/Asthma, Hypertension PMH Reviewed at 06/23/2024 Allergies Reviewed at 06/23/2024:44 Comments: Other PMH: Brain surgery to repair aneurysm Patient started with cold sx's 2 weeks ago. + nasal congestion, chest congestion, cough and pressure to left ear/pain. Cough is productive, dark sputum. Denies fever/chills. Currently speaking full sentences without difficulty. Taking albuterol inhaler every morning and sometimes at night. No difficulty breathing. Education provided on the response time and the member was advised to monitor reported s/s and seek emergency treatment if needed. Physical Security Engineer Organization Information for [facility] [employer] Name: [employer]? Address: [address] [place] [address], Front Office Agent: Satnam Spivey MD CLIA No.: [id number] Physical Security Engineer POC Test Results from [facility] Rapid COVID antigen (15:45:11) COVID: - Rapid influenza antigen (15:45:13) Flu: - ................... ................... ................... ................... ................... ................... ................... ........ Physical Security Engineer Note From Mauro Nelson: Dispatch the call address for the female with URI symptoms. Pt states she has been dealing with a mild dry cough, headaches, chest congestion and fatigue for a couple of weeks now and for the last couple of days a left ear ache/blockage. She states she has been using OTC medication with mild effect. She has been able to maintain PO hydration and appetite is baseline. She denies chest pain, difficulty breathing/SOB, n/v/d or any other symptoms at this time. Patient was found opening door in no obvious distress. CAOx4, airway open and patent, breathing, non-labored, able to speak in full sentences.-JVD, +CMSx4, -Edema/swelling, ABD soft non tender/distended, a febrile, lungs CTA , skin PWD with good turgor, mucus membranes are pink and moist. Rapid Covid/Flu (-). [facility] consulted. Patient advised to follow up with PCP. Red flags discussed. All times are approximate. ................... ................... ................... ................... ................... ................... ................... ........ [facility] Consulted: Brianda Rogers ................... ................... ................... ................... ................... ................... ................... ........ Disposition: Fulfilled Brianda Rogers MD [address] [place] [facility],[address], [place], [phone], [employer] 06/23/2024 22:27:14 OBGyn Episode No OBEpisode recorded.
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
== END 2024-09-30 11:28 | disposition home or self-care (01) ==
LOC: HO.HMCH 11:03
PROVIDERS: PCP Internal Medicine; Visit Provider Internal Medicine
DX: Z00.00 Encounter for general adult medical examination without abnormal findings (principal); F33.0 Major depressive disorder, recurrent, mild; G47.00 Insomnia, unspecified

== ENCOUNTER → 2024-09-30 11:02 | Outpatient (BNVA) | payer OTHER, SELFPAY | PROVIDERS: PCP Internal Medicine; Visit Provider Internal Medicine | DX: Z00.00 Encounter for general adult medical examination without abnormal findings (principal); I10 Essential (primary) hypertension; F33.0 Major depressive disorder, recurrent, mild; G47.00 Insomnia, unspecified; E78.5 Hyperlipidemia, unspecified; Z79.899 Other long term (current) drug therapy | CPT/HCPCS: 96127; 99212; 99397 ==

== ENCOUNTER → 2024-10-14 10:32 | Outpatient (BNVA) | payer OTHER, SELFPAY | PROVIDERS: PCP Internal Medicine ==

== ENCOUNTER → 2024-11-17 10:23 | Outpatient (BNV) | payer OTHER, SELFPAY | PROVIDERS: Emergency Provider Emergency Medicine; PCP Internal Medicine; Visit Provider Radiology Diagnostic Radiology | DX: R07.9 Chest pain, unspecified (principal) | CPT/HCPCS: 71046 ==

== ENCOUNTER 2024-11-17 10:27 | Emergency (ER) | payer OTHER, SELFPAY ==
--- NOTE | 2024-11-17 | ECG_ITS ---
Test Reason : CHEST PAIN Blood Pressure : */* mmHG Vent. Rate : 66 BPM Atrial Rate : 66 BPM P-R Int : 160 ms QRS Dur : 70 ms QT Int : 392 ms P-R-T Axes : 33 5 11 degrees QTcB Int : 410 ms Normal sinus rhythm Low voltage QRS Nonspecific ST abnormality Borderline ECG When compared with ECG of 16-Sep-2023 13:19, No significant change was found Referred By: Generic ED Physician Electronically Signed By: BIANCA MARTIN
--- NOTE | ~2024-11-17 | XR_ITS ---
EXAMINATION: XR CHEST CLINICAL INFORMATION: cp COMPARISON: 04/19/2019. TECHNIQUE: 2 views of the chest were obtained. FINDINGS: The cardiac, hilar, and mediastinal contours are normal. The lungs are clear bilaterally. There is no pneumothorax or pleural effusion. There is no focal osseous or soft tissue abnormality. Reversed left shoulder arthroplasty noted. Surgical anchor noted right humeral head. Mild spinal degenerative changes. XR/XR chest 2V IMPRESSION: No active pulmonary disease. Electronically signed by: Danielito Dodson MD 11/17/2024 11:48 AM EDT RP
[2024-11-17 10:40] VITALS: BP 123/47; PULSE 69; RESP 16; TEMP 36; O2SAT 96; BMI 29.2
[2024-11-17 11:01] LABS: Basophils Absolute Auto 0.1 X10*3/uL (0.0-0.2); Basophils Percent Auto 0.7 % (0-2); Eosinophils Absolute Auto 0.2 X10*3/uL (0.0-0.4); Eosinophils Percent Auto 2.5 % (0-4); Hematocrit 34.5 % (37.0-47.0); Hemoglobin 11.6 g/dl (12.0-16.0); Imm Gran Abs Auto 0.01 X10*3/uL (0.00-0.03); Imm Gran Pct Auto 0.1 % (0.0-0.4); Lymphocytes Absolute Auto 2.2 X10*3/uL (1.2-4.9); Lymphocytes Percent Auto 31.5 % (20-40); MANUAL DIFF FLAG NO; Mean Corpuscular HGB Conc 33.6 g/dl (31.0-35.0); Mean Corpuscular Hemoglobin 29.1 pg (27.0-33.0); Mean Corpuscular Volume 86.7 fL (80.0-98.0); Mean Platelet Volume 9.7 fL (9.4-12.3); Monocytes Absolute Auto 0.6 X10*3/uL (0.1-1.2); Monocytes Percent Auto 8.6 % (2-11); Neutrophils Absolute Auto 3.9 x10*3/uL (2.0-8.3); Neutrophils Percent Auto 56.6 % (45-73); Platelet Count 273 X10*3/uL (160-400); Red Blood Count 3.98 X10*6/uL (4.20-5.50); Red Cell Distribution Width 12.9 % (11.0-16.0); White Blood Count 6.9 X10*3/uL (4.8-10.8)
[2024-11-17 11:19] LABS: Alanine Aminotransferase 19 U/L (0-31); Albumin Level 4.1 g/dL (3.5-5.0); Alkaline Phosphatase 66 U/L (39-117); Anion Gap 11 (12-20); Aspartate Amino Transferase 25 U/L (5-31); Bilirubin Total 0.2 mg/dL (0.0-1.0); Blood Urea Nitrogen 17 mg/dL (9-16); Calcium 9.3 mg/dL (8.4-10.2); Carbon Dioxide 26 mmol/L (22-29); Chloride 107 mmol/L (96-108); Creatinine Clr Calc Pharmacy 55.4; Estimated Glomerular Filt Rate > 60; Glucose Random 102 mg/dL (60-115); Potassium 4.1 mmol/L (3.3-5.1); Sodium 140 mmol/L (135-145); Total Protein 6.9 g/dL (6.5-8.0)
[2024-11-17 11:30] LABS: Troponin-I High Sensitivity < 2.7 ng/L (<3.5-17.0)
[2024-11-17 11:31] VITALS: BP 131/63; PULSE 57; RESP 15; TEMP 36.3; O2SAT 95
--- NOTE | 2024-11-17 11:49 | ED_ITS ---
HPI - Chest Pain General Chief Complaint: Chest Pain Stated Complaint: pain on left side of body Time Seen by Provider: 11/17/24 11:49 Source: patient and weight yardage checker Mode of arrival: ambulatory Limitations: no limitations History of Present Illness ED Provider: HPI narrative: 74-year-old female presenting with anterior chest pain, as well as upper back pain, has history of left total shoulder replacement, pain is worse when she raises up her shoulder and when she presses to her anterior chest and also when she takes a deep breath in but has no dyspnea no hemoptysis no fevers or chills no recent surgeries that surgery was a year ago, no recent prolonged travels. She states her shoulder motion is still not back to where it was since before the surgery. No new injury reported. She states she took 2 aspirins but on all made the pain worse, and she woke up with this pain Related Data Home Medications ?Medication ?Instructions ?Recorded ?Confirmed melatonin 10 mg disintegrating 20 mg PO BEDTIME PRN In somnia 01/20/23 09/30/24 tablet cromolyn 4 % eye drops 1 drp ophthalmic (eye) DAILY PRN 10/07/23 09/30/24 itchy eye Previous Rx's ?Medication ?Instructions ?Recorded ketotifen fumarate 0.025 % (0.035 1 drp ophthalmic (ey e) BID PRN 12/12/22 %) eye drops (Alaway) allergy symptoms 30 days #5 mL acetaminophen 325 mg tablet 650 mg (2 x 325 mg) PO Q6H PRN 10/14/23 Pain, Mild (Pain Scale 1-3) 30 days #240 tabs celecoxib 200 mg capsule 200 mg PO BID 30 days #60 ca ps 10/14/23 docusate sodium 100 mg capsule 100 mg PO BID 30 days # 60 caps 10/14/23 lisinopril 5 mg tablet 5 mg PO DAILY 90 days #90 ta bs 02/18/24 cranberry extract 425 mg capsule 425 mg PO BID #60 cap s 04/29/24 estradiol 10 mcg vaginal tablet 10 mcg vaginal 2XW #24 tabs 04/29/24 (Vagifem) fluoxetine 20 mg capsule 20 mg PO QAM 90 days #90 cap s 06/02/24 omeprazole 20 mg capsule,delayed 20 mg PO DAILY 90 day s #90 caps 03/11/25 release albuterol sulfate 90 mcg/actuation 2 puff inhalation Q 6H PRN 09/25/24 aerosol inhaler bronchospasm 30 days #6.7 gr ams temazepam 7.5 mg capsule 7.5 mg PO BEDTIME PRN sleep 30 09/30/24 days #30 caps fluticasone propionate 110 110 mcg PO BID #12 grams mcg/actuation HFA aerosol inhaler tramadol 50 mg tablet 50 mg PO BEDTIME PRN pain 30 days 11/08/24 #30 tabs lidocaine 5 % topical patch 1 patch topical DAILY PRN pain #15 11/17/24 ea prednisone 20 mg tablet 40 mg (2 x 20 mg) PO DAILY 5 days 11/17/24 #10 tabs Allergies Allergy/AdvReac Type Severity Reaction Status Date / Time doxepin Allergy Intermediate loss of Verified 11/17/24 10:43 memory Latex, Natural Rubber Allergy Intermediate ITCHING Verified 11/17/24 10:43 (LATEX, NATURAL RUBBER) metronidazole (Rosadan) Allergy Intermediate mood change Verified 11/17/24 10:43 morphine Allergy Intermediate Chest Pain Verified 11/17/24 10:43 trazodone (TRAZODONE) Allergy Intermediate chest pain Verified 11/17/24 10:43 SEAFOOD Allergy Intermediate vomiting Uncoded 11/17/24 10:43 Review of Systems 2 Constitutional: Constitutional: Reports as per HPI [facility] Past Medical History Medical History Arthritis of left glenohumeral joint Herniated intervertebral disc of lumbar spine Back pain Anemia Thyroid cyst Kidney infection Fatty liver Sleep apnea Lung cyst Asthma Cerebral arterial aneurysm Palpitations HTN (hypertension) Hematuria IBS (irritable bowel syndrome) Mild recurrent major depression Dysuria Blurry vision Overweight Injury of left rotator cuff Left hand pain Left shoulder pain Fibromyalgia Knee pain Depression Essential hypertension GERD (gastroesophageal reflux disease) Mild asthma Surgical History History of ear surgery History of brain surgery History of surgery on lower extremity History of colonoscopy History of foot surgery History of cataract surgery History of repair of rotator cuff History of removal of skin mole History of cholecystectomy History of hysterectomy Family History Family History Father Cardiac failure Mother Pulmonary embolism Family/Other FH: mental illness Sister Chronic mental illness Brother Glaucoma Social History Social History Household Members: Family Housing: House Are you a primary farm or ranch animal caretaker to a significant other at home: No Do you presently have visiting nurse or other home services: No Alcohol intake: never Patient Tobacco Use Status: Never used Tobacco e-Cigarette/Vaping Use: Never Used Second Hand Smoke Exposure: No Advance Directives: No Advance Directives Information Provided: Yes service: No Current occupational status: retired and disabled Current occupation: right handed/ disabled Cognitive needs: Yes (walker) Hearing needs: No Vision needs: Yes (glasses) Physical Exam 2 Vital Signs: Vital Signs: Last Vital Signs Temp 97.3 F 11/17/24 11:31 Pulse 57 11/17/24 11:31 Resp 15 11/17/24 11:31 BP 131/63 11/17/24 11:31 Pulse Ox 95 11/17/24 11:31 O2 Del Method Room Air 11/17/24 11:31 BMI result Body Mass Index 29.2 Const: Other: * Gen: ?Overall well-appearing patient * HEENT: PERRLA, EOMI, MMM, * Neck: Supple, no LAD * CV: RRR, no obvious murmurs appreciated, radial pulses +2 bilaterally * Resp: ?No wheezing rales rhonchi no stridor moving air well * Abd: ?Bowel sounds are present, no tenderness no rebound no rigidity * MSK: Decreased forward flexion and abduction, she has tenderness along anterior pectoralis and upper back without any rashes * Skin: Warm, dry, intact, * Neuro: ?Alert and oriented x3, moving upper and lower extremities symmetrically, no obvious facial asymmetry noted Medications Administered Discontinued Medications Generic Name Dose Route Start Last Admin Trade Name Freq PRN Reason Stop Dose Admin Dexamethasone 10 mg 11/17/24 12:04 11/17/24 12:18 Dexamethasone 2 Mg Tablet PO 11/17/24 12:05 10 mg ONCE ONE Administration Ketorolac Tromethamine 15 mg 11/17/24 12:04 11/17/24 12:18 Ketorolac Tromethamine 15 Mg/Ml Vial IM 11/17/24 12:05 15 mg ONCE ONE Administration Lidocaine 1 patch 11/17/24 12:04 11/17/24 12:17 Lidocaine 4 % Patch Adh..Patch TRANSDERMA 11/17/24 12:05 1 patch ONCE ONE Administration Protocol Medical Decision Making Medical Decision Making [facility] Narrative: No hypoxia tachycardic to suspect PE, ECG without any changes to suspect underlying ACS, chest x-ray without pneumonia, pneumothorax, there was no forceful vomiting to suspect Boerhaave syndrome, her physical examination is consistent with musculoskeletal pain but given her age she did have cardiac workup, otherwise we will discharge with symptomatic control Differential Diagnosis Differential Diagnoses: The differential diagnosis associated with the presentation includes ACS, pneumothorax, aortic dissection, PE, Boerhaave syndrome Admission/Observation Consideration of admission/observation: Escalation of care including admission/observation considered Lab Data [facility] Lab Attestation statement: I reviewed the patient's lab results. 11/17/24 10:56 11/17/24 10:56 Labs: Lab Results 11/17/24 Range/Units 10:56 WBC 6.9 (4.8-10.8) X10*3/uL RBC 3.98 L (4.20-5.50) X10*6/uL Hgb 11.6 L (12.0-16.0) g/dl Hct 34.5 L (37.0-47.0) % MCV 86.7 (80.0-98.0) fL MCH 29.1 (27.0-33.0) pg MCHC 33.6 (31.0-35.0) g/dl RDW 12.9 (11.0-16.0) % Plt Count 273 (160-400) X10*3/uL MPV 9.7 (9.4-12.3) fL Immature Gran % (Auto) 0.1 (0.0-0.4) % Neut % (Auto) 56.6 (45-73) % Lymph % (Auto) 31.5 (20-40) % Bulloch % (Auto) 8.6 (2-11) % Eos % (Auto) 2.5 (0-4) % Baso % (Auto) 0.7 (0-2) % Lymph # (Auto) 2.2 (1.2-4.9) X10*3/uL Bulloch # (Auto) 0.6 (0.1-1.2) X10*3/uL Eos # (Auto) 0.2 (0.0-0.4) X10*3/uL Baso # (Auto) 0.1 (0.0-0.2) X10*3/uL Abs Immat Gran (auto) 0.01 (0.00-0.03) X10*3/uL Absolute Neuts (auto) 3.9 (2.0-8.3) x10*3/uL Absolute Nucleated RBC 0.000 (0.0-0.012) X10*3/uL Nucleated RBC % (auto) 0.0 (0.0-0.2) /100WBC Sodium 140 (135-145) mmol/L Potassium 4.1 (3.3-5.1) mmol/L Chloride 107 (96-108) mmol/L Carbon Dioxide 26 (22-29) mmol/L Anion Gap 11 L (12-20) BUN 17 H (9-16) mg/dL Creatinine 0.82 (0.5-1.4) mg/dL Estim Creat Clear Calc 55.4 Estimated GFR > 60 Random Glucose 102 (60-115) mg/dL Calcium 9.3 D (8.4-10.2) mg/dL Total Bilirubin 0.2 (0.0-1.0) mg/dL AST 25 (5-31) U/L ALT 19 (0-31) U/L Alkaline Phosphatase 66 (39-117) U/L Troponin I High Sens < 2.7 (<3.5-17.0) ng/L Total Protein 6.9 (6.5-8.0) g/dL Albumin 4.1 (3.5-5.0) g/dL Independent Interpretation I performed an independent interpretation of an: EKG (66 beats per minute otherwise normal ECG without dysrhythmia, AV maricarmen blocks or ST-T changes to suspect underlying ACS, my independent interpretation) and Plain X-Ray Interpretation: Status post left total shoulder replacement,My independent chest xray interpretation: Lungs: Lungs are clear bilaterally without evidence of focal consolidation, pleural effusion, or pneumothorax. ?Cardiac silhouette is unremarkable, no obvious mediastinal widening, no obvious bony abnormalities such as fractures. Impression: Normal chest X-ray. Radiology Impression Discussion of test interpretation with radiology: I have reviewed the radiologist's reading. Discharge Plan Discharge Clinical Impression: Acute upper back pain, Anterior chest wall pain Patient Disposition: Home, Self-Care Additional Instructions: You were evaluated for back pain and chest pain, on physical examination your symptoms are most likely due to musculoskeletal pain, you were given medications for pain, I recommend ibuprofen 400 mg every 6 hours for the next 2 days, lidocaine patches, ice pack heat pack to the area that hurts the most, you may need physical therapy, your cardiac workup included cardiac enzymes, chest x- ray, EKG all of which has been reassuring, follow up with the PCP any other issues or concerns come back to the ER y I did give you steroids you can take starting tomorrow if you are taking them hold off on ibuprofen because prednisone and just a strong anti-inflammatory Prescriptions: New lidocaine 5 % adhesive patch,medicated 1 patch topical DAILY PRN (Reason: pain) Qty: 15 0RF Rx Instructions: leave on most painful area for up to 12 hrs prednisone 20 mg tablet 40 mg PO DAILY 5 Days Qty: 10 0RF No Action ketotifen fumarate [Alaway] 0.025 % (0.035 %) drops 1 drp ophthalmic (eye) BID PRN (Reason: allergy symptoms) 30 Days Qty: 5 2RF Rx Instructions: administer at least 8 hours apart lisinopril 5 mg tablet 5 mg PO DAILY 90 Days Qty: 90 3RF fluoxetine 20 mg capsule 20 mg PO QAM 90 Days Qty: 90 3RF omeprazole 20 mg capsule,delayed release(DR/EC) 20 mg PO DAILY 90 Days Qty: 90 1RF albuterol sulfate 90 mcg/actuation HFA aerosol inhaler 2 puff inhalation Q6H PRN (Reason: bronchospasm) 30 Days Qty: 6.7 1RF fluticasone propionate 110 mcg/actuation HFA aerosol inhaler 110 mcg PO BID Qty: 12 0RF tramadol 50 mg tablet 50 mg PO BEDTIME PRN (Reason: pain) 30 Days Qty: 30 0RF cromolyn 4 % drops 1 drp ophthalmic (eye) DAILY PRN (Reason: itchy eye) celecoxib 200 mg Capsule 200 mg PO BID 30 Days Qty: 60 0RF acetaminophen 325 mg Tablet 650 mg PO Q6H PRN (Reason: Pain, Mild (Pain Scale 1-3)) 30 Days Qty: 240 0RF docusate sodium 100 mg Capsule 100 mg PO BID 30 Days Qty: 60 0RF melatonin 10 mg tablet,disintegrating 20 mg PO BEDTIME PRN (Reason: Insomnia) cranberry extract 425 mg capsule 425 mg PO BID Qty: 60 5RF Rx Instructions: administer with meals estradiol [Vagifem] 10 mcg tablet 10 mcg vaginal 2XW Qty: 24 3RF Rx Instructions: use 2x a week. Friday and at bedtime temazepam 7.5 mg capsule 7.5 mg PO BEDTIME PRN (Reason: sleep) 30 Days Qty: 30 0RF Referrals: Melissa Ruiz MD [Primary Care Provider, Internal Medicine] - 2 weeks Print Language: Telugu
[2024-11-17] MEDS: Lidocaine 4 % Patch ADH..PATCH 1 PATCH TRANSDERMA (12:17)
[2024-11-17] MEDS: Ketorolac Tromethamine 15 MG/ML VIAL IM (12:18)
[2024-11-17] MEDS: dexAMETHasone 2 MG TABLET 10 MG PO (12:18)
[2024-11-17 13:02] VITALS: BP 138/61; PULSE 59; RESP 16; TEMP 36.6; O2SAT 98
--- OUTSIDE RECORDS SUMMARY | 2024-11-17 13:49 | XMS_ITS | Data Portability ---
Author Organization [facility], [facility] Address [address] [place] [phone] Care Team Providers Care Cloth Worker Name Role Phone HIM CCA OTHER Assessment [...] has had no nose bleeding today. VSS. Crossbow Maker on site reports no distress. Education provided on holding pressure but otherwise appropriate for ongoing outpatient management. [email or web address] Not available 10/30/2023 10:38:43 06/23/2024 06/23/2024 I provided real -time medical direction via phone for this encounter and was available for additional phone-based assistance as needed. I have reviewed and agree with the Assessment and Plan as documented by the Crossbow Maker. Patient given the opportunity to ask questions. Our service contacted for an assessment of: Viral URI symptoms As per above, patient with approximately several days of viral URI symptoms. Denies fever or chills. Denies chest pain, shortness of breath, dyspnea on exertion. Positive nasal congestion and dry cough. Positive sick contacts. Per paper cone machine tender on the scene, vital signs are stable and patient is afebrile. Minimal wheezing heard on exam. COVID and Flu are both negative. No increased work of breathing and no distress. Impression: Common cold and viral URI Plan: Continue with [id number] medications to control symptoms. Red flags discussed [...] or worsening serious symptoms, particularly fever chills [facility] Not available 06/23/2024 22:26:45 Plan of Treatment Reminders Order Date Submit Date Provider Last Modified By Organization Details Last Modified Time Details Appointments None recorded. Lab rapid flu (A+B) [address], [address] [place] [address] 22:26:10 rapid SARS CoV 2 Ag, QL [place], respiratory specimen [address], [phone] 22:26:11 Referral None recorded. Procedures None recorded. [...] IA, respiratory specimen negati ve Not Available [address], [phone] 06/23/2024 22:25:51 06/23/1906/23/2024 rapid flu (A+B) Flu negati ve Not Available [address], [phone] 06/23/2024 22:25:49 Result Notes None recorded. Medical Equipment None Reported. Allergies Allergen ID Allergen Name Allergen Category Reaction Reaction Severity Criticality Documentation Date Start Date Code Code System Note Provider Name and Address Organization Details Recorded Time 06563 doxepin medicatio n Not available Not available Not available 06/23/2024 3638 RxNorm Not Available [facility] - production 10:44:35 87167 morphine medicatio n Not available Not available Not available 06/23/2024 7052 RxNorm Not Available [facility] 5 10:44:35 8387 trazodone medicatio n Not available Not available Not available 03/23/2024 71263 RxNorm Not Available [facility] - production 4 03:43:57 Medications Name Sig [...] No t Available Vitals Date Recorded Body temperature Oxygen saturation Oxygen saturation in Arterial blood by Pulse oximetry Respiratory rate Heart rate Systolic blood pressure Diastolic blood pressure Provider Name and Address Organization Details Last Updated DateTime 5 98.8 [degF] 96 % 96 % 16 /min 82 /min 122 mm[Hg] 60 mm[Hg] Not Available [facility] - production 5 22:24:15 Date Recorded Body weight Body temperature Respiratory rate Heart rate Oxygen saturation Oxygen saturation in Arterial blood by Pulse oximetry Systolic blood pressure Diastolic blood pressure Provider Name and Address Organization Details Last Updated DateTime 4 17343.9 6 g 97.8 [degF] 16 /min 82 /min 96 % 96 % 164 mm[Hg] 72 mm[Hg] Not Available [facility] - production 4 10:34:16 Social History None recorded. Functional Status None recorded. Mental Status None recorded. Family History Nothing Reported. Medical History No medical history recorded. Gynecological HistoryNo gynecological history recorded. Obstetrics History GPAL:G 0 P 0 0 0 0 Past Encounters Encounter ID Performer Location Encounter Start Date Encounter Closed Date Diagnosis/Indication Diagnosis SNOMED-CT Code Diagnosis ICD10 Code Diagnosis Note [id number] Kenisha Shultz MD [facility] [address] [place] [phone] 10/30/2023 10:23:41 10/31/2023 20:59:38 Bleeding from nose 651392622 R04.0 [id number] Brianda Rogers MD [facility] - [facility] [address] [place] [phone] 06/23/2024 22:24:13 06/23/2024 23:58:30 Common cold [id number] J00 Health Concerns Section Related Observation LastModified by Organization Detai ls LastModified Time None Recorded Concern Status LastModified by Organization Details LastModified Time None Recorded Advance Directives Directive None Recorded Payers Insurance Date Sequence Insurance Name Policy Number Policy Tovar Covered Member ID Tovar Member ID Guarantor Name 06/24/2024 1 [facility] - DOS ON OR AFTER 2022 - DUAL ELIGIBLE - [facility] OPTIONS AND ONE CARE (MEDICARE REPLACEMENT/AD VANTAGE - HMO) Kenna Gan [id number] Kenna Gan Notes Date Note Type Note Provider Name and Address Organization Details Recorded Time 10/30/2023 text/html HPI: *Mbr requesting visit before 10:30am or after 5-6pm, please call ahead. Has PT coming to her house ~11:30am and ortho appt at 3pm* 73 y.o. Zambian-speaking F c/o nosebleed from R nare, lasting [...] ................... ................... ................... ................... ................... ................... ........ 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 Pt showed handkerchief with a few small spots of blood on it from yesterday. Pt sts no nose bleeds since. Pt has no other complaints today to report. Pt denies CP sob NVD headache or dizziness. Baseline vitals assessed, C contacted and advised to monitor if nose bleeds continue. Pt education on what to do if nose bleed happens again. Pt advised to follow up with pcp. Pt education on signs indicating the ER. Crossbow Maker Allergies: Trazodone ................... ................... ................... ................... ................... ................... ................... ........ Disposition: Fulfilled Kenisha Shultz MD [address] [facility],[address], [place], [phone], [facility] [facility] [employer] 10/30/2023 19:39:30 06/23/2024 text/html CRC Nurse Triage Notes (Ruma Busby - DERIAN): Patient Reports: History of asthma, increased use of inhaler; Sputum increase ; Cough Denies: Increased work of breathing/labored with or without fever Unable to speak in full sentences without distress Discoloration of skin -cyanosis Needs to sleep sitting up, can t catch breath Shortness of breath in [...] s/s and seek emergency treatment if needed. Crossbow Maker Organization Information for Mauro Nelson [employer] Name: [employer] Address: [address] [place] [address], Kitchen Bath Designer: Satnam Spivey MD CLIA No.: [id number] Crossbow Maker POC Test Results from Mauro Nelson Rapid COVID antigen (15:45:11) COVID: - Rapid influenza antigen (15:45:13) Flu: - ................... ................... ................... ................... ................... ................... ................... ........ Crossbow Maker Note From Mauro Nelson: Dispatch the call [...] are pink and moist. Rapid Covid/Flu (-). C consulted. Patient advised to follow up with PCP. Red flags discussed. All times are approximate. ................... ................... ................... ................... ................... ................... ................... ........ [facility] Consulted: Brianda Rogers ................... ................... ................... ................... ................... ................... ................... ........ Disposition: Fulfilled Brianda Rogers MD [address] [facility], [place], [phone], [facility] - [employer] 06/23/2024 22:27:14 OBGyn Episode No OBEpisode recorded.
== END 2024-11-17 13:02 | disposition home or self-care (01) ==
PROVIDERS: Emergency Provider Emergency Medicine; PCP Internal Medicine
DX: R07.89 Other chest pain (principal); M54.6 Pain in thoracic spine; M25.512 Pain in left shoulder; Z79.899 Other long term (current) drug therapy
CPT/HCPCS: 36415; 71046; 80053; 84484; 85025; 93005; 96372; 99284; J1885; J8540

== ENCOUNTER → 2024-11-17 10:48 | Outpatient (BNV) | payer OTHER, SELFPAY | PROVIDERS: Emergency Provider Emergency Medicine; PCP Internal Medicine; Visit Provider Internal Medicine | DX: R07.89 Other chest pain (principal) | CPT/HCPCS: 93010 ==

== ENCOUNTER 2024-11-25 12:55 | Outpatient (AMB) | payer OTHER, SELFPAY ==
--- NOTE | 2024-11-25 12:50 | MHC.OFFVIS ---
Intake Visit Reasons: 6 month follow up/ UA Intake Note: Patient is present for 6m follow up Urology Med: Estradiol Antibiotic Allergy: none Blood Thinner: none PVR:0ml Pants Presser Automatic Required: Yes Pants Presser Automatic Name: [id number] Information Interpreted: non-clinical & clinical Accompanied by: Self / Same As Patient Allergies doxepin Allergy (Intermediate, Verified 11/25/24 13:31) loss of memory Latex, Natural Rubber (LATEX, NATURAL RUBBER) Allergy (Intermediate, Verified 11/25/24 13:31) ITCHING metronidazole (Rosadan) Allergy (Intermediate, Verified 11/25/24 13:31) mood change morphine Allergy (Intermediate, Verified 11/25/24 13:31) Chest Pain trazodone (TRAZODONE) Allergy (Intermediate, Verified 11/25/24 13:31) chest pain SEAFOOD Allergy (Intermediate, Uncoded 11/17/24 10:43) vomiting HPI Comments Details: 11/25/24--Kenna is a 74 year old female who has had recurrent UTI's, History of Present Illness - The patient is a 74-year-old female presenting with urinary health assessment and preventative care management. - The patient reports no current symptoms of urinary tract infection, and her urine shows no signs of infection. - She has been using Vagifem for vaginal health maintenance and cranberry tablets prn as a preventative measure against urinary tract infections. - The patient has not experienced any pain with urination or other urinary problems recently. - Plan cont vagifem, fu next year 04/29/24--Kenna is here for follow up I reviewed CTAP - 12/26/23, Kidneys within normal limits, bladder changes c/w cystitis, pt had a cystoscopy prior to CAT scan to account for air in the bladder. She is using the vagifem, she stopped using the vesicare because she felt she was having to push to empty. She states she is doing well with voiding now and does not need any medication. UA today is leuk negative, blood negative. FU in 6 months. 10/29/23--Here for cystoscopy. Recent Left shoulder surgery. PMH - Major depression. She states periodically she sees blood clots in the urine. She has pictures on her phone to show me. She had w/u including office cysto last year. She is very concerned wants to be reevaluated. Certified reception manager present. The patient complains of flank pain and is concerned about having a kidney stone. She has has frequent UTI's. She is prescribed estrace cream and vesicare for OAB symptoms. Office Cystoscopy findings: erythematous changes consistent with cystitis follicularis. Plan CT stone protocol. 09/15/23--Kenna is a 73 year old female who has had recurrent UTI's, she had cystoscopy in November, which noted erythematous changes c/w cystitis. She has been on antibiotics and is here for repeat cystoscopy. The patient was seen by the nurse, but needed to leave and left without completing cystoscopy. Will reschedule cysto. 08/04/23--Angelika is a 73-year-old female who presents today for a follow-up. Certified reception manager was present during the visit.?She states she is seeing blood when she urinates. She has had recurrent UTI's, she is prescribed vaginal estrogen therapy. She denies dysuria. I have discussed repeat office cystoscopy. Urine for cytology. 01/31/2023?She is followed today via Tele-health for UTI symptoms. The patient is a Italian speaking female. Certified access director was present during the Tele-health visit. She was last seen by me on 11/29/2022 for bladder wall thickening. Ceftum 500 mg BID for ten days was ordered, she was advised to follow-up after 2 months. I reviewed the urine culture results from 11/29/2022- which came back no growth; and 01/20/2023 which came back < 10,000 cfu/ml. She states that she is doing well without any urinary tract infections. She has stopped using Estrace cream as it is leaving stains on her undergarments. I will change the Estrace cream to Vagifem 10 mcg. Use it twice a week, Friday and . Follow-up in 6 months. 11/29/2022?The patient is Italian speaking female. certified reception manager was present during the visit.?The patient was last seen in the office on 11/04/22 for? urinary frequency and urge incontinence. She was initially seen as new patient evaluation on 09/23/22 by JAVIER Alva.?Work up included renal US. Renal US results reviewed--10/04/22-- WNL, kidneys are normal, Diffused bladder wall thickening was noted. Urine cytology results reviewed--09/23/22-- negative for malignancy. The patient is using estrogen cream vaginally with minimal benefits.?States having urinary leakage and is using pads.??Evaluation today UA: Blood: 10 Mane/uL, leukocytes: 2+.?Cystoscopy findings-- erythematous changes consistent with cystitis follicularis. I discussed to hold on anti-cholinergic medication pending antibiotic therapy for cystitis.?Plan:?Ceftum 500 mg BID for ten days. Pending the urine culture will start the patient on daily antibiotic suppressive therapy. Follow-up after 2 months. [facility] Medical History Arthritis of left glenohumeral joint Herniated intervertebral disc of lumbar spine Back pain Anemia Thyroid cyst Kidney infection Fatty liver Sleep apnea Lung cyst Asthma Cerebral arterial aneurysm Palpitations HTN (hypertension) Hematuria IBS (irritable bowel syndrome) Mild recurrent major depression Dysuria Blurry vision Overweight Injury of left rotator cuff Left hand pain Left shoulder pain Fibromyalgia Knee pain Depression Essential hypertension GERD (gastroesophageal reflux disease) Mild asthma Surgical History History of ear surgery History of brain surgery History of surgery on lower extremity History of colonoscopy History of foot surgery History of cataract surgery History of repair of rotator cuff History of removal of skin mole History of cholecystectomy History of hysterectomy Family History Father Cardiac failure Mother Pulmonary embolism Family/Other FH: mental illness Sister Chronic mental illness Brother Glaucoma Social History Household Members: Family Housing: House Are you a primary acute care assistant to a significant other at home: No Do you presently have visiting nurse or other home services: No Alcohol intake: never Patient Tobacco Use Status: Never used Tobacco e-Cigarette/Vaping Use: Never Used Second Hand Smoke Exposure: No service: No Current occupational status: retired and disabled Current occupation: right handed/ disabled Cognitive needs: Yes (walker) Hearing needs: No Vision needs: Yes (glasses) Results Reviewed Results Reviewed: Date of Service: 12/26/23 CT ABDOMEN AND PELVIS WITHOUT CONTRAST CLINICAL INFORMATION: Unspecified abdominal pain. COMPARISON: CT abdomen and pelvis 03/04/2023. TECHNIQUE: Multidetector volumetric imaging was performed from the superior aspect of the liver through the pubic symphysis. Sagittal and coronal reformatted images were obtained on the technologist's workstation. This CT examination was performed using dose optimization techniques as appropriate, variously including the following: *Automated exposure control *Adjustment of mA and/or kV according to patient size (this includes techniques or standardized protocols for targeted exams where dose is matched to indication/reason for exam; i.e. extremities or head) *Use of iterative reconstruction technique DLP: 483 mGy-cm FINDINGS: LUNG BASES: Calcified granuloma left lung base. No follow-up imaging is recommended. Incidental note is made of a small mass or lymph node in the axillary tail of the left breast measuring 0.7 cm. This is not included in the lieon-vi-yhsz on the prior study. Chronicity is unknown. LIVER, GALLBLADDER, AND BILIARY TREE: The liver is normal in size, shape, and attenuation. No focal hepatic lesion or biliary ductal dilatation is present. Cholecystectomy. PANCREAS: No discrete pancreatic mass. No pancreatic ductal dilatation. SPLEEN: The spleen appears normal. ADRENAL GLANDS: No adrenal mass. KIDNEYS AND URETERS: The kidneys are normal in size, shape, and attenuation. No hydronephrosis, hydroureter, or calculi seen. No perinephric stranding. BLADDER: Trace amount of air is seen in the right anterior bladder. GASTROINTESTINAL TRACT: The small and large bowel are normal in caliber. Colonic diverticulosis, primarily in the left colon and sigmoid, but no evidence of acute diverticulitis. ABDOMINAL WALL: No significant hernia is appreciated. LYMPH NODES: Mildly enlarged bilateral inguinal lymph nodes, left greater than right. These could be reactive. VASCULAR: No aortic aneurysm. PELVIC VISCERA: Unremarkable. OSSEOUS STRUCTURES: No destructive osseous lesions. Degenerative changes in the spine. Left femoral IMN. Trace amount of air is seen in the urinary bladder. Recommend clinical correlation for recent instrumentation or self catheterization. If no such history, this could represent a urinary tract infection with gas-forming organism or possible fistula. Incidental 7 mm mass or lymph node in the left axillary tail of the breast. Recommend diagnostic mammogram and ultrasound for further evaluation. Date of Service: 10/04/22 EXAMINATION: US RETROPERITONEAL COMPLETE (RENAL) CLINICAL INFORMATION: Hematuria, unspecified. COMPARISON: Renal ultrasound 09/05/2021. Ultrasound abdomen 07/29/2018. TECHNIQUE: Real-time imaging of the kidneys and bladder. FINDINGS: RIGHT KIDNEY: 9.4 x 5.2 x 5 cm (SAG x AP x TRV). The kidney is normal in size, contour, and echogenicity. Renal cortical thickness is normal. No calculi or focal parenchymal lesions. No hydronephrosis. LEFT KIDNEY: 10.1 x 5.8 x 4.5 cm (SAG x AP x TRV). The kidney is normal in size, contour, and echogenicity. Renal cortical thickness is normal. No calculi or focal parenchymal lesions. No hydronephrosis. BLADDER: The bladder is well-distended. Mild diffuse bladder wall thickening noted. Bilateral ureteral jets are demonstrated. Prevoid bladder volume is 441 mL. Postvoid bladder volume is 53 mL. IMPRESSION: 1.? No renal calculi or hydronephrosis of either kidney. 2.? Prominent post void bladder residual of 53 mL. Collected: 08/04/23 Location: [facility] Received: 08/05/23 Diagnosis Urine: Negative for high-grade urothelial carcinoma. See comment. COMMENT: Cellular specimen consisting of occasional single urothelial cells, squamous cells, occasional red blood cells and rare acute inflammatory cells. Clinical History Urinary incontinence, cystitis, hematuria Material Received Urine Gross Description 7 cc clear yellow fluid Collected: 09/23/22 Received: 09/24/22 Diagnosis Urine:? Negative for high-grade urothelial carcinoma.? See comment. COMMENT: Cellular specimen consisting of urothelial cells with reactive and degenerative changes, squamous cells, red blood cells and acute inflammatory cells. Clinical History Hematuria Material Received Urine Gross Description 15 cc slightly cloudy yellow fluid Assessment & Plan Assessment & Plan (1) Bladder wall thickening: Code(s): N32.89 - Other specified disorders of bladder Category: Medical (2) OAB (overactive bladder): Code(s): N32.81 - Overactive bladder Category: Medical (3) Recurrent UTI: Code(s): N39.0 - Urinary tract infection, site not specified Category: Medical (4) Chronic cystitis: Code(s): N30.20 - Other chronic cystitis without hematuria Category: Medical Plan Plan - Continue the use of Vagifem for vaginal health maintenance. -May use cranberry tablets prn Medications: Refilled estradiol (Vagifem) use 2x a week. Friday and at bedtime 10 mcg vaginal 2XW 24 tabs 3RF Discontinued cranberry extract administer with meals Discontinued Reason: Patient no longer taking 425 mg PO BID 60 caps 5RF Patient Instructions: The patient had an opportunity to ask questions regarding treatment plan. The patient expressed understanding and agreement with the above treatment plan. The patient is aware they should contact our office by phone for worsening of their current condition or the appearance of new symptoms. Compliance is encouraged with any medications and followup testing that is ordered. It is a privilege to be allowed the opportunity to participate in the urologic care of your patient. If you have any questions or concerns regarding treatment for the above conditions please do not hesitate to contact me. The office telephone contact is [phone]. This note is constructed in part using voice recognition software. While every effort has been made to ensure accuracy tentering machine off bearer errors may have been included. Yours sincerely, Vinayak Vinson MD Scribe Plan - Not visible on output: Patient was informed and verbally consented to the use of an ambient scribe for clinic note documentation during this visit. Coding Level of Care Code Est Pt Level 3 (32043) Diagnoses Bladder wall thickening N32.89 OAB (overactive bladder) N32.81 Recurrent UTI N39.0 Chronic cystitis N30.20
--- OUTSIDE RECORDS SUMMARY | 2024-11-25 13:00 | XMS_ITS | Data Portability ---
Author Organization [employer] - [place] [facility], [facility] Medical [facility] Address [address] [place] [id number] Care Team Providers Care Tar Chaser Name Role Phone HIM CCA OTHER Assessment [...] has had no nose bleeding today. VSS. Advertising Sales Consultant on site reports no distress. Education provided on holding pressure but otherwise appropriate for ongoing outpatient management. [email or web address] Not available 10/30/2023 10:38:43 06/23/2024 06/23/2024 I provided real -time medical direction via phone for this encounter and was available for additional phone-based assistance as needed. I have reviewed and agree with the Assessment and Plan as documented by the Advertising Sales Consultant. Patient given the opportunity to ask questions. Our service contacted for an assessment of: Viral URI symptoms As per above, patient with approximately several days of viral URI symptoms. Denies fever or chills. Denies chest pain, shortness of breath, dyspnea on exertion. Positive nasal congestion and dry cough. Positive sick contacts. Per avionics manager on the scene, vital signs are stable and patient is afebrile. Minimal wheezing heard on exam. COVID and Flu are both negative. No increased work of breathing and no distress. Impression: Common cold and viral URI Plan: Continue with [id number] medications to control symptoms. Red flags discussed [...] or worsening serious symptoms, particularly fever chills [facility]4 Not available 06/23/2024 22:26:45 Plan of Treatment Reminders Order Date Submit Date Provider Last Modified By Organization Details Last Modified Time Details Appointments None recorded. Lab rapid flu (A+B) [address], [address] [place] [address] 22:26:10 rapid SARS CoV 2 Ag, QL [place], respiratory specimen [address], [address] 22:26:11 Referral None recorded. Procedures None recorded. [...] IA, respiratory specimen negati ve Not Available [address], [address] [place] [address] 06/23/2024 22:25:51 06/23/1906/23/2024 rapid flu (A+B) Flu negati ve Not Available [address], [address] 06/23/2024 22:25:49 Result Notes None recorded. Medical Equipment None Reported. Allergies Allergen ID Allergen Name Allergen Category Reaction Reaction Severity Criticality Documentation Date Start Date Code Code System Note Provider Name and Address Organization Details Recorded Time 98120 doxepin medicatio n Not available Not available Not available 06/23/2024 3638 RxNorm Not Available [facility] - production 10:44:35 61476 morphine medicatio n Not available Not available Not available 06/23/2024 7052 Rx[facility] Not Available [facility] 5 10:44:35 8387 trazodone medicatio n Not available Not available Not available 03/23/2024 70430 RxNorm Not Available [facility] - production 4 03:43:57 Medications Name Sig [...] Pulse oximetry Respiratory rate Heart rate Systolic And Diastolic Provider Name and Address Organization Details Last Updated DateTime 5 98.8 [degF] 96 % 96 % 16 /min 82 /min 122/60 mm[Hg] Not Available [facility] - production 5 22:24:15 Date Recorded Body weight Body temperature Respiratory rate Heart rate Oxygen saturation Oxygen saturation in Arterial blood by Pulse oximetry Systolic And Diastolic Provider Name and Address Organization Details Last Updated DateTime 4 80883.9 6 g 97.8 [degF] 16 /min 82 /min 96 % 96 % 164/72 mm[Hg] Not Available [facility] - production 4 10:34:16 Social History None recorded. Functional Status None recorded. Mental Status None recorded. Family History Nothing Reported. Medical History No medical history recorded. Gynecological HistoryNo gynecological history recorded. Obstetrics History GPAL:G 0 P 0 0 0 0 Past Encounters Encounter ID Performer Location Encounter Start Date Encounter Closed Date Diagnosis/Indication Diagnosis SNOMED-CT Code Diagnosis ICD10 Code Diagnosis Note [id number] Kenisha Shultz MD [facility] [address] [place] [phone] 10/30/2023 10:23:41 10/31/2023 20:59:38 Bleeding from nose 432833034 R04.0 [id number] Brianda Rogers MD [facility] [address] [place] [phone] 06/23/2024 22:24:13 06/23/2024 23:58:30 Common cold [id number] J00 Health Concerns Section Related Observation LastModified by Organization Detai ls LastModified Time None Recorded Concern Status LastModified by Organization Details LastModified Time None Recorded Advance Directives Directive None Recorded Payers Insurance Date Sequence Insurance Name Policy Number Policy Tovar Covered Member ID Tovar Member ID Guarantor Name 06/24/2024 1 [facility] - DOS ON OR AFTER 2022 - DUAL ELIGIBLE - HALF-WAY OPTIONS AND ONE CARE (MEDICARE REPLACEMENT/AD VANTAGE - HMO) Kenna Gan [id number] Kenna Gan Notes Date Note Type Note Provider Name and Address Organization Details Recorded Time 10/30/2023 text/html HPI: *Mbr requesting visit before 10:30am or after 5-6pm, please call ahead. Has PT coming to her house ~11:30am and ortho appt at 3pm* 73 y.o. Turkmen-speaking F c/o nosebleed from R nare, lasting [...] ................... ................... ................... ................... ................... ................... ........ Advertising Sales Consultant Note From Marlo Holloway: Pt sts [employer] called in due to minor nose bleed. [...] Pt education on signs indicating the ER. Advertising Sales Consultant Allergies: Trazodone ................... ................... ................... ................... ................... ................... ................... ........ Disposition: Fulfilled Kenisha Shultz MD [address] [facility],[address], [place], [address], [employer] 10/30/2023 19:39:30 06/23/2024 text/html CRC Nurse Triage Notes (Ruma Busby - RN): Patient Reports: History of asthma, increased use [...] s/s and seek emergency treatment if needed. Advertising Sales Consultant Organization Information for Mauro Nelson Oscar NAREN Business Legal Name: [employer]. Address: [address] [place] [id number], Coordinating Producer: Satnam Spivey MD [facility] No.: [id number] Advertising Sales Consultant POC Test Results from Mauro Nelson Rapid COVID antigen (15:45:11) COVID: - Rapid influenza antigen (15:45:13) Flu: - ................... ................... ................... ................... ................... ................... ................... ........ Advertising Sales Consultant Note From Mauro Nelson: Dispatch the call [...] ................... ................... ................... ................... ................... ................... ........ [facility] Consulted: Brianda Rogers ................... ................... ................... ................... ................... ................... ................... ........ Disposition: Fulfilled Brianda Rogers MD [address] [facility],[address], [place], [address], MARY - Online PrasadERLINDA ROMAN 06/23/2024 22:27:14 OBGyn Episode No OBEpisode recorded.
--- OUTSIDE RECORDS SUMMARY | 2024-11-25 13:01 | XMS_ITS | Patient Health Record ---
Author Organization [facility] Address [address] [place] [address] Care Team Providers Care Rubber Flap Tuber Machine Operator Name Role Phone Radhames Alston Unavailable [phone] Reason For Referral No Information Plan Of Treatment No Information
== END 2024-11-25 13:57 | disposition home or self-care (01) ==
LOC: HO.HUSH 12:56
PROVIDERS: PCP Internal Medicine; Visit Provider Urology
DX: R31.9 Hematuria, unspecified (principal); R30.0 Dysuria; R35.0 Frequency of micturition; R32 Unspecified urinary incontinence; N32.81 Overactive bladder; N39.0 Urinary tract infection, site not specified; N32.89 Other specified disorders of bladder; N30.20 Other chronic cystitis without hematuria
CPT/HCPCS: 99213

== ENCOUNTER → 2024-11-25 12:55 | Outpatient (BNVA) | payer OTHER, SELFPAY | PROVIDERS: PCP Internal Medicine; Visit Provider Urology | DX: N32.81 Overactive bladder (principal); N30.20 Other chronic cystitis without hematuria; N32.89 Other specified disorders of bladder | CPT/HCPCS: 81003; 99212 ==

== ENCOUNTER 2025-04-06 09:39 | Outpatient (AMB) | payer OTHER, SELFPAY ==
--- OUTSIDE RECORDS SUMMARY | 2016-01-18 23:00 | XMS_ITS | Encounter Summary ---
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 Technician Name Role Phone Unavailable Primary Care Provider Unavailabl e Encounter Details Date Type Department Care Team (Late st Contact Info) Description 01/19/2016 Hospital Encounter [facility] [address] [place] [address] Adria Courtney MD [address] [place] [id number] [email or web address] Social History Tobacco Use Types Packs/Day Years Used Date Smoking Tobacco: Never Smokeless Tobacco: Never Alcohol Use Standard Drinks/Week Comments No 0 (1 standard drink = 0.6 oz pur e alcohol) Education Answer Date Recorded Are you interested in more education? Not on humberto e 09/20/2022 Are you concerned about learning? Not on file 09/20/2022 No 09/20/2022 No 09/20/2022 Digital Access Answer Date Recorded No 10/19/2022 No 10/19/2022 No 10/19/2022 Reliable internet access at home? Not on file 10/19/2022 Device with a working camera? Not on file Intimate Partner Violence Answer Date R ecorded Are you denied basic needs s uch as food, clothing, or medical care? No 08/22/2023 In the past 12 months have y ou been in a relationship with a person who hurts, threatens, or tries to control you? No 08/22/2023 Are you denied basic needs s uch as food, clothing, or medical care? No 08/22/2023 In the past 12 months have y ou been in a relationship with a person who hurts, threatens, or tries to control you? No 08/22/2023 Comments Unknown Sex and Gender Information Value Date Recorded Sex Assigned at Female 12/07/2018 3:00 PM EDT Legal Sex Female 2:13 PM EST Gender Identity Female 12/07/2018 3:00 PM EDT Sexual Orientation Straight 12/07/2018 3: 00 PM EDT documented as of this encounter Functional Status * Calculated C-SSRS Risk Score (Lifetime/Recent) Answer Date of Assessment Author No Risk Indicated 08/22/2023 1:20 PM EDT Eleni Donaldson RN * [place]key Suicide Severity Rating Scale (Screener/Recent Self-Report) Question Answer Date of Assessment Author 1. Wish to be (Past 1 Month) No 024 1:20 PM EDT Eleni Donaldson RN 2. Non-Specific Active Suici sheila Thoughts (Past 1 Month) No 08/22/2023 1:20 PM EDT Norman Donaldson RN 6. Suicidal Behavior (Lifetime) No 4 1:20 PM EDT Elnei Donaldson RN documented as of this encounter Plan of Treatment Not on file documented as of this encounter Procedures Procedure Name Priority Date/Time Associated Diagnosis Comments FL NEUROVASCULAR OUTSIDE (NO INTERPRETATION) Routine 01/19/2016 12:00 AM EDT documented in this encounter Results * [place] Neurovascular Outside (No Interpretation) (01/19/2016 12:00 AM EDT) Narrative [facility] [place] [place] IMG INTERFACES - 08/07/2017 11:51 AM EDT This study is for PACS storage only and not for interpretation. us Adria Courtney MD IMG OUTSIDE IMAGING W/OUT INTERP RETATION Final Result [facility] [place] [place] IMG INTERFACES documented in this encounter Visit Diagnoses Not on filedocumented in this encounter Additional Health Concerns Infection Onset Date Last Indicated Resolved Time CoV-Exposed Comment:Recent close contact 02/22/2020 02/22/2020 03/07/2020 1:24 AM EDT CoV-Risk 08/22/2023 08/22/2023 09/02/2023 1:22 AM EDT documented as of this encounter Additional Source Comments The information contained in this document represents components of the legal health record. It is not the complete legal health record.[facility]
[2025-04-06 09:58] VITALS: BP 114/60; PULSE 68; RESP 18; TEMP 36.3; O2SAT 95; BMI 30.5
--- NOTE | 2025-04-06 09:58 | A.OFFPC_ITS ---
Vital Signs 04/06/25 09:58 Height 5 ft 1 in Weight 161 lb 8 oz BMI 30.5 BP 114/60 Blood Pressure Location Lt brachial Position Sitting Respiration 18 Pulse 68 Pulse Source Pulse Oximeter Temp 97.3 F Temp Source Temporal Artery Scan Pulse Oximetry (%) 95 Oxygen Delivery Method Room Air Intake Visit Reasons: bp,insomnia Trailer Body Assembler Required: No Accompanied by: Self / Same As Patient Allergies doxepin Allergy (Intermediate, Verified 04/06/25 10:32) loss of memory Latex, Natural Rubber (LATEX, NATURAL RUBBER) Allergy (Intermediate, Verified 04/06/25 10:32) ITCHING metronidazole ([place]) Allergy (Intermediate, Verified 04/06/25 10:32) mood change morphine Allergy (Intermediate, Verified 04/06/25 10:32) Chest Pain trazodone (TRAZODONE) Allergy (Intermediate, Verified 04/06/25 10:32) chest pain SEAFOOD Allergy (Intermediate, Uncoded 04/06/25 10:32) vomiting Medication List - Last Reconciled 04/06/25 by Melissa Porter MD acetaminophen 650 mg (2 x 325 mg) PO Q6H PRN 30 days albuterol sulfate 90 mcg/actuation 2 puffs inhalation Q6H PRN 30 days celecoxib 200 mg PO BID 30 days cromolyn 4% 1 drp ophthalmic (eye) DAILY PRN docusate sodium 100 mg PO BID 30 days estradiol (Vagifem) 10 mcg vaginal 2XW fluoxetine 20 mg PO QAM 90 days fluticasone propionate 110 mcg/actuation 2 puffs inhalation BID 30 days ketotifen fumarate 0.025%(0.035%) ([place]) 1 drp ophthalmic (eye) BID PRN 30 days lidocaine 5% 1 patch topical DAILY PRN lisinopril 5 mg PO DAILY 90 days melatonin 20 mg PO BEDTIME PRN omeprazole 20 mg PO DAILY 90 days prednisone 40 mg (2 x 20 mg) PO DAILY 5 days temazepam 7.5 mg PO BEDTIME PRN 30 days tramadol 50 mg PO BEDTIME PRN 30 days Tobacco use date assessed: 04/06/25 Fall risk assessment: No Falls in past year Last assessed Fall Risk: 04/06/25 Dental Screening Dental Screen Date: 04/06/25 Did you have a dental visit in the last 12 months?: Yes Did you have a dental problem in the last 6 months where you did not have access to dental care?: No Was dental information given to patient?: Patient has dentist HPI HPI Comments History of Present Illness Details The patient is a 75-year-old female presenting for medication review and follow-up for left ear discomfort. The patient reports intermittent discomfort in her left ear, describing a sensation of hearing her heartbeat. This ear was surgically treated many years ago with the placement of a drainage tube. She denies being deaf in the affected ear. She will call her insurance to let me know where to refer her in terms of ENT providers. She does not want to goal to the last ENT which last visit was March of last year. Her medications are being reviewed, which include trazodone, doxepin, fluoxetine for depression with anxiety, lisinopril, melatonin for sleep, omeprazole for acidity, docusate as needed for constipation, and Vagifem vaginal cream. She states she does not use Celebrex and has not previously used temazepam. Regarding preventative screening, the patient declines to have a mammogram. [facility] Medical History (Updated 04/06/25 @ 12:32 by Melissa Porter MD) Arthritis of left glenohumeral joint Herniated intervertebral disc of lumbar spine Back pain Anemia Thyroid cyst Kidney infection Fatty liver Sleep apnea Lung cyst Asthma Cerebral arterial aneurysm Palpitations HTN (hypertension) Hematuria IBS (irritable bowel syndrome) Mild recurrent major depression Dysuria Blurry vision Overweight Injury of left rotator cuff Left hand pain Left shoulder pain Fibromyalgia Knee pain Depression Essential hypertension GERD (gastroesophageal reflux disease) Mild asthma Surgical History History of ear surgery History of brain surgery History of surgery on lower extremity History of colonoscopy History of foot surgery History of cataract surgery History of repair of rotator cuff History of removal of skin mole History of cholecystectomy History of hysterectomy Family History Father Cardiac failure Mother Pulmonary embolism Family/Other FH: mental illness Sister Chronic mental illness Brother Glaucoma Social History Household Members: Family Housing: House Are you a primary care director to a significant other at home: No Do you presently have visiting nurse or other home services: No Alcohol intake: never Patient Tobacco Use Status: Never used Tobacco e-Cigarette/Vaping Use: Never Used Second Hand Smoke Exposure: No service: No Current occupational status: retired and disabled Current occupation: right handed/ disabled Cognitive needs: Yes (walker) Hearing needs: No Vision needs: Yes (glasses) Questionnaire PHQ-9 Over the last 2 weeks, how often have you been bothered by any of the following problems? 1. Little interest or pleasure in doing things: not at all 2. Feeling down, depressed, or hopeless: not at all 3. Trouble falling or staying asleep, or sleeping too much: more than half the days 4. Feeling tired or having little energy: several days 5. Poor appetite or overeating: more than half the days 6. Feeling bad about yourself - or that you are a failure or have let yourself or your family down: more than half the days 7. Trouble concentrating on things, such as reading the newspaper or watching television: several days 8. Moving or speaking so slowly that other people could have noticed. Or the opposite - being so fidgety or restless that you have been moving around a lot more than usual: not at all 9. Thoughts that you would be better off or of hurting yourself in some way: not at all Total score: 8 Depression Screening Interpretation: Positive Depression Screening Follow-up: Existing condition, In treatment and Follow-up Visit Requested Depression Screening Done: Yes 25767 - PHQ-9 Billing: Yes Source: Developed by Drs. Radhames Hodges, Tonia Walsh, Jhoan Torrez and colleagues, with an educational ketan from [facility]. Thrive Questionnaire Date Thrive assessed: 09/30/24 I am a: Patient What is your living situation today?: I choose not to answer this question Within the past 12 months, did the food you bought not last and you didn't have the money to get more?: Sometimes True Within the past 12 months, did you worry whether your food would run out before you got money to buy more?: Sometimes True Do you have trouble paying for medicines?: No Do you have trouble getting transportation to medical appointments?: No Do you have trouble paying your heating and electricity bill?: No Do you have trouble taking care of your child, family member or friend?: No Do you have trouble with day-to-day activities such as bathing, preparing meals, shopping, managing finances, etc.?: Yes Are you currently unemployed and looking for a job?: I choose not to answer this question Are you interested in more education?: Yes Please select the resources that you would like help with: Utilities THRIVE Score: 2 AUDIT C Alcohol Use Questionnaire (AUDIT-C) 1. How often do you have a drink containing alcohol?: Never 3. How often do you have six or more drinks on one occasion?: Never Total Score: 0 Score Reviewed/Action Taken: No GÓMEZ-7 AMB Questionnaire GÓMEZ-7 Date GÓMEZ - 7 assessed: 09/30/24 Feeling nervous, anxious, or on edge: 0 = Not at all Not being able to stop or control worryin = Not at all Worrying too much about different things: 0 = Not at all Trouble relaxin = Not at all Being so restless that it is hard to sit still: 0 = Not at all Becoming easily annoyed or irritable: 0 = Not at all Feeling afraid as if something awful might happen: 0 = Not at all Total GÓMEZ-7 score (0-4 normal; 5-9 mild; 10-14 moderate; 15-21 severe): 0 Source: Developed by Drs. Radhames Hodges, Tonia Walsh, Jhoan Torrez and colleagues, with an educational ketan from [facility]. GÓMEZ-7 Assessment Billing GÓMEZ-7 Assessment Tool: GÓMEZ-7 Assessment 02885 Review of Systems Const All systems reviewed & are unremarkable except as noted in HPI and below Card Denies chest pain at rest, Denies chest pain with activity, Denies edema, Denies irregular heart rhythm, Denies claudication, Denies dyspnea, Denies dyspnea on exertion, Denies orthopnea, Denies paroxysmal nocturnal dyspnea and Denies slow heart rate Resp Denies cough, Denies dyspnea and Denies dyspnea on exertion GI Denies abdominal pain, Denies change in bowel habits, Denies excessive flatus, Denies nausea and Denies vomiting Physical exam (Primary Care) Vital Signs: Last Vital Signs Temp 97.3 F 04/06/25 09:58 Pulse 68 04/06/25 09:58 Resp 18 04/06/25 09:58 BP 114/60 04/06/25 09:58 Pulse Ox 95 04/06/25 09:58 Oxygen Delivery Method Room Air 04/06/25 09:58 BMI result Body Mass Index 30.5 BMI Assessment/Plan discussion: High BMI High, discussed plan: lifestyle, weight reduction, dietary and physical activity Tobacco/Smoking Status: Tobacco use Status Tobacco use date assessed 04/06/25 04/06/25 10:01 Patient Tobacco Use Status Never used Tobacco 04/06/25 10:01 e-Cigarette/Vaping Use Never Used 04/06/25 10:01 PHQ-9: PHQ-9 Score PHQ-9: Total score 8 04/06/25 10:40 Depression Screening Interpretation: Positive Depression Screening Follow-up: Existing condition, In treatment and Follow-up Visit Requested Thrive Assessment: Date of Thrive Assessment Date Thrive assessed 09/30/24 04/06/25 10:01 Resp Effort & Inspection: normal respiratory effort Auscultation: clear to auscultation bilaterally Cardio Jugular venous distension: no JVD Rate: regular rate Rhythm: regular rhythm Heart sounds: S1 normal heart sound present and S2 normal heart sound present Extrem General: Yes full ROM Coding Level of Care Code Est Pt Level 4 (21500) Complex EM visit Add On G2211 Diagnoses Mild recurrent major depression F33.0 Essential hypertension I10 Chronic idiopathic constipation K59.04 Ear discomfort H92.09 Additional Codes GÓMEZ-7 Assessment Billing - GÓMEZ-7 Assessment Tool: GÓMEZ-7 Assessment 74176 ([id number]) PHQ-9 - 93099 - PHQ-9 Billing: Yes ([id number]) Time Spent (min) 23 Assessment & Plan Assessment & Plan (1) Mild recurrent major depression: Code(s): F33.0 - Major depressive disorder, recurrent, mild Category: Medical (2) Essential hypertension: Code(s): I10 - Essential (primary) hypertension Category: Medical (3) Chronic idiopathic constipation: Code(s): K59.04 - Chronic idiopathic constipation Category: Medical (4) Ear discomfort: Code(s): H92.09 - Otalgia, unspecified ear Category: Medical Plan Plan 1. Left Ear Discomfort With Pulsatile Tinnitus The patient reports experiencing pulsatile tinnitus in her left ear, which has a history of surgery. She was dissatisfied with a previous ENT specialist seen in March of last year. A referral to a new ENT specialist will be provided for further evaluation. The patient has been advised to call her medical plan to find a covered provider. 2. Mild major depression Continue fluoxetine. 3. Essential hypertension Continue lisinopril. Blood pressure goal is equal or less than 130/80. 4. Chronic idiopathic constipation Continue docusate as needed. Advised high-fiber diet. Orders: Orders Vitamin D 25-OH Total Today E55.9 - Vitamin D deficiency, unspecified Lipid Panel Today E78.5 - Hyperlipidemia, unspecified Comprehensive [place]. Panel Fast Today G47.00 - Insomnia, unspecified Medications: Discontinued celecoxib Discontinued Reason: Patient Completed Course 200 mg PO BID 30 days 60 caps 0RF
--- OUTSIDE RECORDS SUMMARY | 2025-04-06 10:55 | XMS_ITS | Encounter Summary ---
Author Organization [facility] Address [address] [facility] [address] [place] [address] Phone Care Team Providers Care Wheel Adjuster Name Role Phone Name, Brian FLORES Primary Care Provider [phone] Melissa Ruiz MD Primary Care Provid er Encounter Details Date Type Department Care Team (Late st Contact Info) Description 08/07/2017 Procedure Pass [facility] [address] [place] [address] Social History Tobacco Use Types Packs/Day Years Used Date Smoking Tobacco: Never Assessed Comments Unknown Sex and Gender Information Value Date Recorded Sex Assigned at Female 12/07/2018 3:00 PM EDT Legal Sex Female 2:13 PM EST Gender Identity Female 12/07/2018 3:00 PM EDT Sexual Orientation Straight 12/07/2018 3: 00 PM EDT documented as of this encounter Plan of Treatment Not on file documented as of this encounter Visit Diagnoses Not on filedocumented in this encounter Additional Health Concerns Infection Onset Date Last Indicated Resolved Time CoV-Exposed Comment:Recent close contact 02/22/2020 02/22/2020 03/07/2020 1:24 AM EDT CoV-Risk 08/22/2023 08/22/2023 09/02/2023 1:22 AM EDT documented as of this encounter Care Teams Wheel Adjuster Relationship Specialty Start Date End Date Name, MD Brian [address] [place] [id number] PCP - General Geriatric Psychiatry 07/29/17 08/08/19 Melissa Ruiz MD [address] [place] [address] PCP - General Internal Medicine 08/09/19 documented as of this encounter Additional Source Comments The information contained in this document represents components of the legal health record. It is not the complete legal health record.[facility]
--- OUTSIDE RECORDS SUMMARY | 2025-04-06 10:55 | XMS_ITS | Encounter Summary ---
Author Organization [facility] Address [address] [place] [address] Phone Care Team Providers Care Life Sciences Teacher Name Role Phone Name, Brian FLORES Primary Care Provider [phone] Melissa Ruiz MD Primary Care Provid er Encounter Details Date Type Department Care Team (Late st Contact Info) Description 09/01/2017 Prep for [place] [facility] [address] [place] [address], [address] Floor, [address] [place] [address] Caitlin Hay, [address] [address] [email or web address] Social History Tobacco Use Types Packs/Day Years Used Date Smoking Tobacco: Never Smokeless Tobacco: Never Alcohol Use Standard Drinks/Week Comments No 0 (1 standard drink = 0.6 oz pur e alcohol) Comments Unknown Sex and Gender Information Value [...] documented as of this encounter Care Teams Life Sciences Teacher Relationship Specialty Start Date End Date Name, MD Brian [address] [place] [address] PCP - General Geriatric Psychiatry 07/29/17 08/08/19 Melissa Ruiz MD [address] [place] [address] PCP - General Internal Medicine 08/09/19 documented as of this encounter Additional Source Comments The information contained in this document represents components of the legal health record. It is not the complete legal health record.[facility]
--- OUTSIDE RECORDS SUMMARY | 2025-04-06 10:56 | XMS_ITS | Clinical Summary ---
Author Organization [facility] Address [address] [facility] [address] [place] [address] Phone Care Team Providers Care Security Project Manager Name Role Phone Melissa Ruiz MD Primary Care Provid er Allergies Active Allergy Reactions Criticality Noted Date Comments Diphenhydramine Hcl Anxiety Low 08/29/2017 Doxepin Mental Status Change 09/01/2017 Iodinated Contrast Media Rash Low 10/30/2017 Mirtazapine 08/11/2017 Morphine 02/18/2020 Shellfish Containing Products Nausea and/or Vomiting 08/29/2017 Weakness and weird sensation inside body Trazodone-Dietary Supp No.8 08/11/2017 Trazodone 09/01/2017 Medications montelukast (SINGULAIR) 10 mg tablet Take 10 mg by mouth nightly. Active temazepam (RESTORIL) 15 mg capsule Take 15 mg by mouth nightly as needed for sleep. Active nitroglycerin (NITROSTAT) 0.[address] 0.4 mg under the tongue every 5 (five) minutes as needed for chest pain. Active aspirin 81 MG EC tablet Take 81 mg by mouth daily. Active FLUoxetine (PROZAC) 20 MG capsule Take 20 mg by mouth daily. Active lisinopril (PRINIVIL,ZESTR IL) 5 MG tablet Take 5 mg by mouth daily. Active traMADol (ULTRAM) 50 mg tablet Take 50 mg by mouth every 6 (six) hours as needed for pain (specific location in comments). Active senna (SENOKOT) 8.6 mg tablet Take 1 tablet by mouth daily. Active raNITIdine (ZANTAC) 150 MG tablet Take 150 mg by mouth 2 (two) times a day. Active fluticasone (FLOVENT HFA) 110 mcg/actuation inhaler Inhale 1 puff into the lungs 2 (two) times a day. Active albuterol (PROAIR HFA) 90 mcg/actuation inhaler Inhale 2 puffs into the lungs every 6 (six) hours as needed for wheezing. Active omeprazole (PRILOSEC) 20 mg TbEC Take 20 mg by mouth 2 (two) times a day. Active naproxen sodium (ALEVE) 220 MG tablet Take 220 mg by mouth every 12 (twelve) hours as needed for pain (specific location in comments). Active predniSONE (DELTASONE) 50 MG tablet Take one on 09/16/19 at 1:30AM, take one tablet on 09/16/19 at 7:30AM, and take one tablet on 09/16/19 at 1:30PM. 3 tablet 09/16/2019 Active hydrOXYzine (VISTARIL) 50 MG capsule Take one capsule on 09/16/19 at 1:30PM. 1 capsule 09/16/2019 Active clopidogrel (PLAVIX) 75 mg tablet Take 75 mg by mouth daily. Active Family History Medical History Relation Comments Subarachnoid hemorrhage Sister 1 Cerebral aneurysm Sister 2 Relation Status Comments Sister 1 Sister 2 Social History Tobacco Use Types Packs/Day Years [...] ecorded Are you denied basic needs s [facility] as food, clothing, or medical care? No [...] Orientation Straight 12/07/2018 3: 00 PM EDT Last Filed Vital Signs Vital Sign Reading Time Taken Comments Blood Pressure 122/74 08/22/2023 4:15 PM EDT Pulse 64 08/22/2023 4:15 PM EDT Temperature 36.7 C (98 F) 08/22/2023 4:15 PM EDT Respiratory Rate 20 08/22/2023 4:15 PM EDT Oxygen Saturation 95% 08/22/2023 4:15 PM EDT Inhaled Oxygen Concentration - - Weight 72.6 kg (160 lb) 08/22/2023 1:18 PM EDT Height 154.9 cm (5' 1 ) 08/22/2023 1:18 PM EDT Body Mass Index 30.23 08/22/2023 1:18 PM EDT Plan of Treatment Health Maintenance Due Date Last Done Comments LIPID PANEL 1952 DEPRESSION SCREENING 1964 HEPATITIS C SCREENING 1970 MAMMOGRAM 1992 COLOGUARD 1997 COLONOSCOPY 1997 COLORECTAL CANCER SCREENING 1997 FIT TEST 1997 FOBT 1997 SIGMOIDOSCOPY 1997 VIRTUAL COLONOSCOPY 1997 ZOSTER VACCINES (1 of 2) 2002 OSTEOPOROSIS SCREENING INITIAL (ONE-TIME) 2017 PNEUMOCOCCAL VACCINES (50+ years) (2 of 2 - PPSV23, PCV20, or PCV21) 01/15/2018 11/20/2017 CREATININE LEVEL 08/21/2024 08/22/2023, 09/2019, 02/21/2020, Additional history exists POTASSIUM LEVEL 08/21/2024 08/22/2023, 10/0 09/2019, 02/21/2020, Additional history exists INFLUENZA VACCINE (#1) 2024 9, 02/20/2018, 03/20/2017 COVID-19 VACCINE (3 - season) 2025 08/22/2020, 07/25/2020 RSV VACCINE (1 - 1-dose 75+ series) 2027 Adult Td,Tdap Booster 04/19/2029 04/19/2019, 018 SMOKING STATUS SCREENING (Once After 26 Yrs) Completed 06/07/2020 HEPATITIS A VACCINES Aged Out No long er eligible based on patient's age to complete this topic HIB VACCINES Aged Out No longer eligi ble based on patient's age to complete this topic IPV VACCINES Aged Out No longer eligi ble based on patient's age to complete this topic MENINGOCOCCAL VACCINES (ACWY) Aged Out No longer eligible based on patient's age to complete this topic MENINGOCOCCAL VACCINES (B) Aged Out N o longer eligible based on patient's age to complete this topic Medical Devices Implanted Type Area Administrative Professional Device Identifier Shelf Expiration Date Model / Serial / Lot Device Vascular 5fr To 6fr Closure Femoral Artery Intravascular Clip Starclose Bx/10ea - Must Order In Multiples Of 10ea - [id number] Implanted:Qty: 1 on 09/02/2017 by Adria Courtney MD at [employer] Closure Device Right: Femoral Artery [employer] 06/25/2019 [id number] / / [id number] Hardware In Shoulder Hardware In Ankle Procedures Procedure Name Priority Date/Time Associated Diagnosis Comments BASIC METABOLIC PANEL (BMP) STAT 08/22/2023 1:52 PM EDT from Last 3 Months or Most Recently Relevant to Health Maintenance Results * (ABNORMAL) Basic metabolic panel (08/22/2023 1:52 PM EDT) SODIUM 140 133 - 146 mmol/L [facility] CHLORIDE 104 96 - 108 mmol/L [facility] POTASSIUM 4.3 3.3 - 5.1 mmol/L [facility] CO2 28 21 - 35 mmol/L [facility] BUN 17 6 - 19 mg/dL [facility] CREATININE 1.00 0.5 - 1.5 mg/dL [facility] GLUCOSE 102(H) 70 - 99 mg/dL [facility] CALCIUM 9.5 8.4 - 10.3 mg/dL [facility] EGFR 60 >59 mL/min/1.7 3m2 [facility] Comment:Estimated glomerular filtration rate calculated using the CKD-EPI refit equation. ANION GAP 12 10 - 20 mmol/L [facility] Blood 08/22/2023 1:52 PM EDT 08/22/2023 2:05 PM EDT us Rudy Wilkinson MD LAB BLOOD BKR ORDERABLES Final Result [facility] [address] [place], [place] [id number] from Last 3 Months or Most Recently Relevant to Health Maintenance Insurance MEDICARE REPLACEMENT MARCELA LOPEZ [id number] [facility] MEDICARE REPLACEMENT [facility] MEDICARE REPLACEMENT [facility] MEDICARE REPLACEMENT [facility] MEDICARE REPLACEMENT MEDICARE REPLACEMENT [facility] MEDICARE REPLACEMENT [facility] MEDICARE REPLACEMENT [facility] MEDICARE REPLACEMENT Advance Directives For more information, please contact: [phone] (9AM - 5PM [facility], Friday-Friday) Documents on File Type Date Recorded Patient Investigative Writer Expl anation Healthcare Proxy 09/03/2017 1:01 PM Care Teams Security Project Manager Relationship Specialty Start Date End Date Melissa Ruiz MD [address] [place] [address] PCP - General Internal Medicine 08/09/19 Additional Source Comments The information contained in this document represents components of the legal health record. It is not the complete legal health record.[facility]
--- OUTSIDE RECORDS SUMMARY | 2025-04-06 10:56 | XMS_ITS | Encounter Summary ---
Author Organization [facility] Address [address] [place] [address] Phone Care Team Providers Care Purchasing Clerk Name Role Phone Melissa Ruiz MD Primary Care Provid er Encounter Details Date Type Department Care Team (Late st Contact Info) Description 02/28/2020 Transcribe Orders [facility] Specimen Processing [address] [place] [address] Cem Castellano MD [address] [facility], [address] [place] [address] [email or web address] Essential hypertension, malignant (Primary Dx); Scapulohumeral fibrositis; Gastroesophageal reflux disease, unspecified whether esophagitis present Social History Tobacco Use Types Packs/Day Years [...] on file documented as of this encounter Results * (ABNORMAL) CBC (02/28/2020 5:30 AM EDT) WBC 5.19 4.00 - 11.00 K/uL [facility] Comment:Note Reference Range updates to all CBC and Differential results. RBC 3.22(L) 3.72 - 5.30 M/uL [facility] HGB 9.7(L) 11.4 - 15.9 g/dL [facility] Comment:Note updated Referen ce Ranges for all CBC and Differential results. HCT 31.8(L) 34.2 - 46.8 % [facility] PLT 430 140 - 430 K/uL [facility] MCV 98.8(H) 78.0 - 97.0 fL [facility] MCH 30.1 25.0 - 33.0 pg [facility] MCHC 30.5(L) 32.0 - 36.0 g/dL [facility] RDW 16.4(H) 11.0 - 16.0 % [facility] MPV 10.0 8.4 - 12.8 fl [facility] NRBC 0.00 0 /100 WBCs [facility] ABSOLUTE NRBC 0.00 0 K/uL [facility] Blood 02/28/2020 5:30 AM EDT 02/28/2020 12:09 PM EDT us Cem Castellano MD LAB BLOOD BKR ORDERABLES Final R esult [address] [address] * (ABNORMAL) Basic metabolic panel (02/28/2020 5:30 AM EDT) SODIUM 141 133 - 146 mmol/L [facility] CHLORIDE 104 96 - 108 mmol/L [facility] POTASSIUM 4.8 3.3 - 5.1 mmol/L [facility] CO2 28 21 - 35 mmol/L [facility] BUN 20(H) 6 - 19 mg/dL [facility] CREATININE 0.70 0.5 - 1.5 mg/dL [facility] GLUCOSE 82 70 - 99 mg/dL [facility] CALCIUM 9.6 8.4 - 10.3 mg/dL [facility] EGFR 90 >59 mL/min/1.7 3m2 [facility] Comment:Estimated glomerular filtration rate calculated using the CKD-EPI equation. ANION GAP 14 10 - 20 mmol/L [facility] Blood 02/28/2020 5:30 AM EDT 02/28/2020 12:09 PM EDT us Cem Castellano MD LAB BLOOD BKR ORDERABLES Final R esult [facility] [address] [place] [address] documented in this encounter Visit Diagnoses Diagnosis Essential hypertension, malignant- Primary Scapulohumeral fibrositis Other affections of shoulder region, not elsewhere classified Gastroesophageal reflux disease, unspecified whether esophagitis present documented in this encounter Additional Health Concerns Infection Onset Date Last Indicated Resolved Time CoV-Exposed Comment:Recent close contact 02/22/2020 02/22/2020 03/07/2020 1:24 AM EDT CoV-Risk 08/22/2023 08/22/2023 09/02/2023 1:22 AM EDT documented as of this encounter Care Teams Purchasing Clerk Relationship Specialty Start Date End Date Melissa Ruiz MD [address] [place] [address] PCP - General Internal Medicine 08/09/19 documented as of this encounter Additional Source Comments The information contained in this document represents components of the legal health record. It is not the complete legal health record.[facility]
--- OUTSIDE RECORDS SUMMARY | 2025-04-06 10:56 | XMS_ITS | Patient Health Record ---
Author Organization [facility] Address [address] [place] [address] Care Team Providers Care Change Consultant Name Role Phone Radhames Alston Unavailable [phone] Reason For Referral No Information Plan Of Treatment No Information
--- OUTSIDE RECORDS SUMMARY | 2025-04-06 10:56 | XMS_ITS | Encounter Summary ---
Author Organization [facility] Address [address] [place] [address] Phone Care Team Providers Care Bear Keeper Name Role Phone Name, Brian FLORES Primary Care Provider [phone] Melissa Ruiz MD Primary Care Provid er Encounter Details Date Type Department Care Team (Late st Contact Info) Description 10/30/2017 Procedure Pass [facility] [place] [address] [facility] [address], [address] [place] [address] Social History Tobacco Use Types Packs/Day Years [...] documented as of this encounter Care Teams Bear Keeper Relationship Specialty Start Date End Date Name, MD Brian [address] [place] [id number] PCP - General Geriatric Psychiatry 07/29/17 08/08/19 Melissa Ruiz MD [address] [place] [address] PCP - General Internal Medicine 08/09/19 documented as of this encounter Additional Source Comments The information contained in this document represents components of the legal health record. It is not the complete legal health record.[facility]
--- OUTSIDE RECORDS SUMMARY | 2025-04-06 10:56 | XMS_ITS | Encounter Summary ---
Author Organization [facility] Address [address] [place] [address] [place] [address] Phone Care Team Providers Care Sales Consultant Name Role Phone Name, Brian FLORES Primary Care Provider [phone] Melissa Ruiz MD Primary Care Provid er Encounter Details Date Type Department Care Team (Late st Contact Info) Description 09/02/2017 Procedure Pass [facility] [address] [place] [phone] Social History Tobacco Use Types Packs/Day Years [...] documented as of this encounter Care Teams Sales Consultant Relationship Specialty Start Date End Date Name, MD Brian [address] [place] [id number] PCP - General Geriatric Psychiatry 07/29/17 08/08/19 Melissa Ruiz MD [address] [place] [address] PCP - General Internal Medicine 08/09/19 documented as of this encounter Additional Source Comments The information contained in this document represents components of the legal health record. It is not the complete legal health record.[facility]
--- OUTSIDE RECORDS SUMMARY | 2025-04-06 10:56 | XMS_ITS | Encounter Summary ---
Author Organization [facility] Address [address] [place] [address] [place] [address] Phone Care Team Providers Care Batchmaker Name Role Phone Name, Brian FLORES Primary Care Provider [phone] Melissa Ruiz MD Primary Care Provid er Encounter Details Date Type Department Care Team (Late st Contact Info) Description 09/02/2017 Procedure Pass [facility] - Peripoerative Interventional Radiology [address] [place] [address], [address] [place] [address] Social History Tobacco Use Types Packs/Day Years [...] documented as of this encounter Care Teams Batchmaker Relationship Specialty Start Date End Date Name, MD Brian [address] [place] [id number] PCP - General Geriatric Psychiatry 07/29/17 08/08/19 Melissa Ruiz MD [address] [place] [address] PCP - General Internal Medicine 08/09/19 documented as of this encounter Additional Source Comments The information contained in this document represents components of the legal health record. It is not the complete legal health record.[facility]
== END 2025-04-06 10:49 | disposition home or self-care (01) ==
LOC: HO.HMCH 09:39
PROVIDERS: PCP Internal Medicine; Visit Provider Internal Medicine
DX: F33.0 Major depressive disorder, recurrent, mild (principal); I10 Essential (primary) hypertension; K59.04 Chronic idiopathic constipation; H92.09 Otalgia, unspecified ear

== ENCOUNTER → 2025-04-06 09:39 | Outpatient (BNVA) | payer OTHER, SELFPAY | PROVIDERS: PCP Internal Medicine; Visit Provider Internal Medicine | DX: F33.0 Major depressive disorder, recurrent, mild (principal); I10 Essential (primary) hypertension; K59.04 Chronic idiopathic constipation; H92.02 Otalgia, left ear; E55.9 Vitamin D deficiency, unspecified; E78.5 Hyperlipidemia, unspecified; G47.00 Insomnia, unspecified | CPT/HCPCS: 96127; 99212 ==

== ENCOUNTER 2025-04-12 08:43 | Outpatient (REF) | payer OTHER, SELFPAY ==
[2025-04-12 10:23] LABS: Alanine Aminotransferase 22 U/L (0-31); Albumin Level 4.2 g/dL (3.5-5.0); Alkaline Phosphatase 72 U/L (39-117); Anion Gap 10 (12-20); Aspartate Amino Transferase 27 U/L (5-31); Blood Urea Nitrogen 21 mg/dL (9-16); Calcium 9.0 mg/dL (8.4-10.2); Carbon Dioxide 28 mmol/L (22-29); Chloride 107 mmol/L (96-108); Cholesterol 165 mg/dL (<200); Estimated Glomerular Filt Rate > 60; HDL Cholesterol 37 mg/dL (>40); Potassium 3.9 mmol/L (3.3-5.1); Sodium 141 mmol/L (135-145); Total Protein 6.9 g/dL (6.5-8.0); Triglycerides 173 mg/dL (<150)
== END 2025-04-12 08:44 | disposition home or self-care (01) ==
LOC: HO.LAB 08:43
PROVIDERS: PCP Internal Medicine; Visit Provider Internal Medicine
DX: Z00.00 Encounter for general adult medical examination without abnormal findings (principal); E78.5 Hyperlipidemia, unspecified; E55.9 Vitamin D deficiency, unspecified
CPT/HCPCS: 36415; 80053; 80061; 82306

== ENCOUNTER 2025-05-25 11:54 | Emergency (ER) | payer OTHER, SELFPAY ==
--- OUTSIDE RECORDS SUMMARY | 2016-01-18 23:00 | XMS_ITS | Encounter Summary ---
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 Name Role Phone Unavailable Primary Care Provider Unavailabl e Encounter Details Date Type Department Care Team (Late st Contact Info) Description 01/19/2016 Hospital Encounter [facility] [address] [place] [address] Adria Courtney MD [address] [place] [id number] [email or web address] Social History Tobacco Use Types Packs/Day Years [...] PM EDT documented as of this encounter Plan of Treatment Not on file documented as of this encounter Procedures Procedure Name Priority Date/Time Associated Diagnosis Comments FL NEUROVASCULAR OUTSIDE (NO INTERPRETATION) Routine 01/19/2016 12:00 AM EDT documented in this encounter Results * [place] Neurovascular Outside (No Interpretation) (01/19/2016 12:00 AM EDT) Narrative [facility] [place] [facility] INTER[facility]AC[facility] - 08/07/2017 11:51 AM EDT This study is for PACS storage only and not for interpretation. us Adria Courtney MD IMG OUTSIDE IMAGING W/OUT INTERP RETATION Final Result [facility] [place] [facility] documented in this encounter Visit [...] It is not the complete legal health record.[facility]
[2025-05-25 12:14] VITALS: BP 137/64; PULSE 71; RESP 16; O2SAT 96; BMI 30.3
--- NOTE | 2025-05-25 12:16 | ED_ITS ---
HPI - Wound/Laceration General Chief Complaint: Wound/Laceration Stated Complaint: Finger lac Related Data Home Medications ?Medication ?Instructions ?Recorded ?Confirmed melatonin 10 mg disintegrating 20 mg PO BEDTIME PRN In somnia 01/20/23 04/06/25 tablet cromolyn 4 % eye drops 1 drp ophthalmic (eye) DAILY PRN 10/07/23 04/06/25 itchy eye Previous Rx's ?Medication ?Instructions ?Recorded ketotifen fumarate 0.025 % (0.035 1 drp ophthalmic (ey e) BID PRN 12/12/22 %) eye drops (Alaway) allergy symptoms 30 days #5 mL acetaminophen 325 mg tablet 650 mg (2 x 325 mg) PO Q6H PRN 10/14/23 Pain, Mild (Pain Scale 1-3) 30 days #240 tabs docusate sodium 100 mg capsule 100 mg PO BID 30 days # 60 caps 10/14/23 albuterol sulfate 90 mcg/actuation 2 puff inhalation Q 6H PRN 09/25/24 aerosol inhaler bronchospasm 30 days #6.7 gr ams temazepam 7.5 mg capsule 7.5 mg PO BEDTIME PRN sleep 30 09/30/24 days #30 caps lidocaine 5 % topical patch 1 patch topical DAILY PRN pain #15 11/17/24 ea prednisone 20 mg tablet 40 mg (2 x 20 mg) PO DAILY 5 days 11/17/24 #10 tabs estradiol 10 mcg vaginal tablet 10 mcg vaginal 2XW #24 tabs 11/25/24 (Vagifem) lisinopril 5 mg tablet 5 mg PO DAILY 90 days #90 ta bs 01/25/25 omeprazole 20 mg capsule,delayed 20 mg PO DAILY 90 day s #90 caps 01/25/25 release fluoxetine 20 mg capsule 20 mg PO QAM 90 days #90 cap s 05/08/25 fluticasone propionate 110 2 puff inhalation BID 30 da ys #12 05/21/25 mcg/actuation HFA aerosol inhaler ea naproxen 500 mg tablet 500 mg PO BID PRN pain 30 da ys #60 05/24/25 tabs tramadol 50 mg tablet 50 mg PO BEDTIME PRN pain 30 days 06/05/25 #30 tabs Allergies Allergy/AdvReac Type Severity Reaction Status Date / Time doxepin Allergy Intermediate loss of Verified 05/25/25 12:16 memory Latex, Natural Rubber Allergy Intermediate ITCHING Verified 05/25/25 12:16 (LATEX, NATURAL RUBBER) metronidazole (Rosadan) Allergy Intermediate mood change Verified 05/25/25 12:16 morphine Allergy Intermediate Chest Pain Verified 05/25/25 12:16 trazodone (TRAZODONE) Allergy Intermediate chest pain Verified 05/25/25 12:16 SEAFOOD Allergy Intermediate vomiting Uncoded 04/06/25 10:32 PMFSH Past Medical History Medical History Arthritis of left glenohumeral joint Herniated intervertebral disc of lumbar spine Back pain Anemia Thyroid cyst Kidney infection Fatty liver Sleep apnea Lung cyst Asthma Cerebral arterial aneurysm Palpitations HTN (hypertension) Hematuria IBS (irritable bowel syndrome) Mild recurrent major depression Dysuria Blurry vision Overweight Injury of left rotator cuff Left hand pain Left shoulder pain Fibromyalgia Knee pain Depression Essential hypertension GERD (gastroesophageal reflux disease) Mild asthma Surgical History History of ear surgery History of brain surgery History of surgery on lower extremity History of colonoscopy History of foot surgery History of cataract surgery History of repair of rotator cuff History of removal of skin mole History of cholecystectomy History of hysterectomy Family History Family History Father Cardiac failure Mother Pulmonary embolism Family/Other FH: mental illness Sister Chronic mental illness Brother Glaucoma Social History Social History Household Members: Family Housing: House Are you a primary manager urgent care to a significant other at home: No Do you presently have visiting nurse or other home services: No Alcohol intake: never Patient Tobacco Use Status: Never used Tobacco e-Cigarette/Vaping Use: Never Used Second Hand Smoke Exposure: No service: No Current occupational status: retired and disabled Current occupation: right handed/ disabled Cognitive needs: Yes (walker) Hearing needs: No Vision needs: Yes (glasses) Physical Exam Vital Signs: Vital Signs: Last Vital Signs Pulse 71 05/25/25 12:14 Resp 16 05/25/25 12:14 BP 137/64 05/25/25 12:14 Pulse Ox 96 05/25/25 12:14 O2 Del Method Room Air 05/25/25 12:14 BMI result Body Mass Index 30.3 Course Course Course Narrative: This is a Rapid Medical Exam performed in triage by Justa Mcdermott PA-C. Full HPI, ROS and PE to be performed by primary ED provider. 75-year-old female with a past medical history IBS, HTN, asthma, sleep apnea, GERD presenting to the ED c/o laceration to left index finger s/p accidentally cutting with neck [employer]. Tetanus unknown. Takes ASA PE: 1 cm laceration noted to left index finger palmar aspect. Actively bleeding Plan: Update tetanus, wound repair Discharge Plan Discharge Clinical Impression: Laceration Patient Disposition: Left W/O Completing Treatment Prescriptions: No Action ketotifen fumarate [Alaway] 0.025 % (0.035 %) drops 1 drp ophthalmic (eye) BID PRN (Reason: allergy symptoms) 30 Days Qty: 5 2RF Rx Instructions: administer at least 8 hours apart albuterol sulfate 90 mcg/actuation HFA aerosol inhaler 2 puff inhalation Q6H PRN (Reason: bronchospasm) 30 Days Qty: 6.7 1RF lisinopril 5 mg tablet 5 mg PO DAILY 90 Days Qty: 90 3RF omeprazole 20 mg capsule,delayed release(DR/EC) 20 mg PO DAILY 90 Days Qty: 90 1RF fluoxetine 20 mg capsule 20 mg PO QAM 90 Days Qty: 90 3RF fluticasone propionate 110 mcg/actuation HFA aerosol inhaler 2 puff inhalation BID 30 Days Qty: 12 2RF naproxen 500 mg tablet 500 mg PO BID PRN (Reason: pain) 30 Days Qty: 60 0RF tramadol 50 mg tablet 50 mg PO BEDTIME PRN (Reason: pain) 30 Days Qty: 30 0RF cromolyn 4 % drops 1 drp ophthalmic (eye) DAILY PRN (Reason: itchy eye) acetaminophen 325 mg Tablet 650 mg PO Q6H PRN (Reason: Pain, Mild (Pain Scale 1-3)) 30 Days Qty: 240 0RF docusate sodium 100 mg Capsule 100 mg PO BID 30 Days Qty: 60 0RF lidocaine 5 % adhesive patch,medicated 1 patch topical DAILY PRN (Reason: pain) Qty: 15 0RF Rx Instructions: leave on most painful area for up to 12 hrs prednisone 20 mg tablet 40 mg PO DAILY 5 Days Qty: 10 0RF melatonin 10 mg tablet,disintegrating 20 mg PO BEDTIME PRN (Reason: Insomnia) estradiol [Vagifem] 10 mcg tablet 10 mcg vaginal 2XW Qty: 24 3RF Rx Instructions: use 2x a week. Friday and at bedtime temazepam 7.5 mg capsule 7.5 mg PO BEDTIME PRN (Reason: sleep) 30 Days Qty: 30 0RF Discharge Date/Time: 05/25/25 14:11
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
--- OUTSIDE RECORDS SUMMARY | 2025-05-25 15:16 | XMS_ITS | Encounter Summary ---
Author Organization [employer] [facility] Address [address] [facility] [address] [place] [address] Phone Care Team Providers Care Windows Desktop Engineer Name Role Phone Name, Brian FLORES Primary Care Provider [phone] Melissa Ruiz MD Primary Care Provid er Encounter Details Date Type Department Care Team (Late st Contact Info) Description 08/07/2017 Procedure Pass [facility] [employer] [facility] [address] [place] [address] Social History Tobacco Use Types Packs/Day Years [...] documented as of this encounter Care Teams Windows Desktop Engineer Relationship Specialty Start Date End Date Name, MD Brian [address] [place] [address] PCP - General Geriatric Psychiatry 07/29/17 08/08/19 Melissa Ruiz MD [address] [place] [address] PCP - General Internal Medicine 08/09/19 documented as of this encounter Additional Source Comments The information contained in this document represents components of the legal health record. It is not the complete legal health record.[facility]
--- OUTSIDE RECORDS SUMMARY | 2025-05-25 15:16 | XMS_ITS | Clinical Summary ---
Author Organization [facility] Address [address] [facility] [address] [place] [address] Phone Care Team Providers Care Molder Apprentice Name Role Phone Melissa Ruiz MD Primary [...] ecorded Are you denied basic needs s [facility] as food, clothing, or medical care? [...] VACCINES (50+ years) (2 of 2 - PCV20 or PCV21) 11/20/2018 11/20/2017 CREATININE LEVEL 08/21/2024 08/22/2023, 09/2019, 02/21/2020, Additional history exists POTASSIUM LEVEL 08/21/2024 08/22/2023, 10/09/2019, 02/21/2020, Additional history exists INFLUENZA VACCINE (#1) 2024 9, 02/20/2018, 03/20/2017 COVID-19 VACCINE ( - season) 2025 08/22/2020, 07/25/2020 RSV VACCINE [...] this topic Medical Devices Implanted Type Area Soil Fertility Extension Specialist Device Identifier Shelf Expiration Date Model / Serial / Lot Device Vascular 5fr To 6fr Closure Femoral Artery Intravascular Clip Starclose Bx/10ea - Must Order In Multiples Of 10ea - [id number] Implanted:Qty: 1 on 09/02/2017 by Adria Courtney MD at [facility] Closure Device Right: Femoral Artery [employer] 06/25/2019 [id number] / / [id number] Hardware In Shoulder Hardware In Ankle Procedures Procedure Name Priority Date/Time Associated Diagnosis Comments BASIC METABOLIC PANEL (BMP) STAT 08/22/2023 1:52 PM EDT from Last 3 Months or Most Recently Relevant to Health Maintenance Results * (ABNORMAL) Basic metabolic panel (08/22/2023 1:52 PM EDT) SODIUM 140 133 - 146 mmol/L [facility] CHLORIDE 104 96 - 108 mmol/L [facility] POTASSIUM 4.3 3.3 - 5.1 mmol/L [facility] CO2 28 21 - 35 mmol/L [facility] BUN 17 6 - 19 mg/dL [facility] CREATININE 1.00 0.5 - 1.5 mg/dL [facility] GLUCOSE 102(H) 70 - 99 mg/dL [facility] CALCIUM 9.5 8.4 - 10.3 mg/dL [facility] EGFR 60 >59 mL/min/1.7 3m2 [facility] Comment:Estimated glomerular filtration rate calculated using the CKD-EPI refit equation. ANION GAP 12 10 - 20 mmol/L [facility] Blood 08/22/2023 1:52 PM EDT 08/22/2023 2:05 PM EDT us Rudy Wilkinson MD LAB BLOOD BKR ORDERABLES Final Result [address] [id number] from Last 3 Months or Most Recently Relevant to Health Maintenance Insurance [facility] MEDICARE REPLACEMENT [facility] MEDICARE REPLACEMENT [facility] MEDICARE REPLACEMENT [facility] MEDICARE REPLACEMENT [place] [address] MEDICARE REPLACEMENT [facility] MEDICARE REPLACEMENT [facility] MEDICARE REPLACEMENT [facility] REPLAC[facility] Advance Directives For more information, please contact: [phone] (9AM - 5PM [facility], Friday-Friday) Documents on File Type Date Recorded Patient Financial Reporting Accountant Expl anation Healthcare Proxy 09/03/2017 1:01 PM Care Teams Molder Apprentice Relationship Specialty Start Date End Date Melissa Ruiz MD [address] [place] [address] PCP - General Internal Medicine 08/09/19 Additional Source Comments The information contained in this document represents components of the legal health record. It is not the complete legal health record.[facility]
--- OUTSIDE RECORDS SUMMARY | 2025-05-25 15:16 | XMS_ITS | Encounter Summary ---
Author Organization [facility] Address [address] [place] [address] Phone Care Team Providers Care Briquette Operator Name Role Phone Name, Brian FOLRES Primary Care Provider [phone] Melissa Ruiz MD Primary Care Provid er Encounter Details Date Type Department Care Team (Late st Contact Info) Description 09/01/2017 Prep for Surgery [facility] [address] [place] [address], 7[address] Floor, [address] [place] [address] Caitlin Hay FNP [address] [place] [address] [email or web address] Social History Tobacco Use Types Packs/Day Years [...] documented as of this encounter Care Teams Briquette Operator Relationship Specialty Start Date End Date Name, MD Brian [address] [place] [address] PCP - General Geriatric Psychiatry 07/29/17 08/08/19 Melissa Ruiz MD [address] [place] [address] PCP - General Internal Medicine 08/09/19 documented as of this encounter Additional Source Comments The information contained in this document represents components of the legal health record. It is not the complete legal health record.[facility]
--- OUTSIDE RECORDS SUMMARY | 2025-05-25 15:16 | XMS_ITS | Data Portability ---
Author Organization [place] - [facility], Allergy Address [address] [address] Care Team Providers Care Locksmith Helper Name Role Phone JOSE RAFAEL HILLIARD Primary Care Provider Assessment Encounter Date Assessment Date Assessment LastModified by Organization Details LastModified Time 04/09/2024 04/09/2024 Longstanding history of chronic pharyngitis with negative CT of the neck. Symptoms are intermittent and she is eating, drinking and swallowing without difficulty. Incidental thyroid nodules were found. Follow-up ultrasound to confirm stability and subcentimeter size. No need for any further intervention. She will follow-up with her PCP deandra Not available 04/09/2024 08:50:09 Plan of Treatment Reminders Order Date Submit Date Provider Last Modified By Organization Details Last Modified Time Details Appointments None record ed. Lab None record ed. Referral None record ed. Procedures None record ed. Surgeries None record ed. Imaging None record ed. Medication Orders None record ed. Patient TargetsNo targets recorded. Patient InstructionsNo instructions recorded. Reason for Referral None Reported. Results Created Date Observation Date Name Description Value Unit Range Abnormal Flag Note LastModifiedBy Organization Detail LastModifiedTime 04/06/20 24 04/06/2024 US, thyro id No observ ation record ed. [email or web address] [facility] [address], [address], 04/13/2024 09:46:41 04/08/20 24 04/06/2024 US, thyro id No observ ation record ed. [email or web address] [facility] [address], [address], 04/13/2024 09:46:41 Result Notes None recorded. Problems Name Problem SNOMED Code Status Onset Date Resolution Date Notes Provider Name and Address Organization Details Recorded Time Gastroeso phageal reflux disease without esophagit is 365240480 Active 2019 Gastro-es ophageal reflux disease without esophagit is; Note: Date Diagnosed : 12/07/2019 10:08 AM (K21.9) Not Available [facility] 4 03:13:28 Nasal congestio n 01891697 Active 2019 Nasal congestio n; Note: Date Diagnosed : 12/07/2019 10:08 AM (R09.81) Not Available [facility] 4 03:13:28 Neck pain 20035310 Active 2019 Cervicalg ia; Note: Date Diagnosed : 12/07/2019 10:08 AM (M54.2) Not Available [facility] 4 03:13:28 Disorder of smell 960958465 Active 2019 Other disturban jadon of smell and taste; Note: Date Diagnosed : 12/07/2019 10:08 AM (R43.8) Not Available [facility] 4 03:13:27 Disorder of taste 683040370 Active 2019 Other disturban jadon of smell and taste; Note: Date Diagnosed : 12/07/2019 10:08 AM (R43.8) Not Available [facility] 4 03:13:27 Pain of left temporoma ndibular joint 54527161839 844616 Active 2021 Arthralgi a of left temporoma ndibular joint; Note: Date Diagnosed : 12/14/2021 9:02 AM (M26.622) Not Available [facility] 4 03:13:28 Non-toxic uninodula r goiter 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 Active 2021 Thyroid (cystic) nodule NOS; Note: Date Diagnosed : 12/14/2021 9:02 AM (E04.1) Not Available [facility] 4 03:13:27 Dysphagia 17372647 Active 2021 Dysphagia , unspecifi ed; Note: Date Diagnosed : 12/14/2021 9:03 AM (R13.10) Not Available [facility] 4 03:13:27 Chronic pharyngit is 860356 Active 2021 Chronic sore throat; Note: Date Diagnosed : 2 12:44 PM (J31.2) Not Available [facility] 4 03:13:27 Thyroid nodule 168426452 Active 2023 Elissa beltre, [place] - [facility] 4 11:12:14 Multinodu lar goiter 365962026 Active 2023 CARLOS GARNICA MD [address] [place] [address], [place], [address] , [facility] - [facility] 4 08:49:33 Problem Notes None recorded. Medical Equipment None Reported. Allergies Allergen ID Allergen Name Allergen Category Reaction Reaction Severity Criticality Documentation Date Start Date Code Code System Note Provider Name and Address Organization Details Recorded Time 18987 Shellfish (substanc e) food,medi cation other Not available Not available 10/07/2023 44413 9006 SNOMED React ion: unkno wn, unspe cifie d;; Not Available [facility] 4 00:48:52 Medications Name Sig Start Date Stop Date Status Note LastModified by Organization Details LastModified Time celecoxib 200 mg capsule TAKE 1 CAPSULE BY MOUTH TWO TIMES A DAY FOR 30 DAYS 04/09 completed Not Available Not Available Not Available acetamino phen 325 mg tablet TAKE 2 TABLETS BY MOUTH EVERY 6 HOURS NEEDED FOR MILD PAIN FOR 30 DAYS 04/09 completed Not Available Not Available Not Available peg-elect rolyte solution 420 gram oral solution PLEASE SEE ATTACHED FOR DETAILED DIRECTIO NS 04/09 completed Not Available Not Available Not Available tramadol 50 mg tablet TAKE 1 TABLET ORALLY BEDTIME NEEDED FOR PAIN FOR 30 DAYS active Not Available Not Available No t Available cefadroxi l 500 mg capsule TOME 1 C PSULA POR V A ORAL DOS VECES AL D A POR 10 D 04/09 completed Not Available Not Available Not Available lansopraz ole 30 mg capsule,d elayed release TAKE 1 CAPSULE BY MOUTH 2 TIMES A DAY,X8 WEEKS THEN RETURN TO ONCE DAILY DOSING. 04/09 completed Not Available Not Available Not Available naproxen 500 mg tablet,de layed release 12/13 completed Medicati on ID: [id number] B rand Name: naproxen Send Method: E-Prescr ibed Sub s Allowed: subs OK Medic ationGen ericName : naproxen Not Available Not Available Not Available docusate sodium 100 mg capsule TAKE 1 CAPSULE BY MOUTH 2 TIMES A DAY FOR 30 DAYS 04/09 completed Not Available Not Available Not Available omeprazol e 20 mg capsule,d elayed release TOME 1 C PSULA POR V A ORAL TODOS LOS D active Not Available Not Available No t Available mont[address] [facility] 10 mg tablet 12/13 completed Medicati on ID: [id number] D uration Value: 90 Brand Name: monteluk ast Send Method: E-Prescr ibed Sub s Allowed: subs OK Speci al Instruct ion: TOME ALECIA TABLETA TODOS LOS D EN LA NOCHE Me dication GenericN dee: monteluk ast Not Available Not Available Not Available lisinopri l 5 mg tablet TOME 1 TABLETA POR V A ORAL TODOS LOS D active Not Available Not Available No t Available albuterol sulfate HFA 90 mcg/actua tion aerosol inhaler INHALE DANDO DOS SOPLIDOS EVERY 6 HOURS NEEDED FOR BRONCHOS PASM FOR 30 DAYS active Not Available Not Available No t Available ondansetr on 4 mg disintegr ating tablet 04/09 completed Medicati on ID: [id number] B rand Name: ondanset dee Send Method: E-Prescr ibed Sub s Allowed: subs OK Medic ationGen ericName : ondanset dee Not Available Not Available Not Available fluoxetin e 20 mg capsule TOME ALECIA C PSULA TODOS LOS D EN LA [place] JOSE RAFAEL active Not Available Not Available No t Available fluticaso ne propionat e 110 mcg/actua tion HFA aerosol inhaler INHALE UN SOPLIDO ORALLY 2 TIMES A DAY active Not Available Not Available No t Available naproxen 500 mg tablet TOME 1 TABLETA POR V A ORAL DOS VECES AL D A 04/09 completed Not Available Not Available Not Available oxycodone 5 mg tablet 04/09 completed Not Available Not Available Not Available solifenac in 10 mg tablet TOME 1 TABLETA POR V A ORAL TODOS LOS D active Not Available Not Available No t Available Yuvafem 10 [address] vaginal tablet [address] 1 TABLET VAGINALL Y 2X A WEEK ON FRIDAY AND FRIDAY AT BEDTIME active Not Available Not Available No t Available Vitals None Recorded Social History None recorded. Functional Status None recorded. Mental Status None recorded. Family History Nothing Reported. Medical History Condition Response Hypertension Y GERD/Reflux Y Gynecological HistoryNo gynecological history recorded. Obstetrics History GPAL:G 0 P 0 0 0 0 Past Encounters Encounter ID Performer Location Encounter Start Date Encounter Closed Date Diagnosis/Indication Diagnosis SNOMED-CT Code Diagnosis ICD10 Code Diagnosis IMO Codes Diagnosis Note [id number] CARLOS GARNICA MD [facility] [address] [address] 04/09/2024 08:14:40 04/09/2024 08:49:46 Multinodular goiter 933713335 E04.2 Chronic pharyngitis 1400 04 J31.2 Health Concerns Section Related Observation LastModified by Organization Detai ls LastModified Time None Recorded Concern Status LastModified by Organization Details LastModified Time None Recorded Advance Directives Directive None Recorded Payers Insurance Date Sequence Insurance Name Policy Number Policy Tovar Covered Member ID Tovar Member ID Guarantor Name 04/09/2024 1 [facility] - DOS ON OR AFTER 2022 - [employer] OPTIONS (MEDICARE REPLACEMENT/AD VANTAGE - HMO) Kenna Pérez Gan [id number] Kenna Pérez Gan 04/09/2024 1 [facility] - DOS ON OR AFTER 2022 - MEDICARE [place]VANTAGE [place] (MEDICARE REPLACEMENT/AD VANTAGE - PPO) Kenna Pérez Gan [id number] Kenna Pérez Gan Notes Date Note Type Note Provider Name and Address Organization Details Recorded Time 04/09/2024 text/html Hx of chronic throat irritation and small thyroid nodules. F/u ultrasound showed subcentimeter nodules that required no further interventionNo eating, drinking or swallowing issuesSeen with her ROUGH ROUNDER Tonia Last--interprets for me CARLOS MACDONALD MD [address] [place] [address], [place], [address], [place] - [facility] 04/09/2024 08:50:33 OBGyn Episode No OBEpisode recorded.
--- OUTSIDE RECORDS SUMMARY | 2025-05-25 15:16 | XMS_ITS | Data Portability ---
Author Organization [employer] [facility], [email or web address] Address [address] [place] [address] Care Team Providers Care Sports Medicine Masseur Name Role Phone HIM CCA OTHER Assessment [...] has had no nose bleeding today. VSS. Production Recovery Operator on site reports no distress. Education provided on holding pressure but otherwise appropriate for ongoing outpatient management. [email or web address] Not available 10/30/2023 10:38:43 06/23/2024 06/23/2024 I provided real -time medical direction via phone for this encounter and was available for additional phone-based assistance as needed. I have reviewed and agree with the Assessment and Plan as documented by the Production Recovery Operator. Patient given the opportunity to ask questions. Our service contacted for an assessment of: Viral URI symptoms As per above, patient with approximately several days of viral URI symptoms. Denies fever or chills. Denies chest pain, shortness of breath, dyspnea on exertion. Positive nasal congestion and dry cough. Positive sick contacts. Per sheet pile driver operator on the scene, vital signs are stable and patient is afebrile. Minimal wheezing heard on exam. COVID and Flu are both negative. No increased work of breathing and no distress. Impression: Common cold and viral URI Plan: Continue with [id number]-iht-[id number] medications to control symptoms. Red flags discussed [...] or worsening serious symptoms, particularly fever chills [facility]4 Not available 06/23/2024 22:26:45 Plan of Treatment Reminders Order Date Submit Date Provider Last Modified By Organization Details Last Modified Time Details Appointments None recorded. Lab rapid flu (A+B) [address], [address] [place] [address] 22:26:10 rapid SARS CoV 2 Ag, QL [place], respiratory specimen [address], [address] 22:26:11 Referral None recorded. Procedures None recorded. [...] IA, respiratory specimen negati ve Not Available [address], [address] 06/23/2024 22:25:51 06/23/1906/23/2024 rapid flu (A+B) Flu negati ve Not Available [address], [address] 06/23/2024 22:25:49 Result Notes None recorded. Medical Equipment None Reported. Allergies Allergen ID Allergen Name Allergen Category Reaction Reaction Severity Criticality Documentation Date Start Date Code Code System Note Provider Name and Address Organization Details Recorded Time 63776 doxepin medicatio n Not available Not available Not available 06/23/2024 3638 RxNorm Not Available [facility] - production 10:44:35 68165 morphine medicatio n Not available Not available Not available 06/23/2024 7052 RxNorm Not Available [facility] - production 5 10:44:35 8387 trazodone medicatio n Not available Not available Not available 03/23/2024 15248 RxNorm Not Available [facility] - production 4 03:43:57 Medications Name [...] Vitals Date Recorded Body temperature Oxygen saturation Respiratory rate Heart rate Systolic And Diastolic Provider Name and Address Organization Details Last Updated DateTime 5 98.8 [degF] 96 % 16 /min 82 /min 122/60 mm[Hg] Not Available [facility] - production 5 22:24:15 Date Recorded Body weight Body temperature Respiratory rate Heart rate Oxygen saturation Systolic And Diastolic Provider Name and Address Organization Details Last Updated DateTime 4 47306.9 6 g 97.8 [degF] 16 /min 82 /min 96 % 164/72 mm[Hg] Not Available [facility] - production 4 10:34:16 Social History None [...] ICD10 Code Diagnosis IMO Codes Diagnosis Note [id number] Kenisha Shultz MD Main - [facility] [address] [place] [phone] 10/30/2023 10:23:41 10/31/2023 20:59:38 Bleeding from nose 074236558 R04.0 [id number] Brianda Rogers MD Main - [facility] [address] [place] [address] 06/23/2024 22:24:13 06/23/2024 23:58:30 Common cold 88357790 J00 Health Concerns Section Related Observation LastModified by Organization Detai ls LastModified Time None Recorded Concern Status LastModified by Organization Details LastModified Time None Recorded Advance Directives Directive None Recorded Payers Insurance Date Sequence Insurance Name Policy Number Policy Tovar Covered Member ID Tovar Member ID Guarantor Name 06/24/2024 1 [facility] - DOS ON OR AFTER 2022 - DUAL ELIGIBLE - [employer] OPTIONS AND ONE CARE (MEDICARE REPLACEMENT/AD VANTAGE - HMO) Kenna Gan [id number] Kenna Gan Notes Date Note Type Note Provider Name and Address Organization Details Recorded Time 10/30/2023 text/html HPI: *Mbr requesting visit before 10:30am or after 5-6pm, please call ahead. Has PT coming to her house ~11:30am and ortho appt at 3pm* 73 y.o. Icelandic-speaking F c/o nosebleed from R nare, lasting [...] improved since. She c/o urinary urgency at recently. Mbr had cystoscopy earlier today and [...] ................... ................... ................... ................... ................... ................... ........ Production Recovery Operator Note From Marlo Holloway: Pt sts FIRE PREVENTION FORESTER called in due to minor nose bleed. [...] Pt education on signs indicating the ER. Production Recovery Operator Allergies: Trazodone ................... ................... ................... ................... ................... ................... ................... ........ Disposition: Fulfilled Kenisha Shultz MD [address] [place] [address],[address], [place], [address], [employer] 10/30/2023 19:39:30 06/23/2024 text/html CRC Nurse Triage [...] Cough PMH: COPD/Asthma, Hypertension PMH Reviewed at 06/23/202444 Allergies Reviewed at 06/23/2024:44 Comments: Other PMH: [...] s/s and seek emergency treatment if needed. Production Recovery Operator Organization Information for Mauro Nelson [employer] Name: [employer]. Address: [address] [place] [address], Shower Room Attendant: Satnam Spivey MD ALYSA No.: [id number] Production Recovery Operator POC Test Results from Mauro Nelson Rapid COVID antigen (15:45:11) COVID: - Rapid influenza antigen (15:45:13) Flu: - ................... ................... ................... ................... ................... ................... ................... ........ Production Recovery Operator Note From Mauro Nelson: Dispatch the call [...] ................... ................... ................... ................... ................... ................... ........ [facility] Consulted: Brianda Rogers ................... ................... ................... ................... ................... ................... ................... ........ Disposition: Fulfilled Brianda Rogers MD [address] [facility],[address], [place], [address], MARY - [employer] 06/23/2024 22:27:14 OBGyn Episode No OBEpisode recorded.
--- OUTSIDE RECORDS SUMMARY | 2025-05-25 15:16 | XMS_ITS | Encounter Summary ---
Author Organization [facility] Address [address] [place] [address] [place] [address] Phone Care Team Providers Care Reinforcer Name Role Phone Name, Brian FLORES Primary Care Provider [phone] Melissa Ruiz MD Primary Care Provid er Encounter Details Date Type Department Care Team (Late st Contact Info) Description 09/02/2017 Procedure Pass [facility] [address] [place] [phone] Social History Tobacco Use Types Packs/Day Years [...] documented as of this encounter Care Teams Reinforcer Relationship Specialty Start Date End Date Name, MD Brian [address] [place] [address] PCP - General Geriatric Psychiatry 07/29/17 08/08/19 Melissa Ruiz MD [address] [place] [address] PCP - General Internal Medicine 08/09/19 documented as of this encounter Additional Source Comments The information contained in this document represents components of the legal health record. It is not the complete legal health record.[facility]
--- OUTSIDE RECORDS SUMMARY | 2025-05-25 15:16 | XMS_ITS | Encounter Summary ---
Author Organization [facility] Address [address] [facility] [address] [place] [address] Phone Care Team Providers Care City Engineer Name Role Phone Name, Brian FLORES Primary Care Provider [phone] Melissa Ruiz MD Primary Care Provid er Encounter Details Date Type Department Care Team (Late st Contact Info) Description 10/30/2017 Procedure Pass [facility] [place] [address] [facility], [address] [place] [address] Social History Tobacco Use Types Packs/Day Years [...] documented as of this encounter Care Teams City Engineer Relationship Specialty Start Date End Date Name, MD Brian [address] [place] [address] PCP - General Geriatric Psychiatry 07/29/17 08/08/19 Melissa Ruiz MD [address] [place] [address] PCP - General Internal Medicine 08/09/19 documented as of this encounter Additional Source Comments The information contained in this document represents components of the legal health record. It is not the complete legal health record.[facility]
--- OUTSIDE RECORDS SUMMARY | 2025-05-25 15:16 | XMS_ITS | Patient Health Record ---
Author Organization [facility] Address [address] [place] [address] Care Team Providers Care Glazier Supervisor Name Role Phone Radhames Alston Unavailable [phone] Reason For Referral No Information Plan Of Treatment No Information
--- OUTSIDE RECORDS SUMMARY | 2025-05-25 15:16 | XMS_ITS | Encounter Summary ---
Author Organization [facility] Address [address] [facility] [address] [place] [address] Phone Care Team Providers Care Senior Net Programmer Name Role Phone Melissa Ruiz MD Primary Care Provid er Encounter Details Date Type Department Care Team (Late st Contact Info) Description 02/28/2020 Transcribe Orders [facility] Specimen Processing [address] [place] [address] Cem Castellano MD [address] [facility], [address] [place] [address] [email or web address] Essential hypertension, malignant (Primary Dx); Scapulohumeral fibrositis; [...] EDT) WBC 5.19 4.00 - 11.00 K/uL [facility] Comment:Note Reference Range updates to all CBC and Differential results. RBC 3.22(L) 3.72 - 5.30 M/uL [facility] HGB 9.7(L) 11.4 - 15.9 g/dL [facility] Comment:Note updated Referen ce Ranges for all CBC and Differential results. HCT 31.8(L) 34.2 - 46.8 % [facility] PLT 430 140 - 430 K/uL [facility] MCV 98.8(H) 78.0 - 97.0 fL [facility] MCH 30.1 25.0 - 33.0 pg [facility] MCHC 30.5(L) 32.0 - 36.0 g/dL [facility] RDW 16.4(H) 11.0 - 16.0 % [facility] MPV 10.0 8.4 - 12.8 fl [facility] NRBC 0.00 0 /100 WBCs [facility] ABSOLUTE NRBC 0.00 0 K/uL [facility] Blood 02/28/2020 5:30 AM EDT 02/28/2020 12:09 PM EDT us Cem Castellano MD LAB BLOOD BKR ORDERABLES Final R esult [address] [address] * (ABNORMAL) Basic metabolic panel (02/28/2020 5:30 AM EDT) SODIUM 141 133 - 146 mmol/L [facility] CHLORIDE 104 96 - 108 mmol/L [facility] POTASSIUM 4.8 3.3 - 5.1 mmol/L [facility] CO2 28 21 - 35 mmol/L [facility] BUN 20(H) 6 - 19 mg/dL [facility] CREATININE 0.70 0.5 - 1.5 mg/dL [facility] GLUCOSE 82 70 - 99 mg/dL [facility] CALCIUM 9.6 8.4 - 10.3 mg/dL [facility] EGFR 90 >59 mL/min/1.7 3m2 [facility] Comment:Estimated glomerular filtration rate calculated using the CKD-EPI equation. ANION GAP 14 10 - 20 mmol/L [facility] Blood 02/28/2020 5:30 AM EDT 02/28/2020 12:09 PM EDT us Cem Castellano MD LAB BLOOD BKR ORDERABLES Final R esult [facility] [address] [place] [address] documented in this encounter Visit Diagnoses Diagnosis [...] documented as of this encounter Care Teams Senior Net Programmer Relationship Specialty Start Date End Date Melissa Ruiz MD [address] [place] [address] PCP - General Internal Medicine 08/09/19 documented as of this encounter Additional Source Comments The information contained in this document represents components of the legal health record. It is not the complete legal health record.[facility]
--- OUTSIDE RECORDS SUMMARY | 2025-05-25 15:16 | XMS_ITS | Encounter Summary ---
Author Organization [facility] Address [address] [place] [address] [place] [address] Phone Care Team Providers Care Train Planner Name Role Phone Name, Brian FLORES Primary Care Provider [phone] Melissa Ruiz MD Primary Care Provid er Encounter Details Date Type Department Care Team (Late st Contact Info) Description 09/02/2017 Procedure Pass [facility] [place] - Peripoerative Interventional Radiology [address] [place] [address], [address] [place] [address] Social History Tobacco Use Types Packs/Day Years [...] documented as of this encounter Care Teams Train Planner Relationship Specialty Start Date End Date Name, MD Brian [address] [place] [address] PCP - General Geriatric Psychiatry 07/29/17 08/08/19 Melissa Ruiz MD [address] [place] [address] PCP - General Internal Medicine 08/09/19 documented as of this encounter Additional Source Comments The information contained in this document represents components of the legal health record. It is not the complete legal health record.[facility]
== END 2025-05-25 14:11 | disposition left against medical advice (07) ==
LOC: HO.ED 14:00
PROVIDERS: Emergency Provider Emergency Medicine; PCP Student in an Organized Health Care Education/Training Program
DX: S61.219A Laceration without foreign body of unspecified finger without damage to nail, initial encounter (principal); X58.XXXA Exposure to other specified factors, initial encounter; Y93.9 Activity, unspecified; Y92.9 Unspecified place or not applicable; Y99.9 Unspecified external cause status; Z53.21 Procedure and treatment not carried out due to patient leaving prior to being seen by health care provider
CPT/HCPCS: 99281